=== PATIENT | male | born 1950 | race Caucasian/White ===

== ENCOUNTER 2020-04-13 14:44 | Outpatient (REF) | payer MEDICARE, SELFPAY ==
[2020-04-13 16:03] LABS: Alanine Aminotransferase 19 U/L (0-40); Albumin Level 4.2 g/dL (3.5-5.0); Alkaline Phosphatase 68 U/L (39-117); Anion Gap 15 (12-20); Aspartate Amino Transferase 12 U/L (5-37); Bilirubin Total 0.4 mg/dL (0.0-1.0); Blood Urea Nitrogen 15 mg/dL (9-16); Calcium 8.4 mg/dL (8.4-10.2); Carbon Dioxide 24 mmol/L (22-29); Chloride 104 mmol/L (96-108); Cholesterol 289 mg/dL; Estimated Glomerular Filt Rate > 60; Glucose Fasting 138 mg/dL (60-99); HDL Cholesterol 35 mg/dL; Sodium 139 mmol/L (135-145); Total Protein 6.8 g/dL (6.5-8.0); Triglycerides 501 mg/dL
== END 2020-04-13 14:45 | disposition home or self-care (01) ==
LOC: HO.LAB 14:44
PROVIDERS: PCP Internal Medicine; Visit Provider Internal Medicine
DX: E11.9 Type 2 diabetes mellitus without complications (principal); E78.2 Mixed hyperlipidemia
CPT/HCPCS: 80053; 80061

== ENCOUNTER 2020-04-19 11:07 | Day surgery (SDC) | payer OTHER, SELFPAY ==
--- NOTE | 2020-04-18 09:21 | HO.ANESPROP2 ---
Documented by User: Kelly Jamesney 04/18/20 09:35 HPI - Anesthesia Eval Consult details Narrative: 70yo M for Colonoscopy Cardiac cleared at [facility]. Avoid sudden fluid shifts. FORMERLY [facility] Past Medical History Medical History Afib Anemia Cardiomyopathy CHF (congestive heart failure) COPD (chronic obstructive pulmonary disease) Depression with anxiety Diabetes type 2, uncontrolled Essential hypertension GERD (gastroesophageal reflux disease) Hearing loss HLD (hyperlipidemia) HTN (hypertension) ICD (implantable 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-defibrillator) in place Pure hypercholesterolemia Family History Family History Father Cancer Mother Cancer Family/Other Diabetes CHF (congestive heart failure) Surgical History Surgical History History of cardiac defibrillator placement History of thumb surgery Social History Social History Smoking Status: Never smoker Tobacco Type: Cigarette Use of substances other than those prescribed or required for medical reasons: No Advance Directives: No Advance Directives Information Provided: Yes Meds Allergies Allergy/AdvReac Type Severity Reaction Status Date / Time atorvastatin [Lipitor] Allergy Unknown stomach Verified 04/16/20 14:33 aches dog Allergy Unknown Unknown Verified 04/16/20 14:33 grass Allergy Unknown Unknown Verified 04/16/20 14:33 mosquitos Allergy Unknown Unknown Verified 04/16/20 14:33 roaches Allergy Unknown Unknown Verified 04/16/20 14:33 trees Allergy Unknown Unknown Verified 04/16/20 14:33 Home Medications Medication Instructions Recorded Confirmed Type apixaban 5 mg tablet 5 mg PO BID 04/16/20 04/16/20 History carvedilol 25 mg tablet 50 mg PO BID 04/16/20 04/16/20 History clonazepam 0.5 mg tablet 0.5 mg PO DAILY PRN 04/16/20 04/16/20 History duloxetine 30 mg capsule,delayed 30 mg PO BID 04/16/20 04/16/20 History release duloxetine 60 mg capsule,delayed 0 mg PO 04/16/20 04/16/20 History release famotidine 40 mg tablet 0 mg PO 04/16/20 04/16/20 History gabapentin 400 mg capsule 400 mg PO TID 04/16/20 04/16/20 History insulin degludec 100 unit/mL (3 unit SUBCUT 04/16/20 04/16/20 History mL) subcutaneous pen lancets 28 gauge #100 ea 04/16/20 04/16/20 History metformin 500 mg tablet,extended 1,000 mg PO BID 04/16/20 04/16/20 History release 24 hr pen needle, diabetic 32 gauge x #50 ea 04/16/20 04/16/20 History sacubitril 49 mg-valsartan 51 mg 1 tab PO BID 04/16/20 04/16/20 History tablet Exam Exam Date and Time: April 18, 2020920 Pertinent Lab Results Pertinent Lab Results: Laboratory Tests 04/13/20 14:55 Sodium 139 Potassium 4.0 Chloride 104 Carbon Dioxide 24 BUN 15 Creatinine 1.01 Narrative Narrative: EKG 01/2020: SR @ 78 with First degree AV block, LAD, Incomplete LBB, ST&T wave abn, consider lateral ischemia ECHO 01/2020: LV sys function severely decreased, EF 15-20%, severe global hypokinesis, akinetic inferoseptal wall, basal inferior, mid inferior, mid inferolateral segments, No obvious valve pathology ICD Interr 10/2019: VVI-40, No arrhythmias noted, Pacing and shock lead impedance stable, Ventricular sensing is adequate, Vent pacing thresholds slightly elevated (reprogrammed 02/28/[address] Canchola to enhance safety), Battery life adequate Assessment and Plan Assessment Anesthesia Assessment: Chart Reviewed Documented by User: Garry Peña MD 04/19/20 12:37 [facility]LY [facility] Past Medical History Medical History Afib Anemia Cardiomyopathy CHF (congestive heart failure) COPD (chronic obstructive pulmonary disease) Depression with anxiety Diabetes type 2, uncontrolled Essential hypertension GERD (gastroesophageal reflux disease) Hearing loss HLD (hyperlipidemia) HTN (hypertension) ICD (implantable 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-defibrillator) in place Pure hypercholesterolemia Family History Family History Father Cancer Mother Cancer Family/Other Diabetes CHF (congestive heart failure) Surgical History Surgical History History of cardiac defibrillator placement History of thumb surgery Social History Social History Smoking Status: Never smoker Tobacco Type: Cigarette Use of substances other than those prescribed or required for medical reasons: No Advance Directives: No Advance Directives Information Provided: Yes Meds Allergies Allergy/AdvReac Type Severity Reaction Status Date / Time atorvastatin [Lipitor] Allergy Unknown stomach Verified 04/16/20 14:33 aches dog Allergy Unknown Unknown Verified 04/16/20 14:33 grass Allergy Unknown Unknown Verified 04/16/20 14:33 mosquitos Allergy Unknown Unknown Verified 04/16/20 14:33 roaches Allergy Unknown Unknown Verified 04/16/20 14:33 trees Allergy Unknown Unknown Verified 04/16/20 14:33 Home Medications Medication Instructions Recorded Confirmed Type apixaban 5 mg tablet 5 mg PO BID 04/16/20 04/16/20 History carvedilol 25 mg tablet 50 mg PO BID 04/16/20 04/16/20 History clonazepam 0.5 mg tablet 0.5 mg PO DAILY PRN 04/16/20 04/16/20 History duloxetine 30 mg capsule,delayed 30 mg PO BID 04/16/20 04/16/20 History release duloxetine 60 mg capsule,delayed 0 mg PO 04/16/20 04/16/20 History release famotidine 40 mg tablet 0 mg PO 04/16/20 04/16/20 History gabapentin 400 mg capsule 400 mg PO TID 04/16/20 04/16/20 History insulin degludec 100 unit/mL (3 unit SUBCUT 04/16/20 04/16/20 History mL) subcutaneous pen lancets 28 gauge #100 ea 04/16/20 04/16/20 History metformin 500 mg tablet,extended 1,000 mg PO BID 04/16/20 04/16/20 History release 24 hr pen needle, diabetic 32 gauge x #50 ea 04/16/20 04/16/20 History sacubitril 49 mg-valsartan 51 mg 1 tab PO BID 04/16/20 04/16/20 History tablet Exam Airway TM Dist: >3cm Neck ROM: Full Denture: Upper and Lower Assessment and Plan Assessment Anesthesia Assessment: Anesthesia Plan Discussed and Chart Reviewed Final Anesthetic Review NPO: Yes ASA Class: IV Final Preanesthetic Review: No Changes in Pt Med Stat, Meds/Allgs Chart Reviewed, Consent Obtained/Reviewed and Anes Risks/Benef Reviewed Patient Risk: High Procedure Risk: Low Anesthetic Plan Anesthetic Plan: MAC: Disposition: Standard PACU
[2020-04-19 11:22] VITALS: BMI 33.6
[2020-04-19 11:30] VITALS: BP 141/75; PULSE 90; RESP 16; TEMP 36.2; O2SAT 97
[2020-04-19 11:31] LABS: Glucose, Whole Blood 115 mg/dL (60-115)
--- NOTE | 2020-04-19 12:31 | P.HPSUR_ITS ---
Pre-Procedural Eval Section B Chief Complaint: SCREENING Relevant Family History (Specify if Yes): No Relevant Social History: None Present Medications: see Short Stay Collaborative assessment Medical History: Significant History (chf,obese, HLP, fatty liver, ICD,asthma) History of Previous Operations: Relevant previous surgery/procedure and date(s) (pacemaker, ICD) Allergies: Allergies Allergy/AdvReac Type Severity Reaction Status Date / Time atorvastatin [Lipitor] Allergy Unknown stomach Verified 04/16/20 14:33 aches dog Allergy Unknown Unknown Verified 04/16/20 14:33 grass Allergy Unknown Unknown Verified 04/16/20 14:33 mosquitos Allergy Unknown Unknown Verified 04/16/20 14:33 roaches Allergy Unknown Unknown Verified 04/16/20 14:33 trees Allergy Unknown Unknown Verified 04/16/20 14:33 Review of Systems Sugical H&P ROS: Negative: Constitution, Cardiovascular, Respiratory, Neurological, Psychiatric, Hem-Onc, Allergic/Immunologic, Gastrointestinal, Genitourinary, Musculoskeletal, Integumentary, Endocrine and Eyes/Ears/Nose/Throat Exam Surgical H&P Exam: Normal: HEENT, Normal: Heart, Normal: Lungs, Normal: Ext remities, Normal: Abdomen, Normal: Skin and Normal: Neurological Plan Diagnosis/Plan: Unchanged Patient has been examined and remains a candidate for the planned procedure
--- NOTE | 2020-04-19 12:32 | PM.OP ---
Brief Operative Note Date of Service: 04/19/20 Pre-op diagnosis: colon screen Post-op diagnosis: same Procedure: see op note Surgeon: Elpidio Zuñiga MD Anesthesia: MAC Estimated blood loss (mL): 0 Condition: stable Disposition: PACU
--- NOTE | 2020-04-19 12:32 | W.PM.OPN ---
Operative Note Operative Note Date of Service: 04/19/20 Narrative: Operative Information Procedure Description: Colonoscopy COLONOSCOPY Instrument: Olympus variable stiffness pediatric scope 190L Colonoscopy Monitoring: Vital signs and clinical assessment, continuous EKG monitoring, Pulse oximetry, Carbon Dioxide monitoring and blood pressure monitoring were done throughout the procedure. Colon withdrawal time was [] minutes. Procedure: The patient was placed in the left lateral decubitis position and pre-procedure medications were administered. After a digital rectal examination of the ano-rectum, the video colonoscope was inserted into the rectum and advanced through the colon to the cecum/TI. The colonoscope was slowly withdrawn in a retrograde panoramic fashion and the colon mucosa was carefully examined including a retroflexed view of the rectum. Findings and interventions are described below. Procedure Difficulty: Findings: Terminal Ileum-normal Cecum:normal Ascending Colon: normal Transverse Colon -normal Descending Colon:normal Sigmoid Colon: normal Rectum: Retroflexion with [] internal hemorrhoids, grade [] Anorectum - normal Colon preparation: [place] Bowel Preparation Scale Right colon; [] Transverse colon: [] Left colon; [] (0 = Unprepared colon segment with mucosa not seen due to solid stool that cannot be cleared. 1 = Portion of mucosa of the colon segment seen, but other areas of the colon segment not well seen due to staining, residual stool and/or opaque liquid. 2 = Minor amount of residual staining, small fragments of stool and/or opaque liquid, but mucosa of colon segment seen well. 3 = Entire mucosa of colon segment seen well with no residual staining, small fragments of stool or opaque liquid) Impression and Post Procedure Diagnosis: [] Plan: High fiber diet leaflet Avoid straining at stool, epsom salts and sitz bath, anusol supps or cream Repeat Colonoscopy in [] years or earlier if clincially indicated Above findings were reviewed with the patient and relevant handouts were provided if indicated.
--- NOTE | 2020-04-19 13:19 | P.OP_ITS ---
Operative Note Operative Note Date of Service: 04/19/20 Narrative: Operative Information Procedure Description: Colonoscopy COLONOSCOPY Instrument: Olympus variable stiffness pediatric scope 190L Colonoscopy Monitoring: Vital signs and clinical assessment, continuous EKG monitoring, Pulse oximetry, Carbon Dioxide monitoring and blood pressure monitoring were done throughout the procedure. Colon withdrawal time was 16 minutes. Procedure: The patient was placed in the left lateral decubitis position and pre-procedure medications were administered. After a digital rectal examination of the ano-rectum, the video colonoscope was inserted into the rectum and advanced through the colon to the cecum/TI. The colonoscope was slowly withdrawn in a retrograde panoramic fashion and the colon mucosa was carefully examined including a retroflexed view of the rectum. Findings and interventions are described below. Procedure Difficulty: mildly difficult due to prep Findings: Terminal Ileum-not seen due to debris and poor prep Cecum:normal Ascending Colon: normal Transverse Colon -normal Descending Colon: diverticulosis noted Sigmoid Colon: severe diverticulosis with multiple wide mouthed tics, 12 mm pedunculated polyp removed with cold snare and base of stalk clipped x 2, with no bleeding noted. another 6-7 mm sessile polyp removed with cold snare. Rectum: Retroflexion with moderate sized internal hemorrhoids, grade I Anorectum - normal Colon preparation: [place] Bowel Preparation Scale Right colon; 1 Transverse colon: 1 Left colon; 1 (0 = Unprepared colon segment with mucosa not seen due to solid stool that cannot be cleared. 1 = Portion of mucosa of the colon segment seen, but other areas of the colon segment not well seen due to staining, residual stool and/or opaque liquid. 2 = Minor amount of residual staining, small fragments of stool and/or opaque liquid, but mucosa of colon segment seen well. 3 = Entire mucosa of colon segment seen well with no residual staining, small fragments of stool or opaque liquid) Impression and Post Procedure Diagnosis: internal hemorrhoids diverticular disease polyps Plan: High fiber diet leaflet Avoid straining at stool, epsom salts and sitz bath, anusol supps or cream Repeat Colonoscopy in 6-8 months due to poor prep, needs to be compliant with instructions may need 2 d of clears Restart eliquis in 48 hours, if any profuse rectal bleeding needs to come to ED for assessment Above findings were reviewed with the patient and relevant handouts were provided if indicated.
[2020-04-19 13:23] VITALS: BP 114/71; PULSE 95; RESP 16; TEMP 36.2; O2SAT 97
[2020-04-19 13:38] VITALS: PULSE 83; O2SAT 97
[2020-04-19 13:53] VITALS: BP 127/69; PULSE 79; RESP 16; TEMP 36.2; O2SAT 97
== END 2020-04-19 14:23 | disposition home or self-care (01) ==
PROVIDERS: PCP Internal Medicine; Visit Provider Internal Medicine Gastroenterology
PROC: 0DJD8ZZ Inspection of Lower Intestinal Tract, Via Natural or Artificial Opening Endoscopic (ICD-10-PCS; CPT 45378; principal; 2020-04-19 12:30)
DX: Z12.11 Encounter for screening for malignant neoplasm of colon (principal); D12.5 Benign neoplasm of sigmoid colon; K51.40 Inflammatory polyps of colon without complications; K57.30 Diverticulosis of large intestine without perforation or abscess without bleeding; K64.0 First degree hemorrhoids; K21.9 Gastro-esophageal reflux disease without esophagitis; I48.91 Unspecified atrial fibrillation; J44.9 Chronic obstructive pulmonary disease, unspecified; E11.649 Type 2 diabetes mellitus with hypoglycemia without coma; Z79.4 Long term (current) use of insulin; E11.21 Type 2 diabetes mellitus with diabetic nephropathy; I11.0 Hypertensive heart disease with heart failure; I50.9 Heart failure, unspecified; Z79.899 Other long term (current) drug therapy; Z79.01 Long term (current) use of anticoagulants; Z95.810 Presence of automatic (implantable) cardiac defibrillator; Z87.891 Personal history of nicotine dependence; Z88.8 Allergy status to other drugs, medicaments and biological substances
CPT/HCPCS: 45385; 82947; 88305

== ENCOUNTER → 2020-04-24 12:58 | Outpatient (BNVA) | payer OTHER, SELFPAY | PROVIDERS: PCP Internal Medicine; Referring Provider Internal Medicine; Visit Provider Internal Medicine | DX: J98.4 Other disorders of lung (principal); J45.909 Unspecified asthma, uncomplicated; Z79.899 Other long term (current) drug therapy | CPT/HCPCS: 99212 ==

== ENCOUNTER → 2020-05-08 13:51 | Outpatient (BNVA) | payer OTHER, SELFPAY | PROVIDERS: PCP Internal Medicine; Referring Provider Internal Medicine; Visit Provider Internal Medicine Endocrinology, Diabetes & Metabolism | DX: E11.649 Type 2 diabetes mellitus with hypoglycemia without coma (principal); E11.21 Type 2 diabetes mellitus with diabetic nephropathy; I10 Essential (primary) hypertension; E78.00 Pure hypercholesterolemia, unspecified; Z95.810 Presence of automatic (implantable) cardiac defibrillator; Z79.4 Long term (current) use of insulin | CPT/HCPCS: 82947; 99212 ==

== ENCOUNTER 2020-06-18 11:05 | Outpatient (REF) | payer OTHER, SELFPAY ==
[2020-06-18 12:00] LABS: Alanine Aminotransferase 26 U/L (0-40); Albumin Level 4.2 g/dL (3.5-5.0); Alkaline Phosphatase 70 U/L (39-117); Anion Gap 14 (12-20); Aspartate Amino Transferase 12 U/L (5-37); Bilirubin Total 0.3 mg/dL (0.0-1.0); Blood Urea Nitrogen 13 mg/dL (9-16); Calcium 8.7 mg/dL (8.4-10.2); Carbon Dioxide 23 mmol/L (22-29); Chloride 105 mmol/L (96-108); Cholesterol 180 mg/dL; Estimated Glomerular Filt Rate > 60; Glucose Fasting 153 mg/dL (60-99); HDL Cholesterol 36 mg/dL; Potassium 3.8 mmol/l (3.3-5.1); Sodium 138 mmol/L (135-145); Total Protein 6.8 g/dL (6.5-8.0); Triglycerides 431 mg/dL
== END 2020-06-18 11:06 | disposition home or self-care (01) ==
LOC: HO.LAB 11:05
PROVIDERS: Visit Provider Internal Medicine
DX: E78.00 Pure hypercholesterolemia, unspecified (principal); E55.9 Vitamin D deficiency, unspecified
CPT/HCPCS: 36415; 80053; 80061

== ENCOUNTER → 2020-08-13 12:51 | Outpatient (REF) | payer OTHER, SELFPAY ==
--- NOTE | 2020-08-13 12:55 | CA_ITS ---
Transthoracic Echocardiogram Patient (Last, First, Middle): Stephen Mcintosh L Gender: Male Date of : 1950 Age: 70 Procedure Date: 08/13/2020 Procedure Type: Transthoracic Echocardiogram Location: OP Height: 170.18 cm Weight: 97.52 kg BSA: 2.09 m2 Heart Rate: bpm BP: 126 / 80 mmHg Drug And Alcohol Counselor: Referring MD: Bk Canchola MD [employer]: Bk Canchola MD Symptoms: CARDIOMYOPATHY, CHRONIC SYSTOLIC HEART FAILURE, PAROXYSM AF Study Quality: Fair ECG Rhythm: Sinus Conclusions: - 1. Mildly dilated left ventricle with severe LV systolic dysfunction with LVEF of 15-20% with restrictive filling 2. Moderately dilated left atrium 3. Mild aortic regurgitation 4. Normal RV systolic pressure 5. No gross pericardial effusion Findings Left Ventricle Mildly increased left ventricular cavity size. There is normal left ventricular wall thickness. The left ventricular systolic function is severely decreased. The visually estimated ejection fraction is between 15 20%. Spectral Doppler is indicative of a restrictive filling pattern. E/E prime ratio is between 8 and 15 consistent with indeterminate filling pressures. Wall Motion Rest Echo Findings The apical lateral and mid anterolateral segments are hypokinetic. The inferoseptal wall, inferior wall, the apex, apical septum, and mid anteroseptal segments are akinetic. All other scored wall segments showed normal motion. Right Ventricle Normal right ventricular cavity size and systolic function. There is an ICD wire seen in the right ventricle. Atria The left atrium is moderately dilated. There is no evidence of interatrial shunt. The right atrium is mildly dilated. A pacemaker wire is identified in the right atrium. Aortic Valve The aortic valve was not well visualized. There is mild calcification of the aortic valve. There is no aortic valve stenosis. There is mild aortic valve regurgitation. Mitral Valve There is mild anterior and posterior mitral leaflet thickening. There is mild mitral annular calcification. There is trace mitral valve regurgitation. There is no mitral valve stenosis. Pulmonic Valve The pulmonic valve was not well visualized. Tricuspid Valve The right ventricular systolic pressure is normal. The right ventricular systolic pressure is 23 mmHg. There is no evidence of pulmonary hypertension. Great Vessels All visible segments of the aorta are normal in size. The pulmonary artery was not well visualized. Venous The inferior vena cava is normal in size and collapses greater than 50% with inspiration. Pericardium/Pleural There is no evidence of pericardial effusion. Prior Study Comparison No significant change compared to prior study dated: 02/02/2020. Measurements 2D Linear Measurements IVSd: 0.88 0.6-0.9/0.6-1.0 cm LVIDd: 5.86 3.9-5.3/4.2-5.9 cm LVIDd Index: 2.80 2.4-3.2/2.2-3.1 cm/m2 LVIDs: 5.38 2.0-3.6 cm LVPWd: 0.95 0.7-1.1 cm Ao Root: 3.70 2.1-3.5 cm LA Diam: 3.70 2.7-3.8/3.0-4.0 cm LAIDs Index: 1.77 1.5-2.3 cm/m2 LV Mass: 262.38 67-162/88-224 g LV Mass Index: 125.54 43-95/49-115 g/m2 LVOT Diam: 2.70 3.0+(-)1.3 cm 2D Systolic Function EF 4C: 25.90 >55% EF 2C: 21.50 >55% Mitral Valve MV Pk E: 0.94 MV PK A: 0.49 MV Decel Time: 165.00 E/A: 1.90 E'Lateral: 8.16 E'Medial: 3.81 E/E' Med: 24.80 E/E' Lat: 11.60 PHT: 48.00 MVA PHT: 4.58 Decel Grainger: 5.71 Aortic Valve AoV Pk Jamie: 1.66 AoV Mn Jamie: 1.16 AoV VTI: 0.34 AoV Pk Grad: 11.00 Aov Mn Grad: 6.00 ALAN Cont.VTI: 2.60 LVOT LVOT Pk Jamie: 0.72 LVOT Mn Jamie: 0.52 LVOT VTI: 0.16 LVOT Pk Grad: 2.00 LVOT Mn Grad: 1.00 LVOT Diam: 2.70 LVOT Area: 5.73 Diastolic Function MV Pk E: 0.94 MV Pk A: 0.49 E/A: 1.90 E'Medial: 3.81 E/E' Med: 24.80 E' Laterial: 8.16 E/E' Lat: 11.60 Tricuspid Valve TR Pk Jamie: 2.21 TR Pk Grad: 20.00 RA Press: 3.00 RVSP: 23.00 Great Vessels Aorta Ao Root-2D: 3.70 2.0-3.7 cm Pulmonary Valve PV Pk Jamie: 0.92 Peak PV Grad: 3.00 Updated in Other Vendor System with Status of Final Bk Canchola MD electronically signed on 08/13/2020 5:25:02 PM with status of Final
== END ==
LOC: HO.CARD 12:51
PROVIDERS: PCP Internal Medicine; Visit Provider Internal Medicine Cardiovascular Disease
DX: I42.9 Cardiomyopathy, unspecified (principal); I50.22 Chronic systolic (congestive) heart failure; I48.0 Paroxysmal atrial fibrillation
CPT/HCPCS: 93306; Q9957

== ENCOUNTER → 2020-08-28 13:42 | Outpatient (BNVA) | payer OTHER, SELFPAY | PROVIDERS: PCP Internal Medicine; Visit Provider Internal Medicine Cardiovascular Disease | DX: Z45.02 Encounter for adjustment and management of automatic implantable cardiac defibrillator (principal); I50.20 Unspecified systolic (congestive) heart failure; I48.0 Paroxysmal atrial fibrillation; I42.9 Cardiomyopathy, unspecified | CPT/HCPCS: 93005; 99212 ==

== ENCOUNTER → 2020-09-11 14:48 | Outpatient (BNVA) | payer OTHER, SELFPAY | PROVIDERS: PCP Internal Medicine; Visit Provider Internal Medicine Endocrinology, Diabetes & Metabolism | DX: E11.65 Type 2 diabetes mellitus with hyperglycemia (principal); E11.21 Type 2 diabetes mellitus with diabetic nephropathy; E11.649 Type 2 diabetes mellitus with hypoglycemia without coma; Z79.4 Long term (current) use of insulin; I10 Essential (primary) hypertension; E78.00 Pure hypercholesterolemia, unspecified; E55.9 Vitamin D deficiency, unspecified; E66.9 Obesity, unspecified | CPT/HCPCS: 82947; 99212 ==

== ENCOUNTER → 2020-09-25 13:35 | Outpatient (BNVA) | payer OTHER, SELFPAY | PROVIDERS: PCP Internal Medicine; Visit Provider Nurse Practitioner ==

== ENCOUNTER → 2020-10-17 13:46 | Outpatient (BNVA) | payer OTHER, SELFPAY | PROVIDERS: PCP Internal Medicine; Visit Provider Internal Medicine | DX: J44.9 Chronic obstructive pulmonary disease, unspecified (principal); J98.4 Other disorders of lung; E66.9 Obesity, unspecified | CPT/HCPCS: 99212 ==

== ENCOUNTER → 2020-10-25 16:06 | Outpatient (BNVA) | payer OTHER, SELFPAY | PROVIDERS: PCP Internal Medicine; Visit Provider Nurse Practitioner | DX: K57.90 Diverticulosis of intestine, part unspecified, without perforation or abscess without bleeding (principal); D12.6 Benign neoplasm of colon, unspecified; K58.0 Irritable bowel syndrome with diarrhea; K21.9 Gastro-esophageal reflux disease without esophagitis | CPT/HCPCS: Q3014 ==

== ENCOUNTER 2020-11-15 15:31 | Inpatient (IN) | payer OTHER, SELFPAY ==
--- NOTE | 2020-11-15 | ECG_ITS ---
Test Reason : CHEST PAIN Blood Pressure : / mmHG Vent. Rate : 092 BPM Atrial Rate : 375 BPM P-R Int : 000 ms QRS Dur : 112 ms QT Int : 360 ms P-R-T Axes : 000 -36 113 degrees QTc Int : 445 ms Atrial fibrillation Left axis deviation Nonspecific T wave abnormality Abnormal ECG When compared with ECG of 27-APR-2019 13:36, Rhythm change Referred By: Generic ED Physician Electronically Signed By:MAMTA ALBERT
--- NOTE | ~2020-11-15 | XR_ITS ---
EXAMINATION: XR CHEST CLINICAL INFORMATION: Shortness of breath. Chest pain. COMPARISON: Chest x-ray 10/10/2013 TECHNIQUE: Frontal view of the chest was obtained. 10:19 AM FINDINGS: No change position of pacemaker lead in right ventricle. There is moderate central pulmonary vascular congestion and bilateral hazy airspace opacities suggestive of pulmonary edema. No large pleural effusion. No pneumothorax. XR/XR chest 1V IMPRESSION: Congestive heart failure with pulmonary edema.
[2020-11-15 15:40] VITALS: BP 139/73; PULSE 105; RESP 28; TEMP 36.6; O2SAT 89; BMI 32.8
[2020-11-15 18:46] LABS: MANUAL DIFF FLAG NO
[2020-11-15 18:47] LABS: Basophils Percent Auto 0.3 % (0-2); Eosinophils Absolute Auto 0.2 X10*3/uL (0.0-0.4); Hematocrit 41.3 % (42-52); Hemoglobin 14.1 g/dl (14.0-18.0); Imm Gran Abs Auto 0.05 X10*3/uL (0.00-0.03); Imm Gran Pct Auto 0.5 % (0.0-0.4); Lymphocytes Absolute Auto 0.8 X10*3/uL (1.2-4.9); Lymphocytes Percent Auto 7.9 % (20-40); Mean Corpuscular HGB Conc 34.1 g/dl (31.0-36.0); Mean Corpuscular Hemoglobin 32.3 pg (27.0-33.0); Mean Corpuscular Volume 94.7 fL (80-98); Mean Platelet Volume 9.5 fL (9.4-12.4); Monocytes Absolute Auto 1.1 X10*3/uL (0.1-1.2); Monocytes Percent Auto 10.9 % (2-11); Neutrophils Percent Auto 78.4 % (45-73); Platelet Count 246 X10*3/uL (160-400); Red Blood Count 4.36 X10*6/uL (4.60-5.80); Red Cell Distribution Width 14.1 % (11.0-16.0); White Blood Count 10.2 X10*3/uL (4.8-10.8)
[2020-11-15 19:07] LABS: Alanine Aminotransferase 24 U/L (0-40); Albumin Level 4.5 g/dL (3.5-5.0); Alkaline Phosphatase 71 U/L (39-117); Anion Gap 14 (12-20); Aspartate Amino Transferase 17 U/L (5-37); Bilirubin Total 0.8 mg/dL (0.0-1.0); Blood Urea Nitrogen 15 mg/dL (9-16); Calcium 9.1 mg/dL (8.4-10.2); Carbon Dioxide 25 mmol/L (22-29); Chloride 109 mmol/L (96-108); Creatinine Clr Calc Pharmacy 89.3; Estimated Glomerular Filt Rate > 60; Glucose Random 109 mg/dL (60-115); Potassium 4.8 mmol/L (3.3-5.1); Sodium 143 mmol/L (135-145); Total Protein 7.2 g/dL (6.5-8.0)
[2020-11-15 19:10] LABS: B Type Natriuretic Peptide 795 pg/mL (<100); Troponin-I High Sensitivity 7.9 ng/L (<3.5-35.0)
[2020-11-15 19:19] VITALS: BP 134/63; PULSE 74; RESP 16; TEMP 36.4; O2SAT 93
[2020-11-15 19:27] VITALS: PULSE 85
--- NOTE | 2020-11-15 19:42 | ED.CHESTPAIN ---
HPI - Chest Pain General Chief Complaint: Chest Pain Stated Complaint: diff breathing Time Seen by Provider: 11/15/20 19:30 Source: patient and deportation officer Mode of arrival: ambulatory Limitations: language barrier History of Present Illness HPI narrative: 70 yo male with past medical history of hypertension, asthma-COPD overlap syndrome, diabetes mellitus type 2 on long-term current use of insulin, GERD and dyslipidemia, anemia, nonischemic cardiomyopathy with EF 15-20% with ICD, afib on eliquis here with complaints of SOB acute on chronic 2 weeks with dry cough, chest tightness and 5lb weight gain. Using nebulizers with continued symptoms. Related Data Home Medications Medication Instructions Recorded Confirmed clonazepam 0.5 mg tablet 0.5 mg PO DAILY PRN 04/16/20 11/15/20 duloxetine 60 mg capsule,delayed 60 mg PO BEDTIME cap 09/11/20 11/15/20 release lancets 33 gauge #100 ea 10/25/20 11/01/20 duloxetine 30 mg PO DAILY 11/15/20 11/15/20 ketoconazole 1 appl TOPICAL DAILY 11/15/20 11/15/20 rosuvastatin 10 mg PO BEDTIME 11/15/20 11/15/20 Previous Rx's Medication Instructions Recorded lancets 28 gauge #100 ea 06/26/20 albuterol sulfate 90 mcg/actuation 2 puff INHALATION Q6H PRN 30 Days 07/12/20 aerosol inhaler #8.5 g apixaban 5 mg tablet 5 mg PO BID 30 Days #60 tab 07/12/20 sacubitril 49 mg-valsartan 51 mg 1 tab PO BID 30 Days #60 tab 07/12/20 tablet fluticasone furoate 200 1 inh PO DAILY #30 cap 08/27/20 mcg/actuation blister powder for inhalation carvedilol 25 mg tablet 50 mg PO BID 30 Days #120 tab 08/29/20 blood sugar diagnostic #100 ea 09/11/20 dapagliflozin 10 mg tablet 10 mg PO DAILY 90 Days #90 tab 09/11/20 dulaglutide 0.75 mg/0.5 mL 0.75 mg SUBCUT QWEEK 30 Days #2.5 09/11/20 subcutaneous pen injector ml insulin degludec 100 unit/mL (3 10 unit SUBCUT BEDTIME 30 Days #15 04/13/21 mL) subcutaneous pen ml metformin 500 mg tablet,extended 1,000 mg PO BID 90 Days #360 tab 09/11/20 release 24 hr omega-3 fatty acids 1,000 mg 1,000 mg PO BID 30 Days #60 cap 09/11/20 capsule pen needle, diabetic 32 gauge x 1 ea MISCELLANEOUS DAILY 90 Days 09/11/20 #100 ea gabapentin 300 mg capsule 300 mg PO BID 90 Days #180 cap 11/01/20 Allergies Allergy/AdvReac Type Severity Reaction Status Date / Time atorvastatin [Lipitor] Allergy Intermediate stomach Verified 11/01/20 14:41 aches dog Allergy Intermediate Sneezing Verified 11/01/20 14:41 grass Allergy Intermediate Rash Verified 11/01/20 14:41 mosquitos Allergy Intermediate Rash Verified 11/01/20 14:41 roaches Allergy Intermediate Rash Verified 11/01/20 14:41 trees Allergy Intermediate Rash Verified 11/01/20 14:41 Review of Systems Review of Systems: Yes all other systems are reviewed and are negative Constitutional: Constitutional: Reports no additional constitutional complaints, Denies body ache(s), Denies chills, Denies fever(s), Denies headache(s) and Denies weakness Eyes: Eyes: Reports no additional eye complaints and Denies change in vision ENT: Reports system reviewed and no additional complaints, except as documented, Denies dizziness, Denies headache(s), Denies nasal congestion, Denies nasal discharge and Denies neck pain Cardiovascular: Cardiovascular: Reports no additional cardiovascular complaints, Reports chest pain, Denies leg edema and Reports dyspnea Respiratory: Respiratory: Reports no additional respiratory complaints, Denies cough and Reports dyspnea Gastrointestinal: Gastrointestinal: Reports no additional gastrointestinal complaints, Denies abdominal pain, Denies diarrhea, Denies nausea and Denies vomiting Genitourinary: Genitourinary: Denies urinary incontinence Musculoskeletal: Musculoskeletal: Reports no additional musculoskeletal complaints, Denies back pain, Denies arthralgias, Denies joint swelling, Denies neck pain, Denies numbness and Denies tingling Integumentary/Breasts: Skin/Breast: Reports system reviewed and no additional complaints, except as docu and Denies rash Neurologic: Reports system reviewed and no additional complaints, except as documented, Denies Abnormal speech present, Denies dizziness, Denies headache(s), Denies numbness, Denies tingling and Denies weakness PMFSH Past Medical History Attestation statement: The following information was validated with the patient. 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 Mixed hyperlipidemia Obesity (BMI 30-39.9) Paroxysmal atrial fibrillation Restrictive lung disease Seborrheic dermatitis of scalp Vitamin D deficiency Surgical History History of cardiac defibrillator placement History of thumb surgery Family History Family History Father Cancer Mother Cancer Family/Other Diabetes CHF (congestive heart failure) Social History Social History Household Members: None Alcohol intake: never Patient Tobacco Use Status: Never used Tobacco e-Cigarette/Vaping Use: Never Used Second Hand Smoke Exposure: No Advance Directives: No Advance Directives Information Provided: Yes Physical Exam Vital Signs: Vital Signs: Last Vital Signs Temp 97.6 F 11/15/20 19:19 Pulse 74 11/15/20 19:19 Resp 16 11/15/20 19:19 BP 134/63 11/15/20 19:19 Pulse Ox 93 11/15/20 19:19 Body Mass Index 32.8 Const: General: cooperative, healthy appearing, comfortable and no acute distress Orientation/consciousness: patient oriented x3 Limitations: no limitations HENMT: Head: Yes normal to inspection Ears: hearing grossly normal bilaterally General nose exam: Normal external nose present Face and sinus: Yes normal facial exam Mouth: Normal oral and palatal mucosa present Throat: Yes posterior oropharynx normal Eyes: General: appearance normal, both eyes and all related structures Pupils: Equal, round and reactive pupils present Neck: Neck: Yes normal visual inspection Chest: Chest palpation & inspection: normal inspection of the chest Resp: Other: Diminshed breath sounds bilaterally, fine crackles noted with mild exp wheezing Effort & Inspection: normal respiratory effort Cardio: Rate: regular rate Rhythm: regular rhythm Peripheral pulses: Peripheral pulses 2+ throughout GI: Inspection: Yes normal to inspection Palpation (GI): Soft to palpation and nontender Auscultation: normal bowel sounds Back/Spine/Pelvis: Thoracic/Lumbar Spine: thoracic and lumbar spine normal to inspection Skin: General skin exam: no rashes or lesions noted Neuro: General: patient oriented x3, no focal motor deficits and normal sensation to monofilament Cranial nerves: Yes Equal, round and reactive pupils present Cognition (Neuro): normal cognition Speech: No Abnormal speech present Gait exam (Neuro): Normal gait present Motor exam (neuro): 5/5 motor strength present throughout Extrem: General: Yes normal to inspection, Yes no pedal edema and Yes no calf tenderness Course Course Course Narrative: 70 yo male here with complaints of SOB, chest tightness, cough and 5lb weight gain x 2 weeks from what I can tell although he is a poor historian. On exam mild expiratory wheezing with fine crackles throughout. At rest RA saturation 92-93% but with minimal movement decreases to 89%. Will need CXR, labs, EKG, covid screen. 1945-CXR c/w with pulmonary vascular congestion in the setting of elevated BNP from previous. Initial troponin mildly elevated but no ischemic changes on EKG. Will need repeat 3 hr troponin. Patient hypoxic with minimal movement. Will need admission with IV lasix for diuresis. -Discussed case with Dr Cameron who accepted admission. MDM - Chest Pain MDM Narrative Medical decision making narrative: less likely acs with initial troponin only mildly elevated and EKG with no ischemic changes less likely PE with patient fully anticoagulated and reports compliance Medical Records Data Attestation: I reviewed the patient's medical records. Lab Data Attestation: I reviewed the patient's lab results. Result diagrams: 11/15/20 18:42 11/15/20 18:42 Labs: Lab Results 11/15/20 11/15/20 11/15/20 Range/Units 18:42 18:42 18:42 WBC 10.2 (4.8-10.8) X10*3/uL RBC 4.36 L (4.60-5.80) X10*6/uL Hgb 14.1 (14.0-18.0) g/dl Hct 41.3 L (42-52) % MCV 94.7 (80-98) fL MCH 32.3 (27.0-33.0) pg MCHC 34.1 (31.0-36.0) g/dl RDW 14.1 (11.0-16.0) % Plt Count 246 (160-400) X10*3/uL MPV 9.5 (9.4-12.4) fL Immature Gran % (Auto) 0.5 H (0.0-0.4) % Neut % (Auto) 78.4 H (45-73) % Lymph % (Auto) 7.9 L (20-40) % [place] % (Auto) 10.9 (2-11) % Eos % (Auto) 2.0 (0-4) % Baso % (Auto) 0.3 (0-2) % Lymph # (Auto) 0.8 L (1.2-4.9) X10*3/uL [place] # (Auto) 1.1 (0.1-1.2) X10*3/uL Eos # (Auto) 0.2 (0.0-0.4) X10*3/uL Baso # (Auto) 0.0 (0.0-0.2) X10*3/uL Abs Immat Gran (auto) 0.05 H (0.00-0.03) X10*3/uL Absolute Neuts (auto) 8.0 (2.0-8.3) X10*3/uL Absolute Nucleated RBC 0.000 (0.0-0.012) X10*3/uL Nucleated RBC % (auto) 0.0 (0.0-0.2) /100WBC Sodium 143 (135-145) mmol/L Potassium 4.8 (3.3-5.1) mmol/L Chloride 109 H (96-108) mmol/L Carbon Dioxide 25 (22-29) mmol/L Anion Gap 14 (12-20) BUN 15 (9-16) mg/dL Creatinine 0.87 (0.5-1.4) mg/dL Estim Creat Clear Calc 89.3 Estimated GFR > 60 Random Glucose 109 (60-115) mg/dL Calcium 9.1 (8.4-10.2) mg/dL Total Bilirubin 0.8 (0.0-1.0) mg/dL AST 17 D (5-37) U/L ALT 24 (0-40) U/L Alkaline Phosphatase 71 (39-117) U/L Troponin I High Sens 7.9 (<3.5-35.0) ng/L B-Natriuretic Peptide 795 H (<100) pg/mL Total Protein 7.2 (6.5-8.0) g/dL Albumin 4.5 (3.5-5.0) g/dL Imaging Data Chest x-ray: Attestation: I personally reviewed and interpreted this imaging study as follows: Radiologist's impression: [address] [id number] ReportSigned Patient: Stephen Mcintosh LMR#: [id number]: 2Acct:[id number]/Sex: 70 / MADM Date: 11/15/20Loc: EDAttending Dr: Ordering Physician: Generic ED Physician Date of Service: 11/15/20 Procedure(s): XR chest 1V Accession Number(s): [id number] cc: Generic ED Physician~ EXAMINATION: XR CHEST CLINICAL INFORMATION: Shortness of breath. Chest pain. COMPARISON: Chest x-ray 10/10/2013 TECHNIQUE: Frontal view of the chest was obtained. 10:19 AM FINDINGS: No change position of pacemaker lead in right ventricle. There is moderate central pulmonary vascular congestion and bilateral hazy airspace opacities suggestive of pulmonary edema. No large pleural effusion. No pneumothorax. XR/XR chest 1V IMPRESSION: Congestive heart failure with pulmonary edema. ECG Data ECG #1: Attestation: I personally reviewed and interpreted this ECG as follows: ECG interpretation date: 11/15/20 ECG interpretation time: 15:48 Interpretation: A flutter with variable av rate, normal qrs, normal qtc Discharge Plan Discharge Clinical Impression: CHF (congestive heart failure) Patient Disposition: Admitted As Inpatient
--- NOTE | 2020-11-15 20:06 | HE.PHANOTE ---
Pharmacy Consult ? Medication Reconciliation Pharmacy has completed the medication reconciliation and there were no significant medication issues requiring provider attention. Bharti BaptisteD
[2020-11-15] MEDS: Furosemide 40 MG/4 ML VIAL IVPUSH (20:12)
[2020-11-15 20:29] VITALS: BP 128/67; PULSE 84; RESP 18; TEMP 36.4; O2SAT 93
[2020-11-15 20:52] LABS: COVID-19 Test Negative (Negative)
[2020-11-15] MEDS: Albuterol/Iprat 2.5/0.5MG 3 ML AMPUL.NEB INHALE (21:13)
[2020-11-15 21:16] VITALS: PULSE 77; O2SAT 93
[2020-11-15 22:55] LABS: Troponin-I High Sensitivity 8.6 ng/L (<3.5-35.0)
--- NOTE | 2020-11-15 23:14 | P.HPHOSP_ITS ---
History of Present Illness Date of Service: 11/15/20 Chief Complaint: SOB This is a Ecuadorean-speaking male only and history is obtained with the help of manager stars 70-year-old male with past medical history of nonischemic cardiomyopathy with ejection fraction around 15%, status post ICD placement, paroxysmal AFib, mixed hyperlipidemia, diabetes, asthma COPD overlap syndrome, HTN, hearing loss, depression anxiety among others who presents to the hospital with complaints of shortness of breath. Patient reports that his symptoms started about 1-2 weeks ago, he thought he may have had his COPD exacerbation, was using his inhalers, with no relief of his symptoms, he has symptoms worsened last night when he de veloped dyspnea, orthopnea, PND, he also has swelling of his arms bilaterally no swelling in the legs. he denies any fever, some chills, no chest pain, he has some on and off cough that is nonproductive, denies any abdominal pain nausea or vomiting, no diarrhea constipation, no urinary symptoms and no lower extremity edema. Patient denies having any access salt in his recent diet, reports that he was on a diuretic but does not remember the name of it and he reports he stop taking it unclear why Arrival to the ED vitals are significant for temp of 97.9?, heart rate of 105, respiratory rate of 28, blood pressure 139/73, satting 89% on room air. Lab significant for For WBC count of 10.2, hemoglobin 14.1, BNP of 795, Chest x-ray shows congestive heart failure with pulmonary edema EKG showed a flutter with variable AV block, with nonspecific T-wave abnormality Past medical history as above and confirmed with patient Review of Systems Review of Systems: Yes all other systems are reviewed and are negative [facility] Medical History Anemia Asthma Asthma-COPD overlap syndrome Cardiomyopathy Cardiomyopathy COPD (chronic obstructive pulmonary disease) Depression with anxiety Diabetes type 2, uncontrolled Diabetic nephropathy associated with type 2 diabetes mellitus Essential hypertension GERD (gastroesophageal reflux disease) Hearing loss Hearing loss Heart failure with reduced ejection fraction HLD (hyperlipidemia) HTN (hypertension) Hypoglycemia unawareness associated with type 2 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 Mixed hyperlipidemia Obesity (BMI 30-39.9) Paroxysmal atrial fibrillation Restrictive lung disease Seborrheic dermatitis of scalp Vitamin D deficiency Family History Father Cancer Mother Cancer Family/Other Diabetes CHF (congestive heart failure) Surgical History History of cardiac defibrillator placement History of thumb surgery Social History Household Members: None Alcohol intake: never Patient Tobacco Use Status: Never used Tobacco e-Cigarette/Vaping Use: Never Used Second Hand Smoke Exposure: No Use of substances other than those prescribed or required for medical reasons: No Have you been hit, kicked, punched, or otherwise hurt by someone within the past year? If so, by whom?: No Do you feel safe in your current relationship?: Yes Is there a partner from a previous relationship who is making you feel unsafe now?: No Are you made to feel afraid or neglected: No Advance Directives: No Advance Directives Information Provided: Yes Do you have thoughts of harming others: None Do you have a plan to hurt others: No Plan Recently lost weight without trying: No Eating poorly because of decreased appetite: No Nutrition Risks: No Nutritional Risk Poor oral hygiene: No Meds Allergies Allergy/AdvReac Type Severity Reaction Status Date / Time atorvastatin [Lipitor] Allergy Intermediate stomach Verified 11/01/20 14:41 aches dog Allergy Intermediate Sneezing Verified 11/01/20 14:41 grass Allergy Intermediate Rash Verified 11/01/20 14:41 mosquitos Allergy Intermediate Rash Verified 11/01/20 14:41 roaches Allergy Intermediate Rash Verified 11/01/20 14:41 trees Allergy Intermediate Rash Verified 11/01/20 14:41 Active Medications: Current Medications Generic Name Dose Route Start Last Admin Trade Name Freq PRN Reason Stop Dose Admin Insulin Human Lispro 0 unit 11/16/20 07:30 Insulin Lispro 100 Unit/Ml 3 Ml Vial SUBCUT QIDACHS [facility] Protocol Pharmacy Consult 1 each 11/15/20 19:32 Consult Rx Perform Med Rec MISCELLANE ONCE PRN Consult order Home Medications Medication Instructions Recorded Confirmed Last Taken Type clonazepam 0.5 mg tablet 0.5 mg PO DAILY PRN 04/16/20 11/15/20 Unknown History duloxetine 60 mg capsule,delayed 60 mg PO BEDTIME cap 04/13/21 06/17/21 06/16/21 History release lancets 33 gauge #100 ea 10/25/20 11/01/20 Unknown History duloxetine 30 mg PO DAILY 11/15/20 11/15/20 11/15/20 History ketoconazole 1 appl TOPICAL DAILY 11/15/20 11/15/20 Unknown History rosuvastatin 10 mg PO BEDTIME 11/15/20 11/15/20 11/14/20 History Physical Exam Vital Signs and Narrative: Vital Signs: Last Vital Signs Temp 97.6 F 11/15/20 20:29 Pulse 77 11/15/20 21:16 Resp 18 11/15/20 20:29 BP 128/67 11/15/20 20:29 Pulse Ox 93 11/15/20 20:29 Body Mass Index 32.8 Const: General: cooperative and no acute distress Orientation/consciousness: patient oriented x3 Eyes: General: appearance normal, both eyes and all related structures Resp: Effort & Inspection: normal respiratory effort and able to speak in complete sentences Cardio: Rate: regular rate Rhythm: regular rhythm GI: Palpation (GI): Soft to palpation Auscultation: normal bowel sounds Skin: General skin exam: no rashes or lesions noted Neuro: General: patient oriented x3 Cognition (Neuro): normal cognition Extrem: General: Yes normal to inspection and Yes no pedal edema Results Labs CBC and Chem 7: 11/15/20 18:42 11/15/20 18:42 Labs: Laboratory Results - last 24 hr 11/15/20 11/15/20 11/15/20 18:42 18:42 18:42 MCV 94.7 MCH 32.3 MCHC 34.1 RDW 14.1 Plt Count 246 MPV 9.5 Immature Gran % (Auto) 0.5 H Neut % (Auto) 78.4 H Lymph % (Auto) 7.9 L [place] % (Auto) 10.9 Eos % (Auto) 2.0 Baso % (Auto) 0.3 Lymph # (Auto) 0.8 L [place] # (Auto) 1.1 Eos # (Auto) 0.2 Baso # (Auto) 0.0 Abs Immat Gran (auto) 0.05 H Absolute Neuts (auto) 8.0 Absolute Nucleated RBC 0.000 Nucleated RBC % (auto) 0.0 Anion Gap 14 Estim Creat Clear Calc 89.3 Estimated GFR > 60 Random Glucose 109 Calcium 9.1 Total Bilirubin 0.8 AST 17 D ALT 24 Alkaline Phosphatase 71 Troponin I High Sens 7.9 B-Natriuretic Peptide 795 H Total Protein 7.2 Albumin 4.5 COVID-19 (SUZIE) COVID-19 Clin Com 11/15/20 11/15/20 20:27 22:27 MCV MCH MCHC RDW Plt Count MPV Immature Gran % (Auto) Neut % (Auto) Lymph % (Auto) [place] % (Auto) Eos % (Auto) Baso % (Auto) Lymph # (Auto) [place] # (Auto) Eos # (Auto) Baso # (Auto) Abs Immat Gran (auto) Absolute Neuts (auto) Absolute Nucleated RBC Nucleated RBC % (auto) Anion Gap Estim Creat Clear Calc Estimated GFR Random Glucose Calcium Total Bilirubin AST ALT Alkaline Phosphatase Troponin I High Sens 8.6 B-Natriuretic Peptide Total Protein Albumin COVID-19 (SUZIE) Negative COVID-19 Clin Com See Note Imaging Radiologist's Impressions: Impressions Chest X-Ray 11/15/20 16:21 IMPRESSION: Congestive heart failure with pulmonary edema. Assessment and Plan (1) Acute on chronic HFrEF (heart failure with reduced ejection fraction): Status: Acute (2) Atrial flutter: Status: Acute 70-year-old male with past medical history of non ischemic cardiomyopathy with an ejection fraction of 15 present who presents to the hospital with shortness of breath found to be in CHF exacerbation # acute on chronic heart failure with reduced ejection fraction - patient has orthopnea, PND, dyspnea, as well as chest x-ray showing pulmonary congestion, elevated BNP - patient not on diuretic at home - EKG shows a flutter with no ACS - troponin not significantly elevated - at this time will treat him with Lasix 40 daily, strict I&O, daily weight, low-sodium diet - cardiology consult - will hold off on ordering echo given recent echo done in July of this year - continue Entresto # a flutter - has history of paroxysmal AFib - on apixaban- continue - continue carvedilol # hypertension - stable - will continue home medications # diabetes mellitus - hold oral antihyperglycemics - continue home insulin - will add low-dose sliding scale insulin - diabetic diet # asthma/COPD - no acute exacerbation - continue home inhalers DVT prophylaxis: Apixaban Quality Stroke Does the patient have a stroke diagnosis?: No VTE Prior VTE?: No VTE Risk Level:: Medical - moderate - high VTE Device Contraindication: Treatment Not Indicated VTE Drug Contraindication: N/A - Med Ordered
--- NOTE | 2020-11-15 23:26 | PC.NURSE ---
NURSE TO NURSE REPORT GIVEN TO KVNG RAMIREZ
[2020-11-15 23:52] LABS: Glucose, Whole Blood 97 mg/dL (60-115)
[2020-11-15 23:54] VITALS: BP 145/73; PULSE 84; RESP 19; TEMP 36.5; O2SAT 93
[2020-11-16] VITALS (8 sets, daily range): BP systolic 107–137; BP diastolic 50–62; PULSE 70–95; RESP 18–20; TEMP 36.1–37; O2SAT 92–96; BMI 32.1
[2020-11-16] MEDS: Gabapentin 300 MG CAPSULE PO ×3 (00:06→21:14)
[2020-11-16] MEDS: carvediloL 12.5 MG TABLET 50 MG PO ×3 (00:06→21:14)
[2020-11-16] MEDS: DULoxetine HCl 60 MG CAPSULE.DR PO ×2 (00:06→21:14)
[2020-11-16] MEDS: Apixaban 5 MG TABLET PO ×3 (00:06→21:14)
[2020-11-16] MEDS: 0.9 % Sodium Chloride Flush 3 ML SYRINGE IVFLUSH ×4 (00:07→21:20)
[2020-11-16 01:04] LABS: Troponin-I High Sensitivity 11.4 ng/L (<3.5-35.0)
[2020-11-16] MEDS: Sacubitril/Valsartan 49/51 1 TAB TABLET PO ×3 (01:19→21:14)
[2020-11-16 06:36] LABS: MANUAL DIFF FLAG NO
[2020-11-16 06:56] LABS: Basophils Percent Auto 0.5 % (0-2); Eosinophils Absolute Auto 0.2 X10*3/uL (0.0-0.4); Eosinophils Percent Auto 2.8 % (0-4); Hematocrit 40.8 % (42-52); Hemoglobin 13.7 g/dl (14.0-18.0); Imm Gran Abs Auto 0.08 X10*3/uL (0.00-0.03); Lymphocytes Percent Auto 12.4 % (20-40); Mean Corpuscular HGB Conc 33.6 g/dl (31.0-36.0); Mean Corpuscular Hemoglobin 31.4 pg (27.0-33.0); Mean Corpuscular Volume 93.6 fL (80-98); Mean Platelet Volume 10.3 fL (9.4-12.4); Monocytes Absolute Auto 1.2 X10*3/uL (0.1-1.2); Monocytes Percent Auto 15.7 % (2-11); Neutrophils Absolute Auto 5.3 X10*3/uL (2.0-8.3); Neutrophils Percent Auto 67.6 % (45-73); Platelet Count 240 X10*3/uL (160-400); Red Blood Count 4.36 X10*6/uL (4.60-5.80); Red Cell Distribution Width 13.8 % (11.0-16.0); White Blood Count 7.8 X10*3/uL (4.8-10.8)
[2020-11-16 07:21] LABS: Glucose, Whole Blood 104 mg/dL (60-115)
[2020-11-16 07:33] LABS: Anion Gap 16 (12-20); Blood Urea Nitrogen 20 mg/dL (9-16); Calcium 8.6 mg/dL (8.4-10.2); Carbon Dioxide 21 mmol/L (22-29); Chloride 106 mmol/L (96-108); Creatinine Clr Calc Pharmacy 88.3; Estimated Glomerular Filt Rate > 60; Glucose Random 119 mg/dL (60-115); Potassium 3.8 mmol/L (3.3-5.1); Sodium 139 mmol/L (135-145)
[2020-11-16] MEDS: Furosemide 40 MG/4 ML VIAL IVPUSH (10:38)
[2020-11-16] MEDS: DULoxetine HCl 30 MG CAPSULE.DR PO (10:38)
--- NOTE | 2020-11-16 10:46 | P.CONCA_ITS ---
History of Present Illness History of Present Illness Date of Service: 11/16/20 Consult reason: congestive heart failure Chief complaint: CHF excerbation Narrative: This is a cardiology consultation regarding congestive heart failure. Patient has a history of nonischemic cardiomyopathy with low ejection fraction and also has an ICD in place. He has a history of paroxysmal atrial fibrillation and multiple medical comorbidities. He is presenting to the hospital with complaints of shortness of breath. It started a couple weeks ago and he thought he was having COPD but tried inhalers. No relief of symptoms and the continue to worsen and hence he is in the hospital. No swelling in his legs. We have been asked to see him from cardiac standpoint. Review of Systems Review of Systems: Yes all other systems are reviewed and are negative Cardiovascular: Cardiovascular: Reports as per HPI, Reports no additional cardiovascular complaints, Denies acrocyanosis, Denies cool extremities, Denies painful fingertips, Denies chest pain, Denies chest pain at rest, Denies diaphoresis, Denies syncope, Denies irregular heart rhythm, Denies claudication, Denies leg edema, Denies lightheadedness, Denies palpitations and Reports dyspnea Respiratory: Respiratory: Reports dyspnea Neurologic: Denies syncope Endocrine: Endocrine: Denies palpitations PMFSH Past Medical History Medical History Anemia Asthma Asthma-COPD overlap syndrome Cardiomyopathy Cardiomyopathy COPD (chronic obstructive pulmonary disease) Depression with anxiety Diabetes type 2, uncontrolled Diabetic nephropathy associated with type 2 diabetes mellitus Essential hypertension GERD (gastroesophageal reflux disease) Hearing loss Hearing loss Heart failure with reduced ejection fraction HLD (hyperlipidemia) HTN (hypertension) Hypoglycemia unawareness associated with type 2 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 nursing home (current) use of insulin Mixed hyperlipidemia Obesity (BMI 30-39.9) Paroxysmal atrial fibrillation Restrictive lung disease Seborrheic dermatitis of scalp Vitamin D deficiency Family History Family History Father Cancer Mother Cancer Family/Other Diabetes CHF (congestive heart failure) Surgical History Surgical History History of cardiac defibrillator placement History of thumb surgery Social History Social History Household Members: None Alcohol intake: never Patient Tobacco Use Status: Never used Tobacco e-Cigarette/Vaping Use: Never Used Second Hand Smoke Exposure: No Use of substances other than those prescribed or required for medical reasons: No Currently Displaying Signs/Symptoms of Drug Intoxication Withdrawal: No Have you been hit, kicked, punched, or otherwise hurt by someone within the past year? If so, by whom?: No Do you feel safe in your current relationship?: Yes Is there a partner from a previous relationship who is making you feel unsafe now?: No Are you made to feel afraid or neglected: No Advance Directives: No Advance Directives Information Provided: Yes Do you have thoughts of harming others: None Do you have a plan to hurt others: No Plan Recently lost weight without trying: No Eating poorly because of decreased appetite: No Nutrition Risks: No Nutritional Risk Poor oral hygiene: No Meds Allergies Allergy/AdvReac Type Severity Reaction Status Date / Time atorvastatin [Lipitor] Allergy Intermediate stomach Verified 11/01/20 14:41 aches dog Allergy Intermediate Sneezing Verified 11/01/20 14:41 grass Allergy Intermediate Rash Verified 11/01/20 14:41 mosquitos Allergy Intermediate Rash Verified 11/01/20 14:41 roaches Allergy Intermediate Rash Verified 11/01/20 14:41 trees Allergy Intermediate Rash Verified 11/01/20 14:41 Active Medications: Current Medications Generic Name Dose Route Start Last Admin Trade Name Freq PRN Reason Stop Dose Admin Acetaminophen 650 mg 11/15/20 23:45 Acetaminophen 325 Mg Tablet PO Q6H PRN Pain, Mild (Pain Scale 1-3) Albuterol Sulfate 2 puff 11/15/20 23:45 Albuterol Sulfate 90 Mcg 8 Gm Inhaler INHALE Q6H PRN bronchospasm Apixaban 5 mg 11/15/20 23:45 11/16/20 10:38 Apixaban 5 Mg Tablet PO 5 mg BID VANDA Administration Carvedilol 50 mg 11/15/20 23:45 11/16/20 10:38 Carvedilol 12.5 Mg Tablet PO 50 mg BID VANDA Administration Protocol Clonazepam 0.5 mg 11/15/20 23:45 Clonazepam 0.5 Mg Tablet PO DAILY PRN Anxiety Docusate Sodium 100 mg 11/15/20 23:45 Docusate Sodium 100 Mg Capsule PO DAILY PRN Constipation Duloxetine HCl 30 mg 11/16/20 09:00 11/16/20 10:38 Duloxetine Hcl 30 Mg Capsule. PO 30 mg DAILY VANDA Administration Duloxetine HCl 60 mg 11/15/20 23:45 11/16/20 00:06 Duloxetine Hcl 60 Mg Capsule. PO 60 mg BEDTIME VANDA Administration Furosemide 40 mg 11/16/20 09:00 11/16/20 10:38 Furosemide 40 Mg/4 Ml Vial IVPUSH 40 mg DAILY VANDA Administration Protocol Gabapentin 300 mg 11/15/20 23:45 11/16/20 10:38 Gabapentin 300 Mg Capsule PO 300 mg BID VANDA Administration Insulin Human Lispro 0 unit 11/16/20 07:30 11/16/20 07:30 Insulin Lispro 100 Unit/Ml 3 Ml Vial SUBCUT Not Given QIDACHS [facility] Protocol Ketoconazole 1 appl 11/16/20 09:00 Ketoconazole 2 % Shampoo 120 Ml Btl TOPICAL DAILY [facility] Protocol Non-Formulary Medication 1 inhalation 11/16/20 09:00 Fluticasone Furoate [Arnuity Ellipta] PO DAILY VANDA Non-Formulary Medication 10 unit 11/15/20 23:45 Insulin Degludec [Tresiba Flextouch U-100] SUBCUT BEDTIME VANDA Non-Formulary Medication 10 mg 11/15/20 23:45 Rosuvastatin PO BEDTIME VANDA Ondansetron HCl 4 mg 11/15/20 23:45 Ondansetron Hcl 4 Mg/2 Ml Vial IVPUSH Q8H PRN Nausea and Vomiting Pharmacy Consult 1 each 11/15/20 19:32 Consult Rx Perform Med Rec MISCELLANE ONCE PRN Consult order Sacubitril/Valsartan 1 tab 11/15/20 23:45 11/16/20 10:37 Sacubitril/Valsartan 49/51 1 Tab Tablet PO 1 tab BID VANDA Administration Protocol Sodium Chloride 3 ml 11/16/20 00:00 11/16/20 10:40 0.9 % Sodium Chloride Flush 3 Ml Syringe IVFLUSH 3 ml QSHIFT VANDA Administration Home Medications Medication Instructions Recorded Confirmed Last Taken Type clonazepam 0.5 mg tablet 0.5 mg PO DAILY PRN 04/16/20 11/15/20 Unknown History duloxetine 60 mg capsule,delayed 60 mg PO BEDTIME cap 0411/15/20 11/14/20 History release lancets 33 gauge #100 ea 10/25/20 11/01/20 Unknown History duloxetine 30 mg PO DAILY 11/15/20 11/15/20 11/15/20 History ketoconazole 1 appl TOPICAL DAILY 11/15/20 11/15/20 Unknown History rosuvastatin 10 mg PO BEDTIME 11/15/20 11/15/20 11/14/20 History Physical Exam Vital Signs: Vital Signs: Last Vital Signs Temp 98.0 F 11/16/20 07:29 Pulse 89 11/16/20 10:38 Resp 20 11/16/20 07:29 BP 107/58 L 11/16/20 10:38 Pulse Ox 95 11/16/20 07:29 Body Mass Index 32.1 Const: General: cooperative and no acute distress HENMT: Other: Unremarkable Neck: Neck: Yes normal visual inspection Chest: Chest palpation & inspection: normal inspection of the chest Resp: Auscultation: clear to auscultation bilaterally, crackles bilateral at the base and no wheezes Cardio: Jugular venous distension: no JVD Palpation: normal PMI Heart sounds: S1 normal heart sound present, S2 normal heart sound present, no gallops, Murmur heart sound present systolic early, II/ and at the right sternal border and no rubs GI: Palpation (GI): Soft to palpation Back/Spine/Pelvis: Other: unremarkable Skin: General skin exam: no rashes or lesions noted Neuro: Cranial nerves: Yes Other cranial nerve findings present Extrem: General: Yes no clubbing, cyanosis or edema Psych: Mental Status: other Results Labs and Meds Result diagrams: 11/16/20 05:43 11/16/20 05:43 Lab results: Laboratory Results - last 24 hr 11/15/20 11/15/20 11/15/20 18:42 18:42 18:42 WBC 10.2 RBC 4.36 L Hgb 14.1 Hct 41.3 L MCV 94.7 MCH 32.3 MCHC 34.1 RDW 14.1 Plt Count 246 MPV 9.5 Immature Gran % (Auto) 0.5 H Neut % (Auto) 78.4 H Lymph % (Auto) 7.9 L [place] % (Auto) 10.9 Eos % (Auto) 2.0 Baso % (Auto) 0.3 Lymph # (Auto) 0.8 L [place] # (Auto) 1.1 Eos # (Auto) 0.2 Baso # (Auto) 0.0 Abs Immat Gran (auto) 0.05 H Absolute Neuts (auto) 8.0 Absolute Nucleated RBC 0.000 Nucleated RBC % (auto) 0.0 Sodium 143 Potassium 4.8 Chloride 109 H Carbon Dioxide 25 Anion Gap 14 BUN 15 Creatinine 0.87 Estim Creat Clear Calc 89.3 Estimated GFR > 60 POC Glucose Random Glucose 109 Calcium 9.1 Total Bilirubin 0.8 AST 17 D ALT 24 Alkaline Phosphatase 71 Troponin I High Sens 7.9 B-Natriuretic Peptide 795 H Total Protein 7.2 Albumin 4.5 COVID-19 (SUZIE) COVID-Partnered 11/15/20 11/15/20 11/15/20 20:27 22:27 23:47 WBC RBC Hgb Hct MCV MCH MCHC RDW Plt Count MPV Immature Gran % (Auto) Neut % (Auto) Lymph % (Auto) [place] % (Auto) Eos % (Auto) Baso % (Auto) Lymph # (Auto) [place] # (Auto) Eos # (Auto) Baso # (Auto) Abs Immat Gran (auto) Absolute Neuts (auto) Absolute Nucleated RBC Nucleated RBC % (auto) Sodium Potassium Chloride Carbon Dioxide Anion Gap BUN Creatinine Estim Creat Clear Calc Estimated GFR POC Glucose 97 Random Glucose Calcium Total Bilirubin AST ALT Alkaline Phosphatase Troponin I High Sens 8.6 B-Natriuretic Peptide Total Protein Albumin COVID-19 (SUZIE) Negative COVID-Partnered See Note 11/16/20 11/16/20 11/16/20 00:00 05:43 05:43 WBC 7.8 RBC 4.36 L Hgb 13.7 L Hct 40.8 L MCV 93.6 MCH 31.4 MCHC 33.6 RDW 13.8 Plt Count 240 MPV 10.3 Immature Gran % (Auto) 1.0 H Neut % (Auto) 67.6 Lymph % (Auto) 12.4 L [place] % (Auto) 15.7 H Eos % (Auto) 2.8 Baso % (Auto) 0.5 Lymph # (Auto) 1.0 L [place] # (Auto) 1.2 Eos # (Auto) 0.2 Baso # (Auto) 0.0 Abs Immat Gran (auto) 0.08 H Absolute Neuts (auto) 5.3 Absolute Nucleated RBC 0.000 Nucleated RBC % (auto) 0.0 Sodium 139 Potassium 3.8 D Chloride 106 Carbon Dioxide 21 L Anion Gap 16 BUN 20 H Creatinine 0.87 Estim Creat Clear Calc 88.3 Estimated GFR > 60 POC Glucose Random Glucose 119 H Calcium 8.6 Total Bilirubin AST ALT Alkaline Phosphatase Troponin I High Sens 11.4 B-Natriuretic Peptide Total Protein Albumin COVID-19 (SUZIE) COVID-19 Clin Com 11/16/20 07:13 WBC RBC Hgb Hct MCV MCH MCHC RDW Plt Count MPV Immature Gran % (Auto) Neut % (Auto) Lymph % (Auto) [place] % (Auto) Eos % (Auto) Baso % (Auto) Lymph # (Auto) [place] # (Auto) Eos # (Auto) Baso # (Auto) Abs Immat Gran (auto) Absolute Neuts (auto) Absolute Nucleated RBC Nucleated RBC % (auto) Sodium Potassium Chloride Carbon Dioxide Anion Gap BUN Creatinine Estim Creat Clear Calc Estimated GFR POC Glucose 104 Random Glucose Calcium Total Bilirubin AST ALT Alkaline Phosphatase Troponin I High Sens B-Natriuretic Peptide Total Protein Albumin COVID-19 (SUZIE) COVID-19 Clin Com ECG Attestation: I personally reviewed and interpreted this ECG as follows: Interpretation: EKG shows probably atrial flutter versus coarse atrial fibrillation at 92/Min; leftward axis; nonspecific interventricular conduction defect. Prior office EKG from July showed sinus rhythm. Imaging Radiologist's impression: Impressions Chest X-Ray 11/15/20 16:21 IMPRESSION: Congestive heart failure with pulmonary edema. Assessment and Plan (1) Acute on chronic HFrEF (heart failure with reduced ejection fraction): Status: Acute (2) Paroxysmal atrial fibrillation: Status: Acute Based on last echocardiogram, LVEF of 15-20% with restrictive filling pattern. LA was moderately dilated. Decompensation with shortness of breath could be due to onset of atrial fibrillation. He has been on Eliquis. Hence we could go ahead and do a cardioversion tomorrow. Otherwise, continue empiric diuretics. Labs reviewed. Troponins are 8.6 and 11.4 cardiac BNP 795; previous cardiac BNP from 2018 was 167. Procedures Date of Service Date of Service: 11/16/20
--- NOTE | 2020-11-16 11:12 | P.PNIM_ITS ---
Subjective Subjective Date of Service: 11/16/20 Interval History: seen and examined this AM still sob with orthopnea, reports chest heaviness reports feeling a bit better ROS General - no fevers or chills Cardiovascular - chest heaviness Respiratory - +SOB, +cough, +orthopnea Abdominal- no abdominal pain, nausea, vomiting, diarrhea Physical Exam Vital Signs: Vital Signs: Last Vital Signs Temp 98.0 F 11/16/20 07:29 Pulse 89 11/16/20 10:38 Resp 20 11/16/20 07:29 BP 107/58 L 11/16/20 10:38 Pulse Ox 95 11/16/20 07:29 Body Mass Index 32.1 Const: Other: General - no acute distress, appears comfortable Cardiovascular - S1S2, IRR, trace pedal edema Lungs - rales Abdomen - soft, nontender, no rebound or guarding Extremities - trace edema Neuro - awake and alert, no focal deficits Objective Data Current Medications Generic Name Dose Route Start Last Admin Trade Name Freq PRN Reason Stop Dose Admin Acetaminophen 650 mg 11/15/20 23:45 Acetaminophen 325 Mg Tablet PO Q6H PRN Pain, Mild (Pain Scale 1-3) Albuterol Sulfate 2 puff 11/15/20 23:45 Albuterol Sulfate 90 Mcg 8 Gm Inhaler INHALE Q6H PRN bronchospasm Apixaban 5 mg 11/15/20 23:45 11/16/20 10:38 Apixaban 5 Mg Tablet PO 5 mg BID VANDA Administration Carvedilol 50 mg 11/15/20 23:45 11/16/20 10:38 Carvedilol 12.5 Mg Tablet PO 50 mg BID VANDA Administration Protocol Clonazepam 0.5 mg 11/15/20 23:45 Clonazepam 0.5 Mg Tablet PO DAILY PRN Anxiety Docusate Sodium 100 mg 11/15/20 23:45 Docusate Sodium 100 Mg Capsule PO DAILY PRN Constipation Duloxetine HCl 30 mg 11/16/20 09:00 11/16/20 10:38 Duloxetine Hcl 30 Mg Capsule.Dr PO 30 mg DAILY VANDA Administration Duloxetine HCl 60 mg 11/15/20 23:45 11/16/20 00:06 Duloxetine Hcl 60 Mg Capsule.Dr PO 60 mg BEDTIME VANDA Administration Furosemide 40 mg 11/16/20 09:00 11/16/20 10:38 Furosemide 40 Mg/4 Ml Vial IVPUSH 40 mg DAILY [facility] Administration Protocol Gabapentin 300 mg 11/15/20 23:45 11/16/20 10:38 Gabapentin 300 Mg Capsule PO 300 mg BID [facility] Administration Insulin Human Lispro 0 unit 11/16/20 07:30 11/16/20 07:30 Insulin Lispro 100 Unit/Ml 3 Ml Vial SUBCUT Not Given QIDACHS [facility] Protocol Ketoconazole 1 appl 11/16/20 09:00 11/16/20 10:54 Ketoconazole 2 % Shampoo 120 Ml Btl TOPICAL Not Given DAILY [facility] Protocol Non-Formulary Medication 1 inhalation 11/16/20 09:00 Fluticasone Furoate [Arnuity Ellipta] PO DAILY [facility] Non-Formulary Medication 10 unit 11/15/20 23:45 Insulin Degludec [Tresiba Flextouch U-100] SUBCUT BEDTIME [facility] Non-Formulary Medication 10 mg 11/15/20 23:45 Rosuvastatin PO BEDTIME [facility] Ondansetron HCl 4 mg 11/15/20 23:45 Ondansetron Hcl 4 Mg/2 Ml Vial IVPUSH Q8H PRN Nausea and Vomiting Pharmacy Consult 1 each 11/15/20 19:32 Consult Rx Perform Med Rec MISCELLANE ONCE PRN Consult order Sacubitril/Valsartan 1 tab 11/15/20 23:45 11/16/20 10:37 Sacubitril/Valsartan 49/51 1 Tab Tablet PO 1 tab BID [facility] Administration Protocol Sodium Chloride 3 ml 11/16/20 00:00 11/16/20 10:40 0.9 % Sodium Chloride Flush 3 Ml Syringe IVFLUSH 3 ml QSHIFT [facility] Administration Labs CBC & Chem 7: 11/16/20 05:43 11/16/20 05:43 Labs: Laboratory Results - last 24 hr 11/15/20 11/15/20 11/15/20 18:42 18:42 18:42 WBC 10.2 RBC 4.36 L Hgb 14.1 Hct 41.3 L MCV 94.7 MCH 32.3 MCHC 34.1 RDW 14.1 Plt Count 246 MPV 9.5 Immature Gran % (Auto) 0.5 H Neut % (Auto) 78.4 H Lymph % (Auto) 7.9 L [place] % (Auto) 10.9 Eos % (Auto) 2.0 Baso % (Auto) 0.3 Lymph # (Auto) 0.8 L [place] # (Auto) 1.1 Eos # (Auto) 0.2 Baso # (Auto) 0.0 Abs Immat Gran (auto) 0.05 H Absolute Neuts (auto) 8.0 Absolute Nucleated RBC 0.000 Nucleated RBC % (auto) 0.0 Sodium 143 Potassium 4.8 Chloride 109 H Carbon Dioxide 25 Anion Gap 14 BUN 15 Creatinine 0.87 Estim Creat Clear Calc 89.3 Estimated GFR > 60 POC Glucose Random Glucose 109 Calcium 9.1 Total Bilirubin 0.8 AST 17 D ALT 24 Alkaline Phosphatase 71 Troponin I High Sens 7.9 B-Natriuretic Peptide 795 H Total Protein 7.2 Albumin 4.5 COVID-19 (SUZIE) COVID-[employer] 11/15/20 11/15/20 11/15/20 20:27 22:27 23:47 WBC RBC Hgb Hct MCV MCH MCHC RDW Plt Count MPV Immature Gran % (Auto) Neut % (Auto) Lymph % (Auto) [place] % (Auto) Eos % (Auto) Baso % (Auto) Lymph # (Auto) [place] # (Auto) Eos # (Auto) Baso # (Auto) Abs Immat Gran (auto) Absolute Neuts (auto) Absolute Nucleated RBC Nucleated RBC % (auto) Sodium Potassium Chloride Carbon Dioxide Anion Gap BUN Creatinine Estim Creat Clear Calc Estimated GFR POC Glucose 97 Random Glucose Calcium Total Bilirubin AST ALT Alkaline Phosphatase Troponin I High Sens 8.6 B-Natriuretic Peptide Total Protein Albumin COVID-19 (SUZIE) Negative COVID-19 [employer] See Note 11/16/20 11/16/20 11/16/20 00:00 05:43 05:43 WBC 7.8 RBC 4.36 L Hgb 13.7 L Hct 40.8 L MCV 93.6 MCH 31.4 MCHC 33.6 RDW 13.8 Plt Count 240 MPV 10.3 Immature Gran % (Auto) 1.0 H Neut % (Auto) 67.6 Lymph % (Auto) 12.4 L [place] % (Auto) 15.7 H Eos % (Auto) 2.8 Baso % (Auto) 0.5 Lymph # (Auto) 1.0 L [place] # (Auto) 1.2 Eos # (Auto) 0.2 Baso # (Auto) 0.0 Abs Immat Gran (auto) 0.08 H Absolute Neuts (auto) 5.3 Absolute Nucleated RBC 0.000 Nucleated RBC % (auto) 0.0 Sodium 139 Potassium 3.8 D Chloride 106 Carbon Dioxide 21 L Anion Gap 16 BUN 20 H Creatinine 0.87 Estim Creat Clear Calc 88.3 Estimated GFR > 60 POC Glucose Random Glucose 119 H Calcium 8.6 Total Bilirubin AST ALT Alkaline Phosphatase Troponin I High Sens 11.4 B-Natriuretic Peptide Total Protein Albumin COVID-19 (SUZIE) COVID-19 Clin Com 11/16/20 07:13 WBC RBC Hgb Hct MCV MCH MCHC RDW Plt Count MPV Immature Gran % (Auto) Neut % (Auto) Lymph % (Auto) [place] % (Auto) Eos % (Auto) Baso % (Auto) Lymph # (Auto) [place] # (Auto) Eos # (Auto) Baso # (Auto) Abs Immat Gran (auto) Absolute Neuts (auto) Absolute Nucleated RBC Nucleated RBC % (auto) Sodium Potassium Chloride Carbon Dioxide Anion Gap BUN Creatinine Estim Creat Clear Calc Estimated GFR POC Glucose 104 Random Glucose Calcium Total Bilirubin AST ALT Alkaline Phosphatase Troponin I High Sens B-Natriuretic Peptide Total Protein Albumin COVID-19 (SUZIE) COVID-19 Clin Com Imaging Chest x-ray: Radiologist's impression: Impressions Chest X-Ray 11/15/20 16:21 IMPRESSION: Congestive heart failure with pulmonary edema. Quality Stroke Does the patient have a stroke diagnosis?: No VTE Prior VTE?: No VTE Risk Level:: Medical - moderate - high VTE Device Contraindication: Treatment Not Indicated VTE Drug Contraindication: N/A - Med Ordered Assessment and Plan (1) Acute on chronic HFrEF (heart failure with reduced ejection fraction): Status: Acute (2) Atrial flutter: Status: Acute Assessment and Plan: 70-year-old male with past medical history of non ischemic cardiomyopathy with an ejection fraction of 15 present who presents to the hospital with shortness of breath found to be in CHF exacerbation 1. acute on chronic heart failure with reduced ejection fraction likely exacerbated by A. Flutter will continue with IV lasix monitor i/o and daily weights continue baseline meds 2. A. Flutter typically in sinus suspect this is playing a role in his symptoms plan for cardioversion tomorrow will keep NPO after night will keep k>4 3. DM basal + bolus hold oral meds 4.asthma/COPD no acute exacerbation continue home inhalers Full Code DVT pptx Eliquis
[2020-11-16 11:16] LABS: Glucose, Whole Blood 126 mg/dL (60-115)
[2020-11-16] MEDS: Potassium Chloride ER 20 MEQ TAB.ER.PRT 40 MEQ PO (12:12)
--- NOTE | 2020-11-16 15:06 | MHC.CM.PN ---
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
[2020-11-16 16:11] LABS: Glucose, Whole Blood 135 mg/dL (60-115)
[2020-11-16] MEDS: Fluticasone Propionate 100 MCG BLST.W.DEV 1 PUFF INHALE (19:32)
[2020-11-16 20:38] LABS: Glucose, Whole Blood 109 mg/dL (60-115)
[2020-11-17] VITALS (14 sets, daily range): BP systolic 102–137; BP diastolic 57–68; PULSE 63–88; RESP 16–20; TEMP 36.2–37.1; O2SAT 91–97; BMI 31.6
--- NOTE | 2020-11-17 | ECG_ITS ---
Test Reason : Post cardioversion Blood Pressure : / mmHG Vent. Rate : 071 BPM Atrial Rate : 071 BPM P-R Int : 222 ms QRS Dur : 116 ms QT Int : 406 ms P-R-T Axes : 040 -33 067 degrees QTc Int : 441 ms Sinus rhythm with 1st degree A-V block with Premature atrial complexes Left axis deviation Incomplete left bundle branch block Nonspecific ST and T wave abnormality Abnormal ECG No previous ECGs available Referred By: Mamta Albert Electronically Signed By:MAMTA ALBERT
[2020-11-17 07:25] LABS: Glucose, Whole Blood 107 mg/dL (60-115)
[2020-11-17 08:04] LABS: Anion Gap 15 (12-20); Blood Urea Nitrogen 17 mg/dL (9-16); Calcium 9.1 mg/dL (8.4-10.2); Carbon Dioxide 22 mmol/L (22-29); Chloride 107 mmol/L (96-108); Creatinine Clr Calc Pharmacy 97.8; Estimated Glomerular Filt Rate > 60; Glucose Random 115 mg/dL (60-115); Potassium 3.8 mmol/L (3.3-5.1); Sodium 140 mmol/L (135-145)
--- NOTE | 2020-11-17 08:12 | P.PNIM_ITS ---
Subjective Subjective Date of Service: 11/17/20 Interval History: Seen f/u for CHF, AFIB, feels better this AM ROS General - no fevers or chills Cardiovascular - chest heaviness Respiratory - +SOB, +cough, +orthopnea Abdominal- no abdominal pain, nausea, vomiting, diarrhea Physical Exam Vital Signs: Vital Signs: Last Vital Signs Temp 97.4 F 11/17/20 07:22 Pulse 70 11/17/20 07:22 Resp 20 11/17/20 07:22 BP 137/68 11/17/20 07:22 Pulse Ox 91 L 11/17/20 07:22 Body Mass Index 31.6 Const: Other: General - no acute distress, appears comfortable Cardiovascular - S1S2, IRRegular, trace pedal edema Lungs - rales Abdomen - soft, nontender, no rebound or guarding Extremities - trace edema Neuro - awake and alert, no focal deficits Objective Data Current Medications Generic Name Dose Route Start Last Admin Trade Name Freq PRN Reason Stop Dose Admin Acetaminophen 650 mg 11/15/20 23:45 Acetaminophen 325 Mg Tablet PO Q6H PRN Pain, Mild (Pain Scale 1-3) Albuterol Sulfate 2 puff 11/15/20 23:45 Albuterol Sulfate 90 Mcg 8 Gm Inhaler INHALE Q6H PRN bronchospasm Apixaban 5 mg 11/15/20 23:45 11/16/20 21:14 Apixaban 5 Mg Tablet PO 5 mg BID VANDA Administration Carvedilol 50 mg 11/15/20 23:45 11/16/20 21:14 Carvedilol 12.5 Mg Tablet PO 50 mg BID VANDA Administration Protocol Clonazepam 0.5 mg 11/15/20 23:45 Clonazepam 0.5 Mg Tablet PO DAILY PRN Anxiety Docusate Sodium 100 mg 11/15/20 23:45 Docusate Sodium 100 Mg Capsule PO DAILY PRN Constipation Duloxetine HCl 30 mg 11/16/20 09:00 11/16/20 10:38 Duloxetine Hcl 30 Mg Capsule. PO 30 mg DAILY VANDA Administration Duloxetine HCl 60 mg 11/15/20 23:45 11/16/20 21:14 Duloxetine Hcl 60 Mg Capsule. PO 60 mg BEDTIME VANDA Administration Fluticasone Propionate 1 puff 11/16/20 20:00 11/16/20 19:32 Fluticasone Propionate 100 Mcg Blst.W.Dev INHALE 1 puff RBID [facility] Administration Furosemide 40 mg 11/16/20 09:00 11/16/20 10:38 Furosemide 40 Mg/4 Ml Vial IVPUSH 40 mg DAILY [facility] Administration Protocol Gabapentin 300 mg 11/15/20 23:45 11/16/20 21:14 Gabapentin 300 Mg Capsule PO 300 mg BID [facility] Administration Insulin Glargine 7 unit 11/16/20 21:00 11/16/20 22:01 Insulin Glargine,Hum.Rec.Anlog 100 Unit/Ml 10 Ml Vial SUBCUT Not Given BEDTIME [facility] Insulin Human Lispro 0 unit 11/16/20 07:30 11/17/20 07:29 Insulin Lispro 100 Unit/Ml 3 Ml Vial SUBCUT Not Given QIDACHS [facility] Protocol Ketoconazole 1 appl 11/16/20 09:00 11/16/20 10:54 Ketoconazole 2 % Shampoo 120 Ml Btl TOPICAL Not Given DAILY [facility] Protocol Non-Formulary Medication 10 mg 11/15/20 23:45 Rosuvastatin PO BEDTIME [facility] Ondansetron HCl 4 mg 11/15/20 23:45 Ondansetron Hcl 4 Mg/2 Ml Vial IVPUSH Q8H PRN Nausea and Vomiting Pharmacy Consult 1 each 11/15/20 19:32 Consult Rx Perform Med Rec MISCELLANE ONCE PRN Consult order Sacubitril/Valsartan 1 tab 11/15/20 23:45 11/16/20 21:14 Sacubitril/Valsartan 49/51 1 Tab Tablet PO 1 tab BID [facility] Administration Protocol Sodium Chloride 3 ml 11/16/20 00:00 11/16/20 21:20 0.9 % Sodium Chloride Flush 3 Ml Syringe IVFLUSH 3 ml QSHIFT [facility] Administration Labs CBC & Chem 7: 11/16/20 05:43 11/17/20 07:25 Labs: Laboratory Results - last 24 hr 11/16/20 11/16/20 11/16/20 11:12 16:06 20:34 Sodium Potassium Chloride Carbon Dioxide Anion Gap BUN Creatinine Estim Creat Clear Calc Estimated GFR POC Glucose 126 H 135 H 109 Random Glucose Calcium 11/17/20 11/17/20 07:12 07:25 Sodium 140 Potassium 3.8 Chloride 107 Carbon Dioxide 22 Anion Gap 15 BUN 17 H Creatinine 0.78 Estim Creat Clear Calc 97.8 Estimated GFR > 60 POC Glucose 107 Random Glucose 115 Calcium 9.1 Quality Stroke Does the patient have a stroke diagnosis?: No VTE Prior VTE?: No VTE Risk Level:: Medical - moderate - high VTE Device Contraindication: Treatment Not Indicated VTE Drug Contraindication: N/A - Med Ordered Assessment and Plan (1) Acute on chronic HFrEF (heart failure with reduced ejection fraction): Status: Acute (2) Atrial flutter: Status: Acute Assessment and Plan: 70-year-old male with past medical history of non ischemic cardiomyopathy with an ejection fraction of 15 present who presents to the hospital with shortness of breath found to be in CHF exacerbation 1. acute on chronic heart failure with reduced ejection fraction likely exacerbated by A. Flutter will continue with IV lasix monitor i/o and daily weights continue baseline meds follow electrolytes Keep K>= 4 2. A. Flutter--symptomatic typically in sinus suspect this is playing a role in his symptoms plan for cardioversion today 3. DM basal + bolus hold oral meds 4.asthma/COPD no acute exacerbation continue home inhalers Full Code DVT pptx Eliquis Probably home tomorrrow
[2020-11-17] MEDS: Fluticasone Propionate 100 MCG BLST.W.DEV 1 PUFF INHALE ×2 (08:17→19:49)
[2020-11-17] MEDS: Furosemide 40 MG/4 ML VIAL IVPUSH (09:28)
[2020-11-17] MEDS: 0.9 % Sodium Chloride Flush 3 ML SYRINGE IVFLUSH ×2 (09:28→15:32)
[2020-11-17] MEDS: DULoxetine HCl 30 MG CAPSULE.DR PO (09:34)
[2020-11-17] MEDS: Amiodarone HCL 200 MG TABLET 400 MG PO ×2 (09:34→20:53)
[2020-11-17] MEDS: carvediloL 12.5 MG TABLET 50 MG PO (09:34)
[2020-11-17] MEDS: Apixaban 5 MG TABLET PO ×2 (09:34→20:53)
[2020-11-17] MEDS: Gabapentin 300 MG CAPSULE PO ×2 (09:34→20:53)
[2020-11-17] MEDS: Ketoconazole 2 % Shampoo 120 ML BTL 1 APPL TOPICAL (09:37)
[2020-11-17] MEDS: Sacubitril/Valsartan 49/51 1 TAB TABLET PO ×2 (09:38→20:53)
--- NOTE | 2020-11-17 10:23 | HO.ANESPROP2 ---
FORM[facility]LY [facility] Active Problems Active Problems: All Active Problems (Updated 11/16/20 @ 06:21 by Chaka Cameron MD) Atrial flutter (Acute) Acute on chronic HFrEF (heart failure with reduced ejection fraction) (Acute) Diverticulosis (Acute) Tubular adenoma of colon (Acute) Irritable bowel syndrome with diarrhea (Acute) Cardiomyopathy (Acute) ICD (implantable 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-defibrillator) in place (Acute) Paroxysmal atrial fibrillation (Acute) Heart failure with reduced ejection fraction (Acute) CHF (congestive heart failure) (Acute) Mixed hyperlipidemia (Acute) Seborrheic dermatitis of scalp (Acute) Hearing loss (Acute) Tubular adenoma of colon (Acute) Obesity (BMI 30-39.9) (Acute) Hypoglycemia unawareness associated with type 2 diabetes mellitus (Acute) Vitamin D deficiency (Acute) Diabetic nephropathy associated with type 2 diabetes mellitus (Acute) 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 of 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 (Acute) Restrictive lung disease (Acute) Asthma-COPD overlap syndrome (Acute) Asthma (Acute) Hearing loss (Acute) Depression with anxiety (Acute) GERD (gastroesophageal reflux disease) (Acute) Essential hypertension (Acute) Diabetes type 2, uncontrolled (Acute) Past Medical History Medical History Anemia Asthma Asthma-COPD overlap syndrome Cardiomyopathy Cardiomyopathy COPD (chronic obstructive pulmonary disease) Depression with anxiety Diabetes type 2, uncontrolled Diabetic nephropathy associated with type 2 diabetes mellitus Essential hypertension GERD (gastroesophageal reflux disease) Hearing loss Hearing loss Heart failure with reduced ejection fraction HLD (hyperlipidemia) HTN (hypertension) Hypoglycemia unawareness associated with type 2 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 [facility] (current) use of insulin Mixed hyperlipidemia Obesity (BMI 30-39.9) Paroxysmal atrial fibrillation Restrictive lung disease Seborrheic dermatitis of scalp Vitamin D deficiency Family History Family History Father Cancer Mother Cancer Family/Other Diabetes CHF (congestive heart failure) Surgical History Surgical History History of cardiac defibrillator placement History of thumb surgery Social History Social History Household Members: None Alcohol intake: never Patient Tobacco Use Status: Never used Tobacco e-Cigarette/Vaping Use: Never Used Second Hand Smoke Exposure: No Use of substances other than those prescribed or required for medical reasons: No Currently Displaying Signs/Symptoms of Drug Intoxication Withdrawal: No Have you been hit, kicked, punched, or otherwise hurt by someone within the past year? If so, by whom?: No Do you feel safe in your current relationship?: Yes Is there a partner from a previous relationship who is making you feel unsafe now?: No Are you made to feel afraid or neglected: No Are you DNR?: No Advance Directives: No Advance Directives Information Provided: Yes Do you have thoughts of harming others: None Do you have a plan to hurt others: No Plan Recently lost weight without trying: Unsure Eating poorly because of decreased appetite: No Nutrition Risks: No Nutritional Risk Poor oral hygiene: No service: No Meds Allergies Allergy/AdvReac Type Severity Reaction Status Date / Time atorvastatin [Lipitor] Allergy Intermediate stomach Verified 11/01/20 14:41 aches dog Allergy Intermediate Sneezing Verified 11/01/20 14:41 grass Allergy Intermediate Rash Verified 11/01/20 14:41 mosquitos Allergy Intermediate Rash Verified 11/01/20 14:41 roaches Allergy Intermediate Rash Verified 11/01/20 14:41 trees Allergy Intermediate Rash Verified 11/01/20 14:41 Active Medications: Current Medications Generic Name Dose Route Start Last Admin Trade Name Freq PRN Reason Stop Dose Admin Acetaminophen 650 mg 11/15/20 23:45 Acetaminophen 325 Mg Tablet PO Q6H PRN Pain, Mild (Pain Scale 1-3) Albuterol Sulfate 2 puff 11/15/20 23:45 Albuterol Sulfate 90 Mcg 8 Gm Inhaler INHALE Q6H PRN bronchospasm Amiodarone HCl 400 mg 11/17/20 09:30 11/17/20 09:34 Amiodarone Hcl 200 Mg Tablet PO 400 mg BID VANDA Administration Apixaban 5 mg 11/15/20 23:45 11/17/20 09:34 Apixaban 5 Mg Tablet PO 5 mg BID VANDA Administration Carvedilol 50 mg 11/15/20 23:45 11/17/20 09:34 Carvedilol 12.5 Mg Tablet PO 50 mg BID VANDA Administration Protocol Clonazepam 0.5 mg 11/15/20 23:45 Clonazepam 0.5 Mg Tablet PO DAILY PRN Anxiety Docusate Sodium 100 mg 11/15/20 23:45 Docusate Sodium 100 Mg Capsule PO DAILY PRN Constipation Duloxetine HCl 30 mg 11/16/20 09:00 11/17/20 09:34 Duloxetine Hcl 30 Mg Capsule. PO 30 mg DAILY VANDA Administration Duloxetine HCl 60 mg 11/15/20 23:45 11/16/20 21:14 Duloxetine Hcl 60 Mg Capsule. PO 60 mg BEDTIME VANDA Administration Fluticasone Propionate 1 puff 11/16/20 20:00 11/17/20 08:17 Fluticasone Propionate 100 Mcg Blst.W.Dev INHALE 1 puff RBID VANDA Administration Furosemide 40 mg 11/16/20 09:00 11/17/20 09:28 Furosemide 40 Mg/4 Ml Vial IVPUSH 40 mg DAILY [facility] Administration Protocol Gabapentin 300 mg 11/15/20 23:45 11/17/20 09:34 Gabapentin 300 Mg Capsule PO 300 mg BID VANDA Administration Insulin Glargine 7 unit 11/16/20 21:00 11/16/20 22:01 Insulin Glargine,Hum.Rec.Anlog 100 Unit/Ml 10 Ml Vial SUBCUT Not Given BEDTIME [facility] Insulin Human Lispro 0 unit 11/16/20 07:30 11/17/20 07:29 Insulin Lispro 100 Unit/Ml 3 Ml Vial SUBCUT Not Given QIDACHS [facility] Protocol Ketoconazole 1 appl 11/16/20 09:00 11/17/20 09:37 Ketoconazole 2 % Shampoo 120 Ml Btl TOPICAL 1 appl DAILY [facility] Administration Protocol Non-Formulary Medication 10 mg 11/15/20 23:45 Rosuvastatin PO BEDTIME [facility] Ondansetron HCl 4 mg 11/15/20 23:45 Ondansetron Hcl 4 Mg/2 Ml Vial IVPUSH Q8H PRN Nausea and Vomiting Pharmacy Consult 1 each 11/15/20 19:32 Consult Rx Perform Med Rec MISCELLANE ONCE PRN Consult order Sacubitril/Valsartan 1 tab 11/15/20 23:45 11/17/20 09:38 Sacubitril/Valsartan 49/51 1 Tab Tablet PO 1 tab BID [facility] Administration Protocol Sodium Chloride 3 ml 11/16/20 00:00 11/17/20 09:28 0.9 % Sodium Chloride Flush 3 Ml Syringe IVFLUSH 3 ml QSHIFT [facility] Administration Home Medications Medication Instructions Recorded Confirmed Last Taken Type clonazepam 0.5 mg tablet 0.5 mg PO DAILY PRN 04/16/20 11/15/20 Unknown History duloxetine 60 mg capsule,delayed 60 mg PO BEDTIME cap 09/11/20 11/15/20 11/14/20 History release lancets 33 gauge #100 ea 10/25/20 11/01/20 Unknown History duloxetine 30 mg PO DAILY 11/15/20 11/15/20 11/15/20 History ketoconazole 1 appl TOPICAL DAILY 11/15/20 11/15/20 Unknown History rosuvastatin 10 mg PO BEDTIME 11/15/20 11/15/20 11/14/20 History Exam Exam Date and Time: November 17, 2020 1123 Height,Weight and Vital Signs: Height 5 ft 7 in Weight 91.7 kg Last Vital Signs Temp 97.8 F 11/17/20 11:15 Pulse 83 11/17/20 11:15 Resp 20 11/17/20 11:15 BP 102/62 11/17/20 11:15 Pulse Ox 95 11/17/20 11:15 Pertinent Lab Results Pertinent Lab Results: Laboratory Tests 11/15/20 11/15/20 11/15/20 18:42 18:42 18:42 WBC 10.2 RBC 4.36 L Hgb 14.1 Hct 41.3 L MCV 94.7 MCH 32.3 MCHC 34.1 RDW 14.1 Plt Count 246 MPV 9.5 Immature Gran % (Auto) 0.5 H Neut % (Auto) 78.4 H Lymph % (Auto) 7.9 L [place] % (Auto) 10.9 Eos % (Auto) 2.0 Baso % (Auto) 0.3 Lymph # (Auto) 0.8 L [place] # (Auto) 1.1 Eos # (Auto) 0.2 Baso # (Auto) 0.0 Abs Immat Gran (auto) 0.05 H Absolute Neuts (auto) 8.0 Absolute Nucleated RBC 0.000 Nucleated RBC % (auto) 0.0 Sodium 143 Potassium 4.8 Chloride 109 H Carbon Dioxide 25 Anion Gap 14 BUN 15 Creatinine 0.87 Estim Creat Clear Calc 89.3 Estimated GFR > 60 POC Glucose Random Glucose 109 Calcium 9.1 Total Bilirubin 0.8 AST 17 D ALT 24 Alkaline Phosphatase 71 Troponin I High Sens 7.9 B-Natriuretic Peptide 795 H Total Protein 7.2 Albumin 4.5 COVID-19 (SUZIE) COVID-19 TrepUp 11/15/20 11/15/20 11/15/20 20:27 22:27 23:47 WBC RBC Hgb Hct MCV MCH MCHC RDW Plt Count MPV Immature Gran % (Auto) Neut % (Auto) Lymph % (Auto) [place] % (Auto) Eos % (Auto) Baso % (Auto) Lymph # (Auto) [place] # (Auto) Eos # (Auto) Baso # (Auto) Abs Immat Gran (auto) Absolute Neuts (auto) Absolute Nucleated RBC Nucleated RBC % (auto) Sodium Potassium Chloride Carbon Dioxide Anion Gap BUN Creatinine Estim Creat Clear Calc Estimated GFR POC Glucose 97 Random Glucose Calcium Total Bilirubin AST ALT Alkaline Phosphatase Troponin I High Sens 8.6 B-Natriuretic Peptide Total Protein Albumin COVID-19 (SUZIE) Negative COVID-Elliptic See Note 11/16/20 11/16/20 11/16/20 00:00 05:43 05:43 WBC 7.8 RBC 4.36 L Hgb 13.7 L Hct 40.8 L MCV 93.6 MCH 31.4 MCHC 33.6 RDW 13.8 Plt Count 240 MPV 10.3 Immature Gran % (Auto) 1.0 H Neut % (Auto) 67.6 Lymph % (Auto) 12.4 L [place] % (Auto) 15.7 H Eos % (Auto) 2.8 Baso % (Auto) 0.5 Lymph # (Auto) 1.0 L [place] # (Auto) 1.2 Eos # (Auto) 0.2 Baso # (Auto) 0.0 Abs Immat Gran (auto) 0.08 H Absolute Neuts (auto) 5.3 Absolute Nucleated RBC 0.000 Nucleated RBC % (auto) 0.0 Sodium 139 Potassium 3.8 D Chloride 106 Carbon Dioxide 21 L Anion Gap 16 BUN 20 H Creatinine 0.87 Estim Creat Clear Calc 88.3 Estimated GFR > 60 POC Glucose Random Glucose 119 H Calcium 8.6 Total Bilirubin AST ALT Alkaline Phosphatase Troponin I High Sens 11.4 B-Natriuretic Peptide Total Protein Albumin COVID-19 (SUZIE) COVID-Elliptic 11/16/20 11/16/20 11/16/20 07:13 11:12 16:06 WBC RBC Hgb Hct MCV MCH MCHC RDW Plt Count MPV Immature Gran % (Auto) Neut % (Auto) Lymph % (Auto) [place] % (Auto) Eos % (Auto) Baso % (Auto) Lymph # (Auto) [place] # (Auto) Eos # (Auto) Baso # (Auto) Abs Immat Gran (auto) Absolute Neuts (auto) Absolute Nucleated RBC Nucleated RBC % (auto) Sodium Potassium Chloride Carbon Dioxide Anion Gap BUN Creatinine Estim Creat Clear Calc Estimated GFR POC Glucose 104 126 H 135 H Random Glucose Calcium Total Bilirubin AST ALT Alkaline Phosphatase Troponin I High Sens B-Natriuretic Peptide Total Protein Albumin COVID-19 (SUZIE) COVID-19 Clin Com 11/16/20 11/17/20 11/17/20 20:34 07:12 07:25 WBC RBC Hgb Hct MCV MCH MCHC RDW Plt Count MPV Immature Gran % (Auto) Neut % (Auto) Lymph % (Auto) [place] % (Auto) Eos % (Auto) Baso % (Auto) Lymph # (Auto) [place] # (Auto) Eos # (Auto) Baso # (Auto) Abs Immat Gran (auto) Absolute Neuts (auto) Absolute Nucleated RBC Nucleated RBC % (auto) Sodium 140 Potassium 3.8 Chloride 107 Carbon Dioxide 22 Anion Gap 15 BUN 17 H Creatinine 0.78 Estim Creat Clear Calc 97.8 Estimated GFR > 60 POC Glucose 109 107 Random Glucose 115 Calcium 9.1 Total Bilirubin AST ALT Alkaline Phosphatase Troponin I High Sens B-Natriuretic Peptide Total Protein Albumin COVID-19 (SUZIE) COVID-19 Clin Com Airway Mallampati Class: IV TM Dist: >3cm Neck ROM: Full Heart: irregular Lungs: cTA
--- NOTE | 2020-11-17 10:42 | MHC.SHP ---
Pre-Procedural Eval Section B Chief Complaint: CHF excerbation Allergies: Allergies Allergy/AdvReac Type Severity Reaction Status Date / Time atorvastatin [Lipitor] Allergy Intermediate stomach Verified 11/01/20 14:41 aches dog Allergy Intermediate Sneezing Verified 11/01/20 14:41 grass Allergy Intermediate Rash Verified 11/01/20 14:41 mosquitos Allergy Intermediate Rash Verified 11/01/20 14:41 roaches Allergy Intermediate Rash Verified 11/01/20 14:41 trees Allergy Intermediate Rash Verified 11/01/20 14:41 Plan I have reviewed the history and physical and performed a pertinent physical examination on my patient. No changes have occurred unless specified.
--- NOTE | 2020-11-17 11:24 | HO.CARDIVERS ---
Cardioversion Procedure Note Cardioversion Date of Procedure: 11/17/2020 Ordering Provider: Dr. De Souza Performing Provider: Dr. De Souza Indication for Procedure: Atrial fibrillation Pre-Op Diagnosis: Atrial fibrillation Post-Op Diagnosis: Sinus rhythm Performed with Transesophageal Echo: No Consent: Informed consent obtained. Procedure: After informed consent was obtained, patient was taken to the PACU. The patient was then positioned appropriately. The cardioversion pads were placed in anteroposterior position. Once under anesthesia, 120 joules of synchronized shock was administered. The rhythm converted from atrial fibrillation to sinus rhythm. Patient remained in sinus rhythm after the end of procedure. Complications: None Impression: Successful cardioversion from atrial fibrillation to sinus rhythm. Recommendations: Start amiodarone.
--- NOTE | 2020-11-17 11:26 | P.PNCA_ITS ---
Subjective Subjective Date of Service: 11/17/20 Interval history: Feels ok. No new complaints. Review of Systems Review of Systems Yes all other systems are reviewed and are negative Cardiovascular: Reports as per HPI, Reports no additional cardiovascular complaints, Denies acrocyanosis, Denies cool extremities, Denies painful fingertips, Denies chest pain, Denies chest pain at rest, Denies diaphoresis, Denies syncope, Denies irregular heart rhythm, Denies claudication, Denies leg edema, Denies lightheadedness, Denies palpitations and Reports dyspnea Respiratory: Reports dyspnea Denies syncope Endocrine: Denies palpitations Physical Exam Vital Signs: Last Vital Signs Temp 97.8 F 11/17/20 11:15 Pulse 77 11/17/20 11:25 Resp 18 11/17/20 11:25 BP 105/67 11/17/20 11:25 Pulse Ox 94 11/17/20 11:25 Body Mass Index 31.6 Const General: cooperative and no acute distress [facility] Other: Unremarkable Neck Neck: Yes normal visual inspection Chest Chest palpation & inspection: normal inspection of the chest Resp Auscultation: clear to auscultation bilaterally, crackles bilateral at the base and no wheezes Cardio Jugular venous distension: no JVD Palpation: normal PMI Heart sounds: S1 normal heart sound present, S2 normal heart sound present, no gallops, Murmur heart sound present systolic early, II/ and at the right sternal border and no rubs GI Palpation (GI): Soft to palpation Back/Spine/Pelvis Other: unremarkable Skin General skin exam: no rashes or lesions noted Neuro Cranial nerves: Yes Other cranial nerve findings present Extrem General: Yes no clubbing, cyanosis or edema Psych Mental Status: other Results Labs and Meds Result diagrams: 11/16/20 05:43 11/17/20 07:25 Lab results: Laboratory Results - last 24 hr 11/16/20 11/16/20 11/17/20 16:06 20:34 07:12 Sodium Potassium Chloride Carbon Dioxide Anion Gap BUN Creatinine Estim Creat Clear Calc Estimated GFR POC Glucose 135 H 109 107 Random Glucose Calcium 11/17/20 07:25 Sodium 140 Potassium 3.8 Chloride 107 Carbon Dioxide 22 Anion Gap 15 BUN 17 H Creatinine 0.78 Estim Creat Clear Calc 97.8 Estimated GFR > 60 POC Glucose Random Glucose 115 Calcium 9.1 Progress Note: A&P Assessment and plan (1) Acute on chronic HFrEF (heart failure with reduced ejection fraction): Status: Acute (2) Paroxysmal atrial fibrillation: Status: Acute Assessment and Plan: Based on last echocardiogram, LVEF of 15-20% with restrictive filling pattern. LA was moderately dilated. Decompensation with shortness of breath could be due to onset of atrial fibrillation. He has been on Eliquis. Hence cardioversion done. Converted to sinus. Start Amiodarone. IV diuretics for another day. I/O not charted. Labs reviewed. Troponins are 8.6 and 11.4 cardiac BNP 795; previous cardiac BNP from 2018 was 167. Fall Risk Details Current Medications: Current Medications Generic Name Dose Route Start Last Admin Trade Name Freq PRN Reason Stop Dose Admin Acetaminophen 650 mg 11/15/20 23:45 Acetaminophen 325 Mg Tablet PO Q6H PRN Pain, Mild (Pain Scale 1-3) Albuterol Sulfate 2 puff 11/15/20 23:45 Albuterol Sulfate 90 Mcg 8 Gm Inhaler INHALE Q6H PRN bronchospasm Amiodarone HCl 400 mg 11/17/20 09:30 11/17/20 09:34 Amiodarone Hcl 200 Mg Tablet PO 400 mg BID VANDA Administration Apixaban 5 mg 11/15/20 23:45 11/17/20 09:34 Apixaban 5 Mg Tablet PO 5 mg BID VANDA Administration Carvedilol 50 mg 11/15/20 23:45 11/17/20 09:34 Carvedilol 12.5 Mg Tablet PO 50 mg BID VANDA Administration Protocol Clonazepam 0.5 mg 11/15/20 23:45 Clonazepam 0.5 Mg Tablet PO DAILY PRN Anxiety Docusate Sodium 100 mg 11/15/20 23:45 Docusate Sodium 100 Mg Capsule PO DAILY PRN Constipation Duloxetine HCl 30 mg 11/16/20 09:00 11/17/20 09:34 Duloxetine Hcl 30 Mg Capsule. PO 30 mg DAILY VANDA Administration Duloxetine HCl 60 mg 11/15/20 23:45 11/16/20 21:14 Duloxetine Hcl 60 Mg Capsule. PO 60 mg BEDTIME VANDA Administration Fluticasone Propionate 1 puff 11/16/20 20:00 11/17/20 08:17 Fluticasone Propionate 100 Mcg Blst.W.Dev INHALE 1 puff RBID VANDA Administration Furosemide 40 mg 11/16/20 09:00 11/17/20 09:28 Furosemide 40 Mg/4 Ml Vial IVPUSH 40 mg DAILY [facility] Administration Protocol Gabapentin 300 mg 11/15/20 23:45 11/17/20 09:34 Gabapentin 300 Mg Capsule PO 300 mg BID VANDA Administration Insulin Glargine 7 unit 11/16/20 21:00 11/16/20 22:01 Insulin Glargine,Hum.Rec.Anlog 100 Unit/Ml 10 Ml Vial SUBCUT Not Given BEDTIME [facility] Insulin Human Lispro 0 unit 11/16/20 07:30 11/17/20 07:29 Insulin Lispro 100 Unit/Ml 3 Ml Vial SUBCUT Not Given QIDACHS [facility] Protocol Ketoconazole 1 appl 11/16/20 09:00 11/17/20 09:37 Ketoconazole 2 % Shampoo 120 Ml Btl TOPICAL 1 appl DAILY [facility] Administration Protocol Non-Formulary Medication 10 mg 11/15/20 23:45 Rosuvastatin PO BEDTIME [facility] Ondansetron HCl 4 mg 11/15/20 23:45 Ondansetron Hcl 4 Mg/2 Ml Vial IVPUSH Q8H PRN Nausea and Vomiting Pharmacy Consult 1 each 11/15/20 19:32 Consult Rx Perform Med Rec MISCELLANE ONCE PRN Consult order Sacubitril/Valsartan 1 tab 11/15/20 23:45 11/17/20 09:38 Sacubitril/Valsartan 49/51 1 Tab Tablet PO 1 tab BID [facility] Administration Protocol Sodium Chloride 3 ml 11/16/20 00:00 11/17/20 09:28 0.9 % Sodium Chloride Flush 3 Ml Syringe IVFLUSH 3 ml QSHIFT [facility] Administration Time Spent With Patient Time: Total time spent is greater than 50% in coordination of care (as documented) at patient's floor/unit and/or counseling patient: Time with patient: less than 15 minutes Progress Note: Quality Stroke Does the patient have a stroke diagnosis?: No Procedures Date of Service Date of Service: 11/17/20
[2020-11-17 11:43] LABS: Glucose, Whole Blood 136 mg/dL (60-115)
[2020-11-17 16:21] LABS: Glucose, Whole Blood 164 mg/dL (60-115)
[2020-11-17] MEDS: Insulin Lispro 100 UNIT/ML 3 ML VIAL SUBCUT (16:40)
[2020-11-17 20:37] LABS: Glucose, Whole Blood 123 mg/dL (60-115)
[2020-11-17] MEDS: Insulin Glargine,Hum.rec.anlog 100 UNIT/ML 10 ML VIAL 7 UNIT SUBCUT (20:52)
[2020-11-17] MEDS: DULoxetine HCl 60 MG CAPSULE.DR PO (20:53)
[2020-11-17] MEDS: carvediloL 25 MG TABLET 50 MG PO (21:02)
[2020-11-18] VITALS (7 sets, daily range): BP systolic 98–119; BP diastolic 48–60; PULSE 62–78; RESP 18; TEMP 36.1–37.1; O2SAT 92–95; BMI 31.2
[2020-11-18] MEDS: 0.9 % Sodium Chloride Flush 3 ML SYRINGE IVFLUSH ×2 (01:48→09:35)
[2020-11-18 07:13] LABS: Glucose, Whole Blood 115 mg/dL (60-115)
[2020-11-18] MEDS: Fluticasone Propionate 100 MCG BLST.W.DEV 1 PUFF INHALE (07:39)
--- NOTE | 2020-11-18 08:58 | PM.DS ---
DS: Providers Provider Date of Service: 11/18/20 Date of admission: 11/15/20 21:37 Primary care physician: Christie Jain MD Consults: 11/15/20 23:45 Consult to Cardiology Routine Consulting Provider: Vik De Souza Reason for consultation: chf Has provider been notified: No DS: Diagnosis Discharge Diagnosis (1) Acute on chronic HFrEF (heart failure with reduced ejection fraction): Status: Inactive (2) Paroxysmal atrial fibrillation: DS: Medications Discharge Medications Home Medications: Home Medications Medication Instructions Recorded Confirmed clonazepam 0.5 mg tablet 0.5 mg PO DAILY PRN 04/16/20 11/15/20 duloxetine 60 mg capsule,delayed 60 mg PO BEDTIME cap 09/11/20 11/15/20 release lancets 33 gauge #100 ea 10/25/20 11/01/20 duloxetine 30 mg PO DAILY 11/15/20 11/15/20 ketoconazole 1 appl TOPICAL DAILY 11/15/20 11/15/20 rosuvastatin 10 mg PO BEDTIME 11/15/20 11/15/20 Previous Rx's Medication Instructions Recorded lancets 28 gauge #100 ea 06/26/20 albuterol sulfate 90 mcg/actuation 2 puff INHALATION Q6H PRN 30 Days 07/12/20 aerosol inhaler #8.5 g apixaban 5 mg tablet 5 mg PO BID 30 Days #60 tab 07/12/20 sacubitril 49 mg-valsartan 51 mg 1 tab PO BID 30 Days #60 tab 07/12/20 tablet fluticasone furoate 200 1 inh PO DAILY #30 cap 08/27/20 mcg/actuation blister powder for inhalation carvedilol 25 mg tablet 50 mg PO BID 30 Days #120 tab 08/29/20 blood sugar diagnostic #100 ea 09/11/20 dapagliflozin 10 mg tablet 10 mg PO DAILY 90 Days #90 tab 09/11/20 dulaglutide 0.75 mg/0.5 mL 0.75 mg SUBCUT QWEEK 30 Days #2.5 09/11/20 subcutaneous pen injector ml insulin degludec 100 unit/mL (3 10 unit SUBCUT BEDTIME 30 Days #15 09/11/20 mL) subcutaneous pen ml metformin 500 mg tablet,extended 1,000 mg PO BID 90 Days #360 tab 09/11/20 release 24 hr omega-3 fatty acids 1,000 mg 1,000 mg PO BID 30 Days #60 cap 09/11/20 capsule pen needle, diabetic 32 gauge x 1 ea MISCELLANEOUS DAILY 90 Days 09/11/20 #100 ea gabapentin 300 mg capsule 300 mg PO BID 90 Days #180 cap 11/01/20 DS: Summary Hospital Course Hospital Course: Chief Complaint: SOB This is a Frisian-speaking male only and history is obtained with the help of record changer tester 70-year-old male with past medical history of nonischemic cardiomyopathy with ejection fraction around 15%, status post ICD placement, paroxysmal AFib, mixed hyperlipidemia, diabetes, asthma COPD overlap syndrome, HTN, hearing loss, depression anxiety among others who presents to the hospital with complaints of shortness of breath. Patient reports that his symptoms started about 1-2 weeks ago, he thought he may have had his COPD exacerbation, was using his inhalers, with no relief of his symptoms, he has symptoms worsened last night when he developed dyspnea, orthopnea, PND, he also has swelling of his arms bilaterally no swelling in the legs. he denies any fever, some chills, no chest pain, he has some on and off cough that is nonproductive, denies any abdominal pain nausea or vomiting, no diarrhea constipation, no urinary symptoms and no lower extremity edema. Patient denies having any access salt in his recent diet, reports that he was on a diuretic but does not remember the name of it and he reports he stop taking it unclear why Arrival to the ED vitals are significant for temp of 97.9?, heart rate of 105, respiratory rate of 28, blood pressure 139/73, satting 89% on room air. Lab significant for For WBC count of 10.2, hemoglobin 14.1, BNP of 795, Chest x-ray shows congestive heart failure with pulmonary edema EKG showed a flutter with variable AV block, with nonspecific T-wave abnormality Past medical history as above and confirmed with patient Hospital course: 70-year-old male with past medical history of non ischemic cardiomyopathy with an ejection fraction of 15 present who presents to the hospital with shortness of breath found to be in CHF exacerbation 1. acute on chronic heart failure with reduced ejection fraction may have been precipitated by AFIB. Treated with IV Lasix with singificant improved and will change to Oral today for discharge. Ech is noted for EF of 15 percent and will need AICD in the future, cardiology will arrange for this. He should monitor his weight and keep water intake to minimum. To continue Entresto, and Coreg high dose 50 bid 2. A. Flutter--symptomatic---He underwent sucesful cardioversion by Dr. De Souza on 11/17 and is in sinus. He will be on Amiodarne 400 bid x 2 weeks, then 200 daily to keep in sinus. To continue Eliquis for stroke prevention 3. DM--Resume home meds upon discharge 4.asthma/COPD no acute exacerbation continue home inhalers Full Code DVT pptx Eliquis Probably home later today Time Spent with Patient Time attestation: Total time spent providing and/or coordinating discharge services: Discharge coordination time: Greater than 30 minutes Quality: Stroke Does the patient have a stroke diagnosis?: No Physical Exam Vital Signs: Vital Signs: Last Vital Signs Temp 97.6 F 11/18/20 07:05 Pulse 68 11/18/20 07:05 Resp 18 11/18/20 07:05 BP 98/48 L 11/18/20 07:05 Pulse Ox 92 11/18/20 07:05 Body Mass Index 31.2 DS: Data Data Completed and Pending Labs on day of discharge: Laboratory Results - last 24 hr 11/17/20 11/17/20 11/17/20 11:39 16:18 20:34 POC Glucose 136 H 164 H 123 H 11/18/20 07:08 POC Glucose 115 Discharge Plan Discharge Anticipated Discharge Date/Time: 11/18/20 09:07 Patient Disposition: Home, Self-Care Discharge Diagnosis: CHF and AFIB 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 [Other] - 1 Week Christie Royal MD [Primary Care Provider] - 1 Week Discharge Medications: New amiodarone 200 mg Tablet 400 mg PO BID 13 Days Qty: 52 RF: 0 amiodarone 200 mg tablet 200 mg PO DAILY Qty: 30 RF: 0 Continued (DME) lancets 28 gauge misc See Rx Instructions ea topical .MEDSUPPLY Qty: 100 RF: 7 sacubitril-valsartan [Entresto] 49-51 mg tablet 1 tab PO BID 30 Days Qty: 60 RF: 5 Eliquis 5 mg tablet 5 mg PO BID 30 Days Qty: 60 RF: 5 albuterol sulfate [Ventolin HFA] 90 mcg/actuation HFA aerosol inhaler 2 puff inhalation Q6H PRN (Reason: bronchospasm) 30 Days Qty: 8.5 RF: 3 carvedilol 25 mg tablet 50 mg PO BID 30 Days Qty: 120 RF: 5 duloxetine 30 mg capsule,delayed release(DR/EC) 30 mg PO DAILY RF: 0 ketoconazole 2 % shampoo 1 appl topical DAILY RF: 0 rosuvastatin 10 mg tablet 10 mg PO BEDTIME RF: 0 clonazepam 0.5 mg tablet 0.5 mg PO DAILY PRN (Reason: Anxiety) RF: 0 duloxetine 60 mg capsule,delayed release(DR/EC) 60 mg PO BEDTIME RF: 0 gabapentin 300 mg capsule 300 mg PO BID 90 Days Qty: 180 RF: 0 (DME) FreeStyle Lite Strips Strip See Rx Instructions .ROUTE .MEDSUPPLY Qty: 100 RF: 6 Farxiga 10 mg tablet 10 mg PO DAILY 90 Days Qty: 90 RF: 2 dulaglutide 0.75 mg/0.5 mL pen injector 0.75 mg subcut QWEEK 30 Days Qty: 2.5 RF: 6 Tresiba FlexTouch U-100 100 unit/mL (3 mL) insulin pen 10 unit subcut BEDTIME 30 Days Qty: 15 RF: 3 metformin 500 mg tablet extended release 24 hr 1,000 mg PO BID 90 Days Qty: 360 RF: 1 pen needle, diabetic [BD Rosemary 2nd Gen Pen Needle] 32 gauge x 5/32 needle 1 ea miscellaneous DAILY 90 Days Qty: 100 RF: 5 (DME) lancets 33 gauge misc See Rx Instructions ea topical .MEDSUPPLY Qty: 100 RF: 0 No Action fluticasone furoate [Arnuity Ellipta] 200 mcg/actuation blister with device 1 inh inhalation DAILY Qty: 30 RF: 2 cyanocobalamin (vitamin B-12) 500 mcg tablet, sublingual 0 mcg sublingual RF: 0 Fish Oil 340-1,000 mg capsule 0 cap PO RF: 0 furosemide [Lasix] 40 mg tablet 40 mg PO DAILY Qty: 90 RF: 1 Discharge Orders: Discharge Order (Routine); Ordered 11/18/20 Ordered By: Richardson Ferreira Diet: advance to usual diet Activity on Discharge: As tolerated Stand Alone Forms: Patient Portal Discharge page Care Plan Goals: prevent rehospitalization and controll heart failure and atrial fibrilation Health Concerns: severe cardiomyopathy and will need defibrilatro Plan of Treatment: Take all your medications above as directed and follow up with Dr. De Souza in his office Assessment: See above Discharge Date/Time: 11/18/20 13:16
--- NOTE | 2020-11-18 09:16 | P.PNIM_ITS ---
Subjective Subjective Date of Service: 11/18/20 Interval History: Seen in f/u for afib, and heart failure, s/p cardioversion yesterday and is in sinus now Review of Systems Gen: no fever Resp: no sob, no cough CV: no chest, no JOVEL, no leg edema GI: No n/v, no abd pain Neuro: No confusion Physical Exam Vital Signs: Vital Signs: Last Vital Signs Temp 97.6 F 11/18/20 07:05 Pulse 68 11/18/20 07:05 Resp 18 11/18/20 07:05 BP 98/48 L 11/18/20 07:05 Pulse Ox 92 11/18/20 07:05 Body Mass Index 31.2 Const: Other: Constitutional Awake and Alert, No apparent distress Neck Supple, No lymphadenopathy Cardiovascular RRR, No M/R/G, S1 S2, No S3 S4, No pedal edema Respiratory Lungs clear, No respiratory distress Gastrointestinal Non tender, Non-distended Skin No rash Neurological Alert & oriented x3 Psychological Appropriate affect Objective Data Current Medications Generic Name Dose Route Start Last Admin Trade Name Jeremiahq PRN Reason Stop Dose Admin Acetaminophen 650 mg 11/15/20 23:45 Acetaminophen 325 Mg Tablet PO Q6H PRN Pain, Mild (Pain Scale 1-3) Albuterol Sulfate 2 puff 11/15/20 23:45 Albuterol Sulfate 90 Mcg 8 Gm Inhaler INHALE Q6H PRN bronchospasm Amiodarone HCl 400 mg 11/17/20 09:30 11/17/20 20:53 Amiodarone Hcl 200 Mg Tablet PO 400 mg BID VANDA Administration Apixaban 5 mg 11/15/20 23:45 11/17/20 20:53 Apixaban 5 Mg Tablet PO 5 mg BID VANDA Administration Carvedilol 50 mg 11/17/20 21:00 11/17/20 21:02 Carvedilol 25 Mg Tablet PO 50 mg BID VANDA Administration Protocol Clonazepam 0.5 mg 11/15/20 23:45 Clonazepam 0.5 Mg Tablet PO DAILY PRN Anxiety Docusate Sodium 100 mg 11/15/20 23:45 Docusate Sodium 100 Mg Capsule PO DAILY PRN Constipation Duloxetine HCl 30 mg 11/16/20 09:00 11/17/20 09:34 Duloxetine Hcl 30 Mg Capsule.Dr PO 30 mg DAILY VANDA Administration Duloxetine HCl 60 mg 11/15/20 23:45 11/17/20 20:53 Duloxetine Hcl 60 Mg Capsule.Dr PO 60 mg BEDTIME VANDA Administration Fluticasone Propionate 1 puff 11/16/20 20:00 11/18/20 07:39 Fluticasone Propionate 100 Mcg Blst.W.Dev INHALE 1 puff RBID VANDA Administration Furosemide 40 mg 11/16/20 09:00 11/17/20 09:28 Furosemide 40 Mg/4 Ml Vial IVPUSH 40 mg DAILY [facility] Administration Protocol Gabapentin 300 mg 11/15/20 23:45 11/17/20 20:53 Gabapentin 300 Mg Capsule PO 300 mg BID VANDA Administration Insulin Glargine 7 unit 11/16/20 21:00 11/17/20 20:52 Insulin Glargine,Hum.Rec.Anlog 100 Unit/Ml 10 Ml Vial SUBCUT 7 unit BEDTIME [facility] Administration Insulin Human Lispro 0 unit 11/16/20 07:30 11/18/20 07:58 Insulin Lispro 100 Unit/Ml 3 Ml Vial SUBCUT Not Given QIDACHS [facility] Protocol Ketoconazole 1 appl 11/16/20 09:00 11/17/20 09:37 Ketoconazole 2 % Shampoo 120 Ml Btl TOPICAL 1 appl DAILY [facility] Administration Protocol Non-Formulary Medication 10 mg 11/15/20 23:45 Rosuvastatin PO BEDTIME [facility] Ondansetron HCl 4 mg 11/15/20 23:45 Ondansetron Hcl 4 Mg/2 Ml Vial IVPUSH Q8H PRN Nausea and Vomiting Pharmacy Consult 1 each 11/15/20 19:32 Consult Rx Perform Med Rec MISCELLANE ONCE PRN Consult order Sacubitril/Valsartan 1 tab 11/15/20 23:45 11/17/20 20:53 Sacubitril/Valsartan 49/51 1 Tab Tablet PO 1 tab BID [facility] Administration Protocol Sodium Chloride 3 ml 11/16/20 00:00 11/18/20 01:48 0.9 % Sodium Chloride Flush 3 Ml Syringe IVFLUSH 3 ml QSHIFT [facility] Administration Labs CBC & Chem 7: 11/16/20 05:43 11/17/20 07:25 Labs: Laboratory Results - last 24 hr 11/17/20 11/17/20 11/17/20 11:39 16:18 20:34 POC Glucose 136 H 164 H 123 H 11/18/20 07:08 POC Glucose 115 Quality Stroke Does the patient have a stroke diagnosis?: No VTE Prior VTE?: No VTE Risk Level:: Medical - moderate - high VTE Device Contraindication: Treatment Not Indicated VTE Drug Contraindication: N/A - Med Ordered Assessment and Plan (1) Acute on chronic HFrEF (heart failure with reduced ejection fraction): Status: Acute (2) Paroxysmal atrial fibrillation: Status: Acute Assessment and Plan: 70-year-old male with past medical history of non ischemic cardiomyopathy with an ejection fraction of 15 present who presents to the hospital with shortness of breath found to be in CHF exacerbation 1. acute on chronic heart failure with reduced ejection fraction may have been precipitated by AFIB. Treated with IV Lasix with singificant improved and will change to Oral today for discharge. Ech is noted for EF of 15 percent and will need AICD in the future, cardiology will arrange for this. He should monitor his weight and keep water intake to minimum. To continue Entresto, and Coreg high dose 50 bid 2. A. Flutter--symptomatic---He underwent sucesful cardioversion by Dr. De Souza on 11/17 and is in sinus. He will be on Amiodarne 400 bid x 2 weeks, then 200 daily to keep in sinus. To continue Eliquis for stroke prevention 3. DM--Resume home meds upon discharge 4.asthma/COPD no acute exacerbation continue home inhalers Full Code DVT pptx Eliquis Probably home later today
[2020-11-18] MEDS: DULoxetine HCl 30 MG CAPSULE.DR PO (09:35)
[2020-11-18] MEDS: Furosemide 40 MG/4 ML VIAL IVPUSH (09:35)
[2020-11-18] MEDS: Sacubitril/Valsartan 49/51 1 TAB TABLET PO (09:36)
[2020-11-18] MEDS: Apixaban 5 MG TABLET PO (09:36)
[2020-11-18] MEDS: Amiodarone HCL 200 MG TABLET 400 MG PO (09:37)
[2020-11-18] MEDS: carvediloL 25 MG TABLET 50 MG PO (09:40)
[2020-11-18] MEDS: Gabapentin 300 MG CAPSULE PO (10:25)
[2020-11-18] MEDS: Ketoconazole 2 % Shampoo 120 ML BTL 1 APPL TOPICAL (10:43)
--- NOTE | 2020-11-18 10:45 | PM.PNCARD ---
Subjective Subjective Date of Service: 11/18/20 Interval history: States that he feels ok. Review of Systems Review of Systems Yes all other systems are reviewed and are negative Cardiovascular: Reports as per HPI, Reports no additional cardiovascular complaints, Denies acrocyanosis, Denies cool extremities, Denies painful fingertips, Denies chest pain, Denies chest pain at rest, Denies diaphoresis, Denies syncope, Denies irregular heart rhythm, Denies claudication, Denies leg edema, Denies lightheadedness, Denies palpitations and Reports dyspnea Respiratory: Reports dyspnea Denies syncope Endocrine: Denies palpitations Physical Exam Vital Signs: Last Vital Signs Temp 97.6 F 11/18/20 07:05 Pulse 68 11/18/20 09:40 Resp 18 11/18/20 07:05 BP 98/48 L 11/18/20 09:40 Pulse Ox 92 11/18/20 07:05 Body Mass Index 31.2 Const General: cooperative and no acute distress [facility] Other: Unremarkable Neck Neck: Yes normal visual inspection Chest Chest palpation & inspection: normal inspection of the chest Resp Auscultation: clear to auscultation bilaterally, crackles bilateral at the base and no wheezes Cardio Jugular venous distension: no JVD Palpation: normal PMI Heart sounds: S1 normal heart sound present, S2 normal heart sound present, no gallops, Murmur heart sound present systolic early, II/ and at the right sternal border and no rubs GI Palpation (GI): Soft to palpation Back/Spine/Pelvis Other: unremarkable Skin General skin exam: no rashes or lesions noted Neuro Cranial nerves: Yes Other cranial nerve findings present Extrem General: Yes no clubbing, cyanosis or edema Psych Mental Status: other Results Labs and Meds Result diagrams: 11/16/20 05:43 11/17/20 07:25 Lab results: Laboratory Results - last 24 hr 11/17/20 11/17/20 11/17/20 11:39 16:18 20:34 POC Glucose 136 H 164 H 123 H 11/18/20 07:08 POC Glucose 115 Progress Note: A&P Assessment and plan (1) Acute on chronic HFrEF (heart failure with reduced ejection fraction): Status: Acute (2) Paroxysmal atrial fibrillation: Status: Acute Assessment and Plan: Based on last echocardiogram, LVEF of 15-20% with restrictive filling pattern. LA was moderately dilated. Decompensation with shortness of breath could be due to onset of atrial fibrillation. He has been on Eliquis. Hence cardioversion done. Converted to sinus. Started Amiodarone. Discharge today. Oral diuretics. FU in office will be arranged. Fall Risk Details Current Medications: Current Medications Generic Name Dose Route Start Last Admin Trade Name Freq PRN Reason Stop Dose Admin Acetaminophen 650 mg 11/15/20 23:45 Acetaminophen 325 Mg Tablet PO Q6H PRN Pain, Mild (Pain Scale 1-3) Albuterol Sulfate 2 puff 11/15/20 23:45 Albuterol Sulfate 90 Mcg 8 Gm Inhaler INHALE Q6H PRN bronchospasm Amiodarone HCl 400 mg 11/17/20 09:30 11/18/20 09:37 Amiodarone Hcl 200 Mg Tablet PO 400 mg BID VANDA Administration Apixaban 5 mg 11/15/20 23:45 11/18/20 09:36 Apixaban 5 Mg Tablet PO 5 mg BID VANDA Administration Carvedilol 50 mg 11/17/20 21:00 11/18/20 09:40 Carvedilol 25 Mg Tablet PO 50 mg BID VANDA Administration Protocol Clonazepam 0.5 mg 11/15/20 23:45 Clonazepam 0.5 Mg Tablet PO DAILY PRN Anxiety Docusate Sodium 100 mg 11/15/20 23:45 Docusate Sodium 100 Mg Capsule PO DAILY PRN Constipation Duloxetine HCl 30 mg 11/16/20 09:00 11/18/20 09:35 Duloxetine Hcl 30 Mg Capsule. PO 30 mg DAILY [facility]ANDA Administration Duloxetine HCl 60 mg 11/15/20 23:45 11/17/20 20:53 Duloxetine Hcl 60 Mg Capsule. PO 60 mg BEDTIME [facility]ANDA Administration Fluticasone Propionate 1 puff 11/16/20 20:00 11/18/20 07:39 Fluticasone Propionate 100 Mcg Blst.W.Dev INHALE 1 puff RBID VANDA Administration Furosemide 40 mg 11/16/20 09:00 11/18/20 09:35 Furosemide 40 Mg/4 Ml Vial IVPUSH 40 mg DAILY [facility]ANDA Administration Protocol Gabapentin 300 mg 11/15/20 23:45 11/18/20 10:25 Gabapentin 300 Mg Capsule PO 300 mg BID VANDA Administration Insulin Glargine 7 unit 11/16/20 21:00 11/17/20 20:52 Insulin Glargine,Hum.Rec.Anlog 100 Unit/Ml 10 Ml Vial SUBCUT 7 unit BEDTIME [facility]ANDA Administration Insulin Human Lispro 0 unit 11/16/20 07:30 11/18/20 07:58 Insulin Lispro 100 Unit/Ml 3 Ml Vial SUBCUT Not Given QIDACHS [facility]ANDA Protocol Ketoconazole 1 appl 11/16/20 09:00 11/18/20 10:43 Ketoconazole 2 % Shampoo 120 Ml Btl TOPICAL 1 appl DAILY [facility]DA Administration Protocol Non-Formulary Medication 10 mg 11/15/20 23:45 Rosuvastatin PO BEDTIME [facility]AN[facility] Ondansetron HCl 4 mg 11/15/20 23:45 Ondansetron Hcl 4 Mg/2 Ml Vial IVPUSH Q8H PRN Nausea and Vomiting Pharmacy Consult 1 each 11/15/20 19:32 Consult Rx Perform Med Rec MISCELLANE ONCE PRN Consult order Sacubitril/Valsartan 1 tab 11/15/20 23:45 11/18/20 09:36 Sacubitril/Valsartan 49/51 1 Tab Tablet PO 1 tab BID [facility]ANDA Administration Protocol Sodium Chloride 3 ml 11/16/20 00:00 11/18/20 09:35 0.9 % Sodium Chloride Flush 3 Ml Syringe IVFLUSH 3 ml QSHIFT VANDA Administration Time Spent With Patient Time: Total time spent is greater than 50% in coordination of care (as documented) at patient's floor/unit and/or counseling patient: Time with patient: less than 15 minutes Progress Note: Quality Stroke Does the patient have a stroke diagnosis?: No Procedures Date of Service Date of Service: 11/18/20
--- NOTE | 2020-11-18 11:05 | MHC.CM.PN ---
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
--- NOTE | 2020-11-18 11:07 | MHC.CM.PN ---
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 PT FAMILY TO TRANSPORT
[2020-11-18 11:14] LABS: Glucose, Whole Blood 155 mg/dL (60-115)
[2020-11-18] MEDS: Insulin Lispro 100 UNIT/ML 3 ML VIAL SUBCUT (12:01)
== END 2020-11-18 13:16 | disposition home or self-care (01) | DRG 308 ==
LOC: HO.ED 19:58 → HO.EDOVER 22:10 → HO.IMC 22:48
PROVIDERS: Family Medicine; Internal Medicine; Nurse Practitioner Family; Physician Assistant Medical; Admitting Provider Internal Medicine; Emergency Provider Emergency Medicine Emergency Medical Services; PCP Internal Medicine; Visit Provider Internal Medicine
PROC: 5A2204Z Restoration of Cardiac Rhythm, Single (ICD-10-PCS; principal; 2020-11-17 11:00)
DX: I48.92 Unspecified atrial flutter (principal); I50.23 Acute on chronic systolic (congestive) heart failure; E78.5 Hyperlipidemia, unspecified; E11.9 Type 2 diabetes mellitus without complications; Z95.810 Presence of automatic (implantable) cardiac defibrillator; I48.0 Paroxysmal atrial fibrillation; J45.909 Unspecified asthma, uncomplicated; Z20.822 Contact with and (suspected) exposure to COVID-19; Z87.891 Personal history of nicotine dependence; Z79.4 Long term (current) use of insulin; Z79.01 Long term (current) use of anticoagulants; Z79.52 Long term (current) use of systemic steroids; Z79.899 Other long term (current) drug therapy
CPT/HCPCS: 36415; 71045; 80048; 80053; 82947; 83880; 84484; 85025; 87635; 92960; 93005; 94640; 99285; J0171; J1940

== ENCOUNTER → 2020-11-28 13:47 | Outpatient (BNVA) | payer OTHER, SELFPAY | PROVIDERS: PCP Internal Medicine; Referring Provider Internal Medicine; Visit Provider Nurse Practitioner Family | DX: I48.92 Unspecified atrial flutter (principal); I50.23 Acute on chronic systolic (congestive) heart failure; I42.9 Cardiomyopathy, unspecified; Z95.810 Presence of automatic (implantable) cardiac defibrillator | CPT/HCPCS: 93005; 99212 ==

== ENCOUNTER → 2020-12-05 10:08 | Day surgery (SDC) | payer OTHER, SELFPAY ==
--- NOTE | 2020-12-04 10:57 | HO.ANESPROP2 ---
HPI - Anesthesia Eval Consult details Narrative: CX'd 12/05/20: Pt in SR 70yo M for Cardioversion s/p cardioversion 11/17/20 with GA-mask ICD in situ Eliquis for afib PMFSH Active Problems Active Problems: All Active Problems (Updated 11/28/20 @ 16:21 by Christie Jain MD) Atrial flutter (Acute) Diverticulosis (Acute) Tubular adenoma of colon (Acute) Irritable bowel syndrome with diarrhea (Acute) Cardiomyopathy (Acute) ICD (implantable 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-defibrillator) in place (Acute) Heart failure with reduced ejection fraction (Acute) Mixed hyperlipidemia (Acute) Seborrheic dermatitis of scalp (Acute) Hearing loss (Acute) Tubular adenoma of colon (Acute) Obesity (BMI 30-39.9) (Acute) Hypoglycemia unawareness associated with type 2 diabetes mellitus (Acute) Vitamin D deficiency (Acute) Diabetic nephropathy associated with type 2 diabetes mellitus (Acute) 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 (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) Restrictive lung disease (Acute) Asthma-COPD overlap syndrome (Acute) Asthma (Acute) Hearing loss (Acute) Depression with anxiety (Acute) GERD (gastroesophageal reflux disease) (Acute) Essential hypertension (Acute) Diabetes type 2, uncontrolled (Acute) Past Medical History Medical History (Updated 11/28/20 @ 16:21 by Christie Jain MD) Acute on chronic HFrEF (heart failure with reduced ejection fraction) Anemia Asthma Asthma-COPD overlap syndrome Cardiomyopathy Cardiomyopathy CHF (congestive heart failure) COPD (chronic obstructive pulmonary disease) Depression with anxiety Diabetes type 2, uncontrolled Diabetic nephropathy associated with type 2 diabetes mellitus Essential hypertension GERD (gastroesophageal reflux disease) Hearing loss Hearing loss Heart failure with reduced ejection fraction HLD (hyperlipidemia) HTN (hypertension) Hypoglycemia unawareness associated with type 2 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 FPC (current) use of insulin Mixed hyperlipidemia Obesity (BMI 30-39.9) Paroxysmal atrial fibrillation Restrictive lung disease Seborrheic dermatitis of scalp Vitamin D deficiency Family History Family History (Updated 11/28/20 @ 15:17 by MOLLY Chamberlain) Father Cancer Mother Cancer Family/Other Diabetes CHF (congestive heart failure) Surgical History Surgical History History of cardiac defibrillator placement History of thumb surgery Social History Social History Household Members: None Housing: Apartment Alcohol intake: never Patient Tobacco Use Status: Former Tobacco user Tobacco use type: Cigarette e-Cigarette/Vaping Use: Never Used Second Hand Smoke Exposure: No Advance Directives: No Advance Directives Information Provided: Yes service: No Current occupational status: disabled Meds Allergies Allergy/AdvReac Type Severity Reaction Status Date / Time atorvastatin [Lipitor] Allergy Intermediate stomach Verified 11/28/20 15:32 aches dog Allergy Intermediate Sneezing Verified 11/28/20 15:32 grass Allergy Intermediate Rash Verified 11/28/20 15:32 mosquitos Allergy Intermediate Rash Verified 11/28/20 15:32 roaches Allergy Intermediate Rash Verified 11/28/20 15:32 trees Allergy Intermediate Rash Verified 11/28/20 15:32 Home Medications Medication Instructions Recorded Confirmed Last Taken Type clonazepam 0.5 mg tablet 0.5 mg PO DAILY PRN 04/16/20 11/28/20 Unknown History duloxetine 60 mg capsule,delayed 60 mg PO BEDTIME cap 09/11/20 11/28/20 11/14/20 History release lancets 33 gauge #100 ea 10/25/20 11/28/20 Unknown History duloxetine 30 mg PO DAILY 11/15/20 11/28/20 11/15/20 History ketoconazole 1 appl TOPICAL DAILY 11/15/20 11/28/20 Unknown History rosuvastatin 10 mg PO BEDTIME 11/15/20 11/28/20 11/14/20 History cyanocobalamin (vitamin B-12) 500 0 mcg SUBLINGUAL 11/28/20 11/28/20 Unknown History mcg sublingual tablet omega-3 fatty acids-fish oil 340 0 cap PO 11/28/20 11/28/20 Unknown History mg-1,000 mg capsule Exam Exam Date and Time: December 04, 2020 1057 Narrative Narrative: EKG 11/28/20 atrial flutter with variable AV block, left axis deviation, incomplete left bundle branch block, nonspecific T-wave abnormality, rate 65, QTC 463 millisecond ECHO 07/2020 Conclusions: - 1. Mildly dilated left ventricle with severe LV systolic dysfunction with LVEF of 15-20% with restrictive filling 2. Moderately dilated left atrium 3. Mild aortic regurgitation 4. Normal RV systolic pressure 5. 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
--- NOTE | 2020-12-05 10:44 | ECG_ITS ---
Test Reason : RHYTHM CHECK Blood Pressure : / mmHG Vent. Rate : 069 BPM Atrial Rate : 069 BPM P-R Int : 236 ms QRS Dur : 120 ms QT Int : 386 ms P-R-T Axes : 083 -39 070 degrees QTc Int : 413 ms Sinus rhythm with 1st degree A-V block Left axis deviation Incomplete left bundle branch block Nonspecific T wave abnormality Abnormal ECG When compared with ECG of 17-NOV-2020 11:53, Premature atrial complexes are no longer Present Referred By: Beth Griffith Electronically Signed By:MAMTA ALBERT
--- NOTE | 2020-12-05 10:57 | PC.NURSE ---
upon arrival called for a stock lifter and while waiting i did vital signs and looks like patient is in nsr. ekg being performed.
== END ==
PROVIDERS: PCP Internal Medicine; Visit Provider Internal Medicine Cardiovascular Disease
DX: I48.92 Unspecified atrial flutter (principal); Z79.01 Long term (current) use of anticoagulants; Z53.8 Procedure and treatment not carried out for other reasons
CPT/HCPCS: 93005

== ENCOUNTER → 2020-12-25 14:33 | Outpatient (BNVA) | payer OTHER, SELFPAY | PROVIDERS: PCP Internal Medicine; Referring Provider Internal Medicine; Visit Provider Internal Medicine Cardiovascular Disease | DX: I48.3 Typical atrial flutter (principal); I50.20 Unspecified systolic (congestive) heart failure | CPT/HCPCS: 93005; 99212 ==

== ENCOUNTER 2021-01-11 12:13 | Outpatient (REF) | payer OTHER, SELFPAY ==
[2021-01-11 13:25] LABS: Alanine Aminotransferase 41 U/L (0-40); Albumin Level 4.5 g/dL (3.5-5.0); Alkaline Phosphatase 65 U/L (39-117); Anion Gap 16 (12-20); Aspartate Amino Transferase 20 U/L (5-37); Bilirubin Total 0.4 mg/dL (0.0-1.0); Blood Urea Nitrogen 16 mg/dL (9-16); Calcium 9.1 mg/dL (8.4-10.2); Carbon Dioxide 26 mmol/L (22-29); Chloride 103 mmol/L (96-108); Cholesterol 169 mg/dL; Estimated Glomerular Filt Rate 59; Glucose Fasting 146 mg/dL (60-99); HDL Cholesterol 44 mg/dL; LDL Cholesterol Calculated 64 mg/dl; Potassium 4.6 mmol/L (3.3-5.1); Sodium 140 mmol/L (135-145); Total Protein 7.2 g/dL (6.5-8.0); Triglycerides 306 mg/dL
[2021-01-11 13:26] LABS: B Type Natriuretic Peptide 292 pg/mL (<100)
[2021-01-12 15:07] LABS: Vitamin B12 511 pg/mL (200-900)
[2021-01-12 21:31] LABS: LDL Cholesterol Direct 72 mg/dL (<100)
== END 2021-01-11 12:14 | disposition home or self-care (01) ==
LOC: HO.LAB 12:13
PROVIDERS: Absent Provider Internal Medicine Cardiovascular Disease; PCP Internal Medicine; Referring Provider Internal Medicine Endocrinology, Diabetes & Metabolism; Visit Provider Internal Medicine
DX: I50.20 Unspecified systolic (congestive) heart failure (principal); E11.65 Type 2 diabetes mellitus with hyperglycemia; E78.2 Mixed hyperlipidemia
CPT/HCPCS: 36415; 80053; 80061; 82607; 83721; 83880

== ENCOUNTER → 2021-01-16 13:29 | Outpatient (BNVA) | payer OTHER, SELFPAY | PROVIDERS: PCP Internal Medicine; Visit Provider Internal Medicine | DX: J44.9 Chronic obstructive pulmonary disease, unspecified (principal); J98.4 Other disorders of lung; I50.33 Acute on chronic diastolic (congestive) heart failure; I10 Essential (primary) hypertension; E11.65 Type 2 diabetes mellitus with hyperglycemia; E11.649 Type 2 diabetes mellitus with hypoglycemia without coma; E11.21 Type 2 diabetes mellitus with diabetic nephropathy; I48.0 Paroxysmal atrial fibrillation; E66.9 Obesity, unspecified; J30.81 Allergic rhinitis due to animal (cat) (dog) hair and dander; J30.1 Allergic rhinitis due to pollen; Z87.891 Personal history of nicotine dependence; Z88.8 Allergy status to other drugs, medicaments and biological substances; Z91.038 Other insect allergy status; Z79.4 Long term (current) use of insulin; Z79.899 Other long term (current) drug therapy; Z95.810 Presence of automatic (implantable) cardiac defibrillator | CPT/HCPCS: 99212 ==

== ENCOUNTER → 2021-01-29 14:24 | Outpatient (BNVA) | payer OTHER, SELFPAY | PROVIDERS: PCP Internal Medicine; Visit Provider Internal Medicine Cardiovascular Disease | DX: Z45.02 Encounter for adjustment and management of automatic implantable cardiac defibrillator (principal); I48.3 Typical atrial flutter; I50.20 Unspecified systolic (congestive) heart failure | CPT/HCPCS: 99212 ==

== ENCOUNTER → 2021-02-12 14:33 | Outpatient (BNVA) | payer OTHER, SELFPAY | PROVIDERS: PCP Internal Medicine; Visit Provider Internal Medicine Cardiovascular Disease | DX: Z45.02 Encounter for adjustment and management of automatic implantable cardiac defibrillator (principal); I50.20 Unspecified systolic (congestive) heart failure; I48.0 Paroxysmal atrial fibrillation | CPT/HCPCS: 93005; 99212 ==

== ENCOUNTER → 2021-04-04 12:40 | Outpatient (BNVA) | payer OTHER, SELFPAY | PROVIDERS: PCP Internal Medicine; Visit Provider Nurse Practitioner Gerontology | DX: E11.65 Type 2 diabetes mellitus with hyperglycemia (principal); E11.21 Type 2 diabetes mellitus with diabetic nephropathy; E78.00 Pure hypercholesterolemia, unspecified; E55.9 Vitamin D deficiency, unspecified; E66.9 Obesity, unspecified; I10 Essential (primary) hypertension; Z79.4 Long term (current) use of insulin | CPT/HCPCS: 82947; 99212 ==

== ENCOUNTER 2021-04-10 10:56 | Outpatient (REF) | payer OTHER, SELFPAY ==
[2021-04-10 12:42] LABS: Microalbum/Creatinine Ratio Ur 12.8 ug/mg cr
== END 2021-04-10 10:57 | disposition home or self-care (01) ==
LOC: HO.LAB 10:56
PROVIDERS: Visit Provider Nurse Practitioner Gerontology
DX: E11.21 Type 2 diabetes mellitus with diabetic nephropathy (principal)
CPT/HCPCS: 82043

== ENCOUNTER → 2021-05-16 14:44 | Outpatient (BNVA) | payer OTHER, SELFPAY | PROVIDERS: PCP Internal Medicine; Referring Provider Internal Medicine; Visit Provider Internal Medicine Cardiovascular Disease | DX: Z45.02 Encounter for adjustment and management of automatic implantable cardiac defibrillator (principal); I48.19 Other persistent atrial fibrillation; I50.20 Unspecified systolic (congestive) heart failure | CPT/HCPCS: 93005; 99212 ==

== ENCOUNTER → 2021-05-21 13:05 | Outpatient (BNVA) | payer OTHER, SELFPAY | PROVIDERS: PCP Internal Medicine; Referring Provider Internal Medicine; Visit Provider Nurse Practitioner | DX: K21.9 Gastro-esophageal reflux disease without esophagitis (principal); D12.6 Benign neoplasm of colon, unspecified; K58.0 Irritable bowel syndrome with diarrhea | CPT/HCPCS: 99212 ==

== ENCOUNTER → 2021-07-17 13:40 | Outpatient (BNVA) | payer OTHER, SELFPAY | PROVIDERS: PCP Internal Medicine; Visit Provider Internal Medicine | DX: J44.9 Chronic obstructive pulmonary disease, unspecified (principal); E66.9 Obesity, unspecified; Z68.33 Body mass index [BMI] 33.0-33.9, adult | CPT/HCPCS: 99212 ==

== ENCOUNTER 2021-08-09 09:52 | Outpatient (REF) | payer MEDICARE, SELFPAY ==
[2021-08-09 10:21] LABS: MANUAL DIFF FLAG NO
[2021-08-09 11:07] LABS: Basophils Percent Auto 0.2 % (0-2); Eosinophils Percent Auto 12.1 % (0-4); Hematocrit 42.3 % (42.0-52.0); Hemoglobin 14.2 g/dl (14.0-18.0); Imm Gran Abs Auto 0.14 X10*3/uL (0.00-0.03); Imm Gran Pct Auto 1.7 % (0.0-0.4); Lymphocytes Absolute Auto 1.2 X10*3/uL (1.2-4.9); Lymphocytes Percent Auto 14.1 % (20-40); Mean Corpuscular HGB Conc 33.6 g/dl (31.0-36.0); Mean Corpuscular Hemoglobin 32.3 pg (27.0-33.0); Mean Corpuscular Volume 96.1 fL (80.0-98.0); Mean Platelet Volume 9.8 fL (9.4-12.4); Monocytes Percent Auto 12.4 % (2-11); Neutrophils Absolute Auto 4.9 x10*3/uL (2.0-8.3); Neutrophils Percent Auto 59.5 % (45-73); Platelet Count 193 X10*3/uL (160-400); Red Cell Distribution Width 13.2 % (11.0-16.0); White Blood Count 8.3 X10*3/uL (4.8-10.8)
[2021-08-09 11:19] LABS: Estimated Average Glucose 143 mg/dL; Hemoglobin A1c % 6.6 %
[2021-08-09 11:34] LABS: B Type Natriuretic Peptide 113 pg/mL (<100)
[2021-08-09 11:45] LABS: Anion Gap 15 (12-20); Blood Urea Nitrogen 19 mg/dL (9-16); Calcium 9.8 mg/dL (8.4-10.2); Carbon Dioxide 31 mmol/L (22-29); Chloride 102 mmol/L (96-108); Estimated Glomerular Filt Rate > 60; Glucose Random 118 mg/dL (60-115); Iron 108 mcg/dL (45-160); Percent Iron Saturation 32 % (15-50); Potassium 4.5 mmol/L (3.3-5.1); Sodium 143 mmol/L (135-145); Total Iron Binding Capacity 341 mcg/dL (228-428); Unsaturated Iron Binding 233 ug/dL
[2021-08-09 12:20] LABS: Thyroid Stimulating Hormone 8.49 uIU/mL (0.32-4.0)
[2021-08-09 12:39] LABS: Creatinine Urine 149.12 mg/dL; Microalbum/Creatinine Ratio Ur 15.4 ug/mg cr
[2021-08-15 11:56] LABS: Vitamin D 25-OH, D2 <4 ng/mL; Vitamin D 25-OH, D3 12 ng/mL; Vitamin D 25-OH, Total 12 ng/mL (30-100)
== END 2021-08-09 09:53 | disposition home or self-care (01) ==
LOC: HO.LAB 09:52
PROVIDERS: PCP Internal Medicine; Visit Provider Internal Medicine Cardiovascular Disease
DX: D64.9 Anemia, unspecified (principal); E55.9 Vitamin D deficiency, unspecified; I48.19 Other persistent atrial fibrillation; I10 Essential (primary) hypertension; I42.9 Cardiomyopathy, unspecified; E11.40 Type 2 diabetes mellitus with diabetic neuropathy, unspecified
CPT/HCPCS: 36415; 80048; 82043; 82306; 83036; 83540; 83880; 84443; 85025

== ENCOUNTER → 2021-08-15 14:41 | Outpatient (BNVA) | payer MEDICARE, SELFPAY | PROVIDERS: PCP Internal Medicine; Referring Provider Internal Medicine; Visit Provider Internal Medicine Cardiovascular Disease | DX: Z45.02 Encounter for adjustment and management of automatic implantable cardiac defibrillator (principal); I50.20 Unspecified systolic (congestive) heart failure; I48.0 Paroxysmal atrial fibrillation | CPT/HCPCS: 93005; 99212 ==

== ENCOUNTER 2021-09-02 09:51 | Emergency (ER) | payer OTHER, SELFPAY ==
--- NOTE | ~2021-09-02 | XR_ITS ---
EXAMINATION: XR ANKLE, LEFT CLINICAL INFORMATION: Swelling and pain COMPARISON: None TECHNIQUE: AP, lateral, and mortise views of the left ankle. FINDINGS: There is no fracture or dislocation. The ankle mortise is congruent. No ankle joint effusion. Circumferential soft tissue swelling which is greatest laterally. XR/XR ankle LT 2V IMPRESSION: Soft tissue swelling without acute osseous abnormality.
[2021-09-02 10:55] VITALS: BP 118/50; PULSE 75; RESP 20; TEMP 36.3; O2SAT 96; BMI 33.1
--- NOTE | 2021-09-02 11:42 | ED_ITS ---
HPI - General Adult General Chief complaint: General Medical Stated complaint: L ankle swelling Time Seen by Provider: 09/02/21 11:42 Source: patient Mode of arrival: ambulatory Limitations: no limitations History of Present Illness HPI narrative: 71 yo male with a history of afib on eliquis,?hypertension, asthma-COPD overlap syndrome, diabetes mellitus type 2 on long-term current use of insulin, GERD and dyslipidemia, anemia, nonischemic cardiomyopathy with EF 15-20% with ICD here with complaints of left ankle swelling, redness, little bit of pain since Thursday. No fevers, chills, injury or trauma. H/o cellulitis and states 'feels similar. Related Data Home Medications Medication Instructions Recorded Confirmed clonazepam 0.5 mg tablet 0.5 mg PO DAILY PRN 04/16/20 08/15/21 duloxetine 60 mg capsule,delayed 60 mg PO BEDTIME cap 09/11/20 08/15/21 release duloxetine 30 mg capsule,delayed 30 mg PO DAILY 11/15/20 08/15/21 release omega-3 fatty acids-fish oil 340 0 cap PO 04/04/21 08/15/21 mg-1,000 mg capsule (Fish Oil) Previous Rx's Medication Instructions Recorded lancets 28 gauge #100 ea 06/26/20 albuterol sulfate 90 mcg/actuation 2 puff INHALATION Q6H PRN 30 Days 07/12/20 aerosol inhaler (Ventolin HFA) #8.5 g insulin degludec 100 unit/mL (3 10 unit (0.1 mL) SUBCUT BEDTIME 30 09/11/20 mL) subcutaneous pen (Tresi Days #15 ml FlexTouch U-100 insulin) pen needle, diabetic 32 gauge x 1 ea MISCELLANEOUS DAILY 90 Days 09/11/20 5/32 (BD Rosemary 2nd Gen Pen Needle) #100 ea acjutefj-qltlrdvcn-uotbzzukg 3.5 4 drp OTIC (EARS) Q8H 10 Days #10 02/08/21 mg/mL-10,000 unit/mL-1 % ear ml solution ketoconazole 2 % shampoo 1 appl TOPICAL 2XW #120 ml 02/10/21 rosuvastatin 10 mg tablet 10 mg PO BEDTIME 90 Days #90 tab 02/14/21 lancets 33 gauge #100 ea 03/13/21 blood sugar diagnostic (FreeStyle #100 ea 04/11/21 Lite Strips) dulaglutide 0.75 mg/0.5 mL 0.75 mg (0.5 mL) SUBCUT QWEEK 30 05/06/21 subcutaneous pen injector Days #2.5 ml cyanocobalamin (vitamin B-12) 500 500 mcg PO .COMPLEX #45 tab 05/15/21 mcg tablet dicyclomine 20 mg tablet 20 mg PO QID 30 Days #120 tab 05/21/21 famotidine 40 mg tablet (Pepcid) 40 mg PO BEDTIME #30 tab 05/21/21 magnesium citrate 150 ml PO ONCE #300 ml 05/21/21 sacubitril 49 mg-valsartan 51 mg 1 tab PO BID #60 tab 06/04/21 tablet (Entresto) furosemide 40 mg tablet (Lasix) 40 mg PO DAILY #90 tab 06/08/21 apixaban 5 mg tablet (Eliquis) 5 mg PO BID 90 Days #180 tab 06/12/21 clotrimazole-betamethasone 1 1 appl TOPICAL BID 14 Days #15 g 06/27/21 %-0.05 % topical cream omega 2-xtr-jfx-fish oil 300 1 cap PO DAILY 90 Days #90 cap 06/27/21 mg-1,000 mg capsule,delayed release (Fish Oil) gabapentin 300 mg capsule 300 mg PO BID 90 Days #180 cap 07/05/21 metformin 500 mg tablet,extended 1,000 mg PO BID 90 Days #360 tab 07/08/21 release 24 hr spironolactone 25 mg tablet 25 mg PO DAILY 90 Days #90 tab 07/29/21 (Aldactone) Arnuity Ellipta 200 mcg/actuation 1 inh INHALATION DAILY #30 ea NS 07/30/21 powder for inhalation (fluticasone furoate) carvedilol 25 mg tablet 50 mg PO BID 30 Days #120 tab 07/31/21 calcitriol 0.5 mcg capsule 0.5 mcg PO DAILY 90 Days #90 cap 08/15/21 dapagliflozin 10 mg tablet 10 mg PO DAILY 90 Days #90 tab 09/02/21 (Farxiga) doxycycline monohydrate 100 mg 100 mg PO BID #20 cap 09/02/21 capsule Allergies Allergy/AdvReac Type Severity Reaction Status Date / Time dog Allergy Intermediate Sneezing Verified 07/17/21 14:23 grass Allergy Intermediate Rash Verified 07/17/21 14:23 mosquitos Allergy Intermediate Rash Verified 07/17/21 14:23 roaches Allergy Intermediate Rash Verified 07/17/21 14:23 trees Allergy Intermediate Rash Verified 07/17/21 14:23 atorvastatin [Lipitor] AdvReac Intermediate stomach Verified 07/17/21 14:23 aches Review of Systems Review of Systems: Yes all other systems are reviewed and are negative Constitutional: Constitutional: Reports no additional constitutional complaints, Denies body ache(s), Denies chills, Denies fever(s), Denies headache(s) and Denies weakness Eyes: Eyes: Reports no additional eye complaints and Denies change in vision ENT: Reports system reviewed and no additional complaints, except as documented, Denies dizziness, Denies headache(s), Denies nasal congestion, Denies nasal discharge and Denies neck pain Cardiovascular: Cardiovascular: Reports no additional cardiovascular complaints, Denies chest pain, Denies leg edema and Denies dyspnea Respiratory: Respiratory: Reports no additional respiratory complaints, Denies cough and Denies dyspnea Gastrointestinal: Gastrointestinal: Reports no additional gastrointestinal complaints, Denies abdominal pain, Denies diarrhea, Denies nausea and Denies vomiting Genitourinary: Genitourinary: Denies urinary incontinence Musculoskeletal: Musculoskeletal: Reports no additional musculoskeletal complaints, Denies back pain, Reports arthralgias, Reports joint swelling, Denies neck pain, Denies numbness and Denies tingling Integumentary/Breasts: Skin/Breast: Reports system reviewed and no additional complaints, except as docu and Denies rash Neurologic: Reports system reviewed and no additional complaints, except as documented, Denies dizziness, Denies headache(s), Denies numbness, Denies tingling and Denies weakness [facility] Past Medical History Attestation statement: The following information was validated with the patient. Source: old records reviewed and nursing notes reviewed Medical History Acute on chronic HFrEF (heart failure with reduced ejection fraction) Anemia Asthma Asthma-COPD overlap syndrome Atrial flutter Cardiomyopathy Cardiomyopathy CHF (congestive heart failure) COPD (chronic obstructive pulmonary disease) Depression with anxiety Diabetes mellitus Diabetes type 2, uncontrolled Diabetic nephropathy associated with type 2 diabetes mellitus Ear discomfort Essential hypertension GERD (gastroesophageal reflux disease) Hearing loss Hearing loss Heart failure with reduced ejection fraction HLD (hyperlipidemia) HTN (hypertension) Hypoglycemia unawareness associated with type 2 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 skilled nursing (current) use of insulin Mixed hyperlipidemia Obesity (BMI 30-39.9) Paroxysmal atrial fibrillation Persistent atrial fibrillation Restrictive lung disease Seborrheic dermatitis of scalp Vitamin D deficiency Surgical History History of cardiac defibrillator placement History of thumb surgery Family History Family History Father Cancer Mother Cancer Family/Other Diabetes CHF (congestive heart failure) Social History Social History Household Members: None Housing: Apartment Alcohol intake: never Patient Tobacco Use Status: Former Tobacco user Tobacco use type: Cigarette e-Cigarette/Vaping Use: Never Used Second Hand Smoke Exposure: No Advance Directives: No Advance Directives Information Provided: No service: No Current occupational status: disabled Physical Exam ED Vital Signs: Vital Signs - 24 hr 09/02/21 10:55 Temperature 97.3 F Pulse Rate 75 Respiratory Rate 20 Blood Pressure 118/50 L Pulse Oximetry 96 BMI result Body Mass Index 33.1 Const General: alert Orientation/consciousness: patient oriented x3 Limitations: language barrier HENMT Head: Yes normal to inspection Ears: hearing grossly normal bilaterally General nose exam: Normal external nose present Face and sinus: Yes normal facial exam Mouth: Normal oral and palatal mucosa present Teeth and gingiva: dentition normal Throat: Yes posterior oropharynx normal, Yes tonsils normal and Yes uvula midline Eyes General: appearance normal, both eyes and all related structures Neck Neck: Yes normal visual inspection Chest Chest palpation & inspection: normal inspection of the chest Resp Effort & Inspection: normal respiratory effort Cardio Rate: regular rate Rhythm: regular rhythm Peripheral pulses: Peripheral pulses 2+ throughout GI Inspection: Yes normal to inspection Palpation (GI): Tenderness to palpation present (GI) General: Yes no CVA tenderness Back/Spine/Pelvis Back: no CVA tenderness Thoracic/Lumbar Spine: thoracic and lumbar spine normal to inspection Skin General skin exam: no rashes or lesions noted Neuro General: patient oriented x3 and moves all extremities Course Course Course Narrative: 71-year-old male here with atraumatic left ankle swelling, pain and redness for the last few days. No fevers or chills. No history of gout. On exam seems more consistent with cellulitis. Do not see any obvious open wounds or lesions but there are several abrasions the lower legs. ? entry site. X-ray show no acute abnormality Will treat patient for cellulitis with course of antibiotics. Low concern for septic joint with full range of motion of the ankle. worrisome signs and of when to return to the emergency department. Comfortable discharge home. Medical Decision Making Imaging Data ankle xray: Attestation: I personally reviewed and interpreted this imaging study as follows: Radiologist's impression: [address] [address] XRay Report Signed Patient: Stephen Mcintosh MR#: [id number] : 1950 Acct:[id number] Age/Sex: 71 / M ADM Date: 09/02/21 Loc: .ED Attending Dr: Ordering Physician: Celine Morse NP Date of Service: 09/02/21 Procedure(s): XR ankle LT 2V Accession Number(s): [id number] cc: Celine Morse NP~ EXAMINATION: XR ANKLE, LEFT CLINICAL INFORMATION: Swelling and pain? COMPARISON: None? TECHNIQUE: AP, lateral, and mortise views of the left ankle. FINDINGS: There is no fracture or dislocation. The ankle mortise is congruent. No ankle joint effusion. Circumferential soft tissue swelling which is greatest laterally.? XR/XR ankle LT 2V IMPRESSION: Soft tissue swelling without acute osseous abnormality. Discharge Plan Discharge Clinical Impression: Cellulitis Patient Disposition: Home, Self-Care Instructions: Cellulitis (DC) Additional Instructions: X-rays look good Rest, ice, elevation of the extremity Return for fever, increasing redness or swelling Prescriptions: New doxycycline monohydrate 100 mg capsule 100 mg PO BID Qty: 20 0RF No Action (DME) lancets 28 gauge misc See Rx Instructions ea topical .MEDSUPPLY Qty: 100 7RF Rx Instructions: 3 times a day albuterol sulfate [Ventolin HFA] 90 mcg/actuation HFA aerosol inhaler 2 puff inhalation Q6H PRN (Reason: bronchospasm) 30 Days Qty: 8.5 3RF ogxivjzt-xssqtkksj-QE 3.5-10,000-1 mg/mL-unit/mL-% solution 4 drp otic (ears) Q8H 10 Days Qty: 10 0RF ketoconazole 2 % shampoo 1 appl topical 2XW Qty: 120 6RF rosuvastatin 10 mg tablet 10 mg PO BEDTIME 90 Days Qty: 90 2RF (DME) lancets 33 gauge misc See Rx Instructions ea topical .MEDSUPPLY Qty: 100 11RF Rx Instructions: As directed to test blood glucose 3x per day. (DME) FreeStyle Lite Strips Strip See Rx Instructions .ROUTE .MEDSUPPLY Qty: 100 6RF Rx Instructions: 3 times a day dulaglutide 0.75 mg/0.5 mL pen injector 0.75 mg subcut QWEEK 30 Days Qty: 2.5 6RF cyanocobalamin (vitamin B-12) 500 mcg tablet 500 mcg PO .COMPLEX Qty: 45 3RF Rx Instructions: 500 mcg PO every other day in the morning; Entresto 49-51 mg tablet 1 tab PO BID Qty: 60 5RF furosemide [Lasix] 40 mg tablet 40 mg PO DAILY Qty: 90 1RF Eliquis 5 mg tablet 5 mg PO BID 90 Days Qty: 180 3RF gabapentin 300 mg capsule 300 mg PO BID 90 Days Qty: 180 0RF metformin 500 mg tablet extended release 24 hr 1,000 mg PO BID 90 Days Qty: 360 1RF spironolactone [Aldactone] 25 mg tablet 25 mg PO DAILY 90 Days Qty: 90 1RF Arnuity Ellipta 200 mcg/actuation blister with device 1 inh inhalation DAILY Qty: 30 2RF carvedilol 25 mg tablet 50 mg PO BID 30 Days Qty: 120 5RF Rx Instructions: 2 tablets twice daily calcitriol 0.5 mcg capsule 0.5 mcg PO DAILY 90 Days Qty: 90 0RF Farxiga 10 mg tablet 10 mg PO DAILY 90 Days Qty: 90 1RF duloxetine 30 mg capsule,delayed release(DR/EC) 30 mg PO DAILY 0RF clonazepam 0.5 mg tablet 0.5 mg PO DAILY PRN (Reason: Anxiety) 0RF duloxetine 60 mg capsule,delayed release(DR/EC) 60 mg PO BEDTIME 0RF clotrimazole-betamethasone 1-0.05 % cream 1 appl topical BID 14 Days Qty: 15 1RF omega 2-oew-xbm-fish oil [Fish Oil] 300-1,000 mg capsule,delayed release(DR/EC) 1 cap PO DAILY 90 Days Qty: 90 1RF Tresiba FlexTouch U-100 100 unit/mL (3 mL) insulin pen 10 unit subcut BEDTIME 30 Days Qty: 15 3RF pen needle, diabetic [BD Rosemary 2nd Gen Pen Needle] 32 gauge x 5/32 needle 1 ea miscellaneous DAILY 90 Days Qty: 100 5RF Fish Oil 340-1,000 mg capsule 0 cap PO 0RF magnesium citrate Solution 150 ml PO ONCE Qty: 300 0RF famotidine [Pepcid] 40 mg tablet 40 mg PO BEDTIME Qty: 30 6RF dicyclomine 20 mg tablet 20 mg PO QID 30 Days Qty: 120 6RF Referrals: Christie Royal MD [Primary Care Provider] - 5 days (for persistent symptoms ) Interventions: ED Discharge Assessment Last Done: 09/02/21 13:01 Discharge Date/Time: 09/02/21 13:02 Print Language: Mongolian
== END 2021-09-02 13:02 | disposition home or self-care (01) ==
PROVIDERS: Emergency Provider Emergency Medicine; PCP Internal Medicine
DX: L03.116 Cellulitis of left lower limb (principal); M25.572 Pain in left ankle and joints of left foot; E11.9 Type 2 diabetes mellitus without complications; I11.0 Hypertensive heart disease with heart failure; I50.9 Heart failure, unspecified; E78.2 Mixed hyperlipidemia; I48.0 Paroxysmal atrial fibrillation; Z79.01 Long term (current) use of anticoagulants; Z79.4 Long term (current) use of insulin; Z95.810 Presence of automatic (implantable) cardiac defibrillator; Z79.02 Long term (current) use of antithrombotics/antiplatelets; Z87.891 Personal history of nicotine dependence
CPT/HCPCS: 73600; 99283

== ENCOUNTER → 2021-10-22 14:46 | Outpatient (REF) | payer OTHER, SELFPAY ==
--- NOTE | 2021-10-22 14:50 | CA_ITS ---
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 The visually estimated ejection fraction is between 15-20%. - There is severe global hypokinesis with regional variation. - There is moderate to severely decreased right ventricular systolic function. - There is mild calcification of the aortic valve. Findings Procedure Information Contrast agent, definity, is being given per protocol without apparent complications. Left Ventricle Moderately increased left ventricular cavity size. The left ventricular systolic function is severely decreased. The visually estimated ejection fraction is between 15-20%. There is evidence of regional wall motion abnormalities. There is severe global hypokinesis. E/E prime ratio is >15, consistent with elevated filling pressures. Evidence suggests grade I (mild) diastolic dysfunction. Wall Motion Rest Echo Findings The inferoseptal wall and mid inferior segment are akinetic. Right Ventricle Normal right ventricular cavity size. There is moderate to severely decreased right ventricular systolic function. There is an ICD wire seen in the right ventricle. Atria Both atria are normal in size. Aortic Valve There is mild calcification of the aortic valve. The mean gradient is 5 mmHg. There is trace (trivial) aortic valve regurgitation. No significant aortic stenosis. Mitral Valve The mitral valve appears normal. There is no mitral valve regurgitation. There is no mitral valve stenosis. Pulmonic Valve The pulmonic valve is likely normal. Tricuspid Valve There is trace tricuspid valve regurgitation. Tricuspid regurgitation envelope is inadequate for calculation of right ventricular systolic pressure. Great Vessels The aortic annulus, sinuses of valsalva, and asc aorta are normal in size. Venous The inferior vena cava is normal in size and collapses less than 50% with inspiration. Pericardium/Pleural There is no evidence of pericardial effusion. Prior Study Comparison No significant change compared to prior study dated: 08/13/2020. Measurements 2D Linear Measurements IVSd: 0.60 0.6-0.9/0.6-1.0 cm LVIDd: 6.24 3.9-5.3/4.2-5.9 cm LVIDd Index: 3.03 2.4-3.2/2.2-3.1 cm/m2 LVIDs: 5.49 2.0-3.6 cm LVPWd: 0.85 0.7-1.1 cm LV Mass: 220.07 67-162/88-224 g LV Mass Index: 106.83 43-95/49-115 g/m2 LVOT Diam: 3.10 3.0+(-)1.3 cm 2D Systolic Function EF 4C: 25.70 >55% EF 2C: 34.20 >55% EF BiP: 29.70 >55% Mitral Valve MV Pk E: 0.78 MV PK A: 0.81 MV Decel Time: 193.00 E/A: 1.00 E'Lateral: 6.93 E'Medial: 3.56 E/E' Med: 21.80 E/E' Lat: 11.20 PHT: 57.00 MVA PHT: 3.86 Decel Wayne: 4.02 Aortic Valve AoV Pk Jamie: 1.56 AoV Mn Jamie: 1.08 AoV VTI: 0.32 AoV Pk Grad: 10.00 Aov Mn Grad: 5.00 ALAN Cont.VTI: 3.40 LVOT LVOT Pk Jamie: 0.71 LVOT Mn Jamie: 0.51 LVOT VTI: 0.14 LVOT Pk Grad: 2.00 LVOT Mn Grad: 1.00 LVOT Diam: 3.10 LVOT Area: 7.55 Diastolic Function MV Pk E: 0.78 MV Pk A: 0.81 E/A: 1.00 E'Medial: 3.56 E/E' Med: 21.80 E' Laterial: 6.93 E/E' Lat: 11.20 Right Ventricle TAPSE (mm): 11.30 TVS' Jamie: 12.60 Tricuspid Valve RA Press: 8.00 Great Vessels Aorta Sinus of Valsalva: 3.79 2.0-3.[address] [place]: 3.10 1.7-3.4 cm Ao Asc: 3.40 2.1-3.4 cm Pulmonary Valve PV Pk Jamie: 0.93 Peak PV Grad: 3.00 Updated in Other Vendor System with Status of Final Vik De Souza MD electronically signed on 10/24/2021 8:14:00 AM with status of Final
== END ==
LOC: HO.CARD 14:46
PROVIDERS: PCP Internal Medicine; Visit Provider Internal Medicine Cardiovascular Disease
DX: I42.9 Cardiomyopathy, unspecified (principal)
CPT/HCPCS: 93306; Q9957

== ENCOUNTER 2021-10-29 12:47 | Outpatient (REF) | payer OTHER, SELFPAY ==
[2021-10-29 13:49] LABS: Alanine Aminotransferase 20 U/L (0-40); Albumin Level 4.4 g/dL (3.5-5.0); Alkaline Phosphatase 71 U/L (39-117); Anion Gap 16 (12-20); Aspartate Amino Transferase 11 U/L (5-37); Bilirubin Total 0.4 mg/dL (0.0-1.0); Blood Urea Nitrogen 20 mg/dL (9-16); Carbon Dioxide 23 mmol/L (22-29); Chloride 102 mmol/L (96-108); Cholesterol 180 mg/dL; Estimated Glomerular Filt Rate > 60; Glucose Fasting 137 mg/dL (60-99); HDL Cholesterol 35 mg/dL; LDL Cholesterol Calculated 75 mg/dl; Potassium 3.9 mmol/L (3.3-5.1); Sodium 137 mmol/L (135-145); Total Protein 7.3 g/dL (6.5-8.0); Triglycerides 351 mg/dL
[2021-10-29 14:10] LABS: Free T4 (Free Thyroxine) 0.97 ng/dL (0.71-1.85); Thyroid Stimulating Hormone 4.98 uIU/mL (0.32-4.0); Vitamin D 25-OH Total 10.7 ng/mL (>30)
[2021-10-29 14:34] LABS: Creatinine Urine 177.96 mg/dL; Microalbum/Creatinine Ratio Ur 16.8 ug/mg cr
[2021-10-30 11:47] LABS: NT-proBNP 136 pg/mL
[2021-10-31 01:07] LABS: Thyroglobulin Antibodies <1 IU/mL (< or = 1); Thyroid Peroxidase Antibodies <1 IU/mL (<9)
== END 2021-10-29 12:48 | disposition home or self-care (01) ==
LOC: HO.LAB 12:47
PROVIDERS: PCP Internal Medicine; Visit Provider Internal Medicine
DX: R79.89 Other specified abnormal findings of blood chemistry (principal); E78.5 Hyperlipidemia, unspecified; E11.9 Type 2 diabetes mellitus without complications; E55.9 Vitamin D deficiency, unspecified; I42.9 Cardiomyopathy, unspecified
CPT/HCPCS: 36415; 80053; 80061; 82043; 82306; 83880; 84439; 84443; 86376; 86800

== ENCOUNTER → 2021-11-19 14:05 | Outpatient (BNVA) | payer OTHER, SELFPAY | PROVIDERS: PCP Internal Medicine; Referring Provider Internal Medicine; Visit Provider Nurse Practitioner | DX: K21.9 Gastro-esophageal reflux disease without esophagitis (principal); Z86.010 Personal history of colon polyps; Z79.899 Other long term (current) drug therapy | CPT/HCPCS: 99212 ==

== ENCOUNTER → 2022-01-15 13:49 | Outpatient (BNVA) | payer OTHER, SELFPAY | PROVIDERS: PCP Internal Medicine; Visit Provider Internal Medicine | DX: J44.9 Chronic obstructive pulmonary disease, unspecified (principal); J98.4 Other disorders of lung; E66.9 Obesity, unspecified; Z68.33 Body mass index [BMI] 33.0-33.9, adult; Z79.899 Other long term (current) drug therapy | CPT/HCPCS: 99212 ==

== ENCOUNTER → 2022-02-20 14:20 | Outpatient (BNVA) | payer OTHER, SELFPAY | PROVIDERS: PCP Internal Medicine; Referring Provider Internal Medicine; Visit Provider Internal Medicine Cardiovascular Disease | DX: Z45.02 Encounter for adjustment and management of automatic implantable cardiac defibrillator (principal); I50.20 Unspecified systolic (congestive) heart failure; I48.0 Paroxysmal atrial fibrillation | CPT/HCPCS: 99212 ==

== ENCOUNTER 2022-02-27 14:24 | Outpatient (REF) | payer OTHER, SELFPAY ==
[2022-02-27 15:03] LABS: Hematocrit 37.9 % (42.0-52.0); Hemoglobin 13.2 g/dl (14.0-18.0); Mean Corpuscular HGB Conc 34.8 g/dl (31.0-36.0); Mean Corpuscular Hemoglobin 32.8 pg (27.0-33.0); Mean Corpuscular Volume 94.3 fL (80.0-98.0); Mean Platelet Volume 9.6 fL (9.4-12.4); Platelet Count 202 X10*3/uL (160-400); Red Blood Count 4.02 X10*6/uL (4.60-5.80); Red Cell Distribution Width 13.6 % (11.0-16.0); White Blood Count 6.8 X10*3/uL (4.8-10.8)
[2022-02-27 15:45] LABS: Creatinine Urine 88.73 mg/dL; Microalbum/Creatinine Ratio Ur 14.6 ug/mg cr
[2022-02-27 15:47] LABS: Alanine Aminotransferase 22 U/L (0-40); Albumin Level 4.4 g/dL (3.5-5.0); Alkaline Phosphatase 89 U/L (39-117); Anion Gap 18 (12-20); Aspartate Amino Transferase 12 U/L (5-37); Bilirubin Total 0.2 mg/dL (0.0-1.0); Blood Urea Nitrogen 19 mg/dL (9-16); Calcium 9.5 mg/dL (8.4-10.2); Carbon Dioxide 22 mmol/L (22-29); Chloride 102 mmol/L (96-108); Cholesterol 172 mg/dL; Estimated Glomerular Filt Rate > 60; Glucose Fasting 177 mg/dL (60-99); HDL Cholesterol 32 mg/dL; Sodium 138 mmol/L (135-145); Total Protein 7.1 g/dL (6.5-8.0); Triglycerides 464 mg/dL
[2022-02-27 15:59] LABS: Free T4 (Free Thyroxine) 0.92 ng/dL (0.71-1.85); Thyroid Stimulating Hormone 2.02 uIU/mL (0.32-4.0); Vitamin D 25-OH Total 27.4 ng/mL (>30)
[2022-02-28 21:36] LABS: Thyroglobulin Antibodies <1 IU/mL (< or = 1); Thyroid Peroxidase Antibodies <1 IU/mL (<9)
== END 2022-02-27 14:25 | disposition home or self-care (01) ==
LOC: HO.LAB 14:24
PROVIDERS: Absent Provider Internal Medicine Cardiovascular Disease; Visit Provider Internal Medicine
DX: E11.9 Type 2 diabetes mellitus without complications (principal); E78.5 Hyperlipidemia, unspecified; R79.89 Other specified abnormal findings of blood chemistry; E55.9 Vitamin D deficiency, unspecified; I48.0 Paroxysmal atrial fibrillation
CPT/HCPCS: 36415; 80048; 80053; 80061; 82043; 82306; 84439; 84443; 85027; 86376; 86800

== ENCOUNTER 2022-04-15 09:28 | Outpatient (REF) | payer OTHER, SELFPAY ==
[2022-04-15 10:19] LABS: Appearance Urine Cloudy; Color Urine Yellow; Glucose Urine UA >=1000 mg/dL (Negative); Leukocyte Esterase Urine Large (3+) (Negative); Nitrite Urine Negative (Negative); PH 5.5 (5.0-9.0); UMIC TRIGGER UACC YES; Urine Blood Small (1+) (Negative); Urine Ketones Negative (Negative); Urine Protein Negative (Neg-Trace)
[2022-04-15 10:36] LABS: Bacteria Urine 4+ (None Seen); Hyaline Casts Urine 0-2 /LPF (0-2); Squamous Epithelial Cell Urine 0-2 /HPF (0-2); UACC Culture Trigger YES; WBC Urine >50 /HPF (0-5)
[2022-04-15 10:50] LABS: B Type Natriuretic Peptide 241 pg/mL (<100)
[2022-04-15 11:37] LABS: Free T4 (Free Thyroxine) 0.96 ng/dL (0.71-1.85)
[2022-04-15 11:38] LABS: Alanine Aminotransferase 34 U/L (0-40); Albumin Level 4.2 g/dL (3.5-5.0); Alkaline Phosphatase 97 U/L (39-117); Anion Gap 17 (12-20); Aspartate Amino Transferase 19 U/L (5-37); Bilirubin Total < 0.2 mg/dL (0.0-1.0); Blood Urea Nitrogen 21 mg/dL (9-16); Calcium 8.7 mg/dL (8.4-10.2); Carbon Dioxide 25 mmol/L (22-29); Chloride 100 mmol/L (96-108); Cholesterol 173 mg/dL; Estimated Glomerular Filt Rate 59; Glucose Fasting 297 mg/dL (60-99); HDL Cholesterol 33 mg/dL; Potassium 4.2 mmol/L (3.3-5.1); Sodium 138 mmol/L (135-145); Total Protein 6.9 g/dL (6.5-8.0); Triglycerides 568 mg/dL
[2022-04-15 11:51] LABS: Vitamin D 25-OH Total 34.1 ng/mL (>30)
== END 2022-04-15 09:29 | disposition home or self-care (01) ==
LOC: HO.LAB 09:28
PROVIDERS: Nurse Practitioner Gerontology; PCP Internal Medicine; Visit Provider Internal Medicine
DX: I50.20 Unspecified systolic (congestive) heart failure (principal); E11.9 Type 2 diabetes mellitus without complications; E78.5 Hyperlipidemia, unspecified; E55.9 Vitamin D deficiency, unspecified; R79.89 Other specified abnormal findings of blood chemistry; R30.0 Dysuria; B96.1 Klebsiella pneumoniae [K. pneumoniae] as the cause of diseases classified elsewhere; Z16.11 Resistance to penicillins
CPT/HCPCS: 36415; 80053; 80061; 81001; 82306; 83880; 84439; 84443; 87086; 87088; 87186

== ENCOUNTER → 2022-06-24 12:09 | Outpatient (BNVA) | payer OTHER, SELFPAY | PROVIDERS: PCP Internal Medicine; Referring Provider Internal Medicine; Visit Provider Nurse Practitioner | DX: K58.0 Irritable bowel syndrome with diarrhea (principal); K21.9 Gastro-esophageal reflux disease without esophagitis | CPT/HCPCS: 99212 ==

== ENCOUNTER → 2022-07-22 12:39 | Outpatient (BNVA) | payer OTHER, SELFPAY | PROVIDERS: PCP Internal Medicine; Referring Provider Internal Medicine; Visit Provider Nurse Practitioner | DX: K58.0 Irritable bowel syndrome with diarrhea (principal); K21.9 Gastro-esophageal reflux disease without esophagitis | CPT/HCPCS: 99212 ==

== ENCOUNTER → 2022-08-04 13:46 | Outpatient (BNVA) | payer OTHER, SELFPAY | PROVIDERS: PCP Internal Medicine; Visit Provider Internal Medicine | DX: J44.9 Chronic obstructive pulmonary disease, unspecified (principal); J98.4 Other disorders of lung; E66.9 Obesity, unspecified; Z68.33 Body mass index [BMI] 33.0-33.9, adult | CPT/HCPCS: 99212 ==

== ENCOUNTER → 2022-08-19 13:56 | Outpatient (BNVA) | payer OTHER, SELFPAY | PROVIDERS: PCP Internal Medicine; Referring Provider Internal Medicine; Visit Provider Nurse Practitioner | DX: K58.0 Irritable bowel syndrome with diarrhea (principal); K21.9 Gastro-esophageal reflux disease without esophagitis | CPT/HCPCS: 99212 ==

== ENCOUNTER 2022-08-21 14:31 | Outpatient (REF) | payer OTHER, SELFPAY ==
--- NOTE | ~2022-08-21 | XR_ITS ---
EXAMINATION: XR chest 2V CLINICAL INFORMATION: Reason for Exam I48.19 - Other persistent atrial fibrillation COMPARISON: Chest radiograph 11/15/2020 TECHNIQUE: 2 views of the chest FINDINGS: Mild diffuse hazy airspace opacities likely reflects edema given background moderate central pulmonary vascular congestion. No effusion or pneumothorax. Unchanged cardiomediastinal silhouette. Single-lead AICD device unchanged. XR/XR chest 2V Impression: Mild diffuse hazy airspace opacities likely reflects edema given background moderate central pulmonary vascular congestion.
[2022-08-21 18:05] LABS: Alanine Aminotransferase 22 U/L (0-40); Albumin Level 4.3 g/dL (3.5-5.0); Alkaline Phosphatase 58 U/L (39-117); Anion Gap 17 (12-20); Aspartate Amino Transferase 14 U/L (5-37); B Type Natriuretic Peptide 250 pg/mL (<100); Bilirubin Direct < 0.2 mg/dL (0.0-0.5); Bilirubin Total 0.4 mg/dL (0.0-1.0); Blood Urea Nitrogen 24 mg/dL (9-16); Calcium 9.1 mg/dL (8.4-10.2); Carbon Dioxide 22 mmol/L (22-29); Chloride 105 mmol/L (96-108); Estimated Glomerular Filt Rate 53; Glucose Random 160 mg/dL (60-115); Potassium 4.3 mmol/L (3.3-5.1); Sodium 140 mmol/L (135-145); Total Protein 6.9 g/dL (6.5-8.0)
[2022-08-21 18:21] LABS: TSH reflex Free T4 2.17 uIU/mL (0.32-4.0)
== END 2022-08-21 14:32 | disposition home or self-care (01) ==
LOC: HO.LAB 14:31
PROVIDERS: PCP Internal Medicine; Referring Provider Internal Medicine; Visit Provider Internal Medicine Cardiovascular Disease
DX: I48.19 Other persistent atrial fibrillation (principal); I42.9 Cardiomyopathy, unspecified; Z95.810 Presence of automatic (implantable) cardiac defibrillator
CPT/HCPCS: 36415; 71046; 80048; 80076; 83880; 84443; 93005; 99212

== ENCOUNTER 2022-09-03 12:33 | Day surgery (SDC) | payer OTHER, SELFPAY ==
[2022-08-28 15:16] VITALS: BMI 33.1
[2022-09-03 12:54] VITALS: BMI 32.1
[2022-09-03 12:56] VITALS: BP 105/50; PULSE 58; RESP 18; TEMP 36.1; O2SAT 97
[2022-09-03 13:21] LABS: Glucose, Whole Blood 170 mg/dL (60-115)
[2022-09-03] MEDS: Lactated Ringers 1,000 ML 50 ML IVCONT (13:25)
--- NOTE | 2022-09-03 13:36 | HO.ANESPROP2 ---
[facility] Active Problems Active Problems: All Active Problems (Updated 08/28/22 @ 15:07 by Yeni Mckeon, JAMES) Hearing loss (Acute) Tubular adenoma of colon (Acute) Irritable bowel syndrome with diarrhea (Acute) Diverticulosis (Acute) Mixed hyperlipidemia (Acute) Persistent atrial fibrillation (Acute) Hospital discharge follow-up (Acute) Cellulitis of left ankle (Acute) Elevated TSH (Acute) Diabetes mellitus (Acute) Ear discomfort (Acute) Cardiomyopathy (Acute) ICD (implantable 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-defibrillator) in place (Acute) Heart failure with reduced ejection fraction (Acute) Mixed hyperlipidemia (Acute) Seborrheic dermatitis of scalp (Acute) Hearing loss (Acute) Obesity (BMI 30-39.9) (Acute) Hypoglycemia unawareness associated with type 2 diabetes mellitus (Acute) Vitamin D deficiency (Acute) Diabetic nephropathy associated with type 2 diabetes mellitus (Acute) 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) Restrictive lung disease (Acute) Asthma-COPD overlap syndrome (Acute) Asthma (Acute) Depression with anxiety (Acute) GERD (gastroesophageal reflux disease) (Acute) Essential hypertension (Acute) Diabetes type 2, uncontrolled (Acute) Past Medical History Medical History (Updated 08/28/22 @ 15:07 by Yeni Mckeon, RN) Acute on chronic HFrEF (heart failure with reduced ejection fraction) Anemia Asthma Asthma-COPD overlap syndrome Atrial flutter Cardiomyopathy Cellulitis of left ankle CHF (congestive heart failure) COPD (chronic obstructive pulmonary disease) Depression with anxiety Diabetes mellitus Diabetes type 2, uncontrolled Diabetic nephropathy associated with type 2 diabetes mellitus Ear discomfort Elevated TSH Essential hypertension GERD (gastroesophageal reflux disease) Hearing loss Heart failure with reduced ejection fraction History of cardioversion HLD (hyperlipidemia) Hospital discharge follow-up HTN (hypertension) Hypoglycemia unawareness associated with type 2 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 Mixed hyperlipidemia Obesity (BMI 30-39.9) Paroxysmal atrial fibrillation Persistent atrial fibrillation Restrictive lung disease Seborrheic dermatitis of scalp Tubular adenoma of colon Vitamin D deficiency Family History Family History Father Cancer Mother Cancer Family/Other Diabetes CHF (congestive heart failure) Family history of problems with anesthesia: No Surgical History Surgical History (Updated 08/28/22 @ 15:07 by Yeni Urgo, RN) History of cardiac defibrillator placement History of esophagogastroduodenoscopy (EGD) History of thumb surgery Hx of bilateral cataract extraction Hx of colonoscopy History of Problems with Anesthesia: No Social History Social History Household Members: None Housing: Apartment Alcohol intake: never Patient Tobacco Use Status: Former Tobacco user Quit Date: 2012 Tobacco use type: Cigarette e-Cigarette/Vaping Use: Never Used Second Hand Smoke Exposure: No Use of substances other than those prescribed or required for medical reasons: No Are you DNR?: No Advance Directives: No Advance Directives Information Provided: Yes service: No Current occupational status: disabled Cognitive needs: No Hearing needs: No Vision needs: No Meds Allergies Allergy/AdvReac Type Severity Reaction Status Date / Time dog dander [dogs] Allergy Intermediate Sneezing Verified 08/19/22 14:44 grass Allergy Intermediate Rash Verified 08/19/22 14:44 insect venom [mosquito bites] Allergy Intermediate Rash Verified 08/19/22 14:44 roaches Allergy Intermediate Rash Verified 08/19/22 14:44 trees Allergy Intermediate Rash Verified 08/19/22 14:44 atorvastatin [Lipitor] AdvReac Intermediate stomach Verified 08/19/22 14:44 aches Active Medications: Current Medications Lactated Ringer's (Lr) 1,000 mls @ 50 mls/hr IVCONT .Q20H VANDA Last Admin: 09/03/22 13:25 Dose: 50 mls/hr Home Medications Medication Instructions Recorded Confirmed Last Taken Type clonazepam 0.5 mg tablet 0.5 mg PO DAILY PRN Anxiety 04/16/20 08/28/22 Unknown History pen needle, diabetic 32 gauge x #50 ea 06/24/22 08/21/22 Unknown History ([place]) duloxetine 30 mg capsule,delayed 30 mg PO QAM 07/22/22 08/28/22 09/03/22 History release duloxetine 60 mg capsule,delayed 60 mg PO DAILY 08/19/22 08/28/22 Unknown History release eluxadoline 100 mg tablet (Viberzi) 100 mg PO BID 08/21/22 08/28/22 Unknown History Exam Exam Date and Time: September 03, 2022 1336 Height,Weight and Vital Signs: Height 5 ft 7 in Weight 92.986 kg Last Vital Signs Temp 97.0 F 09/03/22 12:56 Pulse 58 09/03/22 12:56 Resp 18 09/03/22 12:56 BP 105/50 L 09/03/22 12:56 Pulse Ox 97 09/03/22 12:56 O2 Del Method Room Air 09/03/22 12:56 Pertinent Lab Results Pertinent Lab Results: Laboratory Tests 09/03/22 13:07 POC Glucose 170 H Airway Mallampati Class: III TM Dist: >3cm Neck ROM: Full Denture: Upper Partial: Lower Heart: clinton irreg Lungs: cta Assessment and Plan Assessment Anesthesia Assessment: Anesthesia Plan Discussed and Chart Reviewed Final Anesthetic Review Family History of Problems with Anesthesia: No History of Problems with Anesthesia: No NPO: No ASA Class: III Final Preanesthetic Review: No Changes in Pt Med Stat, Meds/Allgs Chart Reviewed and Consent Obtained/Reviewed Patient Risk: Intermediate Procedure Risk: Intermediate Anesthetic Plan Anesthetic Plan: MAC: Disposition: Standard PACU
--- NOTE | 2022-09-03 14:22 | ECG_ITS ---
Test Reason : postop Blood Pressure : / mmHG Vent. Rate : 069 BPM Atrial Rate : 069 BPM P-R Int : 272 ms QRS Dur : 122 ms QT Int : 440 ms P-R-T Axes : 045 -42 064 degrees QTc Int : 471 ms Sinus rhythm with 1st degree A-V block Left axis deviation Non-specific intra-ventricular conduction delay Abnormal ECG When compared with ECG of 05-DEC-2020 10:56, QT has lengthened Referred By: Bk Canchola Electronically Signed By:BK CANCHOLA MD
--- NOTE | 2022-09-03 14:22 | MHC.SHP ---
Pre-Procedural Eval Section A Date of Service: 09/03/22 The patient is an INPATIENT: No Changes since office visit: Yes Changes in Medication and Yes Patient answered all questions; No Cold of Flu in the past 2 weeks and No New Medical Problems The History & Physical has been completed within 30 days and I have reviewed it.: Yes Section B Chief Complaint: Other persistent atrial fibrillation Allergies: Allergies Allergy/AdvReac Type Severity Reaction Status Date / Time dog dander [dogs] Allergy Intermediate Sneezing Verified 08/19/22 14:44 grass Allergy Intermediate Rash Verified 08/19/22 14:44 insect venom [mosquito bites] Allergy Intermediate Rash Verified 08/19/22 14:44 roaches Allergy Intermediate Rash Verified 08/19/22 14:44 trees Allergy Intermediate Rash Verified 08/19/22 14:44 atorvastatin [Lipitor] AdvReac Intermediate stomach Verified 08/19/22 14:44 aches Plan I have reviewed the history and physical and performed a pertinent physical examination on my patient. No changes have occurred unless specified. Time Spent With Patient Time: Total time managing care of this patient today ____ minutes.
--- NOTE | 2022-09-03 14:22 | HO.CARDIVERS ---
Cardioversion Procedure Note Cardioversion Date of Procedure: today Ordering Provider: myself Performing Provider: myself Indication for Procedure: persistent symptomatic atrial fibrillation with severe LV systolic dysfunction Pre-Op Diagnosis: same Post-Op Diagnosis: sinus rhythm Performed with Transesophageal Echo: No Consent: Verbal and Written consent was obtained from the patient with help of a certified motor vehicle parts interpreter before starting and after confirming oral anticoagulation use. The patient was made aware of the risk of synchronized cardioversion including benefits and alternatives were discussed with the patient. Procedure: After consent obtained, Cardioversion pads were attached in anteroposterior configuration and the patient was sedated by the anesthesia team. Once adequate sedation achieved, patient was delivered 200 joules of biphasic synchronized energy in anteroposterior configuration. Patient converted successfully to sinus rhythm. Heart rate in atrial fibrillation in the 50s improved to normal sinus rhythm in the 70s. ICD was checked at bedside and pacing and shock lead impedance is stable. Pacing thresholds were stable. Complications: None Impression: successful conversion to sinus rhythm Recommendations: 1. 12 lead EKG 2. Continue amiodarone and oral anticoagulation 3. Follow up in the office after Holter monitor
[2022-09-03 14:24] VITALS: BP 127/55; PULSE 70; RESP 14; TEMP 37.1; O2SAT 98
[2022-09-03 14:29] VITALS: BP 111/55; PULSE 70; RESP 14; O2SAT 94
[2022-09-03 14:34] VITALS: BP 112/53; PULSE 70; RESP 16; O2SAT 94
[2022-09-03 14:39] VITALS: BP 123/58; PULSE 69; RESP 14; O2SAT 92
[2022-09-03 14:57] VITALS: BP 112/55; PULSE 74; RESP 18; TEMP 36.1; O2SAT 95
== END 2022-09-03 15:37 | disposition home or self-care (01) ==
PROVIDERS: PCP Internal Medicine; Visit Provider Internal Medicine Cardiovascular Disease
PROC: 5A2204Z Restoration of Cardiac Rhythm, Single (ICD-10-PCS; principal; 2022-09-03 14:10)
DX: I48.19 Other persistent atrial fibrillation (principal); I42.9 Cardiomyopathy, unspecified; I11.0 Hypertensive heart disease with heart failure; I50.23 Acute on chronic systolic (congestive) heart failure; J44.9 Chronic obstructive pulmonary disease, unspecified; E11.21 Type 2 diabetes mellitus with diabetic nephropathy; Z79.01 Long term (current) use of anticoagulants; Z79.4 Long term (current) use of insulin; Z79.51 Long term (current) use of inhaled steroids; Z79.899 Other long term (current) drug therapy; Z88.8 Allergy status to other drugs, medicaments and biological substances; Z87.891 Personal history of nicotine dependence
CPT/HCPCS: 82947; 92960; 93005

== ENCOUNTER 2022-09-30 14:06 | Outpatient (REF) | payer OTHER, SELFPAY ==
[2022-09-30 15:32] LABS: Appearance Urine Clear; Color Urine Yellow; Glucose Urine UA >=1000 mg/dL (Negative); Leukocyte Esterase Urine Moderate (2+) (Negative); Nitrite Urine Negative (Negative); UMIC TRIGGER UACC YES; Urine Blood Negative (Negative); Urine Ketones Negative (Negative); Urine Protein Negative (Neg-Trace)
[2022-09-30 16:11] LABS: Bacteria Urine None Seen (None Seen); Hyaline Casts Urine 0-2 /LPF (0-2); RBC Urine 0-2 /HPF (0-2); Squamous Epithelial Cell Urine 0-2 /HPF (0-2); UACC Culture Trigger YES; WBC Urine >50 /HPF (0-5)
== END 2022-09-30 14:07 | disposition home or self-care (01) ==
LOC: HO.LAB 14:06
PROVIDERS: PCP Internal Medicine; Visit Provider Internal Medicine
DX: R39.9 Unspecified symptoms and signs involving the genitourinary system (principal)
CPT/HCPCS: 81001; 87086

== ENCOUNTER 2022-12-18 13:50 | Outpatient (AMB) | payer OTHER, SELFPAY ==
[2022-12-18 13:59] VITALS: BP 116/54; PULSE 55; BMI 32.1
--- NOTE | 2022-12-18 13:59 | A.OFFVIS_ITS ---
Intake Vital Signs 12/18/22 13:59 Height 5 ft 7 in Weight 205 lb 0.478 oz BMI 32.1 BP 116/54 L Blood Pressure Location Lt brachial Position Sitting Pulse 55 Intake Visit Reasons: afib/ [facility] Intake Note: Overdue follow-up with ekg and [facility] check patient has no med list and is unaware of what he is taking Naval Inspector Required: Yes Naval Inspector Name: Kj jorge Allergies dog dander [dogs] Allergy (Intermediate, Verified 11/20/22 16:00) Sneezing grass Allergy (Intermediate, Verified 11/20/22 16:00) Rash insect venom [mosquito bites] Allergy (Intermediate, Verified 11/20/22 16:00) Rash roaches Allergy (Intermediate, Verified 11/20/22 16:00) Rash trees Allergy (Intermediate, Verified 11/20/22 16:00) Rash atorvastatin [Lipitor] Adverse Reaction (Intermediate, Verified 11/20/22 16:00) stomach aches Medication List - Last Reviewed 12/18/22 by MOLLY Kelly albuterol sulfate 90 mcg/actuation (Ventolin HFA) 2 puffs inhalation Q6H PRN 30 days amiodarone 400 mg PO BID amiodarone 200 mg PO DAILY apixaban (Eliquis) 5 mg PO BID 90 days Arnuity Ellipta 200 mcg/actuation (fluticasone furoate) 1 inh inhalation DAILY NS blood sugar diagnostic (FreeStyle Lite Strips) 3 times a day carvedilol 25 mg PO BID cholecalciferol (vitamin D3) 25 mcg PO DAILY 90 days clonazepam 0.5 mg PO DAILY PRN cyanocobalamin (vitamin B-12) 500 mcg PO every other day in the morning; dapagliflozin propanediol (Farxiga) 10 mg PO DAILY 90 days dulaglutide (Trulicity) 0.75 mg (0.5 mL) subcut QWEEK duloxetine 30 mg PO QAM duloxetine 60 mg PO DAILY eluxadoline (Viberzi) 100 mg PO BID famotidine (Pepcid) 40 mg PO BEDTIME fenofibrate 54 mg PO DAILY 90 days furosemide 40 mg PO DAILY 90 days gabapentin 300 mg PO BID 90 days hydrocortisone 1% (Anti-Itch (hydrocortisone)) 1 appl topical BID PRN 2 weeks icosapent ethyl (Vascepa) 2 grams PO BID icosapent ethyl (Vascepa) 2 grams (2 x 1 gram) PO BID 90 days insulin degludec (Tresiba FlexTouch U-100 insulin) 15 units (0.15 mL) subcut BEDTIME 30 days ketoconazole 2% 1 appl topical 2XW lancets (TRUEplus Lancets) TEST BLOOD SUGAR THREE TIMES DAILY lancets 3 times a day metformin ER 1,000 mg (2 x 500 mg) PO BID 90 days pen needle, diabetic (Pentips) As directed pen needle, diabetic (UltiCare Pen Needle) As directed 1 time a day rosuvastatin 10 mg PO BEDTIME 90 days sacubitril-valsartan 49-51 mg (Entresto) 1 tab PO BID HPI HPI Comments History of Present Illness Details Stephen comes for follow-up. History was obtained with help of for foreign language interpreter. He does not have a current medication list and is not aware of his medications. After checking with the pharmacy is currently not on amiodarone therapy. He does not recall why. This is his 1st follow-up visit after his cardioversion. We confirmed his medication list and now they are as in the current medication list. He complains of increasing fatigue and tiredness. Denies any orthopnea, PND, leg edema. No lightheadedness, syncope, ICD discharge. EKG today shows atrial fibrillation with slow ventricular response with occasionally ventricular paced rhythm. PENDING SALE TO [facility] Medical History Acute on chronic HFrEF (heart failure with reduced ejection fraction) Anemia Asthma Asthma-COPD overlap syndrome Atrial flutter Cardiomyopathy Cellulitis of left ankle CHF (congestive heart failure) COPD (chronic obstructive pulmonary disease) Depression with anxiety Diabetes mellitus Diabetes type 2, uncontrolled Diabetic nephropathy associated with type 2 diabetes mellitus Ear discomfort Elevated TSH Essential hypertension GERD (gastroesophageal reflux disease) Hearing loss Heart failure with reduced ejection fraction History of cardioversion HLD (hyperlipidemia) Hospital discharge follow-up HTN (hypertension) Hypoglycemia unawareness associated with type 2 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 halfway (current) use of insulin Mixed hyperlipidemia Obesity (BMI 30-39.9) Paroxysmal atrial fibrillation Persistent atrial fibrillation Restrictive lung disease Seborrheic dermatitis of scalp Tubular adenoma of colon Vitamin D deficiency Surgical History History of cardiac defibrillator placement History of esophagogastroduodenoscopy (EGD) History of thumb surgery Hx of bilateral cataract extraction Hx of colonoscopy Family History Father Cancer Mother Cancer Family/Other Diabetes CHF (congestive heart failure) Social History Household Members: None Housing: Apartment Alcohol intake: never Patient Tobacco Use Status: Former Tobacco user Quit Date: 2012 Tobacco use type: Cigarette e-Cigarette/Vaping Use: Never Used Second Hand Smoke Exposure: No service: No Current occupational status: disabled Cognitive needs: No Hearing needs: No Vision needs: No Review of Systems Const Denies chills, Denies fatigue, Denies fever(s), Denies frequent falls, Denies weakness, Denies weight gain and Denies weight loss ENT Denies dizziness Card Denies chest pain, Denies leg edema, Denies lightheadedness, Denies palpitations, Denies dyspnea, Denies dyspnea on exertion, Denies orthopnea and Denies other (loss of consciousness) Resp Denies cough, Denies dyspnea and Denies dyspnea on exertion GI Denies hematochezia and Denies change in stool character Musc Denies abnormal gait, Denies muscle weakness, Denies numbness, Denies radiating pain into limb and Denies tingling Neuro Denies abnormal gait, Denies dizziness, Denies frequent falls, Denies numbness, Denies tingling and Denies weakness Endo Denies fatigue and Denies palpitations Physical Exam Vital Signs: Last Vital Signs Pulse 55 12/18/22 13:59 BP 116/54 L 12/18/22 13:59 BMI result Body Mass Index 32.1 Const General: comfortable, no acute distress, alert and awake Orientation/consciousness: patient oriented x3 HEENT Head: Yes normal to inspection General nose exam: No nasal polyps present and No nasal discharge present Face and sinus: Yes sinuses nontender Mouth: oropharynx normal Throat: Yes posterior oropharynx normal Eyes General: appearance normal, both eyes and all related structures Neck Neck: Yes normal visual inspection, Yes no lymphadenopathy, Yes trachea midline and Yes no JVD Thyroid: Thyroid normal Chest Chest palpation & inspection: normal inspection of the chest, normal palpation of entire chest wall and no tenderness Resp Other: Percussion note resonant, breath sounds are slightly distant but clear and no audible wheezes or crepitations. Cardio Palpation: abnormal PMI displaced PMI Rhythm: abnormal rhythm irregularly irregular Heart sounds: S1 normal heart sound present, S2 normal heart sound present, no gallops and no murmurs GI Palpation (GI): Soft to palpation, nontender, No hepatosplenomegaly present, no masses and Other GI palpation findings present (ABDOMEN IS OBESE AND SLIGHTLY PROTUBERANT) Auscultation: normal bowel sounds Back/Spine/Pelvis Thoracic/Lumbar Spine: thoracic and lumbar spine normal to inspection Skin General skin exam: no rashes or lesions noted Neuro General: patient oriented x3 and no focal motor deficits Cranial nerves: Yes CN's II-XII intact bilaterally Extrem General: Yes normal to inspection, Yes no clubbing, cyanosis or edema and Yes no calf tenderness Psych Appearance: grossly normal and well kempt Speech and movement: Normal speech and movement present Office Procedures Cardiac Device Check Cardiac Device Check Details: Single-chamber [place] [facility] ICD in place. Programmed in VVI at 40 beats per minute. Ventricular capture thresholds are slightly elevated reprogrammed for adequate safety. Ventricular sensing is excellent. Pacing and shock lead impedance is stable. Battery life is at 2.6 years [id number] Cardiac Device Check, single lead implantable defibrillator Procedure code (CPT) selection complete EKG Details: EKG shows atrial fibrillation with slow ventricular response with left axis deviation with V paced complex with nonspecific ST T wave abnormality [id number], Complete Assessment & Plan Assessment & Plan (1) Persistent atrial fibrillation: Code(s): I48.19 - Other persistent atrial fibrillation Plan: Persistent atrial fibrillation, recurrent since cardioversion. Successfully converted after loading with amiodarone therapy. This is most likely due to him not being on amiodarone maintenance therapy at this point time. Importance of compliance with medication was discussed with help of the foreign language interpreter. I am not sure whether miscommunication is. Have resend the prescription for amiodarone loading 400 mg b.i.d. followed by synchronized cardioversion in 12-14 days. Also amiodarone 200 mg daily beyond that. Will follow-up after synchronized cardioversion in 4 weeks time. We discussed the risks, benefits, alternatives to synchronized cardioversion. Understands agrees. Continue uninterrupted full oral anticoagulation with Eliquis. (2) Cardiomyopathy: Code(s): I42.9 - Cardiomyopathy, unspecified Plan: Significant cardiomyopathy, clinically euvolemic and well compensated but having worsening symptoms due to loss of AV synchrony. Will pursue rhythm control approach. He understands management well. Continue current neurohormonal modulation with carvedilol and Entresto therapy. Signs and symptoms of heart failure were discussed. Understands agrees. (3) ICD (implantable 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-defibrillator) in place: Code(s): Z95.810 - Presence of automatic (implantable) cardiac defibrillator Plan: ICD in place, working well. Reprogrammed for adequate function. Follow up in the clinic in 4 weeks time. Follow up in clinic in 4 weeks time, sooner p.r.n.. Thank you for allowing me to partake in his care Medications: New amiodarone 400 mg PO BID 30 tabs 0RF amiodarone After 2 weeks of loading is completed 200 mg PO DAILY 30 tabs 5RF Coding Level of Care Code Est Pt Level 4 (07148) Diagnoses Persistent atrial fibrillation I48.19 Cardiomyopathy I42.9 ICD (implantable 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-defibrillator) in place Z95.810 CPT Codes Cardiac Device Check - Cardiac Device 4: [id number] Cardiac Device Check, single lead implantable defibrillator ([id number]) EKG - CPT: 14352-[id number], Complete ([id number])
== END 2022-12-18 14:34 | disposition home or self-care (01) ==
PROVIDERS: PCP Internal Medicine; Visit Provider Internal Medicine Cardiovascular Disease
DX: I48.19 Other persistent atrial fibrillation (principal); I42.9 Cardiomyopathy, unspecified; Z95.810 Presence of automatic (implantable) cardiac defibrillator
CPT/HCPCS: 93010; 93282; 99214

== ENCOUNTER → 2022-12-18 13:50 | Outpatient (BNVA) | payer OTHER, SELFPAY | PROVIDERS: PCP Internal Medicine; Visit Provider Internal Medicine Cardiovascular Disease | DX: I48.19 Other persistent atrial fibrillation (principal); I42.9 Cardiomyopathy, unspecified; Z79.01 Long term (current) use of anticoagulants; Z79.899 Other long term (current) drug therapy; Z45.02 Encounter for adjustment and management of automatic implantable cardiac defibrillator | CPT/HCPCS: 93005; 99212 ==

== ENCOUNTER 2022-12-25 13:14 | Outpatient (AMB) | payer OTHER, SELFPAY ==
--- NOTE | 2022-12-25 13:18 | A.OFFVIS_ITS ---
Intake Vital Signs 12/25/22 13:19 Height 5 ft 7 in Weight 205 lb 14.588 oz BMI 32.2 BP 147/62 H Blood Pressure Location Lt brachial Position Sitting Pulse 60 Intake Visit Reasons: 3 month follow up Intake Note: Stephen presents in the office as a 4 weeks follow up. CC: Patient reports he continues to have diarrhea. Denies other GI symptoms. V/Stol Landing Signal Officer Required: Yes Accompanied by: Self / Same As Patient Allergies dog dander [dogs] Allergy (Intermediate, Verified 12/25/22 13:24) Sneezing grass Allergy (Intermediate, Verified 12/25/22 13:24) Rash insect venom [mosquito bites] Allergy (Intermediate, Verified 12/25/22 13:24) Rash roaches Allergy (Intermediate, Verified 12/25/22 13:24) Rash trees Allergy (Intermediate, Verified 12/25/22 13:24) Rash atorvastatin [Lipitor] Adverse Reaction (Intermediate, Verified 12/25/22 13:24) stomach aches HPI 3 month follow up HPI Details Assessment & Plan (1) Irritable bowel syndrome with diarrhea: ?Code(s): K58.0 - Irritable bowel syndrome with diarrhea ?Plan: Salvadorean #Estephanie, jose antonio He feels that his diarrhea is now controlled on the Viberzi at the 100mg bid dose. He is satisfied.? I discussed what to do if he becomes constipated which would be to go down to once a day dosing or skip the medication for a day or 2 until he reestablishes a normal bowel pattern. He is concerned about his 's Cologuard result - it is negative. She is having very black stools, will do FIT test. Return office visit in 3 months (2) GERD (gastroesophageal reflux disease): ?Code(s): K21.9 - Gastro-esophageal reflux disease without esophagitis ?Qualifiers: ?Esophagitis presence:?esophagitis presence not specified? Qualified Code(s):?K21.9 - Gastro-esophageal reflux disease without esophagitis ? ? ? Medications: Refilled eluxadoline (Viber zi) ?? must admini ster with a meal/f ood 100 mg? PO BID 60 tabs 3RF K58.0 - Irritable bowel syndrome wit h diarrhea ? famotidine (Pepcid ) 40 mg? PO BEDTIME 30 tabs 6RF K21.9 - Gastro-eso phageal reflux dis ease without esoph agitis ? Discontinued dicyclomine ?? Dis continued Reason:? Doctor's Order 20 mg? PO QID 120 tabs 1RF ? ? TODAY'S VISIT Salvadorean #Hayley LIve He is again having more diarrhea despite being adherent to his Viberzi 100mg bid. He changed his diet to mostly meat and veggies recently r/t his high cholesterol so this may be a factor. Also he is now on lasix and his amiodarone was increased - unsure if this is contributing. Given his complex medication regimen, I will add loperimide to his Viberzi and see how this goes. I want to stay away from bile binding agents because this might interfere with his medications particularly amiodarone and the cardiac medications. He continues on famotidine which is controlling his heartburn well. ROV 8 weeks. [facility] Medical History Acute on chronic HFrEF (heart failure with reduced ejection fraction) Anemia Asthma Asthma-COPD overlap syndrome Atrial flutter Cardiomyopathy Cellulitis of left ankle CHF (congestive heart failure) COPD (chronic obstructive pulmonary disease) Depression with anxiety Diabetes mellitus Diabetes type 2, uncontrolled Diabetic nephropathy associated with type 2 diabetes mellitus Ear discomfort Elevated TSH Essential hypertension GERD (gastroesophageal reflux disease) Hearing loss Heart failure with reduced ejection fraction History of cardioversion HLD (hyperlipidemia) Hospital discharge follow-up HTN (hypertension) Hypoglycemia unawareness associated with type 2 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 framing consultant (current) use of insulin Mixed hyperlipidemia Obesity (BMI 30-39.9) Paroxysmal atrial fibrillation Persistent atrial fibrillation Restrictive lung disease Seborrheic dermatitis of scalp Tubular adenoma of colon Vitamin D deficiency Surgical History History of cardiac defibrillator placement History of esophagogastroduodenoscopy (EGD) History of thumb surgery Hx of bilateral cataract extraction Hx of colonoscopy Family History Father Cancer Mother Cancer Family/Other Diabetes CHF (congestive heart failure) Social History Household Members: None Housing: Apartment Alcohol intake: never Patient Tobacco Use Status: Former Tobacco user Quit Date: 2012 Tobacco use type: Cigarette e-Cigarette/Vaping Use: Never Used Second Hand Smoke Exposure: No service: No Current occupational status: disabled Cognitive needs: No Hearing needs: No Vision needs: No Review of Systems Const Denies fatigue, Denies fever(s), Denies night sweats, Denies poor appetite and Denies weight loss ENT Reports Normal hearing present, Denies dental pain, Denies dysphagia, Denies hearing loss, Denies mouth pain, Denies odynophagia, Denies throat swelling, Denies tongue swelling and Reports other (Dentition adequate) Card Reports no additional complaints Resp Reports no additional complaints GI Denies abdominal pain, Denies melena, Denies bloating, Denies hematochezia, Denies constipation, Denies GI cramping, Denies dysphagia, Denies excessive flatus, Denies early satiety, Reports heartburn, Reports diarrhea, Denies nausea, Denies odynophagia, Denies vomiting and Denies hematemesis Skin/Breast Denies pruritus, Denies lesions, Denies rash and Denies jaundice Neuro Reports Normal hearing present and Denies Abnormal speech present Endo Denies fatigue Aller/Immun Denies throat swelling and Denies tongue swelling Physical Exam Vital Signs: Last Vital Signs Pulse 60 12/25/22 13:19 BP 147/62 H 12/25/22 13:19 BMI result Body Mass Index 32.2 Const General: cooperative, no acute distress, well developed and well groomed Nutritional Appearance: well nourished and obese centrally obese Orientation/consciousness: oriented to person, oriented to place and oriented to time Limitations: language barrier HEENT Head: Yes normocephalic and Yes atraumatic Eyes General: appearance normal, both eyes and all related structures Pupils: Equal, round and reactive pupils present Neck Neck: Yes normal visual inspection and Yes no lymphadenopathy Thyroid: Thyroid normal Resp Effort & Inspection: normal respiratory effort and able to speak in complete sentences Auscultation: clear to auscultation bilaterally Cardio Rate: regular rate Rhythm: regular rhythm Heart sounds: Normal, physiologic split S2 sound present Peripheral pulses: radial pulses present and posterior tibial pulses present GI Inspection: No distended, No Abdominal panniculus present and Yes obesity Palpation (GI): Soft to palpation, nontender, no guarding, not rigid and No hepatosplenomegaly present Percussion: Yes normal to percussion Auscultation: normal bowel sounds Rectal Exam - Male: Yes deferred Skin General skin exam: no rashes or lesions noted, turgor normal, skin not dry, no jaundice, No spider nevi and no striae Rashes: no rashes Nails: normal Neuro General: oriented to person, oriented to place and oriented to time Cranial nerves: Yes Equal, round and reactive pupils present and Yes Normal hearing present Speech: No Abnormal speech present Extrem General: Yes normal to inspection, No clubbing, No cyanosis and No edema Psych Appearance: grossly normal and well kempt Mental Status: mental status grossly normal Speech and movement: Normal speech and movement present Affect: normal affect Attitude: cooperative Thought process: Normal thought process present and not confabulating Thought content: Normal thought content present Insight: Limited insight present (Psych) Judgement: Limited judgement present (Psych) Assessment & Plan Assessment & Plan (1) Irritable bowel syndrome with diarrhea: Code(s): K58.0 - Irritable bowel syndrome with diarrhea Plan: [place]adorean #Hayley LIve He is again having more diarrhea despite being adherent to his Viberzi 100mg bid. He changed his diet to mostly meat and veggies recently r/t his high cholesterol so this may be a factor. Also he is now on lasix and his amiodarone was increased - unsure if this is contributing. Given his complex medication regimen, I will add loperimide to his Viberzi and see how this goes. I want to stay away from bile binding agents because this might interfere with his medications particularly amiodarone and the cardiac medications. He continues on famotidine which is controlling his heartburn well. ROV 8 weeks. (2) GERD (gastroesophageal reflux disease): Code(s): K21.9 - Gastro-esophageal reflux disease without esophagitis Qualifiers: Esophagitis presence: esophagitis presence not specified Qualified C ode(s): K21.9 - Gastro-esophageal reflux disease without esophagitis Medications: New loperamide (Imodium A-D) 4 mg (2 x 2 mg) PO TID PRN 90 caps 3RF loose stool K58.0 - Irritable bowel syndrome with diarrhea eluxadoline (Viberzi) must administer with a meal/food 100 mg PO BID 60 tabs 5RF K58.0 - Irritable bowel syndrome with diarrhea Refilled famotidine (Pepcid) 40 mg PO BEDTIME 30 tabs 6RF K21.9 - Gastro-esophageal reflux disease without esophagitis Coding Level of Care Code Est Pt Level 3 (03755) Diagnoses Irritable bowel syndrome with diarrhea K58.0 GERD (gastroesophageal reflux disease) K21.9 Esophagitis presence: esophagitis presence not specified
[2022-12-25 13:19] VITALS: BP 147/62; PULSE 60; BMI 32.2
== END 2022-12-25 14:10 | disposition home or self-care (01) ==
PROVIDERS: Visit Provider Nurse Practitioner
DX: K58.0 Irritable bowel syndrome with diarrhea (principal); K21.9 Gastro-esophageal reflux disease without esophagitis
CPT/HCPCS: 99213

== ENCOUNTER → 2022-12-25 13:14 | Outpatient (BNVA) | payer OTHER, SELFPAY | PROVIDERS: Visit Provider Nurse Practitioner | DX: K58.0 Irritable bowel syndrome with diarrhea (principal); K21.9 Gastro-esophageal reflux disease without esophagitis | CPT/HCPCS: 99212 ==

== ENCOUNTER → 2022-12-28 23:59 | Outpatient (BNV) | payer OTHER, SELFPAY ==
--- NOTE | 2023-01-05 13:01 | A.OFFVIS_ITS ---
Intake Intake Visit Reasons: Remote ICD Check- [facility] Allergies dog dander [dogs] Allergy (Intermediate, Verified 12/25/22 13:24) Sneezing grass Allergy (Intermediate, Verified 12/25/22 13:24) Rash insect venom [mosquito bites] Allergy (Intermediate, Verified 12/25/22 13:24) Rash roaches Allergy (Intermediate, Verified 12/25/22 13:24) Rash trees Allergy (Intermediate, Verified 12/25/22 13:24) Rash atorvastatin [Lipitor] Adverse Reaction (Intermediate, Verified 12/25/22 13:24) stomach aches PFSH Medical History Acute on chronic HFrEF (heart failure with reduced ejection fraction) Anemia Asthma Asthma-COPD overlap syndrome Atrial flutter Cardiomyopathy Cellulitis of left ankle CHF (congestive heart failure) COPD (chronic obstructive pulmonary disease) Depression with anxiety Diabetes mellitus Diabetes type 2, uncontrolled Diabetic nephropathy associated with type 2 diabetes mellitus Ear discomfort Elevated TSH Essential hypertension GERD (gastroesophageal reflux disease) Hearing loss Heart failure with reduced ejection fraction History of cardioversion HLD (hyperlipidemia) Hospital discharge follow-up HTN (hypertension) Hypoglycemia unawareness associated with type 2 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 Mixed hyperlipidemia Obesity (BMI 30-39.9) Paroxysmal atrial fibrillation Persistent atrial fibrillation Restrictive lung disease Seborrheic dermatitis of scalp Tubular adenoma of colon Vitamin D deficiency Surgical History History of cardiac defibrillator placement History of esophagogastroduodenoscopy (EGD) History of thumb surgery Hx of bilateral cataract extraction Hx of colonoscopy Family History Father Cancer Mother Cancer Family/Other Diabetes CHF (congestive heart failure) Social History Household Members: None Housing: Apartment Alcohol intake: never Patient Tobacco Use Status: Former Tobacco user Quit Date: 2012 Tobacco use type: Cigarette e-Cigarette/Vaping Use: Never Used Second Hand Smoke Exposure: No service: No Current occupational status: disabled Cognitive needs: No Hearing needs: No Vision needs: No Office Procedures Cardiac Device Check Cardiac Device Check Details: Remote ICD report generated 12/28/2022. ICD function is adequate [id number] Cardiac Interrogation, implant defibrillator w/interim Procedure code (CPT) selection complete Coding Level of Care Code Procedure Only Diagnoses CPT Codes Cardiac Device Check - Cardiac Device 13: [id number] Cardiac Interrogation, implant defibrillator w/interim ([id number])
== END ==
PROVIDERS: PCP Internal Medicine; Visit Provider Internal Medicine Cardiovascular Disease
DX: I42.9 Cardiomyopathy, unspecified (principal); Z95.810 Presence of automatic (implantable) cardiac defibrillator
CPT/HCPCS: 93295

== ENCOUNTER 2022-12-31 12:40 | Day surgery (SDC) | payer OTHER, SELFPAY ==
[2022-12-31 12:50] VITALS: BMI 32.1
--- NOTE | 2022-12-31 12:56 | HO.ANESPROP2 ---
[facility] Active Problems Active Problems: All Active Problems (Updated 10/08/22 @ 12:54 by REGINA Marshall) Dysuria (Acute) Hearing loss (Acute) Tubular adenoma of colon (Acute) Irritable bowel syndrome with diarrhea (Acute) Diverticulosis (Acute) Mixed hyperlipidemia (Acute) Persistent atrial fibrillation (Acute) Hospital discharge follow-up (Acute) Cellulitis of left ankle (Acute) Elevated TSH (Acute) Diabetes mellitus (Acute) Ear discomfort (Acute) Cardiomyopathy (Acute) ICD (implantable 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-defibrillator) in place (Acute) Heart failure with reduced ejection fraction (Acute) Mixed hyperlipidemia (Acute) Seborrheic dermatitis of scalp (Acute) Hearing loss (Acute) Obesity (BMI 30-39.9) (Acute) Hypoglycemia unawareness associated with type 2 diabetes mellitus (Acute) Vitamin D deficiency (Acute) Diabetic nephropathy associated with type 2 diabetes mellitus (Acute) 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 (Acute) Restrictive lung disease (Acute) Asthma-COPD overlap syndrome (Acute) Asthma (Acute) Depression with anxiety (Acute) GERD (gastroesophageal reflux disease) (Acute) Essential hypertension (Acute) Diabetes type 2, uncontrolled (Acute) Past Medical History Medical History Acute on chronic HFrEF (heart failure with reduced ejection fraction) Anemia Asthma Asthma-COPD overlap syndrome Atrial flutter Cardiomyopathy Cellulitis of left ankle CHF (congestive heart failure) COPD (chronic obstructive pulmonary disease) Depression with anxiety Diabetes mellitus Diabetes type 2, uncontrolled Diabetic nephropathy associated with type 2 diabetes mellitus Ear discomfort Elevated TSH Essential hypertension GERD (gastroesophageal reflux disease) Hearing loss Heart failure with reduced ejection fraction History of cardioversion HLD (hyperlipidemia) Hospital discharge follow-up HTN (hypertension) Hypoglycemia unawareness associated with type 2 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 Mixed hyperlipidemia Obesity (BMI 30-39.9) Paroxysmal atrial fibrillation Persistent atrial fibrillation Restrictive lung disease Seborrheic dermatitis of scalp Tubular adenoma of colon Vitamin D deficiency Family History Family History Father Cancer Mother Cancer Family/Other Diabetes CHF (congestive heart failure) Family history of problems with anesthesia: No Surgical History Surgical History History of cardiac defibrillator placement History of esophagogastroduodenoscopy (EGD) History of thumb surgery Hx of bilateral cataract extraction Hx of colonoscopy History of Problems with Anesthesia: No Social History Social History Household Members: None Housing: Apartment Alcohol intake: never Patient Tobacco Use Status: Former Tobacco user Quit Date: 2012 Tobacco use type: Cigarette e-Cigarette/Vaping Use: Never Used Second Hand Smoke Exposure: No Are you DNR?: No Advance Directives: No Advance Directives Information Provided: Yes service: No Current occupational status: disabled Cognitive needs: No Hearing needs: No Vision needs: No Meds Allergies Allergy/AdvReac Type Severity Reaction Status Date / Time dog dander [dogs] Allergy Intermediate Sneezing Verified 12/25/22 13:24 grass Allergy Intermediate Rash Verified 12/25/22 13:24 insect venom [mosquito bites] Allergy Intermediate Rash Verified 12/25/22 13:24 roaches Allergy Intermediate Rash Verified 12/25/22 13:24 trees Allergy Intermediate Rash Verified 12/25/22 13:24 atorvastatin [Lipitor] AdvReac Intermediate stomach Verified 12/25/22 13:24 aches Active Medications: Current Medications Albuterol Sulfate (Albuterol Sulfate (0.083%) 2.5 Mg/3 Ml Vial.Neb) 2.5 mg INHALE ONCE PRN PRN Reason: Shortness of Breath/Wheezing Lactated Ringer's (Lr) 1,000 mls @ 100 mls/hr IVCONT .Q10H VANDA Home Medications Medication Instructions Recorded Confirmed Last Taken Type clonazepam 0.5 mg tablet 0.5 mg PO DAILY PRN Anxiety 04/16/20 12/18/22 Unknown History duloxetine 30 mg capsule,delayed 30 mg PO QAM 07/22/22 12/18/22 12/31/22 History release duloxetine 60 mg capsule,delayed 60 mg PO DAILY 08/19/22 12/18/22 12/31/22 History release carvedilol 25 mg tablet 25 mg PO BID 12/18/22 12/31/22 History icosapent ethyl 1 gram capsule 2 g PO BID 12/18/22 12/31/22 History (Chu) Exam Exam Date and Time: December 31, 2022 1256 Height,Weight and Vital Signs: Height 5 ft 7 in Weight 92.986 kg Airway Mallampati Class: III TM Dist: >3cm Neck ROM: Full Denture: Upper Partial: Lower Heart: irreg Lungs: cta Assessment and Plan Assessment Anesthesia Assessment: Anesthesia Plan Discussed and Chart Reviewed Final Anesthetic Review Family History of Problems with Anesthesia: No History of Problems with Anesthesia: No NPO: Yes ASA Class: III Final Preanesthetic Review: No Changes in Pt Med Stat, Meds/Allgs Chart Reviewed and Consent Obtained/Reviewed Patient Risk: Intermediate Procedure Risk: Intermediate Anesthetic Plan Anesthetic Plan: MAC: Disposition: Standard PACU
[2022-12-31 13:07] VITALS: BP 111/49; PULSE 57; RESP 18; TEMP 35.9; O2SAT 95
[2022-12-31 13:12] LABS: Glucose, Whole Blood 133 mg/dL (60-115)
--- NOTE | 2022-12-31 13:30 | MHC.SHP ---
Pre-Procedural Eval Section A Date of Service: 12/31/22 The patient is an INPATIENT: No Changes since office visit: Yes Changes in Medication and Yes Patient answered all questions; No Cold of Flu in the past 2 weeks and No New Medical Problems The History & Physical has been completed within 30 days and I have reviewed it.: Yes Section B Chief Complaint: Other persistent atrial fibrillation Allergies: Allergies Allergy/AdvReac Type Severity Reaction Status Date / Time dog dander [dogs] Allergy Intermediate Sneezing Verified 12/25/22 13:24 grass Allergy Intermediate Rash Verified 12/25/22 13:24 insect venom [mosquito bites] Allergy Intermediate Rash Verified 12/25/22 13:24 roaches Allergy Intermediate Rash Verified 12/25/22 13:24 trees Allergy Intermediate Rash Verified 12/25/22 13:24 atorvastatin [Lipitor] AdvReac Intermediate stomach Verified 12/25/22 13:24 aches Plan I have reviewed the history and physical and performed a pertinent physical examination on my patient. No changes have occurred unless specified. Time Spent With Patient Time: Total time managing care of this patient today ____ minutes.
[2022-12-31] MEDS: Lactated Ringers 1,000 ML 100 ML IVCONT (13:34)
--- NOTE | 2022-12-31 14:04 | ECG_ITS ---
Test Reason : postop Blood Pressure : / mmHG Vent. Rate : 050 BPM Atrial Rate : 277 BPM P-R Int : 000 ms QRS Dur : 128 ms QT Int : 512 ms P-R-T Axes : 000 -44 -25 degrees QTc Int : 466 ms Atrial flutter with variable A-V block Left axis deviation Left bundle branch block Abnormal ECG When compared with ECG of 03-SEP-2022 14:28, Atrial flutter has replaced Sinus rhythm T wave inversion now evident in Anterior leads Referred By: Bk Canchola Electronically Signed By:MAMTA ALBERT
--- NOTE | 2022-12-31 14:05 | HO.CARDIVERS ---
Cardioversion Procedure Note Cardioversion Date of Procedure: Today Ordering Provider: Myself Performing Provider: Myself Indication for Procedure: Persistent atrial fibrillation with symptoms with severe LV systolic dysfunction Pre-Op Diagnosis: Same Post-Op Diagnosis: Normal sinus rhythm Performed with Transesophageal Echo: No History: See my office note Consent: Verbal and Written consent was obtained from the patient before starting and after confirming use of amiodarone and oral anticoagulation. The patient was made aware of the risk of synchronized cardioversion including benefits and alternatives Procedure: After consent obtained, cardioversion pads were attached and the patient was sedated by the anesthesia team. Once adequate sedation achieved, patient was delivered 200 joules of biphasic synchronized energy in anteroposterior configuration. ICD was checked postprocedure with stable pacing and shock lead impedance. Ventricular pacing was stable Complications: None Impression: Successful conversion to sinus rhythm Recommendations: 1. 12 lead EKG 2. Continue full oral anticoagulation with Eliquis and continue amiodarone at 200 mg daily 3. Follow up in the clinic in 4 weeks
[2022-12-31 14:13] VITALS: BP 100/44; PULSE 51; RESP 13; TEMP 36.3; O2SAT 97
[2022-12-31 14:28] VITALS: BP 105/43; PULSE 50; RESP 16; O2SAT 95
== END 2022-12-31 15:05 | disposition home or self-care (01) ==
PROVIDERS: PCP Internal Medicine; Visit Provider Internal Medicine Cardiovascular Disease
PROC: 5A2204Z Restoration of Cardiac Rhythm, Single (ICD-10-PCS; principal; 2022-12-31 14:00)
DX: I48.19 Other persistent atrial fibrillation (principal); Z79.01 Long term (current) use of anticoagulants; E78.5 Hyperlipidemia, unspecified; E11.21 Type 2 diabetes mellitus with diabetic nephropathy; I11.0 Hypertensive heart disease with heart failure; I50.21 Acute systolic (congestive) heart failure; I43 Cardiomyopathy in diseases classified elsewhere; Z95.810 Presence of automatic (implantable) cardiac defibrillator; Z79.4 Long term (current) use of insulin; Z79.899 Other long term (current) drug therapy; Z88.8 Allergy status to other drugs, medicaments and biological substances; Z87.891 Personal history of nicotine dependence
CPT/HCPCS: 82947; 92960; 93005

== ENCOUNTER → 2022-12-31 12:40 | Outpatient (BNV) | payer OTHER, SELFPAY | PROVIDERS: PCP Internal Medicine; Visit Provider Internal Medicine Cardiovascular Disease | DX: I48.19 Other persistent atrial fibrillation (principal) | CPT/HCPCS: 92960 ==

== ENCOUNTER 2023-01-13 15:10 | Outpatient (AMB) | payer OTHER, SELFPAY ==
--- NOTE | 2023-01-13 15:17 | MHC.OFFVIS ---
Intake Vital Signs 01/13/23 15:27 Height 5 ft 7 in Weight 202 lb 13.204 oz BMI 31.8 BP 112/78 Blood Pressure Location Lt brachial Position Sitting Pulse 60 Intake Visit Reasons: 2 week f/ up after cardioversion Intake Note: follow-up after cardioversion with ekg and [facility] check feeling ok Veterinarian Small Animal Required: Yes Veterinarian Small Animal Name: Theresa patel Allergies dog dander [dogs] Allergy (Intermediate, Verified 12/25/22 13:24) Sneezing grass Allergy (Intermediate, Verified 12/25/22 13:24) Rash insect venom [mosquito bites] Allergy (Intermediate, Verified 12/25/22 13:24) Rash roaches Allergy (Intermediate, Verified 12/25/22 13:24) Rash trees Allergy (Intermediate, Verified 12/25/22 13:24) Rash atorvastatin [Lipitor] Adverse Reaction (Intermediate, Verified 12/25/22 13:24) stomach aches Medication List - Last Reconciled 01/13/23 by Bk Canchola MD albuterol sulfate 90 mcg/actuation (Ventolin HFA) 2 puffs inhalation Q6H PRN 30 days apixaban (Eliquis) 5 mg PO BID 90 days Arnuity Ellipta 200 mcg/actuation (fluticasone furoate) 1 inh inhalation DAILY NS blood sugar diagnostic (FreeStyle Lite Strips) 3 times a day carvedilol 25 mg PO BID cholecalciferol (vitamin D3) 25 mcg PO DAILY 90 days clonazepam 0.5 mg PO DAILY PRN cyanocobalamin (vitamin B-12) 500 mcg PO every other day in the morning; dapagliflozin propanediol (Farxiga) 10 mg PO DAILY 90 days dulaglutide (Trulicity) 0.75 mg (0.5 mL) subcut QWEEK duloxetine 30 mg PO QAM duloxetine 60 mg PO DAILY eluxadoline (Viberzi) 100 mg PO BID famotidine (Pepcid) 40 mg PO BEDTIME fenofibrate 54 mg PO DAILY 90 days furosemide 40 mg PO DAILY 90 days gabapentin 300 mg PO BID 90 days hydrocortisone 1% (Anti-Itch (hydrocortisone)) 1 appl topical BID PRN 2 weeks icosapent ethyl (Vascepa) 2 grams PO BID insulin degludec (Tresiba FlexTouch U-100 insulin) 15 units (0.15 mL) subcut BEDTIME 30 days ketoconazole 2% 1 appl topical 2XW lancets (TRUEplus Lancets) TEST BLOOD SUGAR THREE TIMES DAILY lancets 3 times a day loperamide (Imodium A-D) 4 mg (2 x 2 mg) PO TID PRN metformin ER 1,000 mg (2 x 500 mg) PO BID 90 days pen needle, diabetic (Pentips) As directed pen needle, diabetic (UltiCare Pen Needle) As directed 1 time a day rosuvastatin 10 mg PO BEDTIME 90 days sacubitril-valsartan 49-51 mg (Entresto) 1 tab PO BID 90 days HPI HPI Comments History of Present Illness Details Stephen comes for follow-up. History was obtained with help of a certified translator and interpreter. He continues to not feel well. He has exertional fatigue and shortness of breath. Denies orthopnea, PND, leg edema worsening. Takes all his medications. Unfortunately he did not maintain or reverted back to atrial fibrillation very quickly after cardioversion. This was after appropriate loading of amiodarone and he being hinduism about taking his medications. He comes for follow-up and noted to be in persistent atrial fibrillation at this point time. No worsening symptoms since then. He is currently off amiodarone therapy. Denies any prolonged palpitation irregular heartbeat. Complains of dizziness but he thinks this is related to position of the head and in the rear issues. No syncopal episodes. No ICD discharge. [facility] Medical History (Updated 01/13/23 @ 16:21 by Bk Canchola MD) Acute on chronic HFrEF (heart failure with reduced ejection fraction) Anemia Asthma Asthma-COPD overlap syndrome Atrial flutter Cardiomyopathy Cellulitis of left ankle CHF (congestive heart failure) COPD (chronic obstructive pulmonary disease) Depression with anxiety Diabetes mellitus Diabetes type 2, uncontrolled Diabetic nephropathy associated with type 2 diabetes mellitus Ear discomfort Elevated TSH Essential hypertension GERD (gastroesophageal reflux disease) Hearing loss Heart failure with reduced ejection fraction History of cardioversion HLD (hyperlipidemia) Hospital discharge follow-up HTN (hypertension) Hypoglycemia unawareness associated with type 2 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 [facility] (current) use of insulin Mixed hyperlipidemia Obesity (BMI 30-39.9) Paroxysmal atrial fibrillation Permanent atrial fibrillation Persistent atrial fibrillation Restrictive lung disease Seborrheic dermatitis of scalp Tubular adenoma of colon Vitamin D deficiency Surgical History History of cardiac defibrillator placement History of esophagogastroduodenoscopy (EGD) History of thumb surgery Hx of bilateral cataract extraction Hx of colonoscopy Family History Father Cancer Mother Cancer Family/Other Diabetes CHF (congestive heart failure) Social History Household Members: None Housing: Apartment Alcohol intake: never Patient Tobacco Use Status: Former Tobacco user Quit Date: 2012 Tobacco use type: Cigarette e-Cigarette/Vaping Use: Never Used Second Hand Smoke Exposure: No service: No Current occupational status: disabled Cognitive needs: No Hearing needs: No Vision needs: No Review of Systems Const Denies chills, Denies fatigue, Denies fever(s), Denies frequent falls, Denies weakness, Denies weight gain and Denies weight loss ENT Denies dizziness Card Denies chest pain, Denies leg edema, Denies lightheadedness, Denies palpitations, Denies dyspnea, Denies dyspnea on exertion, Denies orthopnea and Denies other (loss of consciousness) Resp Denies cough, Denies dyspnea and Denies dyspnea on exertion GI Denies hematochezia and Denies change in stool character Musc Denies abnormal gait, Denies muscle weakness, Denies numbness, Denies radiating pain into limb and Denies tingling Neuro Denies abnormal gait, Denies dizziness, Denies frequent falls, Denies numbness, Denies tingling and Denies weakness Endo Denies fatigue and Denies palpitations Physical Exam Vital Signs: Last Vital Signs Pulse 60 01/13/23 15:27 BP 112/78 01/13/23 15:27 BMI result Body Mass Index 31.8 Const General: comfortable, no acute distress, alert and awake Orientation/consciousness: patient oriented x3 HEENT General nose exam: No nasal polyps present and No nasal discharge present Face and sinus: Yes sinuses nontender Mouth: oropharynx normal Throat: Yes posterior oropharynx normal Neck Neck: Yes trachea midline, Yes supple and Yes no JVD Chest Chest palpation & inspection: tenderness Resp Effort & Inspection: normal respiratory effort Auscultation: clear to auscultation bilaterally Cardio Palpation: abnormal PMI displaced PMI Rhythm: abnormal rhythm irregularly irregular Heart sounds: S1 normal heart sound present, S2 normal heart sound present, no gallops and no murmurs GI Auscultation: normal bowel sounds Back/Spine/Pelvis Thoracic/Lumbar Spine: thoracic and lumbar spine normal to inspection Neuro General: patient oriented x3 and no focal motor deficits Extrem General: Yes no clubbing, cyanosis or edema Psych Appearance: grossly normal and well kempt Speech and movement: Normal speech and movement present Office Procedures EKG Details: EKG shows atrial fibrillation with intermittent ventricular paced rhythm with left axis deviation and nonspecific intraventricular conduction delay with nonspecific ST T wave changes [id number], Complete Assessment & Plan Assessment & Plan (1) Permanent atrial fibrillation: Code(s): I48.21 - Permanent atrial fibrillation Plan: Patient with failed rhythm control approach despite amiodarone therapy persistent atrial fibrillation, changing his definition to permanent atrial fibrillation. Offered him a 2nd opinion with electrophysiology. He declines. Continue rate control approach which currently appears to be adequately rate controlled. Continue full oral anticoagulation, currently on Eliquis 5 mg b.i.d.. Quarterly renal function test should be pursued. Unfortunately with loss of AV synchrony is going to have symptoms of exercise intolerance. (2) Heart failure with reduced ejection fraction: Code(s): I50.20 - Unspecified systolic (congestive) heart failure Plan: Heart failure with reduced ejection fraction with severe LV systolic dysfunction now permanent atrial fibrillation. Clinically appears to be euvolemic and well compensated. Offered him phase 2 cardiac rehabilitatio, although he currently declines it. He is currently on appropriate oral medications with neurohormonal modulation including Farxiga, carvedilol, Entresto therapy. Continue current diuretic regimen. Daily weight monitoring avoidance of salt loading was discussed. Advised to maintain activity level and weight loss program. (3) ICD (implantable 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-defibrillator) in place: Code(s): Z95.810 - Presence of automatic (implantable) cardiac defibrillator Plan: ICD in place, working well. Will follow remotely as well as follow up in the clinic. Follow up in the clinic in 3 months time, sooner p.r.n.. Thank you for allowing me to partake in his care Coding Level of Care Code Est Pt Level 4 (87733) Diagnoses Permanent atrial fibrillation I48.21 Heart failure with reduced ejection fraction I50.20 ICD (implantable 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-defibrillator) in place Z95.810 CPT Codes EKG - CPT: 73579-[id number], Complete ([id number])
[2023-01-13 15:27] VITALS: BP 112/78; PULSE 60; BMI 31.8
== END 2023-01-13 16:01 | disposition home or self-care (01) ==
PROVIDERS: PCP Internal Medicine; Referring Provider Internal Medicine; Visit Provider Internal Medicine Cardiovascular Disease
DX: I48.21 Permanent atrial fibrillation (principal); I50.20 Unspecified systolic (congestive) heart failure; Z95.810 Presence of automatic (implantable) cardiac defibrillator
CPT/HCPCS: 93010; 99214

== ENCOUNTER → 2023-01-13 15:10 | Outpatient (BNVA) | payer OTHER, SELFPAY | PROVIDERS: PCP Internal Medicine; Referring Provider Internal Medicine; Visit Provider Internal Medicine Cardiovascular Disease | DX: I48.21 Permanent atrial fibrillation (principal); I50.20 Unspecified systolic (congestive) heart failure; Z95.810 Presence of automatic (implantable) cardiac defibrillator; Z79.01 Long term (current) use of anticoagulants; Z79.899 Other long term (current) drug therapy | CPT/HCPCS: 93005; 99212 ==

== ENCOUNTER → 2023-01-20 23:59 | Outpatient (BNV) | payer OTHER, SELFPAY ==
--- NOTE | 2023-01-21 09:55 | A.OFFVIS_ITS ---
Intake Intake Visit Reasons: Remote HF monitoring- [facility] Allergies dog dander [dogs] Allergy (Intermediate, Verified 12/25/22 13:24) Sneezing grass Allergy (Intermediate, Verified 12/25/22 13:24) Rash insect venom [mosquito bites] Allergy (Intermediate, Verified 12/25/22 13:24) Rash roaches Allergy (Intermediate, Verified 12/25/22 13:24) Rash trees Allergy (Intermediate, Verified 12/25/22 13:24) Rash atorvastatin [Lipitor] Adverse Reaction (Intermediate, Verified 12/25/22 13:24) stomach aches PFSH Medical History (Updated 01/13/23 @ 16:21 by Bk Canchola MD) Acute on chronic HFrEF (heart failure with reduced ejection fraction) Anemia Asthma Asthma-COPD overlap syndrome Atrial flutter Cardiomyopathy Cellulitis of left ankle CHF (congestive heart failure) COPD (chronic obstructive pulmonary disease) Depression with anxiety Diabetes mellitus Diabetes type 2, uncontrolled Diabetic nephropathy associated with type 2 diabetes mellitus Ear discomfort Elevated TSH Essential hypertension GERD (gastroesophageal reflux disease) Hearing loss Heart failure with reduced ejection fraction History of cardioversion HLD (hyperlipidemia) Hospital discharge follow-up HTN (hypertension) Hypoglycemia unawareness associated with type 2 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 Mixed hyperlipidemia Obesity (BMI 30-39.9) Paroxysmal atrial fibrillation Permanent atrial fibrillation Persistent atrial fibrillation Restrictive lung disease Seborrheic dermatitis of scalp Tubular adenoma of colon Vitamin D deficiency Surgical History History of cardiac defibrillator placement History of esophagogastroduodenoscopy (EGD) History of thumb surgery Hx of bilateral cataract extraction Hx of colonoscopy Family History Father Cancer Mother Cancer Family/Other Diabetes CHF (congestive heart failure) Social History Household Members: None Housing: Apartment Alcohol intake: never Patient Tobacco Use Status: Former Tobacco user Quit Date: 2012 Tobacco use type: Cigarette e-Cigarette/Vaping Use: Never Used Second Hand Smoke Exposure: No service: No Current occupational status: disabled Cognitive needs: No Hearing needs: No Vision needs: No Office Procedures Cardiac Device Check Cardiac Device Check Details: Remote heart failure report generated 01/20/2023. Heart failure parameters are stable [id number] Cardiac Device Interrogation, cardio physiologic monitor Procedure code (CPT) selection complete Coding Level of Care Code Procedure Only Diagnoses CPT Codes Cardiac Device Check - Cardiac Device 15: [id number] Cardiac Device In [facility], cardio physiologic monitor ([id number])
== END ==
PROVIDERS: PCP Internal Medicine; Visit Provider Internal Medicine Cardiovascular Disease
DX: I50.20 Unspecified systolic (congestive) heart failure (principal); Z95.810 Presence of automatic (implantable) cardiac defibrillator
CPT/HCPCS: 93297

== ENCOUNTER 2023-02-04 13:27 | Outpatient (AMB) | payer OTHER, SELFPAY ==
--- NOTE | 2023-02-04 13:38 | MHC.OFFVIS ---
Intake Vital Signs 02/04/23 13:39 Height 5 ft 7 in Weight 208 lb BMI 32.6 BP 110/40 L Blood Pressure Location Lt brachial Position Sitting Pulse 61 Pulse Source Pulse Oximeter Pulse Oximetry (%) 97 Oxygen Delivery Method Room Air Intake Visit Reasons: COPD Intake Note: pt is here for follow up and states he does not feel good, tired, dizziness and heart problems. He also states his breathing is good. Medical Research Tech Required: Yes Allergies dog dander [dogs] Allergy (Intermediate, Verified 02/04/23 13:56) Sneezing grass Allergy (Intermediate, Verified 02/04/23 13:56) Rash insect venom [mosquito bites] Allergy (Intermediate, Verified 02/04/23 13:56) Rash roaches Allergy (Intermediate, Verified 02/04/23 13:56) Rash trees Allergy (Intermediate, Verified 02/04/23 13:56) Rash atorvastatin [Lipitor] Adverse Reaction (Intermediate, Verified 02/04/23 13:56) stomach aches Medication List - Last Reconciled 02/04/23 by Sacha Gonzalez MD albuterol sulfate 90 mcg/actuation (Ventolin HFA) 2 puffs inhalation Q6H PRN 30 days apixaban (Eliquis) 5 mg PO BID 90 days Arnuity Ellipta 200 mcg/actuation (fluticasone furoate) 1 inh inhalation DAILY NS blood sugar diagnostic (FreeStyle Lite Strips) 3 times a day carvedilol 25 mg PO BID cholecalciferol (vitamin D3) 25 mcg PO DAILY 90 days clonazepam 0.5 mg PO DAILY PRN cyanocobalamin (vitamin B-12) 500 mcg PO every other day in the morning; dapagliflozin propanediol (Farxiga) 10 mg PO DAILY 90 days dulaglutide (Trulicity) 0.75 mg (0.5 mL) subcut QWEEK duloxetine 30 mg PO QAM duloxetine 60 mg PO DAILY eluxadoline (Viberzi) 100 mg PO BID famotidine (Pepcid) 40 mg PO BEDTIME fenofibrate 54 mg PO DAILY 90 days fluocinolone acetonide oil 0.01% (DermOtic Oil) 5 drps otic (ear) left BID 7 days furosemide 40 mg PO DAILY 90 days gabapentin 300 mg PO BID 90 days hydrocortisone 1% (Anti-Itch (hydrocortisone)) 1 appl topical BID PRN 2 weeks icosapent ethyl (Vascepa) 2 grams PO BID insulin degludec (Tresiba FlexTouch U-100 insulin) 15 units (0.15 mL) subcut BEDTIME 30 days ketoconazole 2% 1 appl topical 2XW lancets (TRUEplus Lancets) TEST BLOOD SUGAR THREE TIMES DAILY lancets 3 times a day loperamide (Imodium A-D) 4 mg (2 x 2 mg) PO TID PRN metformin ER 1,000 mg (2 x 500 mg) PO BID 90 days pen needle, diabetic (Pentips) As directed pen needle, diabetic (UltiCare Pen Needle) As directed 1 time a day rosuvastatin 10 mg PO BEDTIME 90 days sacubitril-valsartan 49-51 mg (Entresto) 1 tab PO BID 90 days [wipes As directed] Do you need a note to return to daycare/school/sports/work: No HPI COPD HPI Details 73 years old very pleasant gentleman who speaks mostly Mongolian, Interviewed 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 Claims that his breathing has been okay. He continues to use Arnuity-200 1 inhalation daily and Ventolin only once in a while. He has no issue with. The breathing problem His main complaint is feeling weak and tired and this is related to his cardiac issues. He has been cardioverted about 2 weeks ago. [facility] Medical History Acute on chronic HFrEF (heart failure with reduced ejection fraction) Anemia Asthma Asthma-COPD overlap syndrome Atrial flutter Cardiomyopathy Cellulitis of left ankle CHF (congestive heart failure) COPD (chronic obstructive pulmonary disease) Depression with anxiety Diabetes mellitus Diabetes type 2, uncontrolled Diabetic nephropathy associated with type 2 diabetes mellitus Ear discomfort Elevated TSH Essential hypertension GERD (gastroesophageal reflux disease) Hearing loss Heart failure with reduced ejection fraction History of cardioversion HLD (hyperlipidemia) Hospital discharge follow-up HTN (hypertension) Hypoglycemia unawareness associated with type 2 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 Mixed hyperlipidemia Obesity (BMI 30-39.9) Paroxysmal atrial fibrillation Permanent atrial fibrillation Persistent atrial fibrillation Restrictive lung disease Seborrheic dermatitis of scalp Tubular adenoma of colon Vitamin D deficiency Surgical History History of cardiac defibrillator placement History of esophagogastroduodenoscopy (EGD) History of thumb surgery Hx of bilateral cataract extraction Hx of colonoscopy Family History Father Cancer Mother Cancer Family/Other Diabetes CHF (congestive heart failure) Social History Household Members: None Housing: Apartment Alcohol intake: never Patient Tobacco Use Status: Former Tobacco user Quit Date: 2012 Tobacco use type: Cigarette e-Cigarette/Vaping Use: Never Used Second Hand Smoke Exposure: No service: No Current occupational status: disabled Cognitive needs: No Hearing needs: No Vision needs: No Review of Systems Const All systems reviewed & are unremarkable except as noted in HPI and below Eyes Reports no additional complaints ENT Reports no additional complaints Card Denies chest pain, Reports irregular heart rhythm and Denies leg edema Resp Reports as per HPI GI Reports no additional complaints Reports no additional complaints Musc Reports back pain (Mild) and Reports arthralgias (Mild) Skin/Breast Reports system reviewed and no additional complaints, except as documented Neuro Reports no additional complaints Psych Reports no additional complaints Physical Exam Vital Signs: Last Vital Signs Pulse 61 02/04/23 13:39 BP 110/40 L 02/04/23 13:39 Pulse Ox 97 02/04/23 13:39 Oxygen Delivery Method Room Air 02/04/23 13:39 BMI result Body Mass Index 32.6 Const General: comfortable, no acute distress, alert and awake Orientation/consciousness: patient oriented x3 HEENT Head: Yes normal to inspection General nose exam: No nasal polyps present and No nasal discharge present Face and sinus: Yes sinuses nontender Mouth: oropharynx normal Throat: Yes posterior oropharynx normal Eyes General: appearance normal, both eyes and all related structures Neck Neck: Yes normal visual inspection, Yes no lymphadenopathy, Yes trachea midline and Yes no JVD Thyroid: Thyroid normal Chest Chest palpation & inspection: normal inspection of the chest, normal palpation of entire chest wall and no tenderness Resp Other: He has good breath sounds on both sides. No wheezes or crepitations are heard. Cardio Palpation: normal PMI Rate: regular rate Rhythm: regular rhythm Heart sounds: no gallops and no murmurs GI Palpation (GI): Soft to palpation, nontender, No hepatosplenomegaly present, no masses and Other GI palpation findings present (ABDOMEN IS OBESE AND SLIGHTLY PROTUBERANT) Auscultation: normal bowel sounds Back/Spine/Pelvis Thoracic/Lumbar Spine: thoracic and lumbar spine normal to inspection Skin General skin exam: no rashes or lesions noted Neuro General: patient oriented x3 and no focal motor deficits Cranial nerves: Yes CN's II-XII intact bilaterally Extrem General: Yes normal to inspection, Yes no clubbing, cyanosis or edema and Yes no calf tenderness Psych Appearance: grossly normal and well kempt Speech and movement: Normal speech and movement present Office Procedures Spirometry Testing Spirometry Comments: Spirometry done in the office, Dr. Gonzalez has the results results scanned to his chart. [id number] Spirometry Results Reviewed Results Reviewed: SPIROMETRY FVC 64%,, FEV1 70%.. fev1/FVC 83 FEF 25-75 % = 100 % Assessment & Plan Assessment & Plan (1) Asthma-COPD overlap syndrome: Comment: The Asthma/COPD is fairly well controlled. Advised to continue using Arnuity -200 1 inhalation daily and ventolin 2 puffs q.6 hours p.r.n.. spirometry today , again shows moderate restrictive disorder, FVC 64%, FEV1 70% These results are similar to the results in 2020. Code(s): J44.9 - Chronic obstructive pulmonary disease, unspecified (2) Obesity (BMI 30-39.9): Comment: PATIENT REMAINS MODERATELY OBESE . HE DENIES SYMPTOMS OF SLEEP APNEA. HE IS A DIABETIC AND REMAINS ON DIABETIC DIET. HE IS NOT ABLE TO DO MUCH EXERCISE. Code(s): E66.9 - Obesity, unspecified Orders: Orders AMB Spirometry Testing Today J45.909 - Unspecified asthma, uncomplicated Coding Level of Care Code Est Pt Level 3 (08575) Diagnoses Asthma-COPD overlap syndrome J44.9 Obesity (BMI 30-39.9) E66.9 CPT Codes Spirometry - CPT: 01634- Spirometry ([id number])
[2023-02-04 13:39] VITALS: BP 110/40; PULSE 61; O2SAT 97; BMI 32.6
== END 2023-02-04 14:13 | disposition home or self-care (01) ==
PROVIDERS: PCP Internal Medicine; Visit Provider Internal Medicine
DX: J44.9 Chronic obstructive pulmonary disease, unspecified (principal); E66.9 Obesity, unspecified
CPT/HCPCS: 94010; 99213

== ENCOUNTER → 2023-02-04 13:27 | Outpatient (BNVA) | payer OTHER, SELFPAY | PROVIDERS: Visit Provider Internal Medicine | DX: J44.9 Chronic obstructive pulmonary disease, unspecified (principal); E66.9 Obesity, unspecified; Z68.32 Body mass index [BMI] 32.0-32.9, adult | CPT/HCPCS: 94010; 99212 ==

== ENCOUNTER → 2023-02-23 23:59 | Outpatient (BNV) | payer OTHER, SELFPAY ==
--- NOTE | 2023-02-23 15:33 | A.OFFVIS_ITS ---
Intake Intake Visit Reasons: Remote HF monitoring- [facility] Allergies dog dander [dogs] Allergy (Intermediate, Verified 02/04/23 13:56) Sneezing grass Allergy (Intermediate, Verified 02/04/23 13:56) Rash insect venom [mosquito bites] Allergy (Intermediate, Verified 02/04/23 13:56) Rash roaches Allergy (Intermediate, Verified 02/04/23 13:56) Rash trees Allergy (Intermediate, Verified 02/04/23 13:56) Rash atorvastatin [Lipitor] Adverse Reaction (Intermediate, Verified 02/04/23 13:56) stomach aches PFSH Medical History Acute on chronic HFrEF (heart failure with reduced ejection fraction) Anemia Asthma Asthma-COPD overlap syndrome Atrial flutter Cardiomyopathy Cellulitis of left ankle CHF (congestive heart failure) COPD (chronic obstructive pulmonary disease) Depression with anxiety Diabetes mellitus Diabetes type 2, uncontrolled Diabetic nephropathy associated with type 2 diabetes mellitus Ear discomfort Elevated TSH Essential hypertension GERD (gastroesophageal reflux disease) Hearing loss Heart failure with reduced ejection fraction History of cardioversion HLD (hyperlipidemia) Hospital discharge follow-up HTN (hypertension) Hypoglycemia unawareness associated with type 2 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 Mixed hyperlipidemia Obesity (BMI 30-39.9) Paroxysmal atrial fibrillation Permanent atrial fibrillation Persistent atrial fibrillation Restrictive lung disease Seborrheic dermatitis of scalp Tubular adenoma of colon Vitamin D deficiency Surgical History History of cardiac defibrillator placement History of esophagogastroduodenoscopy (EGD) History of thumb surgery Hx of bilateral cataract extraction Hx of colonoscopy Family History Father Cancer Mother Cancer Family/Other Diabetes CHF (congestive heart failure) Social History Household Members: None Housing: Apartment Alcohol intake: never Patient Tobacco Use Status: Former Tobacco user Quit Date: 2012 Tobacco use type: Cigarette e-Cigarette/Vaping Use: Never Used Second Hand Smoke Exposure: No service: No Current occupational status: disabled Cognitive needs: No Hearing needs: No Vision needs: No Office Procedures Cardiac Device Check Cardiac Device Check Details: Remote heart failure report generated 02/23/2023. Heart failure parameters are stable [id number] Cardiac Interrogation, implant defibrillator w/interim Procedure code (CPT) selection complete Coding Level of Care Code Procedure Only CPT Codes Cardiac Device Check - Cardiac Device 13: [id number] Cardiac Interrogation, implant defibrillator w/interim ([id number])
== END ==
PROVIDERS: PCP Internal Medicine; Visit Provider Internal Medicine Cardiovascular Disease
DX: I42.9 Cardiomyopathy, unspecified (principal); Z95.810 Presence of automatic (implantable) cardiac defibrillator
CPT/HCPCS: 93295

== ENCOUNTER 2023-03-03 13:25 | Outpatient (REF) | payer OTHER, SELFPAY ==
[2023-03-03 13:43] LABS: MANUAL DIFF FLAG NO
[2023-03-03 13:57] LABS: Basophils Percent Auto 0.4 % (0-2); Eosinophils Absolute Auto 0.4 X10*3/uL (0.0-0.4); Eosinophils Percent Auto 4.9 % (0-4); Hematocrit 38.4 % (42.0-52.0); Hemoglobin 12.5 g/dl (14.0-18.0); Imm Gran Abs Auto 0.17 X10*3/uL (0.00-0.03); Imm Gran Pct Auto 2.1 % (0.0-0.4); Lymphocytes Absolute Auto 0.7 X10*3/uL (1.2-4.9); Lymphocytes Percent Auto 8.6 % (20-40); Mean Corpuscular HGB Conc 32.6 g/dl (31.0-36.0); Mean Corpuscular Hemoglobin 30.9 pg (27.0-33.0); Mean Corpuscular Volume 94.8 fL (80.0-98.0); Monocytes Absolute Auto 0.7 X10*3/uL (0.1-1.2); Monocytes Percent Auto 8.2 % (2-11); Neutrophils Percent Auto 75.8 % (45-73); Platelet Count 289 X10*3/uL (160-400); Red Blood Count 4.05 X10*6/uL (4.60-5.80); Red Cell Distribution Width 13.6 % (11.0-16.0); White Blood Count 7.9 X10*3/uL (4.8-10.8)
[2023-03-03 14:34] LABS: Alanine Aminotransferase 26 U/L (0-40); Albumin Level 4.2 g/dL (3.5-5.0); Alkaline Phosphatase 47 U/L (39-117); Anion Gap 14 (12-20); Aspartate Amino Transferase 15 U/L (5-37); Bilirubin Total 0.3 mg/dL (0.0-1.0); Blood Urea Nitrogen 21 mg/dL (9-16); Calcium 10.1 mg/dL (8.4-10.2); Carbon Dioxide 25 mmol/L (22-29); Chloride 106 mmol/L (96-108); Cholesterol 138 mg/dL (<200); Estimated Glomerular Filt Rate 48; Glucose Fasting 240 mg/dL (60-99); HDL Cholesterol 34 mg/dL (>40); Iron 79 mcg/dL (45-160); LDL Cholesterol Calculated 70 mg/dL (<100); Percent Iron Saturation 24 % (15-50); Potassium 4.6 mmol/L (3.3-5.1); Sodium 140 mmol/L (135-145); Total Iron Binding Capacity 333 mcg/dL (228-428); Total Protein 7.2 g/dL (6.5-8.0); Triglycerides 171 mg/dL (<150); Unsaturated Iron Binding 254 ug/dL; Uric Acid 5.8 mg/dL (3.4-7.0)
[2023-03-03 14:49] LABS: Thyroid Stimulating Hormone 4.58 uIU/mL (0.32-4.0); Vitamin D 25-OH Total 31.1 ng/mL (>30)
[2023-03-03 14:51] LABS: Appearance Urine Clear; Color Urine Yellow; Glucose Urine UA >=1000 mg/dL (Negative); Leukocyte Esterase Urine Negative (Negative); Nitrite Urine Negative (Negative); Specific Gravity - Urine 1.025 (1.005-1.025); UMIC TRIGGER UACC YES; Urine Blood Negative (Negative); Urine Ketones Negative (Negative); Urine Protein Negative (Neg-Trace)
[2023-03-03 14:57] LABS: Bacteria Urine None Seen (None Seen); Hyaline Casts Urine 0-2 /LPF (0-2); RBC Urine 0-2 /HPF (0-2); Squamous Epithelial Cell Urine 0-2 /HPF (0-2); WBC Urine 0-5 /HPF (0-5)
[2023-03-03 15:02] LABS: Vitamin B12 683 pg/mL (200-900)
[2023-03-03 15:31] LABS: Creatinine Urine 51.18 mg/dL; Microalbum/Creatinine Ratio Ur 27.3 ug/mg cr (<30)
[2023-03-07 14:38] LABS: NT-proBNP 1352 pg/mL (<125)
== END 2023-03-03 13:26 | disposition home or self-care (01) ==
LOC: HO.LAB 13:25
PROVIDERS: PCP Internal Medicine; Visit Provider Internal Medicine
DX: D64.9 Anemia, unspecified (principal); E11.9 Type 2 diabetes mellitus without complications; E78.5 Hyperlipidemia, unspecified; I50.20 Unspecified systolic (congestive) heart failure; R94.6 Abnormal results of thyroid function studies; R30.0 Dysuria; M10.9 Gout, unspecified; E53.8 Deficiency of other specified B group vitamins; E55.9 Vitamin D deficiency, unspecified
CPT/HCPCS: 36415; 80053; 80061; 81001; 82043; 82306; 82570; 82607; 82746; 83540; 83880; 84443; 84550; 85025

== ENCOUNTER → 2023-03-26 23:59 | Outpatient (BNV) | payer OTHER, SELFPAY ==
--- NOTE | 2023-03-26 12:35 | MHC.OFFVIS ---
Intake Intake Visit Reasons: Remote HF Monitoring- [facility] Allergies dog dander [dogs] Allergy (Intermediate, Verified 02/04/23 13:56) Sneezing grass Allergy (Intermediate, Verified 02/04/23 13:56) Rash insect venom [mosquito bites] Allergy (Intermediate, Verified 02/04/23 13:56) Rash roaches Allergy (Intermediate, Verified 02/04/23 13:56) Rash trees Allergy (Intermediate, Verified 02/04/23 13:56) Rash atorvastatin [Lipitor] Adverse Reaction (Intermediate, Verified 02/04/23 13:56) stomach aches PFSH Medical History Acute on chronic HFrEF (heart failure with reduced ejection fraction) Anemia Asthma Asthma-COPD overlap syndrome Atrial flutter Cardiomyopathy Cellulitis of left ankle CHF (congestive heart failure) COPD (chronic obstructive pulmonary disease) Depression with anxiety Diabetes mellitus Diabetes type 2, uncontrolled Diabetic nephropathy associated with type 2 diabetes mellitus Ear discomfort Elevated TSH Essential hypertension GERD (gastroesophageal reflux disease) Hearing loss Heart failure with reduced ejection fraction History of cardioversion HLD (hyperlipidemia) Hospital discharge follow-up HTN (hypertension) Hypoglycemia unawareness associated with type 2 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 of 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 Mixed hyperlipidemia Obesity (BMI 30-39.9) Paroxysmal atrial fibrillation Permanent atrial fibrillation Persistent atrial fibrillation Restrictive lung disease Seborrheic dermatitis of scalp Tubular adenoma of colon Vitamin D deficiency Surgical History History of cardiac defibrillator placement History of esophagogastroduodenoscopy (EGD) History of thumb surgery Hx of bilateral cataract extraction Hx of colonoscopy Family History Father Cancer Mother Cancer Family/Other Diabetes CHF (congestive heart failure) Social History Household Members: None Housing: Apartment Alcohol intake: never Patient Tobacco Use Status: Former Tobacco user Quit Date: 2012 Tobacco use type: Cigarette e-Cigarette/Vaping Use: Never Used Second Hand Smoke Exposure: No service: No Current occupational status: disabled Cognitive needs: No Hearing needs: No Vision needs: No Office Procedures Cardiac Device Check Cardiac Device Check Details: Remote heart failure report generated 03/26/2023. Heart failure parameters are stable [id number] Cardiac Device Interrogation, cardio physiologic monitor Procedure code (CPT) selection complete Coding Level of Care Code Procedure Only CPT Codes Cardiac Device Check - Cardiac Device 15: [id number] Cardiac Device Interrogation, cardio physiologic monitor ([id number])
== END ==
PROVIDERS: PCP Internal Medicine; Visit Provider Internal Medicine Cardiovascular Disease
DX: I50.20 Unspecified systolic (congestive) heart failure (principal); Z95.810 Presence of automatic (implantable) cardiac defibrillator
CPT/HCPCS: 93297

== ENCOUNTER → 2023-03-29 23:59 | Outpatient (BNV) | payer OTHER, SELFPAY ==
--- NOTE | 2023-03-30 13:39 | A.OFFVIS_ITS ---
Intake Intake Visit Reasons: Remote ICD Check- [facility] Allergies dog dander [dogs] Allergy (Intermediate, Verified 02/04/23 13:56) Sneezing grass Allergy (Intermediate, Verified 02/04/23 13:56) Rash insect venom [mosquito bites] Allergy (Intermediate, Verified 02/04/23 13:56) Rash roaches Allergy (Intermediate, Verified 02/04/23 13:56) Rash trees Allergy (Intermediate, Verified 02/04/23 13:56) Rash atorvastatin [Lipitor] Adverse Reaction (Intermediate, Verified 02/04/23 13:56) stomach aches PFSH Medical History Acute on chronic HFrEF (heart failure with reduced ejection fraction) Anemia Asthma Asthma-COPD overlap syndrome Atrial flutter Cardiomyopathy Cellulitis of left ankle CHF (congestive heart failure) COPD (chronic obstructive pulmonary disease) Depression with anxiety Diabetes mellitus Diabetes type 2, uncontrolled Diabetic nephropathy associated with type 2 diabetes mellitus Ear discomfort Elevated TSH Essential hypertension GERD (gastroesophageal reflux disease) Hearing loss Heart failure with reduced ejection fraction History of cardioversion HLD (hyperlipidemia) Hospital discharge follow-up HTN (hypertension) Hypoglycemia unawareness associated with type 2 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 of 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 Mixed hyperlipidemia Obesity (BMI 30-39.9) Paroxysmal atrial fibrillation Permanent atrial fibrillation Persistent atrial fibrillation Restrictive lung disease Seborrheic dermatitis of scalp Tubular adenoma of colon Vitamin D deficiency Surgical History History of cardiac defibrillator placement History of esophagogastroduodenoscopy (EGD) History of thumb surgery Hx of bilateral cataract extraction Hx of colonoscopy Family History Father Cancer Mother Cancer Family/Other Diabetes CHF (congestive heart failure) Social History Household Members: None Housing: Apartment Alcohol intake: never Patient Tobacco Use Status: Former Tobacco user Quit Date: 2012 Tobacco use type: Cigarette e-Cigarette/Vaping Use: Never Used Second Hand Smoke Exposure: No service: No Current occupational status: disabled Cognitive needs: No Hearing needs: No Vision needs: No Office Procedures Cardiac Device Check Cardiac Device Check Details: Remote ICD report generated 03/29/2023. ICD function is adequate [id number] Cardiac Interrogation, implant defibrillator w/interim Procedure code (CPT) selection complete Coding Level of Care Code Procedure Only CPT Codes Cardiac Device Check - Cardiac Device 13: [id number] Cardiac Interrogation, implant defibrillator w/interim ([id number])
== END ==
PROVIDERS: PCP Internal Medicine; Visit Provider Internal Medicine Cardiovascular Disease
DX: I42.9 Cardiomyopathy, unspecified (principal); Z95.810 Presence of automatic (implantable) cardiac defibrillator
CPT/HCPCS: 93295

== ENCOUNTER 2023-04-07 13:52 | Outpatient (AMB) | payer OTHER, SELFPAY ==
--- NOTE | 2023-04-07 14:05 | A.OFFPC_ITS ---
Vital Signs 04/07/23 14:08 Height 5 ft 7 in Weight 203 lb BMI 31.8 BP 124/60 Blood Pressure Location Lt brachial Position Sitting Pulse 76 Pulse Source Pulse Oximeter Pulse Oximetry (%) 96 Oxygen Delivery Method Room Air Intake Visit Reasons: follow up 4 month Intake Note: Patient here for a 4 month follow up Senior Solutions Consultant Required: No Accompanied by: Self / Same As Patient Allergies dog dander [dogs] Allergy (Intermediate, Verified 04/07/23 14:26) Sneezing grass Allergy (Intermediate, Verified 04/07/23 14:26) Rash insect venom [mosquito bites] Allergy (Intermediate, Verified 04/07/23 14:26) Rash roaches Allergy (Intermediate, Verified 04/07/23 14:26) Rash trees Allergy (Intermediate, Verified 04/07/23 14:26) Rash atorvastatin [Lipitor] Adverse Reaction (Intermediate, Verified 04/07/23 14:26) stomach aches Medication List - Last Reconciled 04/07/23 by Christie Jain MD albuterol sulfate 90 mcg/actuation (Ventolin HFA) 2 puffs inhalation Q6H PRN 30 days apixaban (Eliquis) 5 mg PO BID Arnuity Ellipta 200 mcg/actuation (fluticasone furoate) 1 inh inhalation DAILY NS blood sugar diagnostic (FreeStyle Lite Strips) 3 times a day carvedilol 25 mg PO BID cholecalciferol (vitamin D3) 25 mcg PO DAILY 90 days clonazepam 0.5 mg PO DAILY PRN cyanocobalamin (vitamin B-12) 500 mcg PO every other day in the morning; dapagliflozin propanediol (Farxiga) 10 mg PO DAILY 90 days dulaglutide (Trulicity) 0.75 mg (0.5 mL) subcut QWEEK duloxetine 30 mg PO QAM duloxetine 60 mg PO DAILY eluxadoline (Viberzi) 100 mg PO BID famotidine (Pepcid) 40 mg PO BEDTIME fenofibrate 54 mg PO DAILY 90 days fluocinolone acetonide oil 0.01% (DermOtic Oil) 5 drps otic (ear) left BID 7 days furosemide 40 mg PO DAILY 90 days gabapentin 300 mg PO BID 90 days hospital bed As directed hydrocortisone 1% (Anti-Itch (hydrocortisone)) 1 appl topical BID PRN 2 weeks icosapent ethyl (Vascepa) 2 grams (2 x 1 gram) PO BID 90 days insulin degludec (Tresiba FlexTouch U-100 insulin) 15 units (0.15 mL) subcut BEDTIME 30 days ketoconazole 2% 1 appl topical 2XW lancets (TRUEplus Lancets) TEST BLOOD SUGAR THREE TIMES DAILY lancets 3 times a day loperamide (Imodium A-D) 4 mg (2 x 2 mg) PO TID PRN metformin ER 1,000 mg (2 x 500 mg) PO BID 90 days nitrofurantoin macrocrystal 100 mg PO BID 7 days pen needle, diabetic (Pentips) As directed pen needle, diabetic (UltiCare Pen Needle) As directed 1 time a day rosuvastatin 10 mg PO BEDTIME 90 days sacubitril-valsartan 49-51 mg (Entresto) 1 tab PO BID 90 days [wipes As directed] Tobacco use date assessed: 07/02/22 Fall risk assessment: No Falls in past year Last assessed Fall Risk: 04/07/23 Dental Screening Dental Screen Date: 04/07/23 Did you have a dental visit in the last 12 months?: Yes Did you have a dental problem in the last 6 months where you did not have access to dental care?: No Was dental information given to patient?: Patient has dentist HPI HPI Comments History of Present Illness Details This is a 73-year-old male with diabetes mellitus type 2, asthma-COPD overlap syndrome, heart failure with reduced ejection fraction, persistent atrial fibrillation and chronic kidney disease stage 3 that comes today for follow-up on his conditions. A1c within goal. Asthma-COPD overlap syndrome stable with longstanding inhaler and this is follow by pulmonology. Last echocardiogram was done September 2021 and this will be repeated. He denies gaining 5 lb in a week. Occasional chest pain and mild leg swelling. Mild shortness of breath. Will benefit from having a hospital bed to have over 30 degree angle due to his heart failure to avoid having shortness of breath at bedtime. On chronic anticoagulation for atrial fibrillation and is follow by cardiology. Has chronic kidney disease stage 3 and will be seen Nephrology this month. Has elevated TSH that will be repeated in 6 weeks. [facility] Medical History Permanent atrial fibrillation History of cardioversion Hospital discharge follow-up Cellulitis of left ankle Elevated TSH Diabetes mellitus Persistent atrial fibrillation Ear discomfort Atrial flutter Acute on chronic HFrEF (heart failure with reduced ejection fraction) Tubular adenoma of colon Cardiomyopathy ICD (implantable 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-defibrillator) in place Paroxysmal atrial fibrillation Heart failure with reduced ejection fraction CHF (congestive heart failure) Mixed hyperlipidemia Seborrheic dermatitis of scalp Hearing loss Obesity (BMI 30-39.9) Hypoglycemia unawareness associated with type 2 diabetes mellitus Vitamin D deficiency Diabetic nephropathy associated with type 2 diabetes mellitus long-term (current) use of insulin Restrictive lung disease Asthma-COPD overlap syndrome Asthma Anemia COPD (chronic obstructive pulmonary disease) HLD (hyperlipidemia) HTN (hypertension) Depression with anxiety GERD (gastroesophageal reflux disease) Essential hypertension Diabetes type 2, uncontrolled Surgical History Hx of bilateral cataract extraction History of esophagogastroduodenoscopy (EGD) Hx of colonoscopy History of cardiac defibrillator placement History of thumb surgery Family History Father Cancer Mother Cancer Family/Other Diabetes CHF (congestive heart failure) Social History Household Members: None Housing: Apartment Alcohol intake: never Patient Tobacco Use Status: Former Tobacco user Quit Date: 2012 Tobacco use type: Cigarette e-Cigarette/Vaping Use: Never Used Second Hand Smoke Exposure: No service: No Current occupational status: disabled Cognitive needs: No Hearing needs: No Vision needs: No Questionnaire Thrive Questionnaire Date Thrive assessed: 07/02/22 DARRYL-7 AMB Questionnaire DARRYL-7 Date DARRYL - 7 assessed: 07/02/22 Source: Developed by Drs. José Miguel Neri, Yomaira Roman, Maxwell Erazo and colleagues, with an educational bong from [employer]. Review of Systems Const All systems reviewed & are unremarkable except as noted in HPI and below Eyes Reports no additional complaints, Denies change in vision and Denies other visual disturbances Card Denies chest pain at rest, Reports chest pain with activity, Denies edema, Denies irregular heart rhythm, Denies claudication, Denies dyspnea, Reports dyspnea on exertion, Denies orthopnea, Denies paroxysmal nocturnal dyspnea and Denies slow heart rate Resp Denies cough, Denies dyspnea and Reports dyspnea on exertion GI Denies abdominal pain, Denies change in bowel habits, Denies excessive flatus, Denies nausea and Denies vomiting Denies urinary hesitancy, Denies urinary incontinence and Denies urinary urgency Musc Denies abnormal gait, Denies atrophy, Denies deformity and Denies limited range of motion Skin/Breast Denies bleeding lesions, Denies changing lesions and Denies rash Neuro Denies abnormal gait and Denies lack of coordination Physical exam (Primary Care) Vital Signs: Last Vital Signs Pulse 76 04/07/23 14:08 BP 124/60 04/07/23 14:08 Pulse Ox 96 04/07/23 14:08 Oxygen Delivery Method Room Air 04/07/23 14:08 BMI result Body Mass Index 31.8 Tobacco/Smoking Status: Tobacco use Status Tobacco use date assessed 07/02/22 04/07/23 14:07 Patient Tobacco Use Status Former Tobacco user 04/07/23 14:07 Tobacco use type Cigarette 04/07/23 14:07 e-Cigarette/Vaping Use Never Used 04/07/23 14:07 Thrive Assessment: Date of Thrive Assessment Date Thrive assessed 07/02/22 04/07/23 14:07 Eyes General: appearance normal, both eyes and all related structures Eyelids: Yes eyelids normal Conjunctivae: conjunctivae normal Neck Neck: Yes normal visual inspection and Yes supple Resp Effort & Inspection: normal respiratory effort Auscultation: clear to auscultation bilaterally Cardio Jugular venous distension: no JVD Rate: regular rate Rhythm: regular rhythm Heart sounds: S1 normal heart sound present and S2 normal heart sound present Extrem General: Yes full ROM Office Procedures Flu Questionnaire Does the patient have a severe egg allergy?: No Does the patient have severe life threatening allergies?: No Does the patient have a fever or illness today?: No Has the patient ever had Guillain-[place] Syndrome?: No Has the patient ever had any past reaction to a flu shot?: No Results AMB Hemoglobin A1c AMB Hemoglobin A1c 6.5 % Last Edit by MOLLY Chamberlain on 04/07/23 14:2 2 Immunizations flu vacc [id number] 6mos up(PF) 60 mcg(15 mcgx4)/0.5 mL IM syringe Performing Provider: Christie Jain MD [facility] Administered by: MOLLY Chamberlain on 04/07/23 14:41 Dose Route Admin Location Dispensed Lot Number Expiration Date NDC Mold Sander 0.5 mL IM Left Deltoid 0.5 mL [id number] 11/29/23 [id number] [employer] VIS Given Date VIS Provided VIS Publication Date 04/07/23 Single Vaccine 21 Eligibility Eligibility Date Funding Source Not [facility] Eligible 04/07/23 Private Results Reviewed Results Reviewed: Laboratory Last Values Hgb A1c (Clinic) 6.5 % (4.0-6.0) H 04/07/23 14:04 Assessment and Plan Assessment & Plan (1) Permanent atrial fibrillation: Code(s): I48.21 - Permanent atrial fibrillation Plan: Continue Eliquis. Follow-up with Cardiology. (2) CKD (chronic kidney disease) stage 3, GFR 30-59 ml/min: Code(s): N18.30 - Chronic kidney disease, stage 3 unspecified Plan: Follow-up with Nephrology. Avoid NSAIDs. Keep blood pressure less than 130/80. (3) Diabetes mellitus: Code(s): E11.9 - Type 2 diabetes mellitus without complications Plan: Continue Trulicity and Farxiga. A1c goal is equal or less than 7%. Insulin was placed on hold for few months. (4) Heart failure with reduced ejection fraction: Code(s): I50.20 - Unspecified systolic (congestive) heart failure Plan: Continue Entresto. The goal is to not gain 5 lb in a week. Follow-up with Cardiology. (5) Asthma-COPD overlap syndrome: Comment: The Asthma/COPD is fairly well controlled. Advised to continue using Arnuity -200 1 inhalation daily and ventolin 2 puffs q.6 hours p.r.n.. spirometry today , again shows moderate restrictive disorder, FVC 64%, FEV1 70% These results are similar to the results in 2020. Code(s): J44.9 - Chronic obstructive pulmonary disease, unspecified Plan: Continue Arnuity. Use rescue inhaler as needed. Follow-up with pulmonology. Orders: Orders Influenza [id number] Immunization Today Z23 - Encounter for immunization Thyroid Stimulating Hormone 6 Weeks R79.89 - Other specified abnormal findings of blood chemistry Free T4 (Free Thyroxine) 6 Weeks R79.89 - Other specified abnormal findings of blood chemistry AMB Hemoglobin A1c Today E11.9 - Type 2 diabetes mellitus without complications CA echo transthoracic complete Today I48.21 - Permanent atrial fibrillation, I50.20 - Unspecified systolic (congestive) heart failure Coding Level of Care Code Est Pt Level 4 (97704) Diagnoses Permanent atrial fibrillation I48.21 CKD (chronic kidney disease) stage 3, GFR 30-59 ml/min N18.30 Diabetes mellitus E11.9 Heart failure with reduced ejection fraction I50.20 Asthma-COPD overlap syndrome J44.9 Time Spent (min) 25
[2023-04-07 14:08] VITALS: BP 124/60; PULSE 76; O2SAT 96; BMI 31.8
== END 2023-04-07 14:43 | disposition home or self-care (01) ==
PROVIDERS: PCP Internal Medicine; Visit Provider Internal Medicine
DX: Z23 Encounter for immunization (principal); I48.21 Permanent atrial fibrillation; E11.22 Type 2 diabetes mellitus with diabetic chronic kidney disease; N18.30 Chronic kidney disease, stage 3 unspecified; I50.20 Unspecified systolic (congestive) heart failure; J44.9 Chronic obstructive pulmonary disease, unspecified
CPT/HCPCS: 83036; 90471; 90686; 99214

== ENCOUNTER → 2023-04-27 23:59 | Outpatient (BNV) | payer OTHER, SELFPAY ==
--- NOTE | 2023-04-27 15:07 | MHC.OFFVIS ---
Intake Intake Visit Reasons: Remote HF Monitoring- [facility] Allergies dog dander [dogs] Allergy (Intermediate, Verified 04/07/23 14:26) Sneezing grass Allergy (Intermediate, Verified 04/07/23 14:26) Rash insect venom [mosquito bites] Allergy (Intermediate, Verified 04/07/23 14:26) Rash roaches Allergy (Intermediate, Verified 04/07/23 14:26) Rash trees Allergy (Intermediate, Verified 04/07/23 14:26) Rash atorvastatin [Lipitor] Adverse Reaction (Intermediate, Verified 04/07/23 14:26) stomach aches PFSH Medical History Permanent atrial fibrillation History of cardioversion Hospital discharge follow-up Cellulitis of left ankle Elevated TSH Diabetes mellitus Persistent atrial fibrillation Ear discomfort Atrial flutter Acute on chronic HFrEF (heart failure with reduced ejection fraction) Tubular adenoma of colon Cardiomyopathy ICD (implantable 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-defibrillator) in place Paroxysmal atrial fibrillation Heart failure with reduced ejection fraction CHF (congestive heart failure) Mixed hyperlipidemia Seborrheic dermatitis of scalp Hearing loss Obesity (BMI 30-39.9) Hypoglycemia unawareness associated with type 2 diabetes mellitus Vitamin D deficiency Diabetic nephropathy associated with type 2 diabetes mellitus 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 of 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 Restrictive lung disease Asthma-COPD overlap syndrome Asthma Anemia COPD (chronic obstructive pulmonary disease) HLD (hyperlipidemia) HTN (hypertension) Depression with anxiety GERD (gastroesophageal reflux disease) Essential hypertension Diabetes type 2, uncontrolled Surgical History Hx of bilateral cataract extraction History of esophagogastroduodenoscopy (EGD) Hx of colonoscopy History of cardiac defibrillator placement History of thumb surgery Family History Father Cancer Mother Cancer Family/Other Diabetes CHF (congestive heart failure) Household Members: None Housing: Apartment Alcohol intake: never Patient Tobacco Use Status: Former Tobacco user Quit Date: 2012 Tobacco use type: Cigarette e-Cigarette/Vaping Use: Never Used Second Hand Smoke Exposure: No service: No Current occupational status: disabled Cognitive needs: No Hearing needs: No Vision needs: No Office Procedures Cardiac Device Check Cardiac Device Check Details: Remote heart failure report generated 04/27/2023. Heart failure parameters are stable [id number] Cardiac Device Interrogation, cardio physiologic monitor Procedure code (CPT) selection complete Coding Level of Care Code Procedure Only CPT Codes Cardiac Device Check - Cardiac Device 15: [id number] Cardiac Device Interrogation, cardio physiologic monitor ([id number])
== END ==
PROVIDERS: PCP Internal Medicine; Visit Provider Internal Medicine Cardiovascular Disease
DX: I50.23 Acute on chronic systolic (congestive) heart failure (principal)
CPT/HCPCS: 93297

== ENCOUNTER → 2023-05-01 13:31 | Outpatient (REF) | payer OTHER, SELFPAY ==
--- NOTE | 2023-05-01 13:33 | CA_ITS ---
Transthoracic Echocardiogram Patient (Last, First, Middle): Stephen Mcintosh L Gender: Male Date of : 1950 Age: 73 Procedure Date: 05/01/2023 Procedure Type: Transthoracic Echocardiogram Location: OP Height: 170.18 cm Weight: 113.4 kg BSA: 2.22 m2 Heart Rate: bpm BP: 124 / 60 mmHg Director Of Event Marketing: SB Referring MD: Christie Jain MD Industrial Locomotive Operator: Bk Canchola MD Symptoms: I48.21 - Permanent atrial fibrillation Study Quality: Adequate w contrast ECG Rhythm: Atrial Fibrillation Conclusions: - 1. Moderately dilated left ventricle with LVEF of 20-25% 2. Early dilated left atrium 3. No significant abnormality of cardiac valvular Dopplers 4. No gross pericardial effusion Findings Procedure Information Contrast agent, definity, is being given per protocol without apparent complications. The quality of the study was technically difficult. The study quality is limited by patients body habitus. Left Ventricle Moderately increased left ventricular cavity size. There is normal left ventricular wall thickness. The left ventricular systolic function is severely decreased. The visually estimated ejection fraction is between 20 25%. Diastolic function is indeterminate on the basis of available data. Right Ventricle The right ventricle was not well visualized. There is mild to moderately decreased right ventricular systolic function. There is a pacemaker wire seen in the right ventricle. Atria The left atrium is mildly dilated. Interatrial shunt cannot be excluded. The right atrium was not well visualized. Aortic Valve There is mild calcification of the aortic valve. There is no aortic valve stenosis. There is no aortic valve regurgitation. Mitral Valve There is mild anterior and posterior mitral leaflet thickening. There is trace mitral valve regurgitation. There is no mitral valve stenosis. Pulmonic Valve The pulmonic valve was not well visualized. Tricuspid Valve The tricuspid valve was not well visualized. Tricuspid regurgitation envelope is inadequate for calculation of right ventricular systolic pressure. Normal right atrial pressure. Great Vessels The pulmonary artery was not well visualized. Venous The inferior vena cava is normal in size and collapses greater than 50% with inspiration. Pericardium/Pleural There is no evidence of pericardial effusion. Prior Study Comparison No significant change compared to prior study dated: 10/22/2021. Measurements 2D Linear Measurements IVSd: 0.86 0.6-0.9/0.6-1.0 cm LVIDd: 6.15 3.9-5.3/4.2-5.9 cm LVIDd Index: 2.77 2.4-3.2/2.2-3.1 cm/m2 LVIDs: 5.19 2.0-3.6 cm LVPWd: 1.07 0.7-1.1 cm LA Diam: 4.60 2.7-3.8/3.0-4.0 cm LAIDs Index: 2.07 1.5-2.3 cm/m2 LV Mass: 307.31 67-162/88-224 g LV Mass Index: 138.43 43-95/49-115 g/m2 LVOT Diam: 3.00 3.0+(-)1.3 cm Mitral Valve MV Pk E: 0.92 Aortic Valve AoV Pk Jamie: 1.65 AoV Mn Jamie: 1.22 AoV VTI: 0.34 AoV Pk Grad: 11.00 Aov Mn Grad: 7.00 ALAN Cont.VTI: 3.20 LVOT LVOT Pk Jamie: 0.65 LVOT Mn Jamie: 0.53 LVOT VTI: 0.16 LVOT Pk Grad: 2.00 LVOT Mn Grad: 1.00 LVOT Diam: 3.00 LVOT Area: 7.07 Diastolic Function MV Pk E: 0.92 Right Ventricle TAPSE (mm): 16.90 TVS' Jamie: 11.10 Tricuspid Valve RA Press: 3.00 Great Vessels Aorta Sinus of Valsalva: 3.90 2.0-3.5 cm Ao Asc: 3.60 2.1-3.4 cm Pulmonary Valve PV Pk Jamie: 0.80 Peak PV Grad: 3.00 Updated in Other Vendor System with Status of Final Bk Canchola MD electronically signed on 05/02/2023 12:39:49 PM with status of Final
== END ==
LOC: HO.CARD 13:31
PROVIDERS: PCP Internal Medicine; Visit Provider Internal Medicine
DX: I48.21 Permanent atrial fibrillation (principal); I50.20 Unspecified systolic (congestive) heart failure
CPT/HCPCS: 93306; Q9957

== ENCOUNTER → 2023-05-01 13:33 | Outpatient (BNV) | payer OTHER, SELFPAY | PROVIDERS: PCP Internal Medicine; Visit Provider Internal Medicine Cardiovascular Disease | DX: I48.92 Unspecified atrial flutter (principal) | CPT/HCPCS: 93306 ==

== ENCOUNTER 2023-05-06 14:23 | Outpatient (AMB) | payer OTHER, SELFPAY ==
--- NOTE | 2023-05-06 14:31 | A.OFFVIS_ITS ---
Intake Vital Signs 05/06/23 14:32 Height 5 ft 7 in Weight 207 lb 10.807 oz BMI 32.5 BP 146/67 H Blood Pressure Location Lt brachial Position Sitting Pulse 63 Intake Visit Reasons: Follow up GERD PT N/S last appt Intake Note: Stephen presents in the office today in follow up of GERD. CC: Patient reports occasional constipation and diarrhea. Per patient he will have some studies done to check his kidneys because some labs showed infla mmation from his liver. Denies other GI symptoms today. 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 Accompanied by: Self / Same As Patient Allergies dog dander [dogs] Allergy (Intermediate, Verified 05/06/23 14:36) Sneezing grass Allergy (Intermediate, Verified 05/06/23 14:36) Rash insect venom [mosquito bites] Allergy (Intermediate, Verified 05/06/23 14:36) Rash roaches Allergy (Intermediate, Verified 05/06/23 14:36) Rash trees Allergy (Intermediate, Verified 05/06/23 14:36) Rash atorvastatin [Lipitor] Adverse Reaction (Intermediate, Verified 05/06/23 14:36) stomach aches HPI Follow up GERD PT N/S last appt HPI Details Assessment & Plan (1) Irritable bowel syndrome with diarrh ea: Code(s): K58.0 - Irritable bowel syndrome with diarrhea Plan: [place] #Hayley LIve He is again having more diarrhea despite being adherent to his Viberzi 100mg bid. He changed his diet to mostly meat and veggies recently r/t his high cholesterol so this may be a factor. Also he is now on lasix and his amiodarone was increased - unsure if this is contributing. Given his complex medication regimen, I will add loperimide to his Viberzi and see how this goes. I want to stay away from bile binding agents because this might interfere with his medications particularly amiodarone and the cardiac medications. He continues on famotidine which is controlling his heartburn well. ROV 8 weeks. (2) GERD (gastroesophageal reflux diseas e): Code(s): K21.9 - Gastro-esophageal reflux disease without esophagitis Qualifiers: Esophagitis presence: esophagitis presence not specified Qualified Code(s): K21.9 - Gastro-esophageal reflux disease without esophagitis Medications: New loperamide (Imodiu m A-D) 4 mg (2 x 2 mg) PO TID PRN 90 caps 3 RF loose stool K58.0 - Irritable bowel syndrome wit h diarrhea eluxadoline (Viber zi) must admini ster with a meal/f ood 100 mg PO BID 60 tabs 5RF K58.0 - Irritable bowel syndrome wit h diarrhea Refilled famotidine (Pepcid ) 40 mg PO BEDTIME 30 tabs 6RF K21.9 - Gastro-eso phageal reflux dis ease without esoph agitis TODAY'S VISIT [place] #Fifi Rivera He has now stabilized his diarrhea by taking the viberzi 100g qd and loperimide bid, if he takes more he will have CIC. However he is quite satisfied with this regimen as it stands so we will continue it as stated.. He also continues on his famotidine at bedtime with good control of his GERD. He tells me that his and his dementia has progressed substantially and he might not be able to get her in to see me in the near future because she will frequently refuse to get into a car. Obviously this is fine I will continue to prescribed to her and they should just try to make the last years of her like comfortable. Return office visit in 6 months REPLACED BY [facility] Medical History Permanent atrial fibrillation History of cardioversion Hospital discharge follow-up Cellulitis of left ankle Elevated TSH Diabetes mellitus Persistent atrial fibrillation Ear discomfort Atrial flutter Acute on chronic HFrEF (heart failure with reduced ejection fraction) Tubular adenoma of colon Cardiomyopathy ICD (implantable 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-defibrillator) in place Paroxysmal atrial fibrillation Heart failure with reduced ejection fraction CHF (congestive heart failure) Mixed hyperlipidemia Seborrheic dermatitis of scalp Hearing loss Obesity (BMI 30-39.9) Hypoglycemia unawareness associated with type 2 diabetes mellitus Vitamin D deficiency Diabetic nephropathy associated with type 2 diabetes mellitus long-term (current) use of insulin Restrictive lung disease Asthma-COPD overlap syndrome Asthma Anemia COPD (chronic obstructive pulmonary disease) HLD (hyperlipidemia) HTN (hypertension) Depression with anxiety GERD (gastroesophageal reflux disease) Essential hypertension Diabetes type 2, uncontrolled Surgical History Hx of bilateral cataract extraction History of esophagogastroduodenoscopy (EGD) Hx of colonoscopy History of cardiac defibrillator placement History of thumb surgery Family History Father Cancer Mother Cancer Family/Other Diabetes CHF (congestive heart failure) Social History Household Members: None Housing: Apartment Alcohol intake: never Patient Tobacco Use Status: Former Tobacco user Quit Date: 2012 Tobacco use type: Cigarette e-Cigarette/Vaping Use: Never Used Second Hand Smoke Exposure: No service: No Current occupational status: disabled Cognitive needs: No Hearing needs: No Vision needs: No Review of Systems Const Denies fatigue, Denies fever(s), Denies night sweats, Denies poor appetite and Denies weight loss ENT Reports Normal hearing present, Denies dental pain, Denies dysphagia, Denies hearing loss, Denies mouth pain, Denies odynophagia, Denies throat swelling, Denies tongue swelling and Reports other (Dentition adequate) Card Reports no additional complaints Resp Reports no additional complaints GI Denies abdominal pain, Denies melena, Denies bloating, Denies hematochezia, Denies constipation, Denies GI cramping, Denies dysphagia, Denies excessive flatus, Denies early satiety, Reports heartburn, Reports diarrhea, Denies nausea, Denies odynophagia, Denies vomiting and Denies hematemesis Skin/Breast Denies pruritus, Denies lesions, Denies rash and Denies jaundice Neuro Reports Normal hearing present and Denies Abnormal speech present Endo Denies fatigue Aller/Immun Denies throat swelling and Denies tongue swelling Physical Exam Vital Signs: Last Vital Signs Pulse 63 05/06/23 14:32 BP 146/67 H 05/06/23 14:32 BMI result Body Mass Index 32.5 Const General: cooperative, no acute distress, well developed and well groomed Nutritional Appearance: well nourished and obese Orientation/consciousness: oriented to person, oriented to place and oriented to time Limitations: language barrier HEENT Head: Yes normocephalic and Yes atraumatic Eyes General: appearance normal, both eyes and all related structures Pupils: Equal, round and reactive pupils present Neck Neck: Yes normal visual inspection and Yes no lymphadenopathy Thyroid: Thyroid normal Resp Effort & Inspection: normal respiratory effort and able to speak in complete sentences Auscultation: clear to auscultation bilaterally Cardio Rate: regular rate Rhythm: regular rhythm Heart sounds: Normal, physiologic split S2 sound present Peripheral pulses: radial pulses present and posterior tibial pulses present GI Inspection: No distended, No Abdominal panniculus present and Yes obesity Palpation (GI): Soft to palpation, nontender, no guarding, not rigid and No hepatosplenomegaly present Percussion: Yes normal to percussion Auscultation: normal bowel sounds Rectal Exam - Male: Yes deferred Skin General skin exam: no rashes or lesions noted, turgor normal, skin not dry, no jaundice, No spider nevi and no striae Rashes: no rashes Nails: normal Neuro General: oriented to person, oriented to place and oriented to time Cranial nerves: Yes Equal, round and reactive pupils present and Yes Normal hearing present Speech: No Abnormal speech present Extrem General: Yes normal to inspection, No clubbing, No cyanosis and No edema Psych Appearance: grossly normal and well kempt Mental Status: mental status grossly normal Speech and movement: Normal speech and movement present Affect: normal affect Attitude: cooperative Thought process: Normal thought process present and not confabulating Thought content: Normal thought content present Insight: Fair insight present (Psych) Judgement: Fair judgement present (Psych) Assessment & Plan Assessment & Plan (1) Irritable bowel syndrome with diarrhea: Code(s): K58.0 - Irritable bowel syndrome with diarrhea Plan: The (2) GERD (gastroesophageal reflux disease): Code(s): K21.9 - Gastro-esophageal reflux disease without esophagitis Qualifiers: Esophagitis presence: esophagitis presence not specified Qualified Code(s): K21.9 - Gastro-esophageal reflux disease without esophagitis (3) Tubular adenoma of colon: Comment: 05/17/2021 Neg Cologuard as pt has poor cardiac status, repeat 3 years: 07/2020 scope poor prep repeat 6-8 months, 12 mm pedunculated polyp removed with cold snare and base of stalk clipped x 2, with no bleeding noted. another 6-7 mm sessile polyp removed with cold snare, this was followed by a negative Cologuard so repeat in 2023 Code(s): D12.6 - Benign neoplasm of colon, unspecified Plan [place] #Fifi Live He has now stabilized his diarrhea by taking the viberzi 100g qd and loperimide bid, if he takes more he will have CIC. However he is quite satisfied with this regimen as it stands so we will continue it as stated.. He also continues on his famotidine at bedtime with good control of his GERD. He tells me that his and his dementia has progressed substantially and he might not be able to get her in to see me in the near future because she will frequently refuse to get into a car. Obviously this is fine I will continue to prescribed to her and they should just try to make the last years of her like comfortable. Return office visit in 6 months at the next visit discuss repeat Cologuard study Medications: Refilled loperamide (Imodium A-D) 4 mg (2 x 2 mg) PO TID PRN 90 caps 3RF loose stool K58.0 - Irritable bowel syndrome with diarrhea eluxadoline (Viberzi) must administer with a meal/food 100 mg PO BID 60 tabs 5RF K58.0 - Irritable bowel syndrome with diarrhea famotidine (Pepcid) 40 mg PO BEDTIME 30 tabs 6RF K21.9 - Gastro-esophageal reflux disease without esophagitis Coding Level of Care Code Est Pt Level 3 (98717) Diagnoses Irritable bowel syndrome with diarrhea K58.0 Gastroesophageal reflux disease, unspecified whether esophagitis present K21.9 Esophagitis presence: esophagitis presence not specified Tubular adenoma of colon D12.6
[2023-05-06 14:32] VITALS: BP 146/67; PULSE 63; BMI 32.5
== END 2023-05-06 15:27 | disposition home or self-care (01) ==
PROVIDERS: PCP Internal Medicine; Visit Provider Nurse Practitioner
DX: K58.0 Irritable bowel syndrome with diarrhea (principal); K21.9 Gastro-esophageal reflux disease without esophagitis; D12.6 Benign neoplasm of colon, unspecified
CPT/HCPCS: 99213

== ENCOUNTER → 2023-05-06 14:23 | Outpatient (BNVA) | payer OTHER, SELFPAY | PROVIDERS: PCP Internal Medicine; Visit Provider Nurse Practitioner | DX: K21.9 Gastro-esophageal reflux disease without esophagitis (principal); K58.0 Irritable bowel syndrome with diarrhea; D12.6 Benign neoplasm of colon, unspecified | CPT/HCPCS: 99212 ==

== ENCOUNTER 2023-05-21 14:22 | Outpatient (AMB) | payer OTHER, SELFPAY ==
[2023-05-21 14:28] VITALS: BP 120/76; PULSE 72; BMI 32.8
--- NOTE | 2023-05-21 14:28 | A.OFFVIS_ITS ---
Intake Vital Signs 05/21/23 14:28 Height 5 ft 7 in Weight 209 lb 7.026 oz BMI 32.8 BP 120/76 Blood Pressure Location Lt brachial Position Sitting Pulse 72 Intake Visit Reasons: R/S 3 mth f/up w/ icd ck Intake Note: 3 month follow-up with [facility] check feeling good Mental Health Consultant Required: Yes Mental Health Consultant Name: Lam patel Allergies dog dander [dogs] Allergy (Intermediate, Verified 05/06/23 14:36) Sneezing grass Allergy (Intermediate, Verified 05/06/23 14:36) Rash insect venom [mosquito bites] Allergy (Intermediate, Verified 05/06/23 14:36) Rash roaches Allergy (Intermediate, Verified 05/06/23 14:36) Rash trees Allergy (Intermediate, Verified 05/06/23 14:36) Rash atorvastatin [Lipitor] Adverse Reaction (Intermediate, Verified 05/06/23 14:36) stomach aches Medication List - Last Reconciled 05/21/23 by Bk Canchola MD albuterol sulfate 90 mcg/actuation (Ventolin HFA) 2 puffs inhalation Q6H PRN 30 days apixaban (Eliquis) 5 mg PO BID Arnuity Ellipta 200 mcg/actuation (fluticasone furoate) 1 inh inhalation DAILY NS blood sugar diagnostic (FreeStyle Lite Strips) 3 times a day carvedilol 25 mg PO BID cholecalciferol (vitamin D3) 25 mcg PO DAILY 90 days clonazepam 0.5 mg PO DAILY PRN cyanocobalamin (vitamin B-12) 500 mcg PO every other day in the morning; dapagliflozin propanediol (Farxiga) 10 mg PO DAILY 90 days dulaglutide (Trulicity) 0.75 mg (0.5 mL) subcut QWEEK duloxetine 30 mg PO QAM duloxetine 60 mg PO DAILY eluxadoline (Viberzi) 100 mg PO BID famotidine (Pepcid) 40 mg PO BEDTIME fenofibrate 54 mg PO DAILY 90 days furosemide 40 mg PO DAILY 90 days gabapentin 300 mg PO BID 90 days hospital bed As directed hydrocortisone 1% (Anti-Itch (hydrocortisone)) 1 appl topical BID PRN 2 weeks icosapent ethyl (Vascepa) 2 grams (2 x 1 gram) PO BID 90 days ketoconazole 2% 1 appl topical 2XW lancets (TRUEplus Lancets) TEST BLOOD SUGAR THREE TIMES DAILY lancets 3 times a day loperamide (Imodium A-D) 4 mg (2 x 2 mg) PO TID PRN metformin ER 1,000 mg (2 x 500 mg) PO BID 90 days pen needle, diabetic (Pentips) As directed pen needle, diabetic (UltiCare Pen Needle) As directed 1 time a day rosuvastatin 10 mg PO BEDTIME 90 days sacubitril-valsartan 49-51 mg (Entresto) 1 tab PO BID 90 days [wipes As directed] HPI HPI Comments History of Present Illness Details Stephen comes for follow-up. He use to have symptoms of exertional fatigue. He said when he tries to exercise much she gets pains in his legs. He denies any orthopnea, PND, leg edema. Denies any prolonged palpitations irregular heartbeat but says feels that his pulse is regular sometimes. Denies lightheadedness, syncope. Takes all his medications. No bleeding issues or neurologic events. His remote heart failure monitoring reports have normally suggested heart failure parameters within normal limits. Echocardiogram done recently showed moderately dilated left ventricle with severely reduced LV ejection fraction 20-25% [facility] Medical History Permanent atrial fibrillation History of cardioversion Hospital discharge follow-up Cellulitis of left ankle Elevated TSH Diabetes mellitus Persistent atrial fibrillation Ear discomfort Atrial flutter Acute on chronic HFrEF (heart failure with reduced ejection fraction) Tubular adenoma of colon Cardiomyopathy ICD (implantable 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-defibrillator) in place Paroxysmal atrial fibrillation Heart failure with reduced ejection fraction CHF (congestive heart failure) Mixed hyperlipidemia Seborrheic dermatitis of scalp Hearing loss Obesity (BMI 30-39.9) Hypoglycemia unawareness associated with type 2 diabetes mellitus Vitamin D deficiency Diabetic nephropathy associated with type 2 diabetes mellitus 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 Restrictive lung disease Asthma-COPD overlap syndrome Asthma Anemia COPD (chronic obstructive pulmonary disease) HLD (hyperlipidemia) HTN (hypertension) Depression with anxiety GERD (gastroesophageal reflux disease) Essential hypertension Diabetes type 2, uncontrolled Surgical History Hx of bilateral cataract extraction History of esophagogastroduodenoscopy (EGD) Hx of colonoscopy History of cardiac defibrillator placement History of thumb surgery Family History Father Cancer Mother Cancer Family/Other Diabetes CHF (congestive heart failure) Social History Household Members: None Housing: Apartment Alcohol intake: never Patient Tobacco Use Status: Former Tobacco user Quit Date: 2012 Tobacco use type: Cigarette e-Cigarette/Vaping Use: Never Used Second Hand Smoke Exposure: No service: No Current occupational status: disabled Cognitive needs: No Hearing needs: No Vision needs: No Review of Systems Const Denies chills, Denies fatigue, Denies fever(s), Denies frequent falls, Denies weakness, Denies weight gain and Denies weight loss ENT Denies dizziness Card Denies chest pain, Denies leg edema, Denies lightheadedness, Denies palpitations, Denies dyspnea, Denies dyspnea on exertion, Denies orthopnea and Denies other (loss of consciousness) Resp Denies cough, Denies dyspnea and Denies dyspnea on exertion GI Denies hematochezia and Denies change in stool character Musc Denies abnormal gait, Denies muscle weakness, Denies numbness, Denies radiating pain into limb and Denies tingling Neuro Denies abnormal gait, Denies dizziness, Denies frequent falls, Denies numbness, Denies tingling and Denies weakness Endo Denies fatigue and Denies palpitations Physical Exam Vital Signs: Last Vital Signs Pulse 72 05/21/23 14:28 BP 120/76 05/21/23 14:28 BMI result Body Mass Index 32.8 Const General: comfortable, no acute distress, alert and awake Orientation/consciousness: patient oriented x3 HEENT General nose exam: No nasal polyps present and No nasal discharge present Face and sinus: Yes sinuses nontender Mouth: oropharynx normal Throat: Yes posterior oropharynx normal Neck Neck: Yes trachea midline, Yes supple and Yes no JVD Chest Chest palpation & inspection: tenderness Resp Effort & Inspection: normal respiratory effort Auscultation: clear to auscultation bilaterally Cardio Palpation: abnormal PMI displaced PMI Rhythm: abnormal rhythm irregularly irregular Heart sounds: S1 normal heart sound present, S2 normal heart sound present, no gallops and no murmurs GI Auscultation: normal bowel sounds Back/Spine/Pelvis Thoracic/Lumbar Spine: thoracic and lumbar spine normal to inspection Neuro General: patient oriented x3 and no focal motor deficits Extrem General: Yes no clubbing, cyanosis or edema Psych Appearance: grossly normal and well kempt Speech and movement: Normal speech and movement present Office Procedures Cardiac Device Check Cardiac Device Check Details: Single-chamber [place] ICD in place. Programmed in VVI at 40 beats per minute. Heart failure parameters stable. Ventricular pacing thresholds adequate. Ventricular sensing is adequate. Pacing and shock lead impedance is within normal limits. Battery life is at 2.5 years [id number] Cardiac Device Check, single lead implantable defibrillator Procedure code (CPT) selection complete EKG Details: EKG shows atrial fibrillation with left axis deviation with nonspecific interventricular conduction delay 10341-[id number], Complete Assessment & Plan Assessment & Plan (1) Permanent atrial fibrillation: Code(s): I48.21 - Permanent atrial fibrillation Plan: Patient with permanent atrial fibrillation has failed rhythm control approach despite multiple cardioversion amiodarone therapy. Will continue pursue rate control approach at this point time. Probably contributing to his symptoms of exertional fatigue and tiredness. Although discussed with him that no other significant options as ablation therapy would be minimally successful in this case. Continue rate control approach with carvedilol. Continue full oral anticoagulation, currently on Eliquis 5 mg b.i.d.. Semi annual renal function test should be pursued. (2) Heart failure with reduced ejection fraction: Code(s): I50.20 - Unspecified systolic (congestive) heart failure Plan: Heart failure with reduced ejection fraction with significant LV systolic dysfunction with continued exertional symptoms. Clinically appears to be euvolemic and well compensated. Will recommend phase 2 cardiac rehabilitation. Continue current neurohormonal modulation with carvedilol, Entresto, dapagliflozin. Management of heart failure were discussed. Daily weight monitoring avoidance of salt loading was discussed we will also follow remotely with heart failure monitor. (3) ICD (implantable 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-defibrillator) in place: Code(s): Z95.810 - Presence of automatic (implantable) cardiac defibrillator Plan: ICD in place for primary prevention. Working well. Reprogrammed for adequate function. Will follow-up remotely and follow up in the clinic in 6 months time. Follow up in the clinic in 6 months time, sooner p.r.n.. Thank you for allowing me to partake in his care Orders: Orders Basic Metabolic Panel Today I48.21 - Permanent atrial fibrillation B Type Natriuretic Peptide Today I48.21 - Permanent atrial fibrillation Cardiac Rehab Today I50.20 - Unspecified systolic (congestive) heart failure Medications: Changed From eluxadoline (Viberzi) must administer with a meal/food 100 mg PO BID 60 tabs 5RF K58.0 - Irritable bowel syndrome with diarrhea To eluxadoline (Viberzi) must administer with a meal/food 100 mg PO BID K58.0 - Irritable bowel sy ndrome with diarrhea Coding Level of Care Code Est Pt Level 4 (95889) Diagnoses Permanent atrial fibrillation I48.21 Heart failure with reduced ejection fraction I50.20 ICD (implantable 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-defibrillator) in place Z95.810 CPT Codes Cardiac Device Check - Cardiac Device 4: 24100-HZ Cardiac Device Check, single lead implantable defibrillator ([id number]) EKG - CPT: 68201-[id number], Complete ([id number])
== END 2023-05-21 15:05 | disposition home or self-care (01) ==
PROVIDERS: PCP Internal Medicine; Visit Provider Internal Medicine Cardiovascular Disease
DX: I48.21 Permanent atrial fibrillation (principal); I50.20 Unspecified systolic (congestive) heart failure; Z95.810 Presence of automatic (implantable) cardiac defibrillator
CPT/HCPCS: 93282; 99214

== ENCOUNTER 2023-05-21 14:22 | Outpatient (REF) | payer OTHER, SELFPAY ==
[2023-05-21 15:59] LABS: B Type Natriuretic Peptide 154 pg/mL (<100)
[2023-05-21 16:16] LABS: Anion Gap 15 (12-20); Blood Urea Nitrogen 31 mg/dL (9-16); Calcium 9.8 mg/dL (8.4-10.2); Carbon Dioxide 23 mmol/L (22-29); Chloride 103 mmol/L (96-108); Estimated Glomerular Filt Rate 47; Glucose Random 185 mg/dL (60-115); Potassium 4.2 mmol/L (3.3-5.1); Sodium 137 mmol/L (135-145)
== END 2023-05-21 14:23 | disposition home or self-care (01) ==
LOC: HO.LAB 14:22
PROVIDERS: PCP Internal Medicine; Visit Provider Internal Medicine Cardiovascular Disease
DX: I48.21 Permanent atrial fibrillation (principal); I50.20 Unspecified systolic (congestive) heart failure; Z95.810 Presence of automatic (implantable) cardiac defibrillator
CPT/HCPCS: 36415; 80048; 83880; 93005; 99212

== ENCOUNTER → 2023-05-28 23:59 | Outpatient (BNV) | payer OTHER, SELFPAY ==
--- NOTE | 2023-06-02 08:16 | A.OFFVIS_ITS ---
Intake Intake Visit Reasons: Remote HF Monitoring- [facility] Allergies dog dander [dogs] Allergy (Intermediate, Verified 05/06/23 14:36) Sneezing grass Allergy (Intermediate, Verified 05/06/23 14:36) Rash insect venom [mosquito bites] Allergy (Intermediate, Verified 05/06/23 14:36) Rash roaches Allergy (Intermediate, Verified 05/06/23 14:36) Rash trees Allergy (Intermediate, Verified 05/06/23 14:36) Rash atorvastatin [Lipitor] Adverse Reaction (Intermediate, Verified 05/06/23 14:36) stomach aches PFSH Medical History Permanent atrial fibrillation History of cardioversion Hospital discharge follow-up Cellulitis of left ankle Elevated TSH Diabetes mellitus Persistent atrial fibrillation Ear discomfort Atrial flutter Acute on chronic HFrEF (heart failure with reduced ejection fraction) Tubular adenoma of colon Cardiomyopathy ICD (implantable 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-defibrillator) in place Paroxysmal atrial fibrillation Heart failure with reduced ejection fraction CHF (congestive heart failure) Mixed hyperlipidemia Seborrheic dermatitis of scalp Hearing loss Obesity (BMI 30-39.9) Hypoglycemia unawareness associated with type 2 diabetes mellitus Vitamin D deficiency Diabetic nephropathy associated with type 2 diabetes mellitus 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 of 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 Restrictive lung disease Asthma-COPD overlap syndrome Asthma Anemia COPD (chronic obstructive pulmonary disease) HLD (hyperlipidemia) HTN (hypertension) Depression with anxiety GERD (gastroesophageal reflux disease) Essential hypertension Diabetes type 2, uncontrolled Surgical History Hx of bilateral cataract extraction History of esophagogastroduodenoscopy (EGD) Hx of colonoscopy History of cardiac defibrillator placement History of thumb surgery Family History Father Cancer Mother Cancer Family/Other Diabetes CHF (congestive heart failure) Social History Household Members: None Housing: Apartment Alcohol intake: never Patient Tobacco Use Status: Former Tobacco user Quit Date: 2012 Tobacco use type: Cigarette e-Cigarette/Vaping Use: Never Used Second Hand Smoke Exposure: No service: No Current occupational status: disabled Cognitive needs: No Hearing needs: No Vision needs: No Office Procedures Cardiac Device Check Cardiac Device Check Details: Remote heart failure report generated 05/28/2023. Heart failure parameters are stable [id number] Cardiac Device Interrogation, cardio physiologic monitor Procedure code (CPT) selection complete Assessment & Plan Assessment & Plan (1) ICD (implantable 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-defibrillator) in place: Code(s): Z95.810 - Presence of automatic (implantable) cardiac defibrillator Plan: See above Coding Level of Care Code Procedure Only Diagnoses ICD (implantable 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-defibrillator) in place Z95.810 CPT Codes Cardiac Device Check - Cardiac Device 15: [id number] Cardiac Device Interrogation, cardio physiologic monitor ([id number])
== END ==
PROVIDERS: PCP Internal Medicine; Visit Provider Internal Medicine Cardiovascular Disease
DX: I50.20 Unspecified systolic (congestive) heart failure (principal); Z95.810 Presence of automatic (implantable) cardiac defibrillator
CPT/HCPCS: 93297

== ENCOUNTER → 2023-06-28 23:59 | Outpatient (BNV) | payer OTHER, SELFPAY ==
--- NOTE | 2023-06-29 16:52 | A.OFFVIS_ITS ---
Intake Intake Visit Reasons: Remote ICD Check- [facility] Allergies dog dander [dogs] Allergy (Intermediate, Verified 05/06/23 14:36) Sneezing grass Allergy (Intermediate, Verified 05/06/23 14:36) Rash insect venom [mosquito bites] Allergy (Intermediate, Verified 05/06/23 14:36) Rash roaches Allergy (Intermediate, Verified 05/06/23 14:36) Rash trees Allergy (Intermediate, Verified 05/06/23 14:36) Rash atorvastatin [Lipitor] Adverse Reaction (Intermediate, Verified 05/06/23 14:36) stomach aches PFSH Medical History Permanent atrial fibrillation History of cardioversion Hospital discharge follow-up Cellulitis of left ankle Elevated TSH Diabetes mellitus Persistent atrial fibrillation Ear discomfort Atrial flutter Acute on chronic HFrEF (heart failure with reduced ejection fraction) Tubular adenoma of colon Cardiomyopathy ICD (implantable 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-defibrillator) in place Paroxysmal atrial fibrillation Heart failure with reduced ejection fraction CHF (congestive heart failure) Mixed hyperlipidemia Seborrheic dermatitis of scalp Hearing loss Obesity (BMI 30-39.9) Hypoglycemia unawareness associated with type 2 diabetes mellitus Vitamin D deficiency Diabetic nephropathy associated with type 2 diabetes mellitus halfway (current) use of insulin Restrictive lung disease Asthma-COPD overlap syndrome Asthma Anemia COPD (chronic obstructive pulmonary disease) HLD (hyperlipidemia) HTN (hypertension) Depression with anxiety GERD (gastroesophageal reflux disease) Essential hypertension Diabetes type 2, uncontrolled Surgical History Hx of bilateral cataract extraction History of esophagogastroduodenoscopy (EGD) Hx of colonoscopy History of cardiac defibrillator placement History of thumb surgery Family History Father Cancer Mother Cancer Family/Other Diabetes CHF (congestive heart failure) Social History Household Members: None Housing: Apartment Alcohol intake: never Patient Tobacco Use Status: Former Tobacco user Quit Date: 2012 Tobacco use type: Cigarette e-Cigarette/Vaping Use: Never Used Second Hand Smoke Exposure: No service: No Current occupational status: disabled Cognitive needs: No Hearing needs: No Vision needs: No Office Procedures Cardiac Device Check Cardiac Device Check Details: Remote ICD report generated 06/20/2023. ICD function is adequate [id number] Cardiac Interrogation, implant defibrillator w/interim Procedure code (CPT) selection complete Assessment & Plan Assessment & Plan (1) ICD (implantable 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-defibrillator) in place: Code(s): Z95.810 - Presence of automatic (implantable) cardiac defibrillator Plan: See above Coding Level of Care Code Procedure Only Diagnoses ICD (implantable 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-defibrillator) in place Z95.810 CPT Codes Cardiac Device Check - Cardiac Device 13: [id number] Cardiac Interrogation, implant defibrillator w/interim ([id number])
== END ==
PROVIDERS: PCP Internal Medicine; Visit Provider Internal Medicine Cardiovascular Disease
DX: Z95.810 Presence of automatic (implantable) cardiac defibrillator (principal); I42.9 Cardiomyopathy, unspecified
CPT/HCPCS: 93295

== ENCOUNTER → 2023-06-29 23:59 | Outpatient (BNV) | payer OTHER, SELFPAY ==
--- NOTE | 2023-06-29 16:47 | A.OFFVIS_ITS ---
Intake Intake Visit Reasons: Remote HF Monitoring- [facility] Allergies dog dander [dogs] Allergy (Intermediate, Verified 05/06/23 14:36) Sneezing grass Allergy (Intermediate, Verified 05/06/23 14:36) Rash insect venom [mosquito bites] Allergy (Intermediate, Verified 05/06/23 14:36) Rash roaches Allergy (Intermediate, Verified 05/06/23 14:36) Rash trees Allergy (Intermediate, Verified 05/06/23 14:36) Rash atorvastatin [Lipitor] Adverse Reaction (Intermediate, Verified 05/06/23 14:36) stomach aches PFSH Medical History Permanent atrial fibrillation History of cardioversion Hospital discharge follow-up Cellulitis of left ankle Elevated TSH Diabetes mellitus Persistent atrial fibrillation Ear discomfort Atrial flutter Acute on chronic HFrEF (heart failure with reduced ejection fraction) Tubular adenoma of colon Cardiomyopathy ICD (implantable 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-defibrillator) in place Paroxysmal atrial fibrillation Heart failure with reduced ejection fraction CHF (congestive heart failure) Mixed hyperlipidemia Seborrheic dermatitis of scalp Hearing loss Obesity (BMI 30-39.9) Hypoglycemia unawareness associated with type 2 diabetes mellitus Vitamin D deficiency Diabetic nephropathy associated with type 2 diabetes mellitus 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 Restrictive lung disease Asthma-COPD overlap syndrome Asthma Anemia COPD (chronic obstructive pulmonary disease) HLD (hyperlipidemia) HTN (hypertension) Depression with anxiety GERD (gastroesophageal reflux disease) Essential hypertension Diabetes type 2, uncontrolled Surgical History Hx of bilateral cataract extraction History of esophagogastroduodenoscopy (EGD) Hx of colonoscopy History of cardiac defibrillator placement History of thumb surgery Family History Father Cancer Mother Cancer Family/Other Diabetes CHF (congestive heart failure) Social History Household Members: None Housing: Apartment Alcohol intake: never Patient Tobacco Use Status: Former Tobacco user Quit Date: 2012 Tobacco use type: Cigarette e-Cigarette/Vaping Use: Never Used Second Hand Smoke Exposure: No service: No Current occupational status: disabled Cognitive needs: No Hearing needs: No Vision needs: No Office Procedures Cardiac Device Check Cardiac Device Check Details: Remote heart failure report generated 06/29/2023. Heart failure parameters are stable [id number] Cardiac Device Interrogation, cardio physiologic monitor Procedure code (CPT) selection complete Assessment & Plan Assessment & Plan (1) ICD (implantable 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-defibrillator) in place: Code(s): Z95.810 - Presence of automatic (implantable) cardiac defibrillator Plan: See above Coding Level of Care Code Procedure Only Diagnoses ICD (implantable 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-defibrillator) in place Z95.810 CPT Codes Cardiac Device Check - Cardiac Device 15: [id number] Cardiac Device Interrogation, cardio physiologic monitor ([id number])
== END ==
PROVIDERS: PCP Internal Medicine; Visit Provider Internal Medicine Cardiovascular Disease
DX: I50.20 Unspecified systolic (congestive) heart failure (principal); Z95.810 Presence of automatic (implantable) cardiac defibrillator
CPT/HCPCS: 93297

== ENCOUNTER 2023-07-29 13:29 | Outpatient (REF) | payer OTHER, SELFPAY ==
--- NOTE | ~2023-07-29 | US_ITS ---
EXAMINATION: US RETROPERITONEAL LIMITED (RENAL ONLY) CLINICAL INFORMATION: Chronic kidney disease, stage III. COMPARISON: Ultrasound abdomen 01/04/2015. Renal ultrasound 11/04/2012. TECHNIQUE: Real-time imaging of the kidneys. FINDINGS: RIGHT KIDNEY: 12.3 x 5.7 x 6.1 cm (SAG x AP x TRV). The kidney is normal in size and contour. 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 Renal cortical thickness is normal. No calculi or focal parenchymal lesions. No hydronephrosis. LEFT KIDNEY: 13.6 x 6.3 x 5.4 cm (SAG x AP x TRV). The kidney is normal in size and contour. 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 Renal cortical thickness is normal. No calculi or focal parenchymal lesions. No hydronephrosis. US/US renal BI IMPRESSION: No significant abnormality is seen.
== END 2023-07-29 13:30 | disposition home or self-care (01) ==
LOC: HO.US 13:29
PROVIDERS: PCP Internal Medicine; Visit Provider Internal Medicine Nephrology
DX: N18.32 Chronic kidney disease, stage 3b (principal); E11.22 Type 2 diabetes mellitus with diabetic chronic kidney disease
CPT/HCPCS: 76775

== ENCOUNTER 2023-08-05 13:00 | Outpatient (AMB) | payer OTHER, SELFPAY ==
[2023-08-05 13:15] VITALS: PULSE 80; RESP 18; O2SAT 99; BMI 32.1
--- NOTE | 2023-08-05 13:15 | MHC.OFFVIS ---
Intake Vital Signs 08/05/23 13:15 Height 5 ft 7 in Weight 205 lb 3 oz BMI 32.1 Blood Pressure Location Lt brachial Position Sitting Respiration 18 Pulse 80 Pulse Source Pulse Oximeter Pulse Oximetry (%) 99 Oxygen Delivery Method Room Air Intake Visit Reasons: COPD Intake Note: Stephen is 73 years old very pleasant gentleman who is here for his 6 months follow-up. His pulmonary problem is mainly asthma/COPD syndrome, with mild to moderate restrictive pattern which is due to his obesity. He has been doing very well without any acute exacerbation, and with minimal use of medication. Continues to use Arnuity-201 inhalation daily. And uses Ventolin only once in a while. He claims that he sleeps well. 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: Yes Grease Refining Supervisor Name: [id number] (Adan) Allergies dog dander [dogs] Allergy (Intermediate, Verified 08/05/23 13:18) Sneezing grass Allergy (Intermediate, Verified 08/05/23 13:18) Rash insect venom [mosquito bites] Allergy (Intermediate, Verified 08/05/23 13:18) Rash roaches Allergy (Intermediate, Verified 08/05/23 13:18) Rash trees Allergy (Intermediate, Verified 08/05/23 13:18) Rash atorvastatin [Lipitor] Adverse Reaction (Intermediate, Verified 08/05/23 13:18) stomach aches PFSH Medical History Permanent atrial fibrillation History of cardioversion Hospital discharge follow-up Cellulitis of left ankle Elevated TSH Diabetes mellitus Persistent atrial fibrillation Ear discomfort Atrial flutter Acute on chronic HFrEF (heart failure with reduced ejection fraction) Tubular adenoma of colon Cardiomyopathy ICD (implantable 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-defibrillator) in place Paroxysmal atrial fibrillation Heart failure with reduced ejection fraction CHF (congestive heart failure) Mixed hyperlipidemia Seborrheic dermatitis of scalp Hearing loss Obesity (BMI 30-39.9) Hypoglycemia unawareness associated with type 2 diabetes mellitus Vitamin D deficiency Diabetic nephropathy associated with type 2 diabetes mellitus 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 Restrictive lung disease Asthma-COPD overlap syndrome Asthma Anemia COPD (chronic obstructive pulmonary disease) HLD (hyperlipidemia) HTN (hypertension) Depression with anxiety GERD (gastroesophageal reflux disease) Essential hypertension Diabetes type 2, uncontrolled Surgical History Hx of bilateral cataract extraction History of esophagogastroduodenoscopy (EGD) Hx of colonoscopy History of cardiac defibrillator placement History of thumb surgery Family History Father Cancer Mother Cancer Family/Other Diabetes CHF (congestive heart failure) Social History Household Members: None Housing: Apartment Alcohol intake: never Patient Tobacco Use Status: Former Tobacco user Quit Date: 2012 Tobacco use type: Cigarette e-Cigarette/Vaping Use: Never Used Second Hand Smoke Exposure: No service: No Current occupational status: disabled Cognitive needs: No Hearing needs: No Vision needs: No Review of Systems Const All systems reviewed & are unremarkable except as noted in HPI and below Eyes Reports no additional complaints ENT Reports no additional complaints Card Denies chest pain, Reports irregular heart rhythm and Denies leg edema Resp Reports as per HPI GI Reports no additional complaints Reports no additional complaints Musc Reports back pain (Mild) and Reports arthralgias (Mild) Skin/Breast Reports system reviewed and no additional complaints, except as documented Neuro Reports no additional complaints Psych Reports no additional complaints Physical Exam Vital Signs: Last Vital Signs Pulse 80 08/05/23 13:15 Resp 18 08/05/23 13:15 Pulse Ox 99 08/05/23 13:15 Oxygen Delivery Method Room Air 08/05/23 13:15 BMI result Body Mass Index 32.1 Const General: comfortable, no acute distress, alert and awake Orientation/consciousness: patient oriented x3 HEENT Head: Yes normal to inspection General nose exam: No nasal polyps present and No nasal discharge present Face and sinus: Yes sinuses nontender Mouth: oropharynx normal Throat: Yes posterior oropharynx normal Eyes General: appearance normal, both eyes and all related structures Neck Neck: Yes normal visual inspection, Yes no lymphadenopathy, Yes trachea midline and Yes no JVD Thyroid: Thyroid normal Chest Chest palpation & inspection: normal inspection of the chest, normal palpation of entire chest wall and no tenderness Resp Other: He has good breath sounds on both sides. No wheezes or crepitations are heard. Cardio Palpation: normal PMI Rate: regular rate Rhythm: regular rhythm Heart sounds: no gallops and no murmurs GI Palpation (GI): Soft to palpation, nontender, No hepatosplenomegaly present, no masses and Other GI palpation findings present (ABDOMEN IS OBESE AND SLIGHTLY PROTUBERANT) Auscultation: normal bowel sounds Back/Spine/Pelvis Thoracic/Lumbar Spine: thoracic and lumbar spine normal to inspection Skin General skin exam: no rashes or lesions noted Neuro General: patient oriented x3 and no focal motor deficits Cranial nerves: Yes CN's II-XII intact bilaterally Extrem General: Yes normal to inspection, Yes no clubbing, cyanosis or edema and Yes no calf tenderness Psych Appearance: grossly normal and well kempt Speech and movement: Normal speech and movement present Assessment & Plan Assessment & Plan (1) Asthma-COPD overlap syndrome: Comment: The Asthma/COPD is fairly well controlled. spirometry on his last visit showed moderate restrictive disorder, FVC 64%, FEV1 70% No obstructive component . These results were similar to the results in 2020. Code(s): J44.9 - Chronic obstructive pulmonary disease, unspecified Plan: Advised to continue using Arnuity -200 1 inhalation daily and ventolin 2 puffs q.6 hours p.r.n.. (2) Restrictive lung disease: Comment: The Restrictive element is sec to Obesity , especially Abdominal Obesity . Code(s): J98.4 - Other disorders of lung Plan: Pt. educated , and advised to loose weight . Also advised to do Deep Breathing Exercises TID (3) Obesity (BMI 30-39.9): Comment: PATIENT REMAINS MODERATELY OBESE . HE DENIES SYMPTOMS OF SLEEP APNEA. HE IS A DIABETIC AND REMAINS ON DIABETIC DIET. HE IS NOT ABLE TO DO MUCH EXERCISE. Code(s): E66.9 - Obesity, unspecified Plan: Discussed about diet , but there is not much potential for him to loose weight. Coding Level of Care Code Est Pt Level 3 (20344) Diagnoses Asthma-COPD overlap syndrome J44.9 Restrictive lung disease J98.4 Obesity (BMI 30-39.9) E66.9
== END 2023-08-05 13:26 | disposition home or self-care (01) ==
PROVIDERS: PCP Internal Medicine; Visit Provider Internal Medicine
DX: J44.9 Chronic obstructive pulmonary disease, unspecified (principal); J98.4 Other disorders of lung; E66.9 Obesity, unspecified
CPT/HCPCS: 99213

== ENCOUNTER → 2023-08-05 13:00 | Outpatient (BNVA) | payer OTHER, SELFPAY | PROVIDERS: PCP Internal Medicine; Visit Provider Internal Medicine | DX: J44.9 Chronic obstructive pulmonary disease, unspecified (principal); J98.4 Other disorders of lung; E66.9 Obesity, unspecified; Z68.32 Body mass index [BMI] 32.0-32.9, adult | CPT/HCPCS: 99212 ==

== ENCOUNTER 2023-08-06 14:42 | Outpatient (AMB) | payer OTHER, SELFPAY ==
--- NOTE | 2023-08-06 14:47 | MHC.PC.OV ---
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 Required: No Accompanied by: Self / Same As Patient Allergies dog dander [dogs] Allergy (Intermediate, Verified 08/06/23 15:15) Sneezing grass Allergy (Intermediate, Verified 08/06/23 15:15) Rash insect venom [mosquito bites] Allergy (Intermediate, Verified 08/06/23 15:15) Rash roaches Allergy (Intermediate, Verified 08/06/23 15:15) Rash trees Allergy (Intermediate, Verified 08/06/23 15:15) Rash atorvastatin [Lipitor] Adverse Reaction (Intermediate, Verified 08/06/23 15:15) stomach aches Medication List - Last Reconciled 08/06/23 by Christie Jain MD albuterol sulfate 90 mcg/actuation (Ventolin HFA) 2 puffs inhalation Q6H PRN 30 days apixaban (Eliquis) 5 mg PO BID Arnuity Ellipta 200 mcg/actuation (fluticasone furoate) 1 inh inhalation DAILY NS blood sugar diagnostic (FreeStyle Lite Strips) 3 times a day carvedilol 25 mg PO BID cholecalciferol (vitamin D3) 25 mcg PO DAILY 90 days clonazepam 0.5 mg PO DAILY PRN cyanocobalamin (vitamin B-12) 500 mcg PO every other day in the morning; dapagliflozin propanediol (Farxiga) 10 mg PO DAILY 90 days dulaglutide (Trulicity) 0.75 mg (0.5 mL) subcut QWEEK duloxetine 30 mg PO QAM duloxetine 60 mg PO DAILY eluxadoline (Viberzi) 100 mg PO BID famotidine (Pepcid) 40 mg PO BEDTIME fenofibrate 54 mg PO DAILY 90 days furosemide 40 mg PO DAILY 90 days gabapentin 300 mg PO BID 90 days hospital bed As directed hydrocortisone 1% (Anti-Itch (hydrocortisone)) 1 appl topical BID PRN 2 weeks icosapent ethyl (Vascepa) 2 grams (2 x 1 gram) PO BID 90 days ketoconazole 2% 1 appl topical 2XW lancets (TRUEplus Lancets) TEST BLOOD SUGAR THREE TIMES DAILY lancets 3 times a day loperamide (Imodium A-D) 4 mg (2 x 2 mg) PO TID PRN metformin ER 1,000 mg (2 x 500 mg) PO BID 90 days pen needle, diabetic (Pentips) As directed pen needle, diabetic (UltiCare Pen Needle) As directed 1 time a day rosuvastatin 10 mg PO BEDTIME 90 days sacubitril-valsartan 49-51 mg (Entresto) 1 tab PO BID 90 days [scooter As directed] [wipes As directed] Tobacco use date assessed: 08/06/23 Fall risk assessment: No Falls in past year Last assessed Fall Risk: 08/06/23 Dental Screening Dental Screen Date: 08/06/23 Did you have a dental visit in the last 12 months?: No Did you have a dental problem in the last 6 months where you did not have access to dental care?: No Was dental information given to patient?: Patient has dentist HPI HPI Comments History of Present Illness Details This is a 73-year-old male with diabetes mellitus type 2, chronic heart failure with reduced ejection fraction, persistent atrial fibrillation on chronic anticoagulation, asthma-COPD overlap syndrome and chronic kidney disease stage 3 that comes today for follow-up on his conditions. He is very sad because he just lost his 07/29/2023. He does have a psychiatrist for this matter. A1c slightly elevated and I will increase Trulicity. He does follows with endocrinology. Last echocardiogram done May 2023 shows ejection fraction 20-25% and patient has not gain 5 lb in a week. Looks euvolemic. Atrial fibrillation and congestive heart failure are follow by cardiology. Denies any active bleeding. Compliant with medications. Asthma-COPD overlap syndrome has been well controlled with Arnuity and this is follow by pulmonology. Has chronic kidney disease stage 3 follow by Nephrology and had an ultrasound of the kidneys recently which was normal. No chest pain or shortness of breath. [facility] Medical History Permanent atrial fibrillation History of cardioversion Hospital discharge follow-up Cellulitis of left ankle Elevated TSH Diabetes mellitus Persistent atrial fibrillation Ear discomfort Atrial flutter Acute on chronic HFrEF (heart failure with reduced ejection fraction) Tubular adenoma of colon Cardiomyopathy ICD (implantable 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-defibrillator) in place Paroxysmal atrial fibrillation Heart failure with reduced ejection fraction CHF (congestive heart failure) Mixed hyperlipidemia Seborrheic dermatitis of scalp Hearing loss Obesity (BMI 30-39.9) Hypoglycemia unawareness associated with type 2 diabetes mellitus Vitamin D deficiency Diabetic nephropathy associated with type 2 diabetes mellitus 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 of insulin Restrictive lung disease Asthma-COPD overlap syndrome Asthma Anemia COPD (chronic obstructive pulmonary disease) HLD (hyperlipidemia) HTN (hypertension) Depression with anxiety GERD (gastroesophageal reflux disease) Essential hypertension Diabetes type 2, uncontrolled Surgical History Hx of bilateral cataract extraction History of esophagogastroduodenoscopy (EGD) Hx of colonoscopy History of cardiac defibrillator placement History of thumb surgery Family History Father Cancer Mother Cancer Family/Other Diabetes CHF (congestive heart failure) Social History Household Members: None Housing: Apartment Alcohol intake: never Patient Tobacco Use Status: Former Tobacco user Quit Date: 2012 Tobacco use type: Cigarette e-Cigarette/Vaping Use: Never Used Second Hand Smoke Exposure: No service: No Current occupational status: disabled Cognitive needs: No Hearing needs: No Vision needs: Yes Questionnaire PHQ-9 Over the last 2 weeks, how often have you been bothered by any of the following problems? 1. Little interest or pleasure in doing things: not at all 2. Feeling down, depressed, or hopeless: nearly every day 3. Trouble falling or staying asleep, or sleeping too much: nearly every day 4. Feeling tired or having little energy: nearly every day 5. Poor appetite or overeating: several days 6. Feeling bad about yourself - or that you are a failure or have let yourself or your family down: not at all 7. Trouble concentrating on things, such as reading the newspaper or watching television: nearly every day 8. Moving or speaking so slowly that other people could have noticed. Or the opposite - being so fidgety or restless that you have been moving around a lot more than usual: several days 9. Thoughts that you would be better off or of hurting yourself in some way: not at all Total score: 14 Depression Screening Interpretation: Positive (no suicidal thoughts) Depression Screening Follow-up: Existing condition, In treatment and Community Mental Health Worker F/U Depression Screening Done: Yes 22925 - PHQ-9 Billing: Yes Source: Developed by Drs. José Miguel Neri, Yomaira Roman, Maxwell Erazo and colleagues, with an educational bong from [employer]. Thrive Questionnaire Date Thrive assessed: 08/06/23 I am a: Patient What is your living situation today?: I have a steady place to live Within the past 12 months, did the food you bought not last and you didn't have the money to get more?: Never true Within the past 12 months, did you worry whether your food would run out before you got money to buy more?: Never true Do you have trouble paying for medicines?: No Do you have trouble getting transportation to medical appointments?: No Do you have trouble paying your heating and electricity bill?: No Do you have trouble taking care of your child, family member or friend?: No Do you have trouble with day-to-day activities such as bathing, preparing meals, shopping, managing finances, etc.?: No Are you currently unemployed and looking for a job?: No Are you interested in more education?: No Please select the resources that you would like help with: None Currently or been in a relationship where the following occur: no concerns reported THRIVE Score: 0 AUDIT C Alcohol Use Questionnaire (AUDIT-C) 1. How often do you have a drink containing alcohol?: Never Total Score: 0 DARRYL-7 AMB Questionnaire DARRYL-7 Date DARRYL - 7 assessed: 08/06/23 Feeling nervous, anxious, or on edge: 3 = Nearly every day Not being able to stop or control worryin = Not at all Worrying too much about different things: 1 = Several days Trouble relaxin = Several days Being so restless that it is hard to sit still: 0 = Not at all Becoming easily annoyed or irritable: 3 = Nearly every day Feeling afraid as if something awful might happen: 0 = Not at all Total DARRYL-7 score (0-4 normal; 5-9 mild; 10-14 moderate; 15-21 severe): 8 Source: Developed by Yomaira Wilkerson Kurt Kroenke and colleagues, with an educational bong from [employer]. DARRYL-7 Assessment Billing DARRYL-7 Assessment Tool: DARRYL-7 Assessment 87222 Review of Systems Const All systems reviewed & are unremarkable except as noted in HPI and below Eyes Reports no additional complaints, Denies change in vision and Denies other visual disturbances Card Denies chest pain at rest, Denies chest pain with activity, Denies edema, Denies irregular heart rhythm, Denies claudication, Denies dyspnea, Denies dyspnea on exertion, Denies orthopnea, Denies paroxysmal nocturnal dyspnea and Denies slow heart rate Resp Denies cough, Denies dyspnea and Denies dyspnea on exertion GI Denies abdominal pain, Denies change in bowel habits, Denies excessive flatus, Denies nausea and Denies vomiting Denies urinary hesitancy, Denies urinary incontinence and Denies urinary urgency Musc Denies abnormal gait, Denies atrophy, Denies deformity and Denies limited range of motion Skin/Breast Denies bleeding lesions, Denies changing lesions and Denies rash Neuro Denies abnormal gait, Denies behavioral changes and Denies lack of coordination Psych Denies behavioral changes Physical exam (Primary Care) Vital Signs: Last Vital Signs BP 120/60 08/06/23 14:52 BMI result Body Mass Index 32.1 Tobacco/Smoking Status: Tobacco use Status Tobacco use date assessed 08/06/23 08/06/23 15:02 Patient Tobacco Use Status Former Tobacco user 08/06/23 14:49 Tobacco use type Cigarette 08/06/23 14:49 e-Cigarette/Vaping Use Never Used 08/06/23 14:49 PHQ-9: PHQ-9 Score PHQ-9: Total score 14 08/06/23 15:16 Depression Screening Interpretation: Positive (no suicidal thoughts) Depression Screening Follow-up: Existing condition, In treatment and Community Mental Health Worker F/U Thrive Assessment: Date of Thrive Assessment Date Thrive assessed 08/06/23 08/06/23 15:02 Currently or been in a relationship where the following occur: no concerns reported HENMT Head: Yes atraumatic Eyes General: appearance normal, both eyes and all related structures Eyelids: Yes eyelids normal Conjunctivae: conjunctivae normal Neck Neck: Yes normal visual inspection and Yes supple Resp Effort & Inspection: normal respiratory effort Auscultation: clear to auscultation bilaterally Cardio Jugular venous distension: no JVD Rate: regular rate Rhythm: regular rhythm Heart sounds: S1 normal heart sound present and S2 normal heart sound present Extrem General: Yes full ROM Results AMB Hemoglobin A1c AMB Hemoglobin A1c 7.2 % Last Edit by MOLLY Chamberlain on 08/06/23 15:03 Results Reviewed Results Reviewed: Laboratory Last Values Hgb A1c (Clinic) 7.2 % (4.0-6.0) H 08/06/23 14:47 Assessment and Plan Assessment & Plan (1) Permanent atrial fibrillation: Code(s): I48.21 - Permanent atrial fibrillation Plan: Continue Eliquis. (2) CKD (chronic kidney disease) stage 3, GFR 30-59 ml/min: Code(s): N18.30 - Chronic kidney disease, stage 3 unspecified Plan: Follow-up with nephrology. Avoid NSAIDs. (3) Diabetes mellitus: Code(s): E11.9 - Type 2 diabetes mellitus without complications Qualifiers: Diabetes mellitus type: type 2 Diabetes mellitus termite control servicer insulin use: without termite control servicer use Diabetes mellitus complication status: with hyperglycemia Qualified Code(s): E11.65 - Type 2 diabetes mellitus with hyperglycemia Plan: Continue metformin. Increase Trulicity. A1c goal is equal or less than 7%. Follow-up with endocrinology. (4) Mixed hyperlipidemia: Code(s): E78.2 - Mixed hyperlipidemia Plan: Continue statins and fibrates. LDL goal is less than 70. (5) Heart failure with reduced ejection fraction: Code(s): I50.20 - Unspecified systolic (congestive) heart failure Plan: Continue Entresto and carvedilol. The goal is to not gain 5 lb in a week. Follow-up with Cardiology. (6) Asthma-COPD overlap syndrome: Comment: The Asthma/COPD is fairly well controlled. spirometry on his last visit showed moderate restrictive disorder, FVC 64%, FEV1 70% No obstructive component . These results were similar to the results in 2020. Code(s): J44.9 - Chronic obstructive pulmonary disease, unspecified Plan: Continue Arnuity. Use rescue inhaler as needed. Follow-up by pulmonology. (7) Moderate major depression: Code(s): F32.1 - Major depressive disorder, single episode, moderate Plan: Continue duloxetine. Orders: Orders Vitamin D 25-OH Total Today E55.9 - Vitamin D deficiency, unspecified Vitamin B12 and Folate Today E53.8 - Deficiency of other specified B group vitamins Comprehensive [place]. Panel Fast Today N18.30 - Chronic kidney disease, stage 3 unspecified AMB Hemoglobin A1c Today E11.65 - Type 2 diabetes mellitus with hyperglycemia, Z13.9 - Encounter for screening, unspecified Lipid Panel Today E78.5 - Hyperlipidemia, unspecified Microalbumin, Random (w Creat) Today E11.9 - Type 2 diabetes mellitus without complications Medications: New dulaglutide (Trulicity) 1.5 mg (0.5 mL) subcut QWEEK 90 days 6.5 mL 1RF Discontinued dulaglutide (Trulicity) Discontinued Reason: No Longer Medically Relevant 0.75 mg (0.5 mL) subcut QWEEK 2 mL 6RF E11.65 - Type 2 diabetes mellitus with hyperglycemia Coding Level of Care Code Est Pt Level 4 (76078) Diagnoses Permanent atrial fibrillation I48.21 CKD (chronic kidney disease) stage 3, GFR 30-59 ml/min N18.30 Type 2 diabetes mellitus with hyperglycemia, without long-term current use of insulin E11.65 Diabetes mellitus type: type 2 Diabetes mellitus usp insulin use: without termite control servicer use Diabetes mellitus complication status: with hyperglycemia Mixed hyperlipidemia E78.2 Heart failure with reduced ejection fraction I50.20 Asthma-COPD overlap syndrome J44.9 Moderate major depression F32.1 Additional Codes DARRYL-7 Assessment Billing - DARRYL-7 Assessment Tool: DARRYL-7 Assessment 35063 ([id number]) Time Spent (min) 25
[2023-08-06 14:52] VITALS: BP 120/60; BMI 32.1
== END 2023-08-06 15:27 | disposition home or self-care (01) ==
PROVIDERS: PCP Internal Medicine; Visit Provider Internal Medicine
DX: E11.65 Type 2 diabetes mellitus with hyperglycemia (principal); I13.0 Hypertensive heart and chronic kidney disease with heart failure and stage 1 through stage 4 chronic kidney disease, or unspecified chronic kidney disease; N18.30 Chronic kidney disease, stage 3 unspecified; I50.20 Unspecified systolic (congestive) heart failure; J44.9 Chronic obstructive pulmonary disease, unspecified; F32.1 Major depressive disorder, single episode, moderate
CPT/HCPCS: 83036; 99214

== ENCOUNTER → 2023-09-04 23:59 | Outpatient (BNV) | payer OTHER, SELFPAY ==
--- NOTE | 2023-09-07 16:09 | A.OFFVIS_ITS ---
Intake Intake Visit Reasons: Remote HF monitoring- [facility] Allergies dog dander [dogs] Allergy (Intermediate, Verified 08/06/23 15:15) Sneezing grass Allergy (Intermediate, Verified 08/06/23 15:15) Rash insect venom [mosquito bites] Allergy (Intermediate, Verified 08/06/23 15:15) Rash roaches Allergy (Intermediate, Verified 08/06/23 15:15) Rash trees Allergy (Intermediate, Verified 08/06/23 15:15) Rash atorvastatin [Lipitor] Adverse Reaction (Intermediate, Verified 08/06/23 15:15) stomach aches PFSH Medical History Permanent atrial fibrillation History of cardioversion Hospital discharge follow-up Cellulitis of left ankle Elevated TSH Diabetes mellitus Persistent atrial fibrillation Ear discomfort Atrial flutter Acute on chronic HFrEF (heart failure with reduced ejection fraction) Tubular adenoma of colon Cardiomyopathy ICD (implantable 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-defibrillator) in place Paroxysmal atrial fibrillation Heart failure with reduced ejection fraction CHF (congestive heart failure) Mixed hyperlipidemia Seborrheic dermatitis of scalp Hearing loss Obesity (BMI 30-39.9) Hypoglycemia unawareness associated with type 2 diabetes mellitus Vitamin D deficiency Diabetic nephropathy associated with type 2 diabetes mellitus 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 of 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 Restrictive lung disease Asthma-COPD overlap syndrome Asthma Anemia COPD (chronic obstructive pulmonary disease) HLD (hyperlipidemia) HTN (hypertension) Depression with anxiety GERD (gastroesophageal reflux disease) Essential hypertension Diabetes type 2, uncontrolled Surgical History Hx of bilateral cataract extraction History of esophagogastroduodenoscopy (EGD) Hx of colonoscopy History of cardiac defibrillator placement History of thumb surgery Family History Father Cancer Mother Cancer Family/Other Diabetes CHF (congestive heart failure) Social History Household Members: None Housing: Apartment Alcohol intake: never Patient Tobacco Use Status: Former Tobacco user Quit Date: 2012 Tobacco use type: Cigarette e-Cigarette/Vaping Use: Never Used Second Hand Smoke Exposure: No service: No Current occupational status: disabled Cognitive needs: No Hearing needs: No Vision needs: Yes Office Procedures Cardiac Device Check Cardiac Device Check Details: Remote heart failure report generated September 04/2024. Heart failure parameters are stable [id number] Cardiac Device Interrogation, cardio physiologic monitor Procedure code (CPT) selection complete Assessment & Plan Assessment & Plan (1) ICD (implantable 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-defibrillator) in place: Code(s): Z95.810 - Presence of automatic (implantable) cardiac defibrillator Plan: See above Coding Level of Care Code Procedure Only Diagnoses ICD (implantable 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-defibrillator) in place Z95.810 CPT Codes Cardiac Device Check - Cardiac Device 15: [id number] Cardiac Device Interrogation, cardio physiologic monitor ([id number])
== END ==
PROVIDERS: PCP Internal Medicine; Visit Provider Internal Medicine Cardiovascular Disease
DX: Z45.02 Encounter for adjustment and management of automatic implantable cardiac defibrillator (principal)
CPT/HCPCS: 93297

== ENCOUNTER → 2023-10-12 23:59 | Outpatient (BNV) | payer OTHER, SELFPAY ==
--- NOTE | 2023-10-15 17:41 | A.OFFVIS_ITS ---
Intake Visit Reasons: Remote ICD check- [facility] Allergies dog dander [dogs] Allergy (Intermediate, Verified 08/06/23 15:15) Sneezing grass Allergy (Intermediate, Verified 08/06/23 15:15) Rash insect venom [mosquito bites] Allergy (Intermediate, Verified 08/06/23 15:15) Rash roaches Allergy (Intermediate, Verified 08/06/23 15:15) Rash trees Allergy (Intermediate, Verified 08/06/23 15:15) Rash atorvastatin [Lipitor] Adverse Reaction (Intermediate, Verified 08/06/23 15:15) stomach aches PFSH Medical History Permanent atrial fibrillation History of cardioversion Hospital discharge follow-up Cellulitis of left ankle Elevated TSH Diabetes mellitus Persistent atrial fibrillation Ear discomfort Atrial flutter Acute on chronic HFrEF (heart failure with reduced ejection fraction) Tubular adenoma of colon Cardiomyopathy ICD (implantable 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-defibrillator) in place Paroxysmal atrial fibrillation Heart failure with reduced ejection fraction CHF (congestive heart failure) Mixed hyperlipidemia Seborrheic dermatitis of scalp Hearing loss Obesity (BMI 30-39.9) Hypoglycemia unawareness associated with type 2 diabetes mellitus Vitamin D deficiency Diabetic nephropathy associated with type 2 diabetes mellitus longterm (current) use of insulin Restrictive lung disease Asthma-COPD overlap syndrome Asthma Anemia COPD (chronic obstructive pulmonary disease) HLD (hyperlipidemia) HTN (hypertension) Depression with anxiety GERD (gastroesophageal reflux disease) Essential hypertension Diabetes type 2, uncontrolled Surgical History Hx of bilateral cataract extraction History of esophagogastroduodenoscopy (EGD) Hx of colonoscopy History of cardiac defibrillator placement History of thumb surgery Family History Father Cancer Mother Cancer Family/Other Diabetes CHF (congestive heart failure) Social History Household Members: None Housing: Apartment Alcohol intake: never Patient Tobacco Use Status: Former Tobacco user Quit Date: 2012 Tobacco use type: Cigarette e-Cigarette/Vaping Use: Never Used Second Hand Smoke Exposure: No service: No Current occupational status: disabled Cognitive needs: No Hearing needs: No Vision needs: Yes Office Procedures Cardiac Device Check Cardiac Device Check Details: Remote ICD report generated 10/12/2023. ICD function is adequate [id number] Cardiac Interrogation, implant defibrillator w/interim Procedure code (CPT) selection complete Assessment & Plan Assessment & Plan (1) ICD (implantable 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-defibrillator) in place: Code(s): Z95.810 - Presence of automatic (implantable) cardiac defibrillator Category: Medical Plan: See above Coding Level of Care Code Procedure Only Diagnoses ICD (implantable 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-defibrillator) in place Z95.810 CPT Codes Cardiac Device Check - Cardiac Device 13: [id number] Cardiac Interrogation, implant defibrillator w/interim ([id number])
== END ==
PROVIDERS: PCP Internal Medicine; Visit Provider Internal Medicine Cardiovascular Disease
DX: Z45.02 Encounter for adjustment and management of automatic implantable cardiac defibrillator (principal)
CPT/HCPCS: 93295

== ENCOUNTER 2023-11-12 14:17 | Outpatient (AMB) | payer OTHER, SELFPAY ==
[2023-11-12 14:20] VITALS: BP 119/54; PULSE 63; BMI 32.5
--- NOTE | 2023-11-12 14:20 | A.OFFVIS_ITS ---
Vital Signs 11/12/23 14:20 Height 5 ft 7 in Weight 207 lb 10.807 oz BMI 32.5 BP 119/54 L Blood Pressure Location Lt brachial Position Sitting Pulse 63 Intake Visit Reasons: 6 month follow up Intake Note: Stephen returns to in office 6 months follow up of IBS. CC: Patient c/o watery diarrhea for about 2 weeks, abdominal bloating, and a lot of gas. Denies other GI symptoms. 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 Accompanied by: Self / Same As Patient Allergies dog dander [dogs] Allergy (Intermediate, Verified 11/12/23 14:21) Sneezing grass Allergy (Intermediate, Verified 11/12/23 14:21) Rash insect venom [mosquito bites] Allergy (Intermediate, Verified 11/12/23 14:21) Rash roaches Allergy (Intermediate, Verified 11/12/23 14:21) Rash trees Allergy (Intermediate, Verified 11/12/23 14:21) Rash atorvastatin [Lipitor] Adverse Reaction (Intermediate, Verified 11/12/23 14:21) stomach aches HPI HPI 6 month follow up: Details: Assessment & Plan (1) Irritable bowel syndrome with diarrhea: Code(s): K58.0 - Irritable bowel syndrome with diarrhea Plan: The (2) GERD (gastroesophageal reflux disease): Code(s): K21.9 - Gastro-esophageal reflux disease without esophagitis Qualifiers: Esophagitis presence: esophagitis presence not specified Qualified Cod e(s): K21.9 - Gastro-esophageal reflux disease without esophagitis (3) Tubular adenoma of colon: Comment: 05/17/2021 Neg Cologuard as pt has poor cardiac status, repeat 3 years: 07/2020 scope poor prep repeat 6-8 months, 12 mm pedunculated polyp removed with cold snare and base of stalk clipped x 2, with no bleeding noted. another 6-7 mm sessile polyp removed with cold snare, this was followed by a negative Cologuard so repeat in 2023 Code(s): D12.6 - Benign neoplasm of colon, unspecified Plan Vietnamese #[employer] Live He has now stabilized his diarrhea by taking the viberzi 100g qd and loperimide bid, if he takes more he will have CIC. However he is quite satisfied with this regimen as it stands so we will continue it as stated.. He also continues on his famotidine at bedtime with good control of his GERD. He tells me that his and his dementia has progressed substantially and he might not be able to get her in to see me in the near future because she will frequently refuse to get into a car. Obviously this is fine I will continue to prescribed to her and they should just try to make the last years of her like comfortable. Return office visit in 6 months at the next visit discuss repeat Cologuard study Medications: Refilled loperamide (Imodium A-D) 4 mg (2 x 2 mg) PO TID PRN 90 caps 3RF loose stool K58.0 - Irritable bowel syndrome with diarrhea eluxadoline (Viberzi) must administer with a meal/food 100 mg PO BID 60 tabs 5RF K58.0 - Irritable bowel syndrome with diarrhea famotidine (Pepcid) 40 mg PO BEDTIME 30 tabs 6RF K21.9 - Gastro-esophageal reflux disease without esophagitis TODAY'S VISIT Vietnamese # Jorge Luis, jose antonio The patient is due for a repeat Cologuard test He continues on Viberzi, loperamide, and famotidine. I also treat his who has progressing dementia name Christie. Unfortunately, his this June after a long donovan with her Alzheimer's disease. He is agreeable to a repeat colonoscopy as he now has a pacer and his chronic afib is stable. He is on Eliquis and Trulicity which will need to be held per protocol. He is having a great deal of diarrhea and cramping and gas despite taking his [id number] bid and his loperimide. I want to get a stool calprotectin and pancrease to see if there is another underlaying pahtology to address as he has failed many modalities of tx. There are no prior problems with anesthesia or sedation. He has asthma/COPD that is controlled and chronic afib and HF that is controlled with pacer. NO ID problems. He has a history of tubular adenomas in 2020 but then had uncontrolled cardiac problems that prevented colonoscopy. We did a Cologuard that year that was negative. ROV 6 weeks to review results and decide on further tx. [facility] Medical History Permanent atrial fibrillation History of cardioversion Hospital discharge follow-up Cellulitis of left ankle Elevated TSH Diabetes mellitus Persistent atrial fibrillation Ear discomfort Atrial flutter Acute on chronic HFrEF (heart failure with reduced ejection fraction) Tubular adenoma of colon Cardiomyopathy ICD (implantable 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-defibrillator) in place Paroxysmal atrial fibrillation Heart failure with reduced ejection fraction CHF (congestive heart failure) Mixed hyperlipidemia Seborrheic dermatitis of scalp Hearing loss Obesity (BMI 30-39.9) Hypoglycemia unawareness associated with type 2 diabetes mellitus Vitamin D deficiency Diabetic nephropathy associated with type 2 diabetes mellitus 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 Restrictive lung disease Asthma-COPD overlap syndrome Asthma Anemia COPD (chronic obstructive pulmonary disease) HLD (hyperlipidemia) HTN (hypertension) Depression with anxiety GERD (gastroesophageal reflux disease) Essential hypertension Diabetes type 2, uncontrolled Surgical History Hx of bilateral cataract extraction History of esophagogastroduodenoscopy (EGD) Hx of colonoscopy History of cardiac defibrillator placement History of thumb surgery Family History Father Cancer Mother Cancer Family/Other Diabetes CHF (congestive heart failure) Social History Household Members: None Housing: Apartment Alcohol intake: never Patient Tobacco Use Status: Former Tobacco user Tobacco use type: Cigarette e-Cigarette/Vaping Use: Never Used Second Hand Smoke Exposure: No service: No Current occupational status: disabled Cognitive needs: No Hearing needs: No Vision needs: Yes Review of Systems Const Denies fatigue, Denies fever(s), Denies night sweats, Denies poor appetite and D enies weight loss ENT Reports Normal hearing present, Denies dental pain, Denies dysphagia, Reports dizziness, Denies hearing loss, Denies mouth pain, Denies odynophagia, Reports disequilibrium, Denies throat swelling, Denies tongue swelling and Reports other (Dentition adequate) Card Reports no additional complaints Resp Reports no additional complaints GI Details: Denies abdominal pain, Denies melena, Reports bloating, Denies hematochezia, Denies constipation, Denies GI cramping, Denies dysphagia, Reports excessive flatus, Denies early satiety, Reports heartburn, Reports diarrhea, Denies nausea, Denies odynophagia, Denies vomiting and Denies hematemesis Skin/Breast Denies pruritus, Denies lesions, Denies rash and Denies jaundice Neuro Reports Normal hearing present, Denies Abnormal speech present, Reports dizziness and Reports disequilibrium Endo Denies fatigue Aller/Immun Denies throat swelling and Denies tongue swelling Physical Exam Vital Signs: BMI result Body Mass Index 32.5 Const General: cooperative, no acute distress, well developed and well groomed Nutritional Appearance: well nourished and obese centrally obese Orientation/consciousness: oriented to person, oriented to place and oriented to time Limitations: language barrier HEENT Head: Yes normocephalic and Yes atraumatic Eyes General: appearance normal, both eyes and all related structures Pupils: Equal, round and reactive pupils present Neck Neck: Yes normal visual inspection and Yes no lymphadenopathy Thyroid: Thyroid normal Resp Effort & Inspection: normal respiratory effort and able to speak in complete sentences Auscultation: clear to auscultation bilaterally Cardio Rate: regular rate Rhythm: abnormal rhythm irregularly irregular Heart sounds: Normal, physiologic split S2 sound present Peripheral pulses: radial pulses present and posterior tibial pulses present GI Inspection: No distended, Yes Abdominal panniculus present and Yes obesity Palpation (GI): Soft to palpation, nontender, no guarding, not rigid, No hepatosplenomegaly present and Hernia present umbilical Percussion: Yes normal to percussion Auscultation: normal bowel sounds Rectal Exam - Male: Yes deferred Skin General skin exam: no rashes or lesions noted, turgor normal, skin not dry, no jaundice, No spider nevi and no striae Rashes: no rashes Nails: normal Neuro General: oriented to person, oriented to place and oriented to time Cranial nerves: Yes Equal, round and reactive pupils present and Yes Normal hearing present Speech: No Abnormal speech present Extrem General: Yes normal to inspection, No clubbing, No cyanosis and No edema Psych Appearance: grossly normal and well kempt Mental Status: mental status grossly normal Speech and movement: Normal speech and movement present Affect: normal affect Attitude: cooperative Thought process: Normal thought process present and not confabulating Thought content: Normal thought content present Insight: Fair insight present (Psych) and Limited insight present (Psych) Judgement: Fair judgement present (Psych) and Limited judgement present (Psych) Assessment & Plan Assessment & Plan (1) GERD (gastroesophageal reflux disease): Code(s): K21.9 - Gastro-esophageal reflux disease without esophagitis Category: Medical Qualifiers: Esophagitis presence: esophagitis presence not specified Qualified Code(s): K21.9 - Gastro-esophageal reflux disease without esophagitis (2) Irritable bowel syndrome with diarrhea: Code(s): K58.0 - Irritable bowel syndrome with diarrhea Category: Medical (3) Tubular adenoma of colon: Comment: 05/17/2021 Neg Cologuard as pt has poor cardiac status, repeat 3 years: 07/2020 scope poor prep repeat 6-8 months, 12 mm pedunculated polyp removed with cold snare and base of stalk clipped x 2, with no bleeding noted. another 6-7 mm sessile polyp removed with cold snare, this was followed by a negative Cologuard so repeat in 2023 Code(s): D12.6 - Benign neoplasm of colon, unspecified Category: Medical (4) ICD (implantable 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-defibrillator) in place: Code(s): Z95.810 - Presence of automatic (implantable) cardiac defibrillator Category: Medical (5) Cardiomyopathy: Code(s): I42.9 - Cardiomyopathy, unspecified Category: Medical (6) Pre-op examination: Code(s): Z01.818 - Encounter for other preprocedural examination Category: Medical Plan Vietnamese # Jorge Luis, live The patient is due for a repeat Cologuard test He continues on Viberzi, loperamide, and famotidine. I also treat his who has progressing dementia name Christie. Unfortunately, his this June after a long donovan with her Alzheimer's disease. He is agreeable to a repeat colonoscopy as he now has a pacer and his chronic afib is stable. He is on Eliquis and Trulicity which will need to be held per protocol. He is having a great deal of diarrhea and cramping and gas despite taking his [id number] bid and his loperimide. I want to get a stool calprotectin and pancrease to see if there is another underlaying pahtology to address as he has failed many modalities of tx. There are no prior problems with anesthesia or sedation. He has asthma/COPD that is controlled and chronic afib and HF that is controlled with pacer. NO ID problems. He has a history of tubular adenomas in 2020 but then had uncontrolled cardiac problems that prevented colonoscopy. We did a Cologuard that year that was negative. ROV 6 weeks to review results and decide on further tx. Orders: Orders Calprotectin, Fecal Today I42.9 - Cardiomyopathy, unspecified, K58.0 - Irri table bowel syndrome with diarrhea, Z95.810 - Presence of automatic (implantable) cardiac defibrillator C Reactive Protein Today I42.9 - Cardiomyopathy, unspecified, K58.0 - Irritable bowel syndrome with diarrhea, Z95.810 - Presence of automatic (implantable) cardiac defibrillator Pancreatic Elastase-1 Today I42.9 - Cardiomyopathy, unspecified, K58.0 - Irritable bowel syndrome with diarrhea, Z95.810 - Presence of automatic (implantable) cardiac defibrillator Colonoscopy - GI Use Only Today I42.9 - Cardiomyopathy, unspecified, K58.0 - Irritable bowel syndrome with diarrhea, Z95.810 - Presence of automatic (implantable) cardiac defibrillator Comprehensive Met. Panel Today D12.6 - Benign neoplasm of colon, unspecified, Z01.818 - Encounter for other preprocedural examination Complete Blood Count Auto Diff Today D12.6 - Benign neoplasm of colon, unspecified, Z01.818 - Encounter for other preprocedural examination Rast Allergen Today K58.0 - Irritable bowel syndrome with diarrhea Medications: New peg 3350-electrolytes 236-22.74-6.74 -5.86 gram (Golytely) until fecal effluent is clear; do not exceed a total volume of 2,000 mL 240 mL PO Q10M 1 day 4,000 mL 0RF Z12.11 - Encounter for screening for malignant neoplasm of colon Refilled loperamide (Imodium A-D) 4 mg (2 x 2 mg) PO TID PRN 90 caps 3RF loose stool K58.0 - Irritable bowel syndrome with diarrhea Coding Level of Care Code Est Pt Level 4 (66808) Diagnoses Gastroesophageal reflux disease, unspecified whether esophagitis present K21.9 Esophagitis presence: esophagitis presence not specified Irritable bowel syndrome with diarrhea K58.0 Tubular adenoma of colon D12.6 ICD (implantable 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-defibrillator) in place Z95.810 Cardiomyopathy I42.9 Pre-op examination Z01.818
== END 2023-11-12 15:07 | disposition home or self-care (01) ==
PROVIDERS: PCP Internal Medicine; Visit Provider Nurse Practitioner
DX: K21.9 Gastro-esophageal reflux disease without esophagitis (principal); K58.0 Irritable bowel syndrome with diarrhea; D12.6 Benign neoplasm of colon, unspecified; Z95.810 Presence of automatic (implantable) cardiac defibrillator; I42.9 Cardiomyopathy, unspecified; Z01.818 Encounter for other preprocedural examination
CPT/HCPCS: 99214

== ENCOUNTER 2023-11-12 14:17 | Outpatient (REF) | payer OTHER, SELFPAY ==
[2023-11-12 15:47] LABS: MANUAL DIFF FLAG NO
[2023-11-12 16:11] LABS: Basophils Percent Auto 0.5 % (0-2); Eosinophils Absolute Auto 0.3 X10*3/uL (0.0-0.4); Eosinophils Percent Auto 3.3 % (0-4); Hematocrit 38.8 % (42.0-52.0); Hemoglobin 13.6 g/dl (14.0-18.0); Imm Gran Abs Auto 0.06 X10*3/uL (0.00-0.03); Imm Gran Pct Auto 0.7 % (0.0-0.4); Lymphocytes Percent Auto 11.5 % (20-40); Mean Corpuscular HGB Conc 35.1 g/dl (31.0-36.0); Mean Corpuscular Volume 91.3 fL (80.0-98.0); Mean Platelet Volume 9.7 fL (9.4-12.4); Monocytes Absolute Auto 1.2 X10*3/uL (0.1-1.2); Monocytes Percent Auto 14.3 % (2-11); Neutrophils Absolute Auto 5.8 x10*3/uL (2.0-8.3); Neutrophils Percent Auto 69.7 % (45-73); Platelet Count 245 X10*3/uL (160-400); Red Blood Count 4.25 X10*6/uL (4.60-5.80); White Blood Count 8.3 X10*3/uL (4.8-10.8)
[2023-11-12 16:41] LABS: Alanine Aminotransferase 24 U/L (0-40); Albumin Level 4.4 g/dL (3.5-5.0); Alkaline Phosphatase 49 U/L (39-117); Anion Gap 15 (12-20); Aspartate Amino Transferase 16 U/L (5-37); Bilirubin Total 0.3 mg/dL (0.0-1.0); Blood Urea Nitrogen 23 mg/dL (9-16); C Reactive Protein 0.64 mg/dL (< or = 0.50); Calcium 9.5 mg/dL (8.4-10.2); Carbon Dioxide 22 mmol/L (22-29); Chloride 104 mmol/L (96-108); Estimated Glomerular Filt Rate 50; Glucose Random 138 mg/dL (60-115); Sodium 137 mmol/L (135-145); Total Protein 7.2 g/dL (6.5-8.0)
== END 2023-11-12 14:18 | disposition home or self-care (01) ==
LOC: HO.LAB 14:17
PROVIDERS: PCP Internal Medicine; Visit Provider Nurse Practitioner
DX: D12.6 Benign neoplasm of colon, unspecified (principal); Z95.810 Presence of automatic (implantable) cardiac defibrillator; I42.9 Cardiomyopathy, unspecified; Z01.818 Encounter for other preprocedural examination; K58.0 Irritable bowel syndrome with diarrhea
CPT/HCPCS: 36415; 80053; 85025; 86140; 99212

== ENCOUNTER 2023-11-23 14:33 | Outpatient (AMB) | payer OTHER, SELFPAY ==
[2023-11-23 14:51] VITALS: BP 114/62; BMI 32.5
--- NOTE | 2023-11-23 14:51 | A.OFFVIS_ITS ---
Vital Signs 11/23/23 14:51 Height 5 ft 7 in Weight 207 lb 3.752 oz BMI 32.5 BP 114/62 Blood Pressure Location Lt brachial Position Sitting Intake Visit Reasons: 6 mos followup Intake Note: 6 month follow-up with [facility] c/o some heaviness on chest and dizziness Gis Database Administrator Required: Yes Gis Database Administrator Services: Gis Database Administrator Present Gis Database Administrator Name: Jarret cyracom Allergies dog dander [dogs] Allergy (Intermediate, Verified 11/12/23 14:21) Sneezing grass Allergy (Intermediate, Verified 11/12/23 14:21) Rash insect venom [mosquito bites] Allergy (Intermediate, Verified 11/12/23 14:21) Rash roaches Allergy (Intermediate, Verified 11/12/23 14:21) Rash trees Allergy (Intermediate, Verified 11/12/23 14:21) Rash atorvastatin [Lipitor] Adverse Reaction (Intermediate, Verified 11/12/23 14:21) stomach aches Medication List - Last Reconciled 11/23/23 by Bk Canchola MD albuterol sulfate 90 mcg/actuation (Ventolin HFA) 2 puffs inhalation Q6H PRN 30 days apixaban (Eliquis) 5 mg PO BID Arnuity Ellipta 200 mcg/actuation (fluticasone furoate) 1 inh inhalation DAILY NS blood sugar diagnostic (FreeStyle Lite Strips) 3 times a day carvedilol 25 mg PO BID cholecalciferol (vitamin D3) 25 mcg PO DAILY 90 days clonazepam 0.5 mg PO DAILY PRN clonazepam (Klonopin) 0.5 mg PO BEDTIME cyanocobalamin (vitamin B-12) 500 mcg PO every other day in the morning; dapagliflozin propanediol (Farxiga) 10 mg PO DAILY 90 days dulaglutide (Trulicity) 1.5 mg (0.5 mL) subcut QWEEK 90 days duloxetine 30 mg PO QAM duloxetine 60 mg PO DAILY eluxadoline (Viberzi) 100 mg PO BID famotidine (Pepcid) 40 mg PO BEDTIME fenofibrate 54 mg PO DAILY 90 days furosemide 40 mg PO DAILY 90 days gabapentin 300 mg PO BID 90 days hospital bed As directed hydrocortisone 1% (Anti-Itch (hydrocortisone)) 1 appl topical BID PRN 2 weeks icosapent ethyl (Vascepa) 2 grams (2 x 1 gram) PO BID 90 days ketoconazole 2% 1 appl topical 2XW lancets (TRUEplus Lancets) TEST BLOOD SUGAR THREE TIMES DAILY lancets 3 times a day loperamide (Imodium A-D) 4 mg (2 x 2 mg) PO TID PRN metformin ER 1,000 mg (2 x 500 mg) PO BID 90 days peg 3350-electrolytes 236-22.74-6.74 -5.86 gram (Golytely) 240 mL PO Q10M 1 day pen needle, diabetic (Pentips) As directed pen needle, diabetic (UltiCare Pen Needle) As directed 1 time a day rosuvastatin 10 mg PO BEDTIME 90 days sacubitril-valsartan 49-51 mg (Entresto) 1 tab PO BID 90 days [scooter As directed] [wipes As directed] HPI Comments Details: Stephen comes for follow up. Patient comes here and says about 5 months ago his and since then he has not been sleeping well. He feels depressed. He said he feels fatigued and tired and has generalized body pains on also having chest pain. He also complains of fatigue and will exertional shortness of breath. Not clear about orthopnea PND or leg edema. Taking all his medications. Denies any palpitations, lightheadedness, syncope. No bleeding issues or neurologic events. [facility] Medical History Permanent atrial fibrillation History of cardioversion Hospital discharge follow-up Cellulitis of left ankle Elevated TSH Diabetes mellitus Persistent atrial fibrillation Ear discomfort Atrial flutter Acute on chronic HFrEF (heart failure with reduced ejection fraction) Tubular adenoma of colon Cardiomyopathy ICD (implantable 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-defibrillator) in place Paroxysmal atrial fibrillation Heart failure with reduced ejection fraction CHF (congestive heart failure) Mixed hyperlipidemia Seborrheic dermatitis of scalp Hearing loss Obesity (BMI 30-39.9) Hypoglycemia unawareness associated with type 2 diabetes mellitus Vitamin D deficiency Diabetic nephropathy associated with type 2 diabetes mellitus 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 Restrictive lung disease Asthma-COPD overlap syndrome Asthma Anemia COPD (chronic obstructive pulmonary disease) HLD (hyperlipidemia) HTN (hypertension) Depression with anxiety GERD (gastroesophageal reflux disease) Essential hypertension Diabetes type 2, uncontrolled Surgical History Hx of bilateral cataract extraction History of esophagogastroduodenoscopy (EGD) Hx of colonoscopy History of cardiac defibrillator placement History of thumb surgery Family History Father Cancer Mother Cancer Family/Other Diabetes CHF (congestive heart failure) Social History Household Members: None Housing: Apartment Alcohol intake: never Patient Tobacco Use Status: Former Tobacco user Tobacco use type: Cigarette e-Cigarette/Vaping Use: Never Used Second Hand Smoke Exposure: No service: No Current occupational status: disabled Cognitive needs: No Hearing needs: No Vision needs: Yes Review of Systems Const Denies chills, Denies fatigue, Denies fever(s), Denies frequent falls, Denies weakness, Denies weight gain and Denies weight loss ENT Denies dizziness Card Denies chest pain, Denies leg edema, Denies lightheadedness, Denies palpitations, Denies dyspnea, Denies dyspnea on exertion, Denies orthopnea and Denies other (loss of consciousness) Resp Denies cough, Denies dyspnea and Denies dyspnea on exertion GI Denies hematochezia and Denies change in stool character Musc Denies abnormal gait, Denies muscle weakness, Denies numbness, Denies radiating pain into limb and Denies tingling Neuro Denies abnormal gait, Denies dizziness, Denies frequent falls, Denies numbness, Denies tingling and Denies weakness Endo Denies fatigue and Denies palpitations Physical Exam Vital Signs: Last Vital Signs BP 114/62 11/23/23 14:51 BMI result Body Mass Index 32.5 Const General: comfortable, no acute distress, alert and awake Orientation/consciousness: patient oriented x3 HEENT General nose exam: No nasal polyps present and No nasal discharge present Face and sinus: Yes sinuses nontender Mouth: oropharynx normal Throat: Yes posterior oropharynx normal Neck Neck: Yes trachea midline, Yes supple and Yes no JVD Chest Chest palpation & inspection: tenderness Resp Effort & Inspection: normal respiratory effort Auscultation: clear to auscultation bilaterally Cardio Palpation: abnormal PMI displaced PMI Rhythm: abnormal rhythm irregularly irregular Heart sounds: S1 normal heart sound present, S2 normal heart sound present, no gallops and no murmurs GI Auscultation: normal bowel sounds Back/Spine/Pelvis Thoracic/Lumbar Spine: thoracic and lumbar spine normal to inspection Neuro General: patient oriented x3 and no focal motor deficits Extrem General: Yes no clubbing, cyanosis or edema Psych Appearance: grossly normal and well kempt Speech and movement: Normal speech and movement present Office Procedures Cardiac Device Check Cardiac Device Check Details: Single-chamber [place] ICD in place. Programmed in VVI at 40 beats per minute. Ventricular pacing thresholds are adequate and stable. Ventricular sensing is excellent. Pacing and shock lead impedance is stable. Battery life is at 2.2 years [id number] Cardiac Device Check, single lead implantable defibrillator Procedure code (CPT) selection complete Assessment & Plan Assessment & Plan (1) Permanent atrial fibrillation: Code(s): I48.21 - Permanent atrial fibrillation Category: Medical Plan: Permanent atrial fibrillation in this elderly gentleman has failed rhythm control approach. Will continue with rate control approach. Could be contributing to his symptoms of exertional shortness of breath although it seems like all of his symptoms are mostly related to psychological issues related to his 's passing and lack of sleep. Discussed with him about pursuing alexander atment from that perspective. Continue full oral anticoagulation, currently on Eliquis 5 mg b.i.d.. Will check BNP as well as CBC. Will obtain digoxin assay today. Continue rate control with carvedilol. (2) Heart failure with reduced ejection fraction: Code(s): I50.20 - Unspecified systolic (congestive) heart failure Category: Medical Plan: Heart failure with reduced ejection fraction with persistent severely reduced LV ejection fraction. Clinically appears to be euvolemic and well compensated although it is difficult to determine his overall fluid status. Will check BNP and BMP today. Continue current medical therapy including with carvedilol, Entresto, Farxiga. Continue current diuretic dose. Daily weight monitoring avoidance of salt loading was discussed. Continue participate in physical activity. Given his symptoms will refer him for phase 2 cardiac rehabilitation. (3) ICD (implantable 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-defibrillator) in place: Code(s): Z95.810 - Presence of automatic (implantable) cardiac defibrillator Category: Medical Plan: ICD in place, working well. Will follow remotely. Also follow-up every 3 months for device check. Thank you for allowing me to partake in his care. Orders: Orders Cardiac Rehab Today I50.20 - Unspecified systolic (congestive) heart failure Basic Metabolic Panel Today I50.20 - Unspecified systolic (congestive) heart failure B Type Natriuretic Peptide Today I50.20 - Unspecified systolic (congestive) heart failure Complete Blood Count no Diff Today I50.20 - Unspecified systolic (congestive) heart failure Coding Level of Care Code Est Pt Level 4 (27568) Diagnoses Permanent atrial fibrillation I48.21 Heart failure with reduced ejection fraction I50.20 ICD (implantable 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-defibrillator) in place Z95.810 CPT Codes Cardiac Device Check - Cardiac Device 4: [id number] Cardiac Device Check, single lead implantable defibrillator ([id number])
== END 2023-11-23 15:36 | disposition home or self-care (01) ==
LOC: HO.HCS 14:33
PROVIDERS: PCP Internal Medicine; Visit Provider Internal Medicine Cardiovascular Disease
DX: I48.21 Permanent atrial fibrillation (principal); I50.20 Unspecified systolic (congestive) heart failure; Z95.810 Presence of automatic (implantable) cardiac defibrillator
CPT/HCPCS: 93010; 93282; 99214

== ENCOUNTER 2023-11-23 14:33 | Outpatient (REF) | payer OTHER, SELFPAY ==
[2023-11-23 16:06] LABS: Hematocrit 41.5 % (42.0-52.0); Hemoglobin 14.4 g/dl (14.0-18.0); Mean Corpuscular HGB Conc 34.7 g/dl (31.0-36.0); Mean Corpuscular Hemoglobin 31.8 pg (27.0-33.0); Mean Corpuscular Volume 91.6 fL (80.0-98.0); Mean Platelet Volume 9.3 fL (9.4-12.4); Platelet Count 254 X10*3/uL (160-400); Red Blood Count 4.53 X10*6/uL (4.60-5.80); Red Cell Distribution Width 13.2 % (11.0-16.0); White Blood Count 9.2 X10*3/uL (4.8-10.8)
[2023-11-23 16:24] LABS: B Type Natriuretic Peptide 314 pg/mL (<100)
[2023-11-23 16:27] LABS: Anion Gap 14 (12-20); Blood Urea Nitrogen 23 mg/dL (9-16); Carbon Dioxide 25 mmol/L (22-29); Chloride 105 mmol/L (96-108); Estimated Glomerular Filt Rate 54; Glucose Random 179 mg/dL (60-115); Potassium 4.7 mmol/L (3.3-5.1); Sodium 139 mmol/L (135-145)
== END 2023-11-23 14:34 | disposition home or self-care (01) ==
LOC: HO.LAB 14:33
PROVIDERS: PCP Internal Medicine; Visit Provider Internal Medicine Cardiovascular Disease
DX: I48.21 Permanent atrial fibrillation (principal); I50.20 Unspecified systolic (congestive) heart failure; Z95.810 Presence of automatic (implantable) cardiac defibrillator
CPT/HCPCS: 36415; 80048; 83880; 85027; 93005; 99212

== ENCOUNTER 2023-12-08 15:18 | Outpatient (AMB) | payer OTHER, SELFPAY ==
[2023-12-08 15:24] VITALS: BP 122/60; PULSE 56; O2SAT 98; BMI 31.9
--- NOTE | 2023-12-08 15:24 | MHC.PC.OV ---
Vital Signs 12/08/23 15:24 Height 5 ft 7 in Weight 203 lb 8 oz BMI 31.9 BP 122/60 Blood Pressure Location Lt brachial Position Sitting Pulse 56 Pulse Source Pulse Oximeter Pulse Oximetry (%) 98 Oxygen Delivery Method Room Air Intake Visit Reasons: dm Post Anesthesia Room Nurse Required: No Accompanied by: Self / Same As Patient Allergies dog dander [dogs] Allergy (Intermediate, Verified 12/08/23 15:36) Sneezing grass Allergy (Intermediate, Verified 12/08/23 15:36) Rash insect venom [mosquito bites] Allergy (Intermediate, Verified 12/08/23 15:36) Rash roaches Allergy (Intermediate, Verified 12/08/23 15:36) Rash trees Allergy (Intermediate, Verified 12/08/23 15:36) Rash atorvastatin [Lipitor] Adverse Reaction (Intermediate, Verified 12/08/23 15:36) stomach aches Medication List - Last Reconciled 12/08/23 by Christie Jain MD albuterol sulfate 90 mcg/actuation (Ventolin HFA) 2 puffs inhalation Q6H PRN 30 days apixaban (Eliquis) 5 mg PO BID Arnuity Ellipta 200 mcg/actuation (fluticasone furoate) 1 inh inhalation DAILY NS blood sugar diagnostic (FreeStyle Lite Strips) 3 times a day carvedilol 25 mg PO BID cholecalciferol (vitamin D3) 25 mcg PO DAILY 90 days clonazepam 0.5 mg PO DAILY PRN clonazepam (Klonopin) 0.5 mg PO BEDTIME cyanocobalamin (vitamin B-12) 500 mcg PO every other day in the morning; dapagliflozin propanediol (Farxiga) 10 mg PO DAILY 90 days dulaglutide (Trulicity) 1.5 mg (0.5 mL) subcut QWEEK 90 days duloxetine 30 mg PO QAM duloxetine 60 mg PO DAILY eluxadoline (Viberzi) 100 mg PO BID famotidine (Pepcid) 40 mg PO BEDTIME fenofibrate 54 mg PO DAILY 90 days furosemide 40 mg PO DAILY 90 days gabapentin 300 mg PO BID 90 days hospital bed As directed hydrocortisone 1% (Anti-Itch (hydrocortisone)) 1 appl topical BID PRN 2 weeks icosapent ethyl (Vascepa) 2 grams (2 x 1 gram) PO BID 90 days ketoconazole 2% 1 appl topical 2XW lancets (TRUEplus Lancets) TEST BLOOD SUGAR THREE TIMES DAILY lancets 3 times a day loperamide (Imodium A-D) 4 mg (2 x 2 mg) PO TID PRN metformin ER 1,000 mg (2 x 500 mg) PO BID 90 days peg 3350-electrolytes 236-22.74-6.74 -5.86 gram (Golytely) 240 mL PO Q10M 1 day pen needle, diabetic (Pentips) As directed pen needle, diabetic (UltiCare Pen Needle) As directed 1 time a day rosuvastatin 10 mg PO BEDTIME 90 days sacubitril-valsartan 24-26 mg (Entresto) 1 tab PO BID [scooter As directed] [wipes As directed] Tobacco use date assessed: 08/06/23 Fall risk assessment: No Falls in past year Last assessed Fall Risk: 12/08/23 Dental Screening Dental Screen Date: 08/06/23 HPI HPI Comments History of Present Illness Details This is a 73-year-old male with diabetes mellitus type 2, chronic kidney disease stage 3, asthma-COPD overlap syndrome, chronic systolic congestive heart failure, moderate major depression and permanent atrial fibrillation that comes today for follow-up on his conditions. A1c elevated and I will increase Trulicity. Diabetes is follow by Endocrinology. Last GFR was 54. Asthma-COPD overlap syndrome is follow by pulmonology and requires rescue inhaler few times a month. Last echocardiogram done May 2023 showed ejection fraction of 20-25%. He denies gaining 5 lb in a week. Compliant with medications. Atrial fibrillation and congestive heart failure is follow by cardiology. On chronic anticoagulation for atrial fibrillation and the goal is heart rate control. He has moderate major depression follow by Psychiatry and has been using duloxetine for this matter. He does have a dog which has improved his depression. Due to his congestive heart failure he will benefit from a hospital bed requiring and and goal that can not be done with a regular bed. Also will benefit from a recliner to avoid leg edema and shortness of breath. [facility] Medical History (Updated 12/08/23 @ 19:47 by Christie Jain MD) Diabetes mellitus with hyperglycemia, with long-term current use of insulin Permanent atrial fibrillation History of cardioversion Hospital discharge follow-up Cellulitis of left ankle Elevated TSH Diabetes mellitus Persistent atrial fibrillation Ear discomfort Atrial flutter Acute on chronic HFrEF (heart failure with reduced ejection fraction) Tubular adenoma of colon Cardiomyopathy ICD (implantable 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-defibrillator) in place Paroxysmal atrial fibrillation Heart failure with reduced ejection fraction CHF (congestive heart failure) Mixed hyperlipidemia Seborrheic dermatitis of scalp Hearing loss Obesity (BMI 30-39.9) Hypoglycemia unawareness associated with type 2 diabetes mellitus Vitamin D deficiency Diabetic nephropathy associated with type 2 diabetes mellitus 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 Restrictive lung disease Asthma-COPD overlap syndrome Asthma Anemia COPD (chronic obstructive pulmonary disease) HLD (hyperlipidemia) HTN (hypertension) Depression with anxiety GERD (gastroesophageal reflux disease) Essential hypertension Diabetes type 2, uncontrolled Surgical History Hx of bilateral cataract extraction History of esophagogastroduodenoscopy (EGD) Hx of colonoscopy History of cardiac defibrillator placement History of thumb surgery Family History Father Cancer Mother Cancer Family/Other Diabetes CHF (congestive heart failure) Social History Household Members: None Housing: Apartment Alcohol intake: never Patient Tobacco Use Status: Former Tobacco user Tobacco use type: Cigarette e-Cigarette/Vaping Use: Never Used Second Hand Smoke Exposure: No service: No Current occupational status: disabled Cognitive needs: No Hearing needs: No Vision needs: Yes Questionnaire Thrive Questionnaire Date Thrive assessed: 08/06/23 DARRYL-7 AMB Questionnaire DARRYL-7 Date DARRYL - 7 assessed: 08/06/23 Source: Developed by Drs. José Miguel Neri, Yomaira Roman, Maxwell Erazo and colleagues, with an educational bong from [employer]. Review of Systems Const All systems reviewed & are unremarkable except as noted in HPI and below Card Denies chest pain at rest, Denies chest pain with activity, Denies edema, Denies irregular heart rhythm, Denies claudication, Denies dyspnea, Denies dyspnea on exertion, Denies orthopnea, Denies paroxysmal nocturnal dyspnea and Denies slow heart rate Resp Denies cough, Denies dyspnea and Denies dyspnea on exertion GI Denies abdominal pain, Denies change in bowel habits, Denies excessive flatus, Denies nausea and Denies vomiting Denies urinary hesitancy, Denies urinary incontinence and Denies urinary urgency Musc Denies abnormal gait, Denies atrophy, Denies deformity and Denies limited range of motion Skin/Breast Denies bleeding lesions, Denies changing lesions and Denies rash Neuro Denies abnormal gait and Denies lack of coordination Physical exam (Primary Care) Vital Signs: Last Vital Signs Pulse 56 12/08/23 15:24 BP 122/60 12/08/23 15:24 Pulse Ox 98 12/08/23 15:24 Oxygen Delivery Method Room Air 12/08/23 15:24 BMI result Body Mass Index 31.9 Tobacco/Smoking Status: Tobacco use Status Tobacco use date assessed 08/06/23 12/08/23 15:29 Patient Tobacco Use Status Former Tobacco user 12/08/23 15:29 Tobacco use type Cigarette 12/08/23 15:29 e-Cigarette/Vaping Use Never Used 12/08/23 15:29 Thrive Assessment: Date of Thrive Assessment Date Thrive assessed 08/06/23 12/08/23 15:29 Resp Effort & Inspection: normal respiratory effort Auscultation: clear to auscultation bilaterally Cardio Jugular venous distension: no JVD Rate: regular rate Rhythm: regular rhythm Heart sounds: S1 normal heart sound present and S2 normal heart sound present Extrem General: Yes full ROM Results AMB Hemoglobin A1c AMB Hemoglobin A1c 8.0 % Last Edit by JAYA Mendoza on 12/08/23 15:41 Results Reviewed Results Reviewed: Laboratory Last Values Hgb A1c (Clinic) 8.0 % (4.0-6.0) H 12/08/23 15:40 Assessment and Plan Assessment & Plan (1) Moderate major depression: Code(s): F32.1 - Major depressive disorder, single episode, moderate Plan: Continue duloxetine. Follow-up with psychiatry. (2) CKD (chronic kidney disease) stage 3, GFR 30-59 ml/min: Code(s): N18.30 - Chronic kidney disease, stage 3 unspecified Plan: Avoid NSAIDs. Keep blood pressure within goal. (3) Permanent atrial fibrillation: Code(s): I48.21 - Permanent atrial fibrillation Plan: Continue Doacs. The goal is heart rate control. (4) Heart failure with reduced ejection fraction: Code(s): I50.20 - Unspecified systolic (congestive) heart failure Plan: Continue carvedilol, Farxiga and Entresto. The goal is to not gain 5 lb in a week. Follow-up with Cardiology. (5) Asthma-COPD overlap syndrome: Comment: The Asthma/COPD is fairly well controlled. spirometry on his last visit showed moderate restrictive disorder, FVC 64%, FEV1 70% No obstructive component . These results were similar to the results in 2020. Code(s): J44.9 - Chronic obstructive pulmonary disease, unspecified Plan: Continue long-acting inhaler. Use rescue inhaler as needed. 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 Increase Trulicity. A1c goal is equal or less than 7%. Follow-up with endocrinology. Orders: Orders AMB Hemoglobin A1c Today E11.65 - Type 2 diabetes mellitus with hyperglycemia Vitamin D 25-OH Total 4 Months E55.9 - Vitamin D deficiency, unspecified Vitamin B12 and Folate 4 Months E53.8 - Deficiency of other specified B group vitamins IRON PROFILE 4 Months D64.9 - Anemia, unspecified Comprehensive Sutton. Panel Fast 4 Months N18.30 - Chronic kidney disease, stage 3 unspecified NT-proBNP 4 Months I42.9 - Cardiomyopathy, unspecified US abdominal aortic aneurysm Today Z87.891 - Personal history of nicotine dependence Lipid Panel 4 Months E78.5 - Hyperlipidemia, unspecified Microalbumin, Random (w Creat) 4 Months E11.9 - Type 2 diabetes mellitus without complications Complete Blood Count Auto Diff 4 Months D64.9 - Anemia, unspecified Medications: New dulaglutide (Trulicity) 3 mg (0.5 mL) subcut QWEEK 90 days 6.5 mL 3RF E11.65 - Type 2 diabetes mellitus with hyperglycemia [recliner] As directed 1 ea 0RF I42.9 - Cardiomyopathy, unspecified, I48.21 - Permanent atrial fibrillation, M51.36 - Other intervertebral disc degeneration, lumbar region Discontinued dulaglutide (Trulicity) Discontinued Reason: Patient Completed Course 1.5 mg (0.5 mL) subcut QWEEK 90 days 6.5 mL 1RF Coding Level of Care Code Est Pt Level 4 (58870) Complex EM visit Add On G2211 Diagnoses Moderate major depression F32.1 CKD (chronic kidney disease) stage 3, GFR 30-59 ml/min N18.30 Permanent atrial fibrillation I48.21 Heart failure with reduced ejection fraction I50.20 Asthma-COPD overlap syndrome J44.9 Type 2 diabetes mellitus with hyperglycemia, without long-term current use of insulin E11.65 Diabetes mellitus type: type 2 Diabetes mellitus fci insulin use: without regional intermodal truck driver use Diabetes mellitus complication status: with hyperglycemia Time Spent (min) 25
== END 2023-12-08 15:52 | disposition home or self-care (01) ==
PROVIDERS: PCP Internal Medicine; Visit Provider Internal Medicine
DX: F32.1 Major depressive disorder, single episode, moderate (principal); N18.30 Chronic kidney disease, stage 3 unspecified; I48.21 Permanent atrial fibrillation; I50.20 Unspecified systolic (congestive) heart failure; J44.9 Chronic obstructive pulmonary disease, unspecified; E11.65 Type 2 diabetes mellitus with hyperglycemia
CPT/HCPCS: 83036; 99214; G2211

== ENCOUNTER 2023-12-18 08:32 | Outpatient (REF) | payer OTHER, SELFPAY ==
--- NOTE | ~2023-12-18 | US_ITS ---
EXAMINATION: US RETROPERITONEAL LIMITED (AORTA) CLINICAL INFORMATION: Hyperlipidemia. COMPARISON: US retroperitoneal limited (aorta) 01/07/2019. TECHNIQUE: Mendes-scale, color Doppler and spectral Doppler evaluation of the abdominal aorta. FINDINGS: There is atherosclerotic disease. The measurements of the aorta in maximum AP and transverse dimensions respectively are as follows: Proximal: 2.5 x 2.5 cm. Mid: 2.0 x 2.2 cm. Distal: 2.0 x 1.9 cm. PSV: 87.4 cm/s. The measurements of the common iliac arteries in maximum AP and TRV dimensions are as follows: Right Common Iliac Artery: 1.0 x 1.3 cm. Left Common Iliac Artery: 1.0 x 1.3 cm. Incidental note is increased echogenicity of the liver suggesting hepatic steatosis. US/US abdominal aortic aneurysm IMPRESSION: No abdominal aortic or iliac artery aneurysm.
== END 2023-12-18 08:33 | disposition home or self-care (01) ==
LOC: HO.US 08:32
PROVIDERS: PCP Internal Medicine; Visit Provider Internal Medicine
DX: Z13.6 Encounter for screening for cardiovascular disorders (principal); Z87.891 Personal history of nicotine dependence
CPT/HCPCS: 76706

== ENCOUNTER 2023-12-23 15:51 | Outpatient (REF) | payer OTHER, SELFPAY ==
--- NOTE | 2023-12-28 14:14 | P.CONNP_ITS ---
History of Present Illness Reason for Consult Consult date: 12/28/23 Chief Complaint Chief complaint: Irritable bowel syndrome with diarrhea Cardiomyopa History of Present Illness Narrative: RTANE patient seen by me for his CKD 3 in ting of DM and HFrEF I reviewed with him our approach and ongoing manage,ment Full notes aail in my office if needed--[phone]) Call or TText me any questions He has f/u with me stephy LEAVITT Past Medical History Medical History (Updated 12/08/23 @ 19:47 by Christie Jain MD) Diabetes mellitus with hyperglycemia, with long-term current use of insulin Permanent atrial fibrillation History of cardioversion Hospital discharge follow-up Cellulitis of left ankle Elevated TSH Diabetes mellitus Persistent atrial fibrillation Ear discomfort Atrial flutter Acute on chronic HFrEF (heart failure with reduced ejection fraction) Tubular adenoma of colon Cardiomyopathy ICD (implantable 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-defibrillator) in place Paroxysmal atrial fibrillation Heart failure with reduced ejection fraction CHF (congestive heart failure) Mixed hyperlipidemia Seborrheic dermatitis of scalp Hearing loss Obesity (BMI 30-39.9) Hypoglycemia unawareness associated with type 2 diabetes mellitus Vitamin D deficiency Diabetic nephropathy associated with type 2 diabetes mellitus residential (current) use of insulin Restrictive lung disease Asthma-COPD overlap syndrome Asthma Anemia COPD (chronic obstructive pulmonary disease) HLD (hyperlipidemia) HTN (hypertension) Depression with anxiety GERD (gastroesophageal reflux disease) Essential hypertension Diabetes type 2, uncontrolled Family History Family History Father Cancer Mother Cancer Family/Other Diabetes CHF (congestive heart failure) Surgical History Surgical History Hx of bilateral cataract extraction History of esophagogastroduodenoscopy (EGD) Hx of colonoscopy History of cardiac defibrillator placement History of thumb surgery Social History Social History Household Members: None Housing: Apartment Alcohol intake: never Patient Tobacco Use Status: Former Tobacco user Tobacco use type: Cigarette e-Cigarette/Vaping Use: Never Used Second Hand Smoke Exposure: No service: No Current occupational status: disabled Cognitive needs: No Hearing needs: No Vision needs: Yes Meds Allergies Allergy/AdvReac Type Severity Reaction Status Date / Time dog dander [dogs] Allergy Intermediate Sneezing Verified 12/08/23 15:36 grass Allergy Intermediate Rash Verified 12/08/23 15:36 insect venom [mosquito bites] Allergy Intermediate Rash Verified 12/08/23 15:36 roaches Allergy Intermediate Rash Verified 12/08/23 15:36 trees Allergy Intermediate Rash Verified 12/08/23 15:36 atorvastatin [Lipitor] AdvReac Intermediate stomach Verified 12/08/23 15:36 aches Home Medications ?Medication ?Instructions ?Recorded ?Confirmed ?Last Taken ?Type clonazepam 0.5 mg tablet 0.5 mg PO DAILY PRN Anxiety 04/16/20 12/08/23 Unknown History duloxetine 30 mg capsule,delayed 30 mg PO QAM 07/22/22 12/08/23 12/31/22 History release duloxetine 60 mg capsule,delayed 60 mg PO DAILY 08/19/22 12/08/23 12/31/22 History release clonazepam 0.5 mg tablet (Klonopin) 0.5 mg PO BEDTIME 11/12/23 12/08/23 Unknown History Procedures Date of Service Date of Service: 12/28/23
[2023-12-31 00:09] LABS: Pancreatic Elastase-1 327 mcg/g
[2024-01-01 01:49] LABS: Calprotectin, Fecal 155 mcg/g
== END 2023-12-23 15:52 | disposition home or self-care (01) ==
LOC: HO.LNP 15:51
PROVIDERS: Visit Provider Nurse Practitioner
DX: K58.0 Irritable bowel syndrome with diarrhea (principal); I42.9 Cardiomyopathy, unspecified; Z95.810 Presence of automatic (implantable) cardiac defibrillator
CPT/HCPCS: 82656; 83993

== ENCOUNTER 2023-12-30 14:08 | Outpatient (AMB) | payer OTHER, SELFPAY ==
--- NOTE | 2023-12-30 14:09 | A.OFFVIS_ITS ---
Vital Signs 12/30/23 14:14 Height 5 ft 7 in Weight 204 lb 9.423 oz BMI 32.0 BP 116/52 L Blood Pressure Location Lt brachial Position Sitting Pulse 70 Intake Visit Reasons: 6 week follow up Intake Note: Patient in office today in follow up of labs. CC: Patient states that he had an abdominal arterial study US ordered by Dr. Sanches that was normal. Patient states that he was advised by Dr. Sanches to make sure that he is cleared from cardiology standpoint before having colonoscopy done. He c/o abdominal pain, diarrhea, constipation, and nausea. 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 Accompanied by: Self / Same As Patient Allergies dog dander [dogs] Allergy (Intermediate, Verified 12/30/23 14:23) Sneezing grass Allergy (Intermediate, Verified 12/30/23 14:23) Rash insect venom [mosquito bites] Allergy (Intermediate, Verified 12/30/23 14:23) Rash roaches Allergy (Intermediate, Verified 12/30/23 14:23) Rash trees Allergy (Intermediate, Verified 12/30/23 14:23) Rash atorvastatin [Lipitor] Adverse Reaction (Intermediate, Verified 12/30/23 14:23) stomach aches HPI HPI 6 week follow up: Details: Assessment & Plan (1) GERD (gastroesophageal reflux disease): Code(s): K21.9 - Gastro-esophageal reflux disease without esophagitis Category: Medical Qualifiers: Esophagitis presence: esophagitis presence not specified Qualified Code(s): K21.9 - Gastro-esophageal reflux disease without esophagitis (2) Irritable bowel syndrome with diarrhea: Code(s): K58.0 - Irritable bowel syndrome with diarrhea Category: Medical (3) Tubular adenoma of colon: Comment: 05/17/2021 Neg Cologuard as pt has poor cardiac status, repeat 3 years: 07/2020 scope poor prep repeat 6-8 months, 12 mm pedunculated polyp removed with cold snare and base of stalk clipped x 2, with no bleeding noted. another 6-7 mm sessile polyp removed with cold snare, this was followed by a negative Cologuard so repeat in 2023 Code(s): D12.6 - Benign neoplasm of colon, unspecified Category: Medical (4) ICD (implantable 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-defibrillator) in place: Code(s): Z95.810 - Presence of automatic (implantable) cardiac defibrillator Category: Medical (5) Cardiomyopathy: Code(s): I42.9 - Cardiomyopathy, unspecified Category: Medical (6) Pre-op examination: Code(s): Z01.818 - Encounter for other preprocedural examination Category: Medical Plan Slovenian # Jorge Luis, jose antonio The patient is due for a repeat Cologuard test He continues on Viberzi, loperamide, and famotidine. I also treat his who has progressing dementia name Christie. Unfortunately, his this June after a long donovan with her Alzheimer's disease. He is agreeable to a repeat colonoscopy as he now has a pacer and his chronic afib is stable. He is on Eliquis and Trulicity which will need to be held per protocol. He is having a great deal of diarrhea and cramping and gas despite taking his [id number] bid and his loperimide. I want to get a stool calprotectin and pancrease to see if there is another underlying pathology to address as he has failed many modalities of tx. There are no prior problems with anesthesia or sedation. He has asthma/COPD that is controlled and chronic afib and HF that is controlled with pacer. NO ID problems. He has a history of tubular adenomas in 2020 but then had uncontrolled cardiac problems that prevented colonoscopy. We did a Cologuard that year that was negative. ROV 6 weeks to review results and decide on further tx. Orders: Orders Calprotectin, Fecal Today I42.9 - Cardiomyopathy, unspecified, K58.0 - Irritable bowel syndrome with diarrhea, Z95.810 - Presence of automatic (implantable) cardiac defibrillator C Reactive Protein Today I42.9 - Cardiomyopathy, unspecified, K58.0 - Irritable bowel syndrome with diarrhea, Z95.810 - Presence of automatic (implantable) cardiac defibrillator Pancreatic Elastase-1 Today I42.9 - Cardiomyopathy, unspecified, K58.0 - Irritable bowel syndrome with diarrhea, Z95.810 - Presence of automatic (implantable) cardiac defibrillator Colonoscopy - GI Use Only Today I42.9 - Cardiomyopathy, unspecified, K58.0 - Irritable bowel syndrome with diarrhea, Z95.810 - Presence of automatic (implantable) cardiac defibrillator Comprehensive Met. Panel Today D12.6 - Benign neoplasm of colon, unspecified, Z01.818 - Encounter for other preprocedural examination Complete Blood Count Auto Diff Today D12.6 - Benign neoplasm of colon, unspecified, Z01.818 - Encounter for other preprocedural examination Rast Allergen Today K58.0 - Irritable bowel syndrome with diarrhea Medications: New peg 3350-electrolytes 236-22.74-6.74 -5.86 gram (Golytely) until fecal effluent is clear; do not exceed a total volume of 2,000 mL 240 mL PO Q10M 1 day 4,000 mL 0RF Z12.11 - Encounter for screening for malignant neoplasm of colon Refilled loperamide (Imodium A-D) 4 mg (2 x 2 mg) PO TID PRN 90 caps 3RF loose stool K58.0 - Irritable bowel syndrome with diarrhea LABS: Laboratory Tests 05/21/23 11/12/23 11/23/23 15:22 15:44 15:53 WBC 9.2 RBC 4.53 L Hgb 14.4 Hct 41.5 L MCV 91.6 MCH 31.8 Plt Count 254 Estimated GFR 54 Hgb A1c (Clinic) C-Reactive Protein 0.64 H B-Natriuretic Peptide 154 H 314 H 12/08/23 15:40 WBC RBC Hgb Hct MCV MCH Plt Count Estimated GFR Hgb A1c (Clinic) 8.0 H C-Reactive Protein B-Natriuretic Peptide The fecal calprotectin and pancreatic a last taste are pending. It does not appear that the RAST allergen panel was ever obtained. COLONOSCOPY SCHEDULED FOR 04/01/2024 BIOPSY TODAY'S VISIT [place]ian #Carol Live He continues on Viberzi, loperamide, and famotidine. The fecal calprotectin and pancreatic a last taste are pending. It does not appear that the RAST allergen panel was ever obtained. He says he is having less diarrhea, but at times he also has solid stools. While we are waiting for the return of the stool samples THere is a great deal of confusion about his medications as they are all put in a box. I want him to return with all of his medicines so that I can see what he is taking - there is confusion regarding if he is taking Viberzi - and he is still also taking Pepto and imodium. He says that Dr. Sanches says I have to check my heart to see if I can have the colonoscopy, since he was just seen by Dr. Canchola in October I will send him a mess age. Apparently, he had several attempts at cardioversion for his afib last year. For now, I don't know how to move forward until I see what he is taking for medications. ROV 6 weeks. [facility] Medical History Depression with anxiety Dysuria Hearing loss Pre-op examination Diverticulosis Mixed hyperlipidemia Hospital discharge follow-up Cellulitis of left ankle Diabetes mellitus Ear discomfort Asthma Diabetes mellitus with hyperglycemia, with long-term current use of insulin Permanent atrial fibrillation History of cardioversion Elevated TSH Persistent atrial fibrillation Atrial flutter Acute on chronic HFrEF (heart failure with reduced ejection fraction) Tubular adenoma of colon Cardiomyopathy ICD (implantable 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-defibrillator) in place Paroxysmal atrial fibrillation Heart failure with reduced ejection fraction CHF (congestive heart failure) Mixed hyperlipidemia Seborrheic dermatitis of scalp Hearing loss Obesity (BMI 30-39.9) Hypoglycemia unawareness associated with type 2 diabetes mellitus Vitamin D deficiency Diabetic nephropathy associated with type 2 diabetes mellitus [employer] worker (current) use of insulin Restrictive lung disease Asthma-COPD overlap syndrome Anemia COPD (chronic obstructive pulmonary disease) HLD (hyperlipidemia) HTN (hypertension) GERD (gastroesophageal reflux disease) Essential hypertension Diabetes type 2, uncontrolled Surgical History Hx of bilateral cataract extraction History of esophagogastroduodenoscopy (EGD) Hx of colonoscopy History of cardiac defibrillator placement History of thumb surgery Family History Father Cancer Mother Cancer Family/Other Diabetes CHF (congestive heart failure) Social History Household Members: None Housing: Apartment Alcohol intake: never Patient Tobacco Use Status: Former Tobacco user Tobacco use type: Cigarette e-Cigarette/Vaping Use: Never Used Second Hand Smoke Exposure: No service: No Current occupational status: disabled Cognitive needs: No Hearing needs: No Vision needs: Yes Review of Systems Const Denies fatigue, Denies fever(s), Denies night sweats, Denies poor appetite and Denies weight loss ENT Reports Normal hearing present, Denies dental pain, Denies dysphagia, Denies hearing loss, Denies mouth pain, Denies odynophagia, Denies throat swelling, Denies tongue swelling and Reports other (Dentition adequate) Card Reports no additional complaints Resp Reports no additional complaints GI Details: Denies abdominal pain, Denies melena, Denies bloating, Denies hematochezia, Reports constipation, Denies GI cramping, Denies dysphagia, Denies excessive flatus, Denies early satiety, Reports heartburn, Reports diarrhea, Denies nausea, Denies odynophagia, Denies vomiting and Denies hematemesis Skin/Breast Denies pruritus, Denies lesions, Denies rash and Denies jaundice Neuro Reports Normal hearing present and Denies Abnormal speech present Endo Denies fatigue Aller/Immun Denies throat swelling and Denies tongue swelling Physical Exam Vital Signs: Last Vital Signs Pulse 70 12/30/23 14:14 BP 116/52 L 12/30/23 14:14 BMI result Body Mass Index 32.0 Const General: cooperative, no acute distress, well developed and well groomed Nutritional Appearance: well nourished and obese Orientation/consciousness: oriented to person, oriented to place and oriented to time Limitations: language barrier HEENT Head: Yes normocephalic and Yes atraumatic Eyes General: appearance normal, both eyes and all related structures Pupils: Equal, round and reactive pupils present Neck Neck: Yes normal visual inspection and Yes no lymphadenopathy Thyroid: Thyroid normal Resp Effort & Inspection: normal respiratory effort and able to speak in complete sentences Auscultation: clear to auscultation bilaterally Cardio Rate: regular rate Rhythm: regular rhythm Heart sounds: Normal, physiologic split S2 sound present Peripheral pulses: radial pulses present and posterior tibial pulses present GI Inspection: No distended, Yes Abdominal panniculus present and Yes obesity Palpation (GI): Soft to palpation, nontender, no guarding, not rigid and No hepatosplenomegaly present Percussion: Yes normal to percussion Auscultation: normal bowel sounds Rectal Exam - Male: Yes deferred Skin General skin exam: no rashes or lesions noted, turgor normal, skin not dry, no jaundice, No spider nevi and no striae Rashes: no rashes Nails: normal Neuro General: oriented to person, oriented to place and oriented to time Cranial nerves: Yes Equal, round and reactive pupils present and Yes Normal hearing present Speech: No Abnormal speech present Extrem General: Yes normal to inspection, No clubbing, No cyanosis and No edema Psych Appearance: grossly normal and well kempt Mental Status: mental status grossly normal Speech and movement: Normal speech and movement present Affect: normal affect Attitude: cooperative Thought process: Normal thought process present and not confabulating Thought content: Normal thought content present Insight: Limited insight present (Psych) Judgement: Limited judgement present (Psych) Results Reviewed Results Reviewed: Laboratory Tests 05/21/23 11/12/23 11/23/23 15:22 15:44 15:53 WBC 9.2 RBC 4.53 L Hgb 14.4 Hct 41.5 L MCV 91.6 MCH 31.8 Plt Count 254 Estimated GFR 54 Hgb A1c (Clinic) C-Reactive Protein 0.64 H B-Natriuretic Peptide 154 H 314 H 12/08/23 15:40 WBC RBC Hgb Hct MCV MCH Plt Count Estimated GFR Hgb A1c (Clinic) 8.0 H C-Reactive Protein B-Natriuretic Peptide Assessment & Plan Assessment & Plan (1) Irritable bowel syndrome with diarrhea: Code(s): K58.0 - Irritable bowel syndrome with diarrhea Category: Medical (2) Tubular adenoma of colon: Comment: 05/17/2021 Neg Cologuard as pt has poor cardiac status, repeat 3 years: 07/2020 scope poor prep repeat 6-8 months, 12 mm pedunculated polyp removed with cold snare and base of stalk clipped x 2, with no bleeding noted. another 6-7 mm sessile polyp removed with cold snare, this was followed by a negative Cologuard so repeat in 2023 Code(s): D12.6 - Benign neoplasm of colon, unspecified Category: Medical (3) GERD (gastroesophageal reflux disease): Code(s): K21.9 - Gastro-esophageal reflux disease without esophagitis Category: Medical Qualifiers: Esophagitis presence: esophagitis presence not specified Qualified Code(s): K21.9 - Gastro-esophageal reflux disease without esophagitis Plan Slovenian #Carol Rivera He continues on Viberzi, loperamide, and famotidine. The fecal calprotectin and pancreatic a last taste are pending. It does not appear that the RAST allergen panel was ever obtained. He says he is having less diarrhea, but at times he also has solid stools. While we are waiting for the return of the stool samples THere is a great deal of confusion about his medications as they are all put in a box. I want him to return with all of his medicines so that I can see what he is taking - there is confusion regarding if he is taking Viberzi - and he is still also taking Pepto and imodium. He says that Dr. Sanches says I have to check my heart to see if I can have the colonoscopy, since he was just seen by Dr. Canchola in October I will send him a message. Apparently, he had several attempts at cardioversion for his afib last year. For now, I don't know how to move forward until I see what he is taking for medications. ROV 6 weeks. COLONOSCOPY SCHEDULED FOR 04/01/2024 BIOPSY Coding Level of Care Code Est Pt Level 3 (23232) Diagnoses Irritable bowel syndrome with diarrhea K58.0 Tubular adenoma of colon D12.6 Gastroesophageal reflux disease, unspecified whether esophagitis present K21.9 Esophagitis presence: esophagitis presence not specified
[2023-12-30 14:14] VITALS: BP 116/52; PULSE 70; BMI 32.0
== END 2023-12-30 15:04 | disposition home or self-care (01) ==
PROVIDERS: PCP Internal Medicine; Visit Provider Nurse Practitioner
DX: K58.0 Irritable bowel syndrome with diarrhea (principal); D12.6 Benign neoplasm of colon, unspecified; K21.9 Gastro-esophageal reflux disease without esophagitis
CPT/HCPCS: 99213

== ENCOUNTER → 2023-12-30 14:08 | Outpatient (BNVA) | payer OTHER, SELFPAY | PROVIDERS: PCP Internal Medicine; Visit Provider Nurse Practitioner | DX: K58.0 Irritable bowel syndrome with diarrhea (principal); K21.9 Gastro-esophageal reflux disease without esophagitis; D12.6 Benign neoplasm of colon, unspecified | CPT/HCPCS: 99212 ==

== ENCOUNTER → 2024-01-14 23:59 | Outpatient (BNV) | payer OTHER, SELFPAY ==
--- NOTE | 2024-01-20 08:42 | MHC.OFFVIS ---
Intake Visit Reasons: Remote ICD check- [facility] Allergies dog dander [dogs] Allergy (Intermediate, Verified 12/30/23 14:23) Sneezing grass Allergy (Intermediate, Verified 12/30/23 14:23) Rash insect venom [mosquito bites] Allergy (Intermediate, Verified 12/30/23 14:23) Rash roaches Allergy (Intermediate, Verified 12/30/23 14:23) Rash trees Allergy (Intermediate, Verified 12/30/23 14:23) Rash atorvastatin [Lipitor] Adverse Reaction (Intermediate, Verified 12/30/23 14:23) stomach aches PFSH Medical History Depression with anxiety Dysuria Hearing loss Pre-op examination Diverticulosis Mixed hyperlipidemia Hospital discharge follow-up Cellulitis of left ankle Diabetes mellitus Ear discomfort Asthma Diabetes mellitus with hyperglycemia, with long-term current use of insulin Permanent atrial fibrillation History of cardioversion Elevated TSH Persistent atrial fibrillation Atrial flutter Acute on chronic HFrEF (heart failure with reduced ejection fraction) Tubular adenoma of colon Cardiomyopathy ICD (implantable 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-defibrillator) in place Paroxysmal atrial fibrillation Heart failure with reduced ejection fraction CHF (congestive heart failure) Mixed hyperlipidemia Seborrheic dermatitis of scalp Hearing loss Obesity (BMI 30-39.9) Hypoglycemia unawareness associated with type 2 diabetes mellitus Vitamin D deficiency Diabetic nephropathy associated with type 2 diabetes mellitus [facility] (current) use of insulin Restrictive lung disease Asthma-COPD overlap syndrome Anemia COPD (chronic obstructive pulmonary disease) HLD (hyperlipidemia) HTN (hypertension) GERD (gastroesophageal reflux disease) Essential hypertension Diabetes type 2, uncontrolled Surgical History Hx of bilateral cataract extraction History of esophagogastroduodenoscopy (EGD) Hx of colonoscopy History of cardiac defibrillator placement History of thumb surgery Family History Father Cancer Mother Cancer Family/Other Diabetes CHF (congestive heart failure) Social History Household Members: None Housing: Apartment Alcohol intake: never Patient Tobacco Use Status: Former Tobacco user Tobacco use type: Cigarette e-Cigarette/Vaping Use: Never Used Second Hand Smoke Exposure: No service: No Current occupational status: disabled Cognitive needs: No Hearing needs: No Vision needs: Yes Office Procedures Cardiac Device Check Cardiac Device Check Details: Remote ICD report generated 01/14/2024. ICD function is adequate [id number] Cardiac Interrogation, implant defibrillator w/interim Procedure code (CPT) selection complete Assessment & Plan Assessment & Plan (1) ICD (implantable 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-defibrillator) in place: Code(s): Z95.810 - Presence of automatic (implantable) cardiac defibrillator Category: Medical Plan: See above Coding Level of Care Code Procedure Only Diagnoses ICD (implantable 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-defibrillator) in place Z95.810 CPT Codes Cardiac Device Check - Cardiac Device 13: [id number] Cardiac Interrogation, implant defibrillator w/interim ([id number])
== END ==
PROVIDERS: PCP Internal Medicine; Visit Provider Internal Medicine Cardiovascular Disease
DX: Z45.02 Encounter for adjustment and management of automatic implantable cardiac defibrillator (principal)
CPT/HCPCS: 93295

== ENCOUNTER 2024-02-03 13:28 | Outpatient (AMB) | payer OTHER, SELFPAY ==
[2024-02-03 13:37] VITALS: BP 120/52; PULSE 56; O2SAT 97; BMI 32.1
--- NOTE | 2024-02-03 13:37 | MHC.OFFVIS ---
Vital Signs 02/03/24 13:37 Height 5 ft 7 in Weight 205 lb BMI 32.1 BP 120/52 L Blood Pressure Location Lt brachial Position Sitting Pulse 56 Pulse Source Pulse Oximeter Pulse Oximetry (%) 97 Oxygen Delivery Method Room Air Intake Visit Reasons: COPD Directional Bore Operator Required: Yes Directional Bore Operator Services: Directional Bore Operator Present Directional Bore Operator Name: tachira Allergies dog dander [dogs] Allergy (Intermediate, Verified 02/03/24 13:42) Sneezing grass Allergy (Intermediate, Verified 02/03/24 13:42) Rash insect venom [mosquito bites] Allergy (Intermediate, Verified 02/03/24 13:42) Rash roaches Allergy (Intermediate, Verified 02/03/24 13:42) Rash trees Allergy (Intermediate, Verified 02/03/24 13:42) Rash atorvastatin [Lipitor] Adverse Reaction (Intermediate, Verified 02/03/24 13:42) stomach aches Medication List - Last Reconciled 02/03/24 by Sacha Gonzalez MD albuterol sulfate 90 mcg/actuation (Ventolin HFA) 2 puffs inhalation Q6H PRN 30 days apixaban (Eliquis) 5 mg PO BID Arnuity Ellipta 200 mcg/actuation (fluticasone furoate) 1 inh inhalation DAILY NS blood sugar diagnostic (FreeStyle Lite Strips) 3 times a day carvedilol 25 mg PO BID cholecalciferol (vitamin D3) 25 mcg PO DAILY 90 days clonazepam (Klonopin) 0.5 mg PO BEDTIME cyanocobalamin (vitamin B-12) 500 mcg PO every other day in the morning; dapagliflozin propanediol (Farxiga) 10 mg PO DAILY 90 days dulaglutide (Trulicity) 3 mg (0.5 mL) subcut QWEEK 90 days duloxetine 30 mg PO QAM duloxetine 60 mg PO DAILY eluxadoline (Viberzi) 100 mg PO BID famotidine (Pepcid) 40 mg PO BEDTIME fenofibrate 54 mg PO DAILY 90 days furosemide 40 mg PO DAILY 90 days gabapentin 300 mg PO BID 90 days hospital bed As directed hydrocortisone 1% (Anti-Itch (hydrocortisone)) 1 appl topical BID PRN 2 weeks icosapent ethyl (Vascepa) 2 grams (2 x 1 gram) PO BID 90 days ketoconazole 2% 1 appl topical 2XW lancets (TRUEplus Lancets) TEST BLOOD SUGAR THREE TIMES DAILY lancets 3 times a day loperamide (Imodium A-D) 4 mg (2 x 2 mg) PO TID PRN metformin ER 1,000 mg (2 x 500 mg) PO BID 90 days peg 3350-electrolytes 236-22.74-6.74 -5.86 gram (Golytely) 240 mL PO Q10M 1 day pen needle, diabetic (Pentips) As directed pen needle, diabetic (UltiCare Pen Needle) As directed 1 time a day [recliner As directed] rosuvastatin 10 mg PO BEDTIME 90 days sacubitril-valsartan 24-26 mg (Entresto) 1 tab PO BID [scooter As directed] [wipes As directed] Do you need a note to return to daycare/school/sports/work: No HPI HPI COPD: Details: This 74 years old gentleman, is a case of mild bronchial asthma, which has been relatively well controlled with the use of Arnuity once a day. Now for the past week he is having some increased cough but not bringing up any phlegm. There has been no active respiratory infection. He wonders if he can get prescription for a cough medicine. He is nonsmoker. [facility] Medical History Depression with anxiety Dysuria Hearing loss Pre-op examination Diverticulosis Mixed hyperlipidemia Hospital discharge follow-up Cellulitis of left ankle Diabetes mellitus Ear discomfort Asthma Diabetes mellitus with hyperglycemia, with long-term current use of insulin Permanent atrial fibrillation History of cardioversion Elevated TSH Persistent atrial fibrillation Atrial flutter Acute on chronic HFrEF (heart failure with reduced ejection fraction) Tubular adenoma of colon Cardiomyopathy ICD (implantable 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-defibrillator) in place Paroxysmal atrial fibrillation Heart failure with reduced ejection fraction CHF (congestive heart failure) Mixed hyperlipidemia Seborrheic dermatitis of scalp Hearing loss Obesity (BMI 30-39.9) Hypoglycemia unawareness associated with type 2 diabetes mellitus Vitamin D deficiency Diabetic nephropathy associated with type 2 diabetes mellitus assisted (current) use of insulin Restrictive lung disease Asthma-COPD overlap syndrome Anemia COPD (chronic obstructive pulmonary disease) HLD (hyperlipidemia) HTN (hypertension) GERD (gastroesophageal reflux disease) Essential hypertension Diabetes type 2, uncontrolled Surgical History Hx of bilateral cataract extraction History of esophagogastroduodenoscopy (EGD) Hx of colonoscopy History of cardiac defibrillator placement History of thumb surgery Family History Father Cancer Mother Cancer Family/Other Diabetes CHF (congestive heart failure) Social History Household Members: None Housing: Apartment Alcohol intake: never Patient Tobacco Use Status: Former Tobacco user Tobacco use type: Cigarette e-Cigarette/Vaping Use: Never Used Second Hand Smoke Exposure: No service: No Current occupational status: disabled Cognitive needs: No Hearing needs: No Vision needs: Yes Review of Systems Const All systems reviewed & are unremarkable except as noted in HPI and below Eyes Reports no additional complaints ENT Reports no additional complaints Card Denies chest pain, Reports irregular heart rhythm and Denies leg edema Resp Reports as per HPI GI Reports no additional complaints Reports no additional complaints Musc Reports back pain (Mild) and Reports arthralgias (Mild) Skin/Breast Reports system reviewed and no additional complaints, except as documented Neuro Reports no additional complaints Psych Reports no additional complaints Physical Exam Vital Signs: Last Vital Signs Pulse 56 02/03/24 13:37 BP 120/52 L 02/03/24 13:37 Pulse Ox 97 02/03/24 13:37 Oxygen Delivery Method Room Air 02/03/24 13:37 BMI result Body Mass Index 32.1 Const General: comfortable, no acute distress, alert and awake Orientation/consciousness: patient oriented x3 HEENT Head: Yes normal to inspection General nose exam: No nasal polyps present and No nasal discharge present Face and sinus: Yes sinuses nontender Mouth: oropharynx normal Throat: Yes posterior oropharynx normal Eyes General: appearance normal, both eyes and all related structures Neck Neck: Yes normal visual inspection, Yes no lymphadenopathy, Yes trachea midline and Yes no JVD Thyroid: Thyroid normal Chest Chest palpation & inspection: normal inspection of the chest, normal palpation of entire chest wall and no tenderness Resp Other: He has good breath sounds on both sides. Has a few fine wheezes over the back of the chest , no crepitations. Cardio Palpation: normal PMI Rate: regular rate Rhythm: regular rhythm Heart sounds: no gallops and no murmurs GI Palpation (GI): Soft to palpation, nontender, No hepatosplenomegaly present, no masses and Other GI palpation findings present (ABDOMEN IS OBESE AND SLIGHTLY PROTUBERANT) Auscultation: normal bowel sounds Back/Spine/Pelvis Thoracic/Lumbar Spine: thoracic and lumbar spine normal to inspection Skin General skin exam: no rashes or lesions noted Neuro General: patient oriented x3 and no focal motor deficits Cranial nerves: Yes CN's II-XII intact bilaterally Extrem General: Yes normal to inspection, Yes no clubbing, cyanosis or edema and Yes no calf tenderness Psych Appearance: grossly normal and well kempt Speech and movement: Normal speech and movement present Assessment & Plan Assessment & Plan (1) Obesity (BMI 30-39.9): Comment: PATIENT REMAINS MODERATELY OBESE . HE DENIES SYMPTOMS OF SLEEP APNEA. HE IS A DIABETIC AND REMAINS ON DIABETIC DIET. HE IS NOT ABLE TO DO MUCH EXERCISE. Code(s): E66.9 - Obesity, unspecified Category: Medical Plan: Talked to him about diet and need to lose some weight. He is not able to do any active exercise. (2) Asthma-COPD overlap syndrome: Comment: The Asthma/COPD is fairly well controlled. Spirometry on his last visit showed moderate restrictive disorder, FVC= 64%, FEV1 =70% No obstructive component . These results were similar to the results in 2020. Code(s): J44.9 - Chronic obstructive pulmonary disease, unspecified Category: Medical Plan: Advised to continue using Arnuity Ellipta-200 1 inhalation daily. Ventolin HFA 2 puffs Q 4-6 hours p.r.n., but do not use more than once or twice a week . May use OTC cough medicine such as Robitussin syrup or cough drops as needed Coding Level of Care Code Est Pt Level 3 (27251) Diagnoses Obesity (BMI 30-39.9) E66.9 Asthma-COPD overlap syndrome J44.9
== END 2024-02-03 13:52 | disposition home or self-care (01) ==
PROVIDERS: PCP Internal Medicine; Visit Provider Internal Medicine
DX: E66.9 Obesity, unspecified (principal); J44.9 Chronic obstructive pulmonary disease, unspecified
CPT/HCPCS: 99213

== ENCOUNTER → 2024-02-03 13:28 | Outpatient (BNVA) | payer OTHER, SELFPAY | PROVIDERS: PCP Internal Medicine; Visit Provider Internal Medicine | DX: J44.9 Chronic obstructive pulmonary disease, unspecified (principal); E66.9 Obesity, unspecified; Z68.32 Body mass index [BMI] 32.0-32.9, adult | CPT/HCPCS: 99212 ==

== ENCOUNTER 2024-02-09 16:12 | Outpatient (AMB) | payer OTHER, SELFPAY ==
[2024-02-09 16:13] VITALS: BP 120/58; PULSE 67; BMI 31.4
--- NOTE | 2024-02-09 16:13 | MHC.OFFVIS ---
Vital Signs 02/09/24 16:13 Height 5 ft 7 in Weight 200 lb 9.93 oz BMI 31.4 BP 120/58 L Blood Pressure Location Lt brachial Position Sitting Pulse 67 Intake Visit Reasons: 6 week follow up Intake Note: Stephen presents to in office 6 week follow up of IBS. CC: Patient reports a lot of gas and occasional watery stools. He states that today the stools were more solid. Per patient he is having a poor appetite. Second Mate Required: Yes Accompanied by: Sister Allergies dog dander [dogs] Allergy (Intermediate, Verified 02/09/24 16:23) Sneezing grass Allergy (Intermediate, Verified 02/09/24 16:23) Rash insect venom [mosquito bites] Allergy (Intermediate, Verified 02/09/24 16:23) Rash roaches Allergy (Intermediate, Verified 02/09/24 16:23) Rash trees Allergy (Intermediate, Verified 02/09/24 16:23) Rash atorvastatin [Lipitor] Adverse Reaction (Intermediate, Verified 02/09/24 16:23) stomach aches HPI HPI 6 week follow up: Details: Assessment & Plan (1) Irritable bowel syndrome with diarrhea: Code(s): K58.0 - Irritable bowel syndrome with diarrhea Category: Medical (2) Tubular adenoma of colon: Comment: 05/17/2021 Neg Cologuard as pt has poor cardiac status, repeat 3 years: 07/2020 scope poor prep repeat 6-8 months, 12 mm pedunculated polyp removed with cold snare and base of stalk clipped x 2, with no bleeding noted. another 6-7 mm sessile polyp removed with cold snare, this was followed by a negative Cologuard so repeat in 2023 Code(s): D12.6 - Benign neoplasm of colon, unspecified Category: Medical (3) GERD (gastroesophageal reflux disease): Code(s): K21.9 - Gastro-esophageal reflux disease without esophagitis Category: Medical Qualifiers: Esophagitis presence: esophagitis presence not specified Qualified Code(s): K21.9 - Gastro-esophageal reflux disease without esophagitis Plan [place] [facility] He continues on Viberzi, loperamide, and famotidine. The fecal calprotectin and pancreatic a last taste are pending. It does not appear that the RAST allergen panel was ever obtained. He says he is having less diarrhea, but at times he also has solid stools. While we are waiting for the return of the stool samples There is a great deal of confusion about his medications as they are all put in a box. I want him to return with all of his medicines so that I can see what he is taking - there is confusion regarding if he is taking Viberzi - and he is still also taking Pepto and imodium. He says that Dr. Sanches says I have to check my heart to see if I can have the colonoscopy, since he was just seen by Dr. Canchola in October I will send him a message. Apparently, he had several attempts at cardioversion for his afib last year. For now, I don't know how to move forward until I see what he is taking for medications. ROV 6 weeks. COLONOSCOPY SCHEDULED FOR 04/01/2024 BIOPSY TODAYS VISIT [facility] ? did we repeat cologuard vs getting cardiac clearance for colonoscopy. He still has diarrhea. But he still does not know if her is taking his Viberzi. Bring all meds to next appt. Will need reminder call. [facility] Medical History Depression with anxiety Dysuria Hearing loss Pre-op examination Diverticulosis Mixed hyperlipidemia Hospital discharge follow-up Cellulitis of left ankle Diabetes mellitus Ear discomfort Asthma Diabetes mellitus with hyperglycemia, with long-term current use of insulin Permanent atrial fibrillation History of cardioversion Elevated TSH Persistent atrial fibrillation Atrial flutter Acute on chronic HFrEF (heart failure with reduced ejection fraction) Tubular adenoma of colon Cardiomyopathy ICD (implantable 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-defibrillator) in place Paroxysmal atrial fibrillation Heart failure with reduced ejection fraction CHF (congestive heart failure) Mixed hyperlipidemia Seborrheic dermatitis of scalp Hearing loss Obesity (BMI 30-39.9) Hypoglycemia unawareness associated with type 2 diabetes mellitus Vitamin D deficiency Diabetic nephropathy associated with type 2 diabetes 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 Restrictive lung disease Asthma-COPD overlap syndrome Anemia COPD (chronic obstructive pulmonary disease) HLD (hyperlipidemia) HTN (hypertension) GERD (gastroesophageal reflux disease) Essential hypertension Diabetes type 2, uncontrolled Surgical History Hx of bilateral cataract extraction History of esophagogastroduodenoscopy (EGD) Hx of colonoscopy History of cardiac defibrillator placement History of thumb surgery Family History Father Cancer Mother Cancer Family/Other Diabetes CHF (congestive heart failure) Social History Household Members: None Housing: Apartment Alcohol intake: never Patient Tobacco Use Status: Former Tobacco user Tobacco use type: Cigarette e-Cigarette/Vaping Use: Never Used Second Hand Smoke Exposure: No service: No Current occupational status: disabled Cognitive needs: No Hearing needs: No Vision needs: Yes Review of Systems Const Denies fatigue, Denies fever(s), Denies night sweats, Denies poor appetite and Denies weight loss ENT Reports Normal hearing present, Denies dental pain, Denies dysphagia, Denies hearing loss, Denies mouth pain, Denies odynophagia, Denies throat swelling, Denies tongue swelling and Reports other (Dentition adequate) Card Reports no additional complaints Resp Reports no additional complaints GI Details: Denies abdominal pain, Denies melena, Denies bloating, Denies hematochezia, Denies constipation, Denies GI cramping, Denies dysphagia, Denies excessive flatus, Denies early satiety, Denies heartburn, Reports diarrhea, Denies nausea, Denies odynophagia, Denies vomiting and Denies hematemesis Skin/Breast Denies pruritus, Denies lesions, Denies rash and Denies jaundice Neuro Reports Normal hearing present and Denies Abnormal speech present Endo Denies fatigue Aller/Immun Denies throat swelling and Denies tongue swelling Physical Exam Vital Signs: Last Vital Signs Pulse 67 02/09/24 16:13 BP 120/58 L 02/09/24 16:13 BMI result Body Mass Index 31.4 Const General: cooperative, no acute distress, well developed and well groomed Nutritional Appearance: well nourished and obese Orientation/consciousness: oriented to person, oriented to place and oriented to time Limitations: language barrier HEENT Head: Yes normocephalic and Yes atraumatic Eyes General: appearance normal, both eyes and all related structures Pupils: Equal, round and reactive pupils present Neck Neck: Yes normal visual inspection and Yes no lymphadenopathy Thyroid: Thyroid normal Resp Effort & Inspection: normal respiratory effort and able to speak in complete sentences Auscultation: clear to auscultation bilaterally Cardio Rate: regular rate Rhythm: regular rhythm Heart sounds: Normal, physiologic split S2 sound present Peripheral pulses: radial pulses present and posterior tibial pulses present GI Inspection: No distended, No Abdominal panniculus present and Yes obesity Palpation (GI): Soft to palpation, nontender, no guarding, not rigid and No hepatosplenomegaly present Percussion: Yes normal to percussion Auscultation: normal bowel sounds Rectal Exam - Male: Yes deferred Skin General skin exam: no rashes or lesions noted, turgor normal, skin not dry, no jaundice, No spider nevi and no striae Rashes: no rashes Nails: normal Neuro General: oriented to person, oriented to place and oriented to time Cranial nerves: Yes Equal, round and reactive pupils present and Yes Normal hearing present Speech: No Abnormal speech present Extrem General: Yes normal to inspection, No clubbing, No cyanosis and No edema Psych Appearance: grossly normal and well kempt Mental Status: mental status grossly normal Speech and movement: Normal speech and movement present Thought process: Circumstantial thought process present and not confabulating Thought content: Normal thought content present Insight: Limited insight present (Psych) Judgement: Limited judgement present (Psych) Assessment & Plan Assessment & Plan (1) Irritable bowel syndrome with diarrhea: Code(s): K58.0 - Irritable bowel syndrome with diarrhea Category: Medical (2) GERD (gastroesophageal reflux disease): Code(s): K21.9 - Gastro-esophageal reflux disease without esophagitis Category: Medical Qualifiers: Esophagitis presence: esophagitis presence not specified Qualified Code(s): K21.9 - Gastro-esophageal reflux disease without esophagitis Plan [place] [facility] ? did we repeat cologuard vs getting cardiac clearance for colonoscopy. He still has diarrhea. But he still does not know if her is taking his Viberzi. Bring all meds to next appt. Will need reminder call. Return office visit in 3 weeks Coding Level of Care Code Est Pt Level 3 (00777) Diagnoses Irritable bowel syndrome with diarrhea K58.0 Gastroesophageal reflux disease, unspecified whether esophagitis present K21.9 Esophagitis presence: esophagitis presence not specified
== END 2024-02-09 17:24 | disposition home or self-care (01) ==
PROVIDERS: PCP Internal Medicine; Visit Provider Nurse Practitioner
DX: K58.0 Irritable bowel syndrome with diarrhea (principal); K21.9 Gastro-esophageal reflux disease without esophagitis
CPT/HCPCS: 99213

== ENCOUNTER → 2024-02-09 16:12 | Outpatient (BNVA) | payer OTHER, SELFPAY | PROVIDERS: PCP Internal Medicine; Visit Provider Nurse Practitioner | DX: K58.0 Irritable bowel syndrome with diarrhea (principal); K21.9 Gastro-esophageal reflux disease without esophagitis | CPT/HCPCS: 99212 ==

== ENCOUNTER → 2024-02-16 23:59 | Outpatient (BNV) | payer OTHER, SELFPAY ==
--- NOTE | 2024-02-18 15:30 | MHC.OFFVIS ---
Intake Visit Reasons: Remote HF monitoring- [facility] Allergies dog dander [dogs] Allergy (Intermediate, Verified 02/09/24 16:23) Sneezing grass Allergy (Intermediate, Verified 02/09/24 16:23) Rash insect venom [mosquito bites] Allergy (Intermediate, Verified 02/09/24 16:23) Rash roaches Allergy (Intermediate, Verified 02/09/24 16:23) Rash trees Allergy (Intermediate, Verified 02/09/24 16:23) Rash atorvastatin [Lipitor] Adverse Reaction (Intermediate, Verified 02/09/24 16:23) stomach aches PFSH Medical History Depression with anxiety Dysuria Hearing loss Pre-op examination Diverticulosis Mixed hyperlipidemia Hospital discharge follow-up Cellulitis of left ankle Diabetes mellitus Ear discomfort Asthma Diabetes mellitus with hyperglycemia, with long-term current use of insulin Permanent atrial fibrillation History of cardioversion Elevated TSH Persistent atrial fibrillation Atrial flutter Acute on chronic HFrEF (heart failure with reduced ejection fraction) Tubular adenoma of colon Cardiomyopathy ICD (implantable 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-defibrillator) in place Paroxysmal atrial fibrillation Heart failure with reduced ejection fraction CHF (congestive heart failure) Mixed hyperlipidemia Seborrheic dermatitis of scalp Hearing loss Obesity (BMI 30-39.9) Hypoglycemia unawareness associated with type 2 diabetes mellitus Vitamin D deficiency Diabetic nephropathy associated with type 2 diabetes mellitus 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 of insulin Restrictive lung disease Asthma-COPD overlap syndrome Anemia COPD (chronic obstructive pulmonary disease) HLD (hyperlipidemia) HTN (hypertension) GERD (gastroesophageal reflux disease) Essential hypertension Diabetes type 2, uncontrolled Surgical History Hx of bilateral cataract extraction History of esophagogastroduodenoscopy (EGD) Hx of colonoscopy History of cardiac defibrillator placement History of thumb surgery Family History Father Cancer Mother Cancer Family/Other Diabetes CHF (congestive heart failure) Social History Household Members: None Housing: Apartment Alcohol intake: never Patient Tobacco Use Status: Former Tobacco user Tobacco use type: Cigarette e-Cigarette/Vaping Use: Never Used Second Hand Smoke Exposure: No service: No Current occupational status: disabled Cognitive needs: No Hearing needs: No Vision needs: Yes Office Procedures Cardiac Device Check Cardiac Device Check Details: Remote heart failure report generated 02/16/2024. Heart failure parameters are stable [id number] Cardiac Device Interrogation, cardio physiologic monitor Procedure code (CPT) selection complete Assessment & Plan Assessment & Plan (1) ICD (implantable 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-defibrillator) in place: Code(s): Z95.810 - Presence of automatic (implantable) cardiac defibrillator Category: Medical Plan: See above Coding Level of Care Code Procedure Only Diagnoses ICD (implantable 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-defibrillator) in place Z95.810 CPT Codes Cardiac Device Check - Cardiac Device 15: [id number] Cardiac Device Interrogation, cardio physiologic monitor ([id number])
== END ==
PROVIDERS: PCP Internal Medicine; Visit Provider Internal Medicine Cardiovascular Disease
DX: Z45.02 Encounter for adjustment and management of automatic implantable cardiac defibrillator (principal)
CPT/HCPCS: 93297

== ENCOUNTER 2024-03-08 15:44 | Outpatient (AMB) | payer OTHER, SELFPAY ==
[2024-03-08 15:52] VITALS: BP 129/62; PULSE 91; BMI 31.8
--- NOTE | 2024-03-08 15:52 | A.OFFVIS_ITS ---
Vital Signs 03/08/24 15:52 Height 5 ft 7 in Weight 202 lb 13.204 oz BMI 31.8 BP 129/62 Blood Pressure Location Lt brachial Position Sitting Pulse 91 Intake Visit Reasons: Follow up to check medications Intake Note: Stephen presents to in office follow up to check medications. CC: Patient continues to have a lot of gas and occasional watery stools. Denies other GI symptoms. 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 Accompanied by: Self / Same As Patient Allergies dog dander [dogs] Allergy (Intermediate, Verified 04/14/24 15:47) Sneezing grass Allergy (Intermediate, Verified 04/14/24 15:47) Rash insect venom [mosquito bites] Allergy (Intermediate, Verified 04/14/24 15:47) Rash roaches Allergy (Intermediate, Verified 04/14/24 15:47) Rash trees Allergy (Intermediate, Verified 04/14/24 15:47) Rash atorvastatin [Lipitor] Adverse Reaction (Intermediate, Verified 04/14/24 15:47) stomach aches HPI HPI Follow up to check medications: Details: Assessment & Plan (1) Irritable bowel syndrome with diarrhea: Code(s): K58.0 - Irritable bowel syndrome with diarrhea Category: Medical (2) GERD (gastroesophageal reflux disease): Code(s): K21.9 - Gastro-esophageal reflux disease without esophagitis Category: Medical Qualifiers: Esophagitis presence: esophagitis presence not specified Qualified Code(s): K21.9 - Gastro-esophageal reflux disease without esophagitis Plan Mong[place]ian #Jorge Luis Live ? did we repeat cologuard vs getting cardiac clearance for colonoscopy. He still has diarrhea. But he still does not know if her is taking his Viberzi. Bring all meds to next appt. Will need reminder call. Return office visit in 3 weeks LABS: COLONOSCOPY SCHEDULED FOR 04/21/2024 BIOPSY TODAY'S VISIT Mongolian # We finally are able to confirm that he IS taking Viberzi 100mg bid. He says that he has been taking OTC Pepto BIsmol liquid and together these 2 medicaines are controlling his diarrhea. 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 He says that Imodium does not work for him. He has a follow up with me 05/03 after the procedure. [facility] Medical History (Updated 04/19/24 @ 15:50 by Alta Vargas, JAMES) Environmental allergies Diabetes mellitus with hyperglycemia, with long-term current use of insulin Former smoker Pre-op examination Permanent atrial fibrillation Dysuria History of cardioversion Mixed hyperlipidemia Hospital discharge follow-up Cellulitis of left ankle Elevated TSH Diabetes mellitus Persistent atrial fibrillation Ear discomfort Atrial flutter Acute on chronic HFrEF (heart failure with reduced ejection fraction) Diverticulosis Tubular adenoma of colon Cardiomyopathy ICD (implantable 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-defibrillator) in place Paroxysmal atrial fibrillation Heart failure with reduced ejection fraction CHF (congestive heart failure) Mixed hyperlipidemia Seborrheic dermatitis of scalp Hearing loss Obesity (BMI 30-39.9) Hypoglycemia unawareness associated with type 2 diabetes mellitus Vitamin D deficiency Diabetic nephropathy associated with type 2 diabetes mellitus skilled nursing (current) use of insulin Restrictive lung disease Asthma-COPD overlap syndrome Asthma Anemia COPD (chronic obstructive pulmonary disease) HLD (hyperlipidemia) HTN (hypertension) Hearing loss Depression with anxiety GERD (gastroesophageal reflux disease) Essential hypertension Diabetes type 2, uncontrolled Surgical History Hx of bilateral cataract extraction History of esophagogastroduodenoscopy (EGD) Hx of colonoscopy History of cardiac defibrillator placement History of thumb surgery Family History Father Cancer Mother Cancer Family/Other Diabetes CHF (congestive heart failure) Social History Household Members: None Housing: Apartment Alcohol intake: never Patient Tobacco Use Status: Former Tobacco user Tobacco use type: Cigarette e-Cigarette/Vaping Use: Never Used Second Hand Smoke Exposure: No Advance Directives: No Advance Directives Information Provided: Yes service: No Current occupational status: disabled Cognitive needs: No Hearing needs: No Vision needs: Yes Review of Systems Const Denies fatigue, Denies fever(s), Denies night sweats, Denies poor appetite and Denies weight loss ENT Reports Normal hearing present, Denies dental pain, Denies dysphagia, Denies hearing loss, Denies mouth pain, Denies odynophagia, Denies throat swelling, Denies tongue swelling and Reports other (Dentition adequate) Card Reports no additional complaints Resp Reports no additional complaints GI Details: Denies abdominal pain, Denies melena, Denies bloating, Denies hematochezia, Denies constipation, Denies GI cramping, Denies dysphagia, Denies excessive flatus, Denies early satiety, Denies heartburn, Reports diarrhea, Denies nausea, Denies odynophagia, Denies vomiting and Denies hematemesis Skin/Breast Denies pruritus, Denies lesions, Denies rash and Denies jaundice Neuro Reports Normal hearing present and Denies Abnormal speech present Endo Denies fatigue Aller/Immun Denies throat swelling and Denies tongue swelling Physical Exam Vital Signs: Last Vital Signs Pulse 91 03/08/24 15:52 BP 129/62 03/08/24 15:52 BMI result Body Mass Index 31.8 Const General: cooperative, no acute distress, well developed and well groomed Nutritional Appearance: well nourished and obese Orientation/consciousness: oriented to person, oriented to place and oriented to time Limitations: language barrier HEENT Head: Yes normocephalic and Yes atraumatic Eyes General: appearance normal, both eyes and all related structures Pupils: Equal, round and reactive pupils present Neck Neck: Yes normal visual inspection and Yes no lymphadenopathy Thyroid: Thyroid normal Resp Effort & Inspection: normal respiratory effort and able to speak in complete sentences Auscultation: clear to auscultation bilaterally Cardio Rate: regular rate Rhythm: regular rhythm Heart sounds: Normal, physiologic split S2 sound present Peripheral pulses: radial pulses present and posterior tibial pulses present GI Inspection: No distended, No Abdominal panniculus present and Yes obesity Palpation (GI): Soft to palpation, nontender, no guarding, not rigid and No hepatosplenomegaly present Percussion: Yes normal to percussion Auscultation: normal bowel sounds Rectal Exam - Male: Yes deferred Skin General skin exam: no rashes or lesions noted, turgor normal, skin not dry, no jaundice, No spider nevi and no striae Rashes: no rashes Nails: normal Neuro General: oriented to person, oriented to place and oriented to time Cranial nerves: Yes Equal, round and reactive pupils present and Yes Normal hearing present Speech: No Abnormal speech present Extrem General: Yes normal to inspection, No clubbing, No cyanosis and No edema Psych Appearance: grossly normal and well kempt Mental Status: mental status grossly normal Speech and movement: Normal speech and movement present Affect: normal affect Attitude: cooperative Thought process: Normal thought process present and not confabulating Thought content: Normal thought content present Insight: Limited insight present (Psych) Judgement: Limited judgement present (Psych) Assessment & Plan Assessment & Plan (1) Irritable bowel syndrome with diarrhea: Code(s): K58.0 - Irritable bowel syndrome with diarrhea Category: Medical (2) GERD (gastroesophageal reflux disease): Code(s): K21.9 - Gastro-esophageal reflux disease without esophagitis Category: Medical Qualifiers: Esophagitis presence: esophagitis presence not specified Qualified Code(s): K21.9 - Gastro-esophageal reflux disease without esophagitis Plan Mong[place]ian # We finally are able to confirm that he IS taking Viberzi 100mg bid. He says that he has been taking OTC Pepto BIsmol liquid and together these 2 medicaines are controlling his diarrhea. 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 He says that Imodium does not work for him. He has a follow up with me 05/03 after the procedure. COLONOSCOPY SCHEDULED FOR 04/21/2024 BIOPSY Coding Level of Care Code Est Pt Level 3 (12683) Diagnoses Irritable bowel syndrome with diarrhea K58.0 Gastroesophageal reflux disease, unspecified whether esophagitis present K21.9 Esophagitis presence: esophagitis presence not specified
== END 2024-03-09 11:50 | disposition home or self-care (01) ==
PROVIDERS: PCP Internal Medicine; Visit Provider Nurse Practitioner
DX: K58.0 Irritable bowel syndrome with diarrhea (principal); K21.9 Gastro-esophageal reflux disease without esophagitis
CPT/HCPCS: 99213

== ENCOUNTER → 2024-03-08 15:44 | Outpatient (BNVA) | payer OTHER, SELFPAY | PROVIDERS: PCP Internal Medicine; Visit Provider Nurse Practitioner | DX: K58.0 Irritable bowel syndrome with diarrhea (principal); K21.9 Gastro-esophageal reflux disease without esophagitis | CPT/HCPCS: 99212 ==

== ENCOUNTER 2024-04-14 15:27 | Outpatient (AMB) | payer OTHER, SELFPAY ==
[2024-04-14 15:30] VITALS: BP 108/70; BMI 31.6
--- NOTE | 2024-04-14 15:30 | A.OFFPC_ITS ---
Vital Signs 04/14/24 15:30 Height 5 ft 7 in Weight 202 lb BMI 31.6 BP 108/70 Blood Pressure Location Lt brachial Position Sitting Intake Visit Reasons: dm Intake Note: Patient here for a follow up DM Jboss Architect Required: No Accompanied by: Self / Same As Patient Allergies dog dander [dogs] Allergy (Intermediate, Verified 04/14/24 15:47) Sneezing grass Allergy (Intermediate, Verified 04/14/24 15:47) Rash insect venom [mosquito bites] Allergy (Intermediate, Verified 04/14/24 15:47) Rash roaches Allergy (Intermediate, Verified 04/14/24 15:47) Rash trees Allergy (Intermediate, Verified 04/14/24 15:47) Rash atorvastatin [Lipitor] Adverse Reaction (Intermediate, Verified 04/14/24 15:47) stomach aches Medication List - Last Reconciled 04/14/24 by Christie Jain MD albuterol sulfate 90 mcg/actuation (Ventolin HFA) 2 puffs inhalation Q6H PRN 30 days apixaban (Eliquis) 5 mg PO BID Arnuity Ellipta 200 mcg/actuation (fluticasone furoate) 1 inh PO DAILY NS bisacodyl (Dulcolax (bisacodyl)) 20 mg (4 x 5 mg) PO ONCE 1 day blood sugar diagnostic (FreeStyle Lite Strips) 3 times a day carvedilol 25 mg PO BID cholecalciferol (vitamin D3) 25 mcg PO DAILY 90 days clonazepam (Klonopin) 0.5 mg PO BEDTIME [collagen PO BID] cyanocobalamin (vitamin B-12) 500 mcg PO every other day in the morning; dapagliflozin propanediol (Farxiga) 10 mg PO DAILY 90 days diaper,brief,adult,disposable As directed [disposable gloves As directed] duloxetine 30 mg PO QAM duloxetine 60 mg PO DAILY eluxadoline (Viberzi) 100 mg PO BID famotidine (Pepcid) 40 mg PO BEDTIME fenofibrate 54 mg PO DAILY 90 days furosemide 40 mg PO DAILY 90 days gabapentin 300 mg PO BID 90 days hospital bed As directed hydrocortisone 1% (Anti-Itch (hydrocortisone)) 1 appl topical BID PRN 2 weeks icosapent ethyl 2 grams (2 x 1 gram) PO BID incontinence pad, liner, disp As directed ketoconazole 2% 1 appl topical 2XW lancets (TRUEplus Lancets) TEST BLOOD SUGAR THREE TIMES DAILY lancets 3 times a day loperamide (Imodium A-D) 4 mg (2 x 2 mg) PO TID PRN metformin ER 1,000 mg (2 x 500 mg) PO BID 90 days peg 3350-electrolytes 236-22.74-6.74 -5.86 gram 240 mL PO Q10M peg 3350-electrolytes 236-22.74-6.74 -5.86 gram (Golytely) 240 mL PO Q10M 1 day peg 3350-electrolytes 236-22.74-6.74 -5.86 gram 240 mL PO Q10M pen needle, diabetic (Pentips) As directed pen needle, diabetic (UltiCare Pen Needle) As directed 1 time a day [recliner As directed] rosuvastatin 10 mg PO BEDTIME 90 days sacubitril-valsartan 24-26 mg (Entresto) 1 tab PO BID [scooter As directed] tamsulosin mg PO DAILY tirzepatide (Mounjaro) mg subcut [wipes As directed] Tobacco use date assessed: 08/06/23 Fall risk assessment: No Falls in past year Last assessed Fall Risk: 04/14/24 Dental Screening Dental Screen Date: 04/14/24 Did you have a dental visit in the last 12 months?: No Did you have a dental problem in the last 6 months where you did not have access to dental care?: No Was dental information given to patient?: Patient has dentist HPI HPI Comments History of Present Illness Details This is a 74-year-old male with diabetes mellitus type 2, mild major depression, asthma-COPD overlap syndrome, paroxysmal atrial fibrillation, chronic kidney disease stage 3 and chronic systolic congestive heart failure with reduced ejection fraction that comes today for follow-up on his conditions. A1c elevated but has improved. Dietary changes were advised. Depression stable with duloxetine. On longstanding inhaler for asthma-COPD overlap syndrome. Use rescue inhaler few times a month. On chronic anticoagulation for atrial fibrillation. Last ejection fraction was 20-25% last May and this is follow by cardiology. Has not gain 5 lb in a week. Compliant with medications. Last GFR is 54 which has improved and he was told to avoid NSAIDs. [facility] Medical History (Updated 04/15/24 @ 18:18 by Christie Jain MD) Seborrheic dermatitis of scalp Former smoker Depression with anxiety Dysuria Hearing loss Pre-op examination Diverticulosis Mixed hyperlipidemia Hospital discharge follow-up Cellulitis of left ankle Diabetes mellitus Ear discomfort Asthma Diabetes mellitus with hyperglycemia, with long-term current use of insulin Permanent atrial fibrillation History of cardioversion Elevated TSH Persistent atrial fibrillation Atrial flutter Acute on chronic HFrEF (heart failure with reduced ejection fraction) Tubular adenoma of colon Cardiomyopathy ICD (implantable 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-defibrillator) in place Paroxysmal atrial fibrillation Heart failure with reduced ejection fraction CHF (congestive heart failure) Mixed hyperlipidemia Hearing loss Obesity (BMI 30-39.9) Hypoglycemia unawareness associated with type 2 diabetes mellitus Vitamin D deficiency Diabetic nephropathy associated with type 2 diabetes mellitus 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 of 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 Restrictive lung disease Asthma-COPD overlap syndrome Anemia COPD (chronic obstructive pulmonary disease) HLD (hyperlipidemia) HTN (hypertension) GERD (gastroesophageal reflux disease) Essential hypertension Diabetes type 2, uncontrolled Surgical History Hx of bilateral cataract extraction History of esophagogastroduodenoscopy (EGD) Hx of colonoscopy History of cardiac defibrillator placement History of thumb surgery Family History Father Cancer Mother Cancer Family/Other Diabetes CHF (congestive heart failure) Social History Household Members: None Housing: Apartment Alcohol intake: never Patient Tobacco Use Status: Former Tobacco user Tobacco use type: Cigarette e-Cigarette/Vaping Use: Never Used Second Hand Smoke Exposure: No service: No Current occupational status: disabled Cognitive needs: No Hearing needs: No Vision needs: Yes Questionnaire Thrive Questionnaire Date Thrive assessed: 08/06/23 DARRYL-7 AMB Questionnaire DARRYL-7 Date DARRYL - 7 assessed: 08/06/23 Source: Developed by Drs. José Miguel Neri, Yomaira Roman, Maxwell Erazo and colleagues, with an educational bong from [employer]. Review of Systems Const All systems reviewed & are unremarkable except as noted in HPI and below Card Denies chest pain at rest, Denies chest pain with activity, Denies edema, Denies irregular heart rhythm, Denies claudication, Denies dyspnea, Denies dyspnea on exertion, Denies orthopnea, Denies paroxysmal nocturnal dyspnea and Denies slow heart rate Resp Denies cough, Denies dyspnea and Denies dyspnea on exertion Physical exam (Primary Care) Vital Signs: Last Vital Signs BP 108/70 04/14/24 15:30 BMI result Body Mass Index 31.6 BMI Assessment/Plan discussion: High BMI High, discussed plan: lifestyle, weight reduction, dietary and physical activity Tobacco/Smoking Status: Tobacco use Status Tobacco use date assessed 08/06/23 04/14/24 15:33 Patient Tobacco Use Status Former Tobacco user 04/14/24 15:33 Tobacco use type Cigarette 04/14/24 15:33 e-Cigarette/Vaping Use Never Used 04/14/24 15:33 Thrive Assessment: Date of Thrive Assessment Date Thrive assessed 08/06/23 04/14/24 15:33 Resp Effort & Inspection: normal respiratory effort Auscultation: clear to auscultation bilaterally Cardio Jugular venous distension: no JVD Rate: regular rate Rhythm: regular rhythm Heart sounds: S1 normal heart sound present and S2 normal heart sound present Extrem General: Yes full ROM Office Procedures Flu Questionnaire Does the patient have a severe egg allergy?: No Results AMB Hemoglobin A1c AMB Hemoglobin A1c 7.7 % Last Edit by MOLLY Chamberlain on 04/14/24 15:4 7 Immunizations Fluarix Triv [id number] (PF) 45 mcg (15 mcg x 3)/0.5 mL IM syringe Performing Provider: Christie Jain MD [place] [facility] [facility] [place] [facility] Documented (not given) by: MOLLY Chamberlain on 04/14/24 15:37 Reason Not Given: Received Previously Results Reviewed Results Reviewed: Laboratory Last Values Hgb A1c (Clinic) 7.7 % (4.0-6.0) H 04/14/24 15:29 Coding Level of Care Code Est Pt Level 4 (66549) Complex EM visit Add On G2211 Diagnoses Moderate major depression F32.1 Stage 3a chronic kidney disease N18.31 Chronic kidney disease stage 3 subtype: stage 3a (GFR 45-59) Permanent atrial fibrillation I48.21 Heart failure with reduced ejection fraction I50.20 Asthma-COPD overlap syndrome J44.9 Uncontrolled type 2 diabetes mellitus with hyperglycemia E11.65 Glycemic state: with hyperglycemia Time Spent (min) 22 Assessment & Plan Assessment & Plan (1) Moderate major depression: Code(s): F32.1 - Major depressive disorder, single episode, moderate Category: Medical Plan: Continue duloxetine. (2) CKD (chronic kidney disease) stage 3, GFR 30-59 ml/min: Code(s): N18.30 - Chronic kidney disease, stage 3 unspecified Category: Medical Qualifiers: Chronic kidney disease stage 3 subtype: stage 3a (GFR 45-59) Qualified Code(s): N18.31 - Chronic kidney disease, stage 3a Plan: Avoid NSAIDs. Keep blood pressure less than 130/80. (3) Permanent atrial fibrillation: Code(s): I48.21 - Permanent atrial fibrillation Category: Medical Plan: Continue Eliquis. The goal is heart rate control. Follow-up with Cardiology. (4) Heart failure with reduced ejection fraction: Code(s): I50.20 - Unspecified systolic (congestive) heart failure Category: Medical Plan: Continue carvedilol. Follow-up with Cardiology. The goal is to not gain 5 lb in a week. (5) Asthma-COPD overlap syndrome: Comment: The Asthma/COPD is fairly well controlled. Spirometry on his last visit showed moderate restrictive disorder, FVC= 64%, FEV1 =70% No obstructive component . These results were similar to the results in 2020. Code(s): J44.9 - Chronic obstructive pulmonary disease, unspecified Category: Medical Plan: Continue long-acting inhaler. Use rescue inhaler as needed. (6) Diabetes type 2, uncontrolled: Code(s): E11.65 - Type 2 diabetes mellitus with hyperglycemia Category: Medical Qualifiers: Glycemic state: with hyperglycemia Qualified Code(s): E11.65 - Type 2 diabetes mellitus with hyperglycemia Plan: Continue Farxiga and metformin. A1c goal is equal or less than 7%. Orders: Orders Influenza [id number] Immunization 04/14/24 Z23 - Encounter for immunization AMB Hemoglobin A1c 04/14/24 E11.65 - Type 2 diabetes mellitus with hyperglycemia Microalbumin, Random (w Creat) 04/14/24 R80.9 - Proteinuria, unspecified Comprehensive [place]. Panel Fast 04/14/24 I50.20 - Unspecified systolic (congestive) heart failure NT-proBNP 04/14/24 I50.20 - Unspecified systolic (congestive) heart failure Lipid Panel 04/14/24 E78.5 - Hyperlipidemia, unspecified Vitamin D 25-OH Total 04/14/24 E55.9 - Vitamin D deficiency, unspecified CA echo transthoracic complete 1 Month I50.20 - Unspecified systolic (congestive) heart failure
== END 2024-04-14 15:56 | disposition home or self-care (01) ==
PROVIDERS: PCP Internal Medicine; Visit Provider Internal Medicine
DX: E11.65 Type 2 diabetes mellitus with hyperglycemia (principal); F32.1 Major depressive disorder, single episode, moderate; N18.31 Chronic kidney disease, stage 3a; I48.21 Permanent atrial fibrillation; I50.20 Unspecified systolic (congestive) heart failure; J44.9 Chronic obstructive pulmonary disease, unspecified

== ENCOUNTER → 2024-04-14 15:27 | Outpatient (BNVA) | payer OTHER, SELFPAY | PROVIDERS: PCP Internal Medicine; Visit Provider Internal Medicine | DX: F32.1 Major depressive disorder, single episode, moderate (principal); I48.21 Permanent atrial fibrillation; I50.20 Unspecified systolic (congestive) heart failure; J44.9 Chronic obstructive pulmonary disease, unspecified; E11.65 Type 2 diabetes mellitus with hyperglycemia | CPT/HCPCS: 83036; 90471; 99212 ==

== ENCOUNTER → 2024-04-21 07:36 | Day surgery (SDC) | payer OTHER, SELFPAY ==
[2024-04-19 16:05] VITALS: BMI 32.1
--- NOTE | 2024-04-20 10:20 | HO.ANESPROP2 ---
Documented by User: Kelly Prasad NP 04/20/24 10:32 HPI - Anesthesia Eval Consult details Narrative: 74yo M for Colonoscopy Follows [facility] [place] for: Afib/flutter - eliquis ICD in situ - EF 20-25% CHF Last office visit 10/2023 Follows [facility] [place] pulmo for asthma/copd. Stable last visit Follows [facility] for CKD 3. Stable without changes to meds 11/2023 Anesthesia Pre-Procedure Meds Is the patient on any of the following meds?: GLP1/DPP4 and SGLT2 Inhib PMFSH Active Problems Active Problems: All Active Problems Moderate major depression (Acute) Lumbar degenerative disc disease (Acute) CKD (chronic kidney disease) stage 3, GFR 30-59 ml/min (Acute) Urinary incontinence (Acute) Irritable bowel syndrome with diarrhea (Acute) Tubular adenoma of colon (Acute) Permanent atrial fibrillation (Acute) Elevated TSH (Acute) Cardiomyopathy (Acute) ICD (implantable 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-defibrillator) in place (Acute) Heart failure with reduced ejection fraction (Acute) Mixed hyperlipidemia (Acute) Hearing loss (Acute) Obesity (BMI 30-39.9) (Acute) Hypoglycemia unawareness associated with type 2 diabetes mellitus (Acute) Vitamin D deficiency (Acute) Diabetic nephropathy associated with type 2 diabetes mellitus (Acute) care home (current) use of insulin (Acute) Restrictive lung disease (Acute) Asthma-COPD overlap syndrome (Acute) GERD (gastroesophageal reflux disease) (Acute) Essential hypertension (Acute) Diabetes type 2, uncontrolled (Acute) Past Medical History Medical History (Updated 04/19/24 @ 15:50 by Alta Vargas RN) Environmental allergies Diabetes mellitus with hyperglycemia, with long-term current use of insulin Former smoker Pre-op examination Permanent atrial fibrillation Dysuria History of cardioversion Mixed hyperlipidemia Hospital discharge follow-up Cellulitis of left ankle Elevated TSH Diabetes mellitus Persistent atrial fibrillation Ear discomfort Atrial flutter Acute on chronic HFrEF (heart failure with reduced ejection fraction) Diverticulosis Tubular adenoma of colon Cardiomyopathy ICD (implantable 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-defibrillator) in place Paroxysmal atrial fibrillation Heart failure with reduced ejection fraction CHF (congestive heart failure) Mixed hyperlipidemia Seborrheic dermatitis of scalp Hearing loss Obesity (BMI 30-39.9) Hypoglycemia unawareness associated with type 2 diabetes mellitus Vitamin D deficiency Diabetic nephropathy associated with type 2 diabetes mellitus 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 Restrictive lung disease Asthma-COPD overlap syndrome Asthma Anemia COPD (chronic obstructive pulmonary disease) HLD (hyperlipidemia) HTN (hypertension) Hearing loss Depression with anxiety GERD (gastroesophageal reflux disease) Essential hypertension Diabetes type 2, uncontrolled Family History Family History Father Cancer Mother Cancer Family/Other Diabetes CHF (congestive heart failure) Family history of problems with anesthesia: No Surgical History Surgical History Hx of bilateral cataract extraction History of esophagogastroduodenoscopy (EGD) Hx of colonoscopy History of cardiac defibrillator placement History of thumb surgery History of Problems with Anesthesia: No Social History Social History Household Members: None Housing: Apartment Alcohol intake: never Patient Tobacco Use Status: Former Tobacco user Tobacco use type: Cigarette e-Cigarette/Vaping Use: Never Used Second Hand Smoke Exposure: No Advance Directives: No Advance Directives Information Provided: Yes service: No Current occupational status: disabled Cognitive needs: No Hearing needs: No Vision needs: Yes Meds Allergies Allergy/AdvReac Type Severity Reaction Status Date / Time dog dander [dogs] Allergy Intermediate Sneezing Verified 04/14/24 15:47 grass Allergy Intermediate Rash Verified 04/14/24 15:47 insect venom [mosquito bites] Allergy Intermediate Rash Verified 04/14/24 15:47 roaches Allergy Intermediate Rash Verified 04/14/24 15:47 trees Allergy Intermediate Rash Verified 04/14/24 15:47 atorvastatin [Lipitor] AdvReac Intermediate stomach Verified 04/14/24 15:47 aches Home Medications ?Medication ?Instructions ?Recorded ?Confirmed ?Last Taken ?Type duloxetine 30 mg capsule,delayed 30 mg PO QAM 07/22/22 04/14/24 12/31/22 History release duloxetine 60 mg capsule,delayed 60 mg PO DAILY 08/19/22 04/14/24 12/31/22 History release clonazepam 0.5 mg tablet (Klonopin) 0.5 mg PO BEDTIME 11/12/23 04/14/24 Unknown History tamsulosin 0.4 mg capsule mg PO DAILY 02/09/24 04/14/24 Unknown History tirzepatide 5 mg/0.5 mL mg subcut 02/09/24 04/14/24 Unknown History subcutaneous pen injector (Mounjaro) collagen PO BID 03/08/24 04/14/24 Unknown History dulaglutide 0.75 mg/0.5 mL mg subcut 04/20/24 04/20/24 Unknown History subcutaneous pen injector (Trulicity) Exam Height,Weight and Vital Signs: Height 5 ft 7 in Weight 92.986 kg Pertinent Lab Results Pertinent Lab Results: Laboratory Tests 11/23/23 15:53 WBC 9.2 Hgb 14.4 Hct 41.5 L Plt Count 254 Sodium 139 Potassium 4.7 Chloride 105 Carbon Dioxide 25 BUN 23 H Creatinine 1.30 Narrative Narrative: Cardiac Device Check Details: Remote heart failure report generated 02/16/2024. Heart failure parameters are stable [id number] Cardiac Device Interrogation, cardio physiologic monitor Cardiac Device Check 10/2023 Details: Single-chamber [place] ICD in place. Programmed in VVI at 40 beats per minute. Ventricular pacing thresholds are adequate and stable. Ventricular sensing is excellent. Pacing and shock lead impedance is stable. Battery life is at 2.2 years EKG 10/2023 EKG Details: EKG shows atrial fibrillation with left axis deviation with nonspecific ST T wave changes ECHO 05/2023 Conclusions: - 1. Moderately dilated left ventricle with LVEF of 20-25% 2. Early dilated left atrium 3. No significant abnormality of cardiac valvular Dopplers 4. No gross pericardial effusion Assessment and Plan Assessment Anesthesia Assessment: Chart Reviewed Final Anesthetic Review Family History of Problems with Anesthesia: No History of Problems with Anesthesia: No Documented by User: Carlos Rich MD 05/06/24 07:35 [facility] Past Medical History Medical History (Updated 04/19/24 @ 15:50 by Alta Vargas RN) Environmental allergies Diabetes mellitus with hyperglycemia, with long-term current use of insulin Former smoker Pre-op examination Permanent atrial fibrillation Dysuria History of cardioversion Mixed hyperlipidemia Hospital discharge follow-up Cellulitis of left ankle Elevated TSH Diabetes mellitus Persistent atrial fibrillation Ear discomfort Atrial flutter Acute on chronic HFrEF (heart failure with reduced ejection fraction) Diverticulosis Tubular adenoma of colon Cardiomyopathy ICD (implantable 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-defibrillator) in place Paroxysmal atrial fibrillation Heart failure with reduced ejection fraction CHF (congestive heart failure) Mixed hyperlipidemia Seborrheic dermatitis of scalp Hearing loss Obesity (BMI 30-39.9) Hypoglycemia unawareness associated with type 2 diabetes mellitus Vitamin D deficiency Diabetic nephropathy associated with type 2 diabetes mellitus care home (current) use of insulin Restrictive lung disease Asthma-COPD overlap syndrome Asthma Anemia COPD (chronic obstructive pulmonary disease) HLD (hyperlipidemia) HTN (hypertension) Hearing loss Depression with anxiety GERD (gastroesophageal reflux disease) Essential hypertension Diabetes type 2, uncontrolled Family History Family History Father Cancer Mother Cancer Family/Other Diabetes CHF (congestive heart failure) Surgical History Surgical History Hx of bilateral cataract extraction History of esophagogastroduodenoscopy (EGD) Hx of colonoscopy History of cardiac defibrillator placement History of thumb surgery Social History Social History Household Members: None Housing: Apartment Alcohol intake: never Patient Tobacco Use Status: Former Tobacco user Tobacco use type: Cigarette e-Cigarette/Vaping Use: Never Used Second Hand Smoke Exposure: No Advance Directives: No Advance Directives Information Provided: Yes service: No Current occupational status: disabled Cognitive needs: No Hearing needs: No Vision needs: Yes Meds Allergies Allergy/AdvReac Type Severity Reaction Status Date / Time dog dander [dogs] Allergy Intermediate Sneezing Verified 04/14/24 15:47 grass Allergy Intermediate Rash Verified 04/14/24 15:47 insect venom [mosquito bites] Allergy Intermediate Rash Verified 04/14/24 15:47 roaches Allergy Intermediate Rash Verified 04/14/24 15:47 trees Allergy Intermediate Rash Verified 04/14/24 15:47 atorvastatin [Lipitor] AdvReac Intermediate stomach Verified 04/14/24 15:47 aches Home Medications ?Medication ?Instructions ?Recorded ?Confirmed ?Last Taken ?Type duloxetine 30 mg capsule,delayed 30 mg PO QAM 07/22/22 04/14/2412/31/23 History release duloxetine 60 mg capsule,delayed 60 mg PO DAILY 08/19/22 04/14/24 12/31/22 History release clonazepam 0.5 mg tablet (Klonopin) 0.5 mg PO BEDTIME 11/12/23 04/14/24 Unknown History tamsulosin 0.4 mg capsule mg PO DAILY 02/09/24 04/14/24 Unknown History tirzepatide 5 mg/0.5 mL mg subcut 02/09/24 04/14/24 Unknown History subcutaneous pen injector (Renita) collagen PO BID 03/08/24 04/14/24 Unknown History dulaglutide 0.75 mg/0.5 mL mg subcut 04/20/24 04/20/24 Unknown History subcutaneous pen injector (Kath) Assessment and Plan Assessment Anesthesia Assessment: Chart Reviewed (Procedure was cancelled bec the patient had not stopped his anticoagulant)
--- NOTE | 2024-04-21 08:17 | MHC.SHP ---
Pre-Procedural Eval Section A - 24 Hr Update-Section A only Date of Service: 04/21/24 Section B - Complete if H&P > 30 days Chief Complaint: Irritable bowel syndrome with diarrhea Relevant Family History (Specify if Yes): No Relevant Social History: None Present Medications: see Short Stay Collaborative assessment Medical History: Significant History (Environmental allergies Diabetes mellitus with hyperglycemia, with long-term current use of insulin Former smoker Pre-op examination Permanent atrial fibrillation Dysuria History of cardioversion Mixed hyperlipidemia Hospital discharge follow-up Cellulitis of left ankle Elevated TSH Diabetes mellitu) History of Previous Operations: Relevant previous surgery/procedure and date(s) (Hx of bilateral cataract extraction History of esophagogastroduodenoscopy (EGD) Hx of colonoscopy History of cardiac defibrillator placement History of thumb surgery) Allergies: Allergies Allergy/AdvReac Type Severity Reaction Status Date / Time dog dander [dogs] Allergy Intermediate Sneezing Verified 04/14/24 15:47 grass Allergy Intermediate Rash Verified 04/14/24 15:47 insect venom [mosquito bites] Allergy Intermediate Rash Verified 04/14/24 15:47 roaches Allergy Intermediate Rash Verified 04/14/24 15:47 trees Allergy Intermediate Rash Verified 04/14/24 15:47 atorvastatin [Lipitor] AdvReac Intermediate stomach Verified 04/14/24 15:47 aches Review of Systems Sugical H&P ROS: Negative: Constitution, Cardiovascular, Respiratory, Neurological, Psychiatric, Hem-Onc, Allergic/Immunologic, Gastrointestinal, Genitourinary, Musculoskeletal, Integumentary, Endocrine and Eyes/Ears/Nose/Throat Exam Surgical H&P Exam: Normal: HEENT, Normal: Heart, Normal: Lungs, Normal: Extremities, Normal: Abdomen, Normal: Skin and Normal: Neurological Plan Diagnosis/Plan: Unchanged I have reviewed the history and physical and performed a pertinent physical examination on my patient. No changes have occurred unless specified. Patient took eliquis yesterday inspite of instructions, was given option to r/s or cont with proviso he would need to come back if any significant polyp seen today which would need removal, he wants to continue with the procedure. Time Spent With Patient Time: Total time managing care of this patient today ____ minutes.
--- NOTE | 2024-04-21 08:34 | PC.NURSE ---
Dr. Zuñiga, Dr. Rich and translator/interpreter at bedside. Patient took his Farxiga and Eliquis yesterday and did not stop as asked. Patient aware of risks and agreeable with doctors that procedure needs to be rescheduled and medications stopped as asked prior to next procedure.
--- NOTE | 2024-04-21 08:38 | PC.NURSE ---
Patient left with all belongings to meet niece in lobby. No IV was ever inserted.
== END ==
LOC: HO.SSS 07:37
PROVIDERS: PCP Internal Medicine; Visit Provider Internal Medicine Gastroenterology
DX: K58.0 Irritable bowel syndrome with diarrhea (principal); Z53.09 Procedure and treatment not carried out because of other contraindication; Z86.0101 Personal history of adenomatous and serrated colon polyps; I48.92 Unspecified atrial flutter; E11.65 Type 2 diabetes mellitus with hyperglycemia; Z79.01 Long term (current) use of anticoagulants; Z79.4 Long term (current) use of insulin; Z79.85 Long-term (current) use of injectable non-insulin antidiabetic drugs

== ENCOUNTER 2024-06-28 14:29 | Outpatient (REF) | payer OTHER, SELFPAY ==
[2024-06-28 15:45] LABS: MANUAL DIFF FLAG NO
--- OUTSIDE RECORDS SUMMARY | 2024-06-28 16:21 | XMS_ITS | Clinical Summary ---
Author Organization [facility] Address [address] [facility] [address] [place] [address] Phone Care Team Providers Care Business Process Associate Name Role Phone Christie Royal MD Primary Care Provider [phone] Allergies No known active allergies Medications amiodarone [...] 05/24/2024 Refill [facility] [address] [place] [address] Justus [...] Visit [facility] [address] [place] [address] Justus Lee MD [address] [facility] [address] [place] [address] Health Maintenance Due Date Last [...] Recently Relevant [place] [id number] [facility] ([id number]) [place] [id number] [facility] ([id number]) Care Teams Business Process Associate Relationship Specialty Start Date End Date Christie Royal MD [address] [facility] [address] [place] [address] PCP - General Internal Medicine 08/25/23
--- OUTSIDE RECORDS SUMMARY | 2024-06-28 16:21 | XMS_ITS | Data Portability ---
Author Organization [place] [facility], Allergy Address [address] [place] [id number] Assessment Encounter Date Assessment Date Assessment LastModified by Organization Details LastModified Time 12/29/2023 12/29/2023 73-year-old male presents for reevaluation. On examination there is evidence of persistent fungal dermatitis of the meatus. Will refill Lotrisone. EACs are free of debris and TMs normal to inspection. Updated audiometric testing was obtained today. He was provided a copy of his hearing test along with medical clearance for bilateral hearing aids. Was also given a [facility] provider sheet. Follow-up in 6 months for reevaluation or sooner if needed. [email or web address] Not available 12/29/2023 13:47:32 Plan of Treatment Reminders Order Date Submit Date Provider Last Modified By Organization Details Last Modified Time Details Appointments Establish ed 15 2024 02:15P Alena PIERCE PA-C Not available Not available Not available Lab None recorded. Referral None recorded. Procedures None recorded. Surgeries None recorded. Imaging None recorded. Medication Orders clotrimaz ole-betam ethasone 1 %-0.05 % topical cream 2023 024 [facility], [address] [facility], [place], [place], [id number], 03/11/2024 16:25:17 Patient TargetsNo targets recorded. Patient InstructionsNo instructions recorded. Reason for Referral None Reported. Results Created Date Observation Date Name Description Value Unit Range Abnormal Flag Note LastModifiedBy Organization Detail LastModifiedTime 12/29/19 24 audio gram No observ ation record ed. [email or web address] Not Available 12/01 15:42:05 01/20/20 24 09/12/2021 imagi ng/di agnos tic resul t No observ ation record ed. [email or web address] Not Available 09:48:39 01/20/20 24 09/12/2021 imagi ng/di agnos tic resul t No observ ation record ed. [email or web address] Not Available 09:48:40 01/20/20 24 09/12/2021 audio gram No observ ation record ed. [email or web address] Not Available 09:49:03 Result Notes None recorded. Problems Name Problem SNOMED Code Status Onset Date Resolution Date Notes Provider Name and Address Organization Details Recorded Time Bilatera l diffuse otitis externa 70107840621 25770 Completed 202001/01/2024 Diffuse otitis externa, bilatera l; Note: Date Diagnose d: 1 2:18 PM (H60.313 ) Not Available [facility] 4 02:50:54 Type 2 diabetes mellitus without complica tion 835218637 Active 2021 Type 2 diabetes mellitus without complica tions; Note: Date Diagnose d: 2 2:35 PM (E11.9) Not Available [facility] 4 02:50:56 Bilatera l external auditory canal chronic otitis externa 04229752347 38670 Active 2022 Unspecif ied chronic otitis externa, bilatera l; Note: Date Diagnose d: 03/27/20 23 9:22 AM (H60.63) Not Available [facility] 4 02:51:00 Sensorin eural hearing loss of bilatera l ears 191395088 Active 2021 Sensorin eural hearing loss, bilatera l; Note: Date Diagnose d: 2 3:33 PM (H90.3) Not Available [facility] 4 02:50:54 Problem Notes None recorded. Procedures Surgical History Date Name Laterality Status Provider Name and Address Organization Details Recorded Time 12/29/2023 Comp Audio with Tymps (57252 & 33195) completed SOBIA BINGHAM [place], CCC-A [address],[facility] [address], [place], [address], [place] [facility] 12/29/2023 14:20:08 Imaging Results Imaging Date Name Status LastModified by Organiz ation Details LastModified Time 12/29/2023 audiogram completed [email or web address] Information n ot available 12/29/2023 15:42:05 09/12/2021 imaging/diagno stic result completed Information not available 01/20/2024 09:48:39 09/12/2021 imaging/diagno stic result completed Information not available 01/20/2024 09:48:40 09/12/2021 audiogram completed Information not available 01/20/2024 09:49:03 Procedure Notes None recorded. Medical Equipment None Reported. Medications Name Sig Start Date Stop Date Status Note LastModified by Organization Details LastModified Time medbox status USE DIRECTED active Not Available Not Available No t Available furosemide 40 mg tablet TAKE 1 TABLET BY MOUTH EVERY MORNING active Not Available Not Available No t Available carvedilol 25 mg tablet TAKE 1 TABLET BY MOUTH TWICE DAILY IN THE MORNING AND IN THE EVENING active Not Available Not Available No t Available ketoconazo le 2 % shampoo APPLY TOPICALLY TWICE A WEEK active Not Available Not Available No t Available loperamide 2 mg capsule TAKE 2 CAPSULES BY MOUTH THREE TIMES DAILY NEEDED FOR LOOSE STOOL active Not Available Not Available No t Available amiodarone 200 mg tablet TAKE 1 TABLET BY MOUTH EVERY MORNING active Not Available Not Available No t Available famotidine 40 mg tablet TAKE 1 TABLET BY MOUTH AT BEDTIME active Not Available Not Available No t Available clonazepam 0.5 mg tablet TAKE 1 TABLET BY MOUTH ONCE DAILY NEEDED active Not Available Not Available No t Available cyanocobal nicholas (vit B-12) 500 mcg tablet TAKE 1 TABLET BY MOUTH EVERY OTHER DAY IN THE MORNING active Not Available Not Available No t Available tamsulosin 0.4 mg capsule TAKE 1 CAPSULE BY MOUTH ONCE DAILY IN THE EVENING active Not Available Not Available No t Available nitrofuran toin macrocryst al 100 mg capsule TAKE 1 CAPSULE BY MOUTH TWICE DAILY FOR 7 DAYS. TAKE WITH FOOD active Not Available Not Available No t Available clotrimazo le-betamet hasone 1 %-0.05 % topical cream APPLY TOPICALLY TO THE AFFECTED AREA(S) SMALL AMOUNT TWICE DAILY 2023 active Not Available Not Available Not Avai lable clotrimazo le 1 % topical solution 2021 active Medicatio n ID: [id number] Du ration Value: 14 Prescrib ed By Name: DANA Hernandez Name: holli miller Send Method: E-Prescri bed Subs Allowed: subs OK Specia l Instructi on: 4 drops to both ears BID x 2 weeks Med icationGe nericName : clotrimaz ole Not Available Not Available Not Available gabapentin 300 mg capsule TAKE 1 CAPSULE BY MOUTH TWICE DAILY IN THE MORNING AND AT BEDTIME active Not Available Not Available No t Available metformin ER 500 mg tablet,ext ended release 24 hr TAKE 2 TABLETS BY MOUTH TWICE DAILY IN THE MORNING AND EVENING active Not Available Not Available No t Available Ventolin HFA 90 mcg/actuat ion aerosol inhaler INHALE 1 PUFF BY MOUTH EVERY 4 HOURS NEEDED active Not Available Not Available No t Available TobraDex 0.3 %-0.1 % eye drops,susp ension 2020 active Medicatio n ID: [id number] Pr escribed By Name: Petar Sanchez MD Brand Name: TobraDex Send Method: E-Prescri bed Subs Allowed: subs OK Specia l Instructi on: Instill 3 drops in the affect ear BID for 14 days Medi cationGen ericName: TobraDex Not Available Not Available Not Available Vitamin D3 25 mcg (1,000 unit) capsule TAKE 1 TABLET BY MOUTH EVERY MORNING active Not Available Not Available No t Available rosuvastat in 10 mg tablet TAKE 1 TABLET BY MOUTH AT BEDTIME active Not Available Not Available No t Available duloxetine 30 mg capsule,de layed release TAKE 1 CAPSULE BY MOUTH EVERY MORNING active Not Available Not Available No t Available duloxetine 60 mg capsule,de layed release TAKE 1 CAPSULE BY MOUTH EVERY EVENING active Not Available Not Available No t Available fluocinolo ne acetonide oil 0.01 % ear drops INSTILL 5 DROPS IN THE LEFT EAR TWICE DAILY FOR 7 DAYS active Not Available Not Available No t Available peg 3350-elect rolytes 236 gram-22.74 gram-6.74 gram-5.86 gram solution MIX WITH WATER AND DRINK 240 ML BY MOUTH EVERY 10 MINUTES FOR 1 DAY UNTIL FECAL EFFLUENT IS CLEAR. NO MORE THAN 1/2 BOTTLE active Not Available Not Available No t Available fenofibrat e 54 mg tablet TAKE 1 TABLET BY MOUTH EVERY MORNING active Not Available Not Available No t Available TRUEplus Lancets 33 gauge TEST BLOOD SUGAR THREE TIMES DAILY active Not Available Not Available No t Available icosapent ethyl 1 gram capsule TAKE 2 CAPSULES BY MOUTH TWICE DAILY IN THE MORNING AND EVENING active Not Available Not Available No t Available Eliquis 5 mg tablet TAKE 1 TABLET BY MOUTH TWICE DAILY IN THE MORNING AND IN THE EVENING active Not Available Not Available No t Available Farxiga 10 mg tablet TAKE 1 TABLET BY MOUTH EVERY MORNING active Not Available Not Available No t Available Trulicity 1.5 mg/0.5 mL subcutaneo us pen injector INJECT ONE PEN (=1.5MG) SUBCUTANE OUSLY ONCE A WEEK DIRECTED active Not Available Not Available No t Available Trulicity 0.75 mg/0.5 mL subcutaneo us pen injector INJECT ONE PEN (=0.75MG) SUBCUTANE OUSLY ONCE A WEEK DIRECTED active Not Available Not Available No t Available Arnuity Ellipta 200 mcg/actuat ion powder for inhalation INHALE 1 PUFF BY MOUTH EVERY DAY active Not Available Not Available No t Available Entresto 49 mg-51 mg tablet TAKE 1 TABLET BY MOUTH TWICE DAILY IN THE MORNING AND IN THE EVENING active Not Available Not Available No t Available Entresto 24 mg-26 mg tablet active Not Available Not Available No t Available Pentips Pen Needle 32 gauge x 5/32 USE DIRECTED active Not Available Not Available No t Available Tresiba FlexTouch U-100 insulin 100 unit/mL (3 mL) subcutaneo us pen INJECT 15 UNITS SUBCUTANE OUSLY AT BEDTIME active Not Available Not Available No t Available Viberzi 100 mg tablet TAKE 1 TABLET BY MOUTH TWICE DAILY IN THE MORNING AND IN THE EVENING WITH FOOD active Not Available Not Available No t Available Mounjaro 5 mg/0.5 mL subcutaneo us pen injector active Not Available Not Available Not Available Vitals Date Recorded Body height Body mass index (BMI) Body weight Provider Name and Address Organization Details Last Updated DateTime 12/29/2023 170.18 cm 32.1 kg/m2 86333.44 g Fifi Becerril [place] [facility] 12/29/2023 13:35:25 Social History None recorded. Functional Status None recorded. Mental Status None recorded. Family History Nothing Reported. Medical History No medical history recorded. Past Encounters Encounter ID Performer Location Encounter Start Date Encounter Closed Date Diagnosis/Indication Diagnosis SNOMED-CT Code Diagnosis ICD10 Code Diagnosis Note [id number] ROSAURA SANCHEZ MD [facility] [address] [address] 12/29/2023 13:25:58 12/29/2023 14:32:01 Bilateral external auditory canal chronic otitis externa [id number] 066417 H60.63 Sensorineu ral hearing loss of bilateral ears 611042286 H90.3 Audiologic al evaluation results:Ri ght ear:{{Norm al Normal through 2 kHz Mild M oderate Mo derately-s evere Jodi re Profoun d Normal hearing thru 1000Hz#}} {{hearing sloping to a mild slopi ng to a moderate s loping to moderately severe slo ping to severe slo ping to profound f lat high frequency low frequency mid frequency cookie bite huggins curve slop ing to a mild-moder ate SNHL#}} {{with* se nsorineura l hearing loss with condu ctive hearing loss with mixed hearing loss with}} {{excellen t good* fa ir poor no measurable }} word recognitio n.Left ear:{{Norm al Normal through 2 kHz Mild M oderate Mo derately-s evere Jodi re Profoun d Normal hearing thru 1000Hz #}} {{hearing sloping to a mild slopi ng to a moderate s loping to moderately severe slo ping to severe slo ping to profound f lat high frequency low frequency mid frequency cookie bite huggins curve slop ing to a mild to severe SNHL#}} {{with* se nsorineura l hearing loss with condu ctive hearing loss with mixed hearing loss with}} {{excellen t good* fa ir poor no measurable }} word recognitio n. Tympanomet ry:Right Ear:{{Type A* Type As Type Ad Type C Type C, shallow & rounded Ty pe B Type B with large volume Cou ld not maintain a hermetic seal}}Left Ear:{{Type A Type As Type Ad* Type C Type C, shallow & rounded Ty pe B Type B with large volume Cou ld not maintain a hermetic seal}} Health Concerns Section Related Observation LastModified by Organization Detai ls LastModified Time None Recorded Concern Status LastModified by Organization Details LastModified Time None Recorded Advance Directives Directive None Recorded Payers Encounter Date Sequence Insurance Name Policy Number Policy Lord Covered Member ID Lord Member ID Guarantor Name 12/29/2023 1 [facility] - DOS ON OR AFTER 2022 - ONE CARE (MEDICARE REPLACEMENT/ADV ANTAGE - HMO) Stephen Reno [id number] Stephen Reno Notes Date Note Type Note Provider Name and Address Organization Details Recorded Time 12/29/2023 text/html 73-year-old male presents for reevaluation of chronic fungal dermatitis. Previously was using Lotrisone but needs a refill. Overall however his ears are doing well. He does have hearing aids but thinks he needs a new pair. His current pair are over 3 years old. ROSAURA SANCHEZ MD [address] [place] [address], [place], [address], [facility] - [facility] 12/30/2023 07:52:39
[2024-06-28 16:29] LABS: Basophils Percent Auto 0.4 % (0-2); Eosinophils Absolute Auto 0.3 X10*3/uL (0.0-0.4); Eosinophils Percent Auto 2.8 % (0-4); Hematocrit 38.9 % (42.0-52.0); Hemoglobin 13.2 g/dl (14.0-18.0); Imm Gran Abs Auto 0.13 X10*3/uL (0.00-0.03); Imm Gran Pct Auto 1.3 % (0.0-0.4); Lymphocytes Absolute Auto 0.8 X10*3/uL (1.2-4.9); Lymphocytes Percent Auto 7.8 % (20-40); Mean Corpuscular HGB Conc 33.9 g/dl (31.0-36.0); Mean Corpuscular Hemoglobin 31.3 pg (27.0-33.0); Mean Corpuscular Volume 92.2 fL (80.0-98.0); Mean Platelet Volume 9.3 fL (9.4-12.4); Monocytes Absolute Auto 1.2 X10*3/uL (0.1-1.2); Monocytes Percent Auto 11.7 % (2-11); Neutrophils Absolute Auto 7.8 x10*3/uL (2.0-8.3); Platelet Count 333 X10*3/uL (160-400); Red Blood Count 4.22 X10*6/uL (4.60-5.80); Red Cell Distribution Width 13.8 % (11.0-16.0); White Blood Count 10.3 X10*3/uL (4.8-10.8)
[2024-06-28 16:54] LABS: B Type Natriuretic Peptide 242 pg/mL (<100)
[2024-06-28 17:06] LABS: Alanine Aminotransferase 36 U/L (0-40); Albumin Level 4.5 g/dL (3.5-5.0); Alkaline Phosphatase 56 U/L (39-117); Anion Gap 13 (12-20); Aspartate Amino Transferase 25 U/L (5-37); Bilirubin Total 0.3 mg/dL (0.0-1.0); Blood Urea Nitrogen 25 mg/dL (9-16); Calcium 9.6 mg/dL (8.4-10.2); Carbon Dioxide 29 mmol/L (22-29); Chloride 102 mmol/L (96-108); Cholesterol 114 mg/dL (<200); Estimated Glomerular Filt Rate 60; Glucose Fasting 144 mg/dL (60-99); Glucose Random 144 mg/dL (60-115); HDL Cholesterol 34 mg/dL (>40); Iron 69 mcg/dL (45-160); LDL Cholesterol Calculated 43 mg/dL (<100); Percent Iron Saturation 19 % (15-50); Potassium 4.3 mmol/L (3.3-5.1); Sodium 140 mmol/L (135-145); Total Iron Binding Capacity 358 mcg/dL (228-428); Total Protein 8.1 g/dL (6.5-8.0); Triglycerides 187 mg/dL (<150); Unsaturated Iron Binding 289 ug/dL
[2024-06-28 17:21] LABS: Vitamin D 25-OH Total 38.5 ng/mL (>30)
[2024-06-28 17:33] LABS: Folate 7.6 ng/mL (> or = 4.0); Vitamin B12 737 pg/mL (200-900)
[2024-06-28 17:44] LABS: Creatinine Urine 105.88 mg/dL
[2024-07-01 22:59] LABS: NT-proBNP 809 pg/mL (<125)
== END 2024-06-28 14:30 | disposition home or self-care (01) ==
LOC: HO.LAB 14:29
PROVIDERS: Absent Provider Internal Medicine; PCP Internal Medicine; Visit Provider Internal Medicine Cardiovascular Disease
DX: I50.20 Unspecified systolic (congestive) heart failure (principal); N18.30 Chronic kidney disease, stage 3 unspecified; E55.9 Vitamin D deficiency, unspecified; E78.5 Hyperlipidemia, unspecified; D64.9 Anemia, unspecified; E53.8 Deficiency of other specified B group vitamins; I42.9 Cardiomyopathy, unspecified; E11.9 Type 2 diabetes mellitus without complications; I48.21 Permanent atrial fibrillation; Z95.810 Presence of automatic (implantable) cardiac defibrillator
CPT/HCPCS: 36415; 80048; 80053; 80061; 82043; 82306; 82570; 82607; 82746; 83540; 83880; 85025; 85027; 93005; 99212

== ENCOUNTER 2024-06-28 14:29 | Outpatient (AMB) | payer OTHER, SELFPAY ==
--- NOTE | 2024-06-28 14:38 | A.OFFVIS_ITS ---
Vital Signs 06/28/24 14:39 Height 5 ft 7 in Weight 198 lb 6.656 oz BMI 31.1 BP 120/74 Blood Pressure Location Lt brachial Position Sitting Pulse 65 Intake Visit Reasons: r/s 05/19/24 6 mos f/u w/ekg icd ck Intake Note: 6 Month follow-up with [facility] check feeling good Assistant Executive Housekeeper Required: Yes Assistant Executive Housekeeper Name: Adan Burgos Allergies dog dander [dogs] Allergy (Intermediate, Verified 04/14/24 15:47) Sneezing grass Allergy (Intermediate, Verified 04/14/24 15:47) Rash insect venom [mosquito bites] Allergy (Intermediate, Verified 04/14/24 15:47) Rash roaches Allergy (Intermediate, Verified 04/14/24 15:47) Rash trees Allergy (Intermediate, Verified 04/14/24 15:47) Rash atorvastatin [Lipitor] Adverse Reaction (Intermediate, Verified 04/14/24 15:47) stomach aches Medication List - Last Reconciled 06/28/24 by Bk Canchola MD albuterol sulfate 90 mcg/actuation (Ventolin HFA) 2 puffs inhalation Q6H PRN 30 days apixaban (Eliquis) 5 mg PO BID Arnuity Ellipta 200 mcg/actuation (fluticasone furoate) 1 inh PO DAILY NS bisacodyl (Dulcolax (bisacodyl)) 20 mg (4 x 5 mg) PO ONCE 1 day blood sugar diagnostic (FreeStyle Lite Strips) 3 times a day carvedilol 25 mg PO BID cholecalciferol (vitamin D3) 25 mcg PO DAILY 90 days clonazepam (Klonopin) 0.5 mg PO BEDTIME [collagen PO BID] cyanocobalamin (vitamin B-12) 500 mcg PO every other day in the morning; dapagliflozin propanediol (Farxiga) 10 mg PO DAILY 90 days diaper,brief,adult,disposable As directed [disposable gloves As directed] dulaglutide (Trulicity) mg subcut duloxetine 30 mg PO QAM duloxetine 60 mg PO DAILY eluxadoline (Viberzi) 100 mg PO BID famotidine (Pepcid) 40 mg PO BEDTIME fenofibrate 54 mg PO DAILY 90 days furosemide 40 mg PO DAILY 90 days gabapentin 300 mg PO BID 90 days hospital bed As directed hydrocortisone 1% (Anti-Itch (hydrocortisone)) 1 appl topical BID PRN 2 weeks icosapent ethyl 2 grams (2 x 1 gram) PO BID incontinence pad, liner, disp As directed ketoconazole 2% 1 appl topical 2XW lancets 3 times a day lancets (TRUEplus Lancets) TEST BLOOD SUGAR THREE TIMES DAILY loperamide 4 mg (2 x 2 mg) PO TID PRN metformin ER 1,000 mg (2 x 500 mg) PO BID 90 days peg 3350-electrolytes 236-22.74-6.74 -5.86 gram 240 mL PO Q10M pen needle, diabetic (UltiCare Pen Needle) As directed 1 time a day pen needle, diabetic (Pentips Pen Needle) As directed [recliner As directed] rosuvastatin 10 mg PO BEDTIME 90 days sacubitril-valsartan 24-26 mg (Entresto) 1 tab PO BID [scooter As directed] tamsulosin mg PO DAILY tirzepatide (Mounjaro) mg subcut [wipes As directed] HPI Comments Details: Stephen comes for follow-up. History was obtained with help of feeder catcher over the phone. Patient continues to have symptoms of shortness of breath and fatigue with exertion, NYHA class 2-3. Also has symptoms of palpitations and irregular heartbeat and not feeling well. Has remained in atrial fibrillation despite attempts at rhythm control with including amiodarone therapy. Currently taking his oral anticoagulation therapy without any bleeding issues or neurologic events. Takes all his heart failure medications. He was not had any worsening orthopnea, PND, leg edema. Denies any chest pain. No prolonged fast heart rate, lightheadedness, syncope, ICD discharge. [facility] Medical History Environmental allergies Diabetes mellitus with hyperglycemia, with long-term current use of insulin Former smoker Pre-op examination Permanent atrial fibrillation Dysuria History of cardioversion Mixed hyperlipidemia Hospital discharge follow-up Cellulitis of left ankle Elevated TSH Diabetes mellitus Persistent atrial fibrillation Ear discomfort Atrial flutter Acute on chronic HFrEF (heart failure with reduced ejection fraction) Diverticulosis Tubular adenoma of colon Cardiomyopathy ICD (implantable 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-defibrillator) in place Paroxysmal atrial fibrillation Heart failure with reduced ejection fraction CHF (congestive heart failure) Mixed hyperlipidemia Seborrheic dermatitis of scalp Hearing loss Obesity (BMI 30-39.9) Hypoglycemia unawareness associated with type 2 diabetes mellitus Vitamin D deficiency Diabetic nephropathy associated with type 2 diabetes mellitus 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 Restrictive lung disease Asthma-COPD overlap syndrome Asthma Anemia COPD (chronic obstructive pulmonary disease) HLD (hyperlipidemia) HTN (hypertension) Hearing loss Depression with anxiety GERD (gastroesophageal reflux disease) Essential hypertension Diabetes type 2, uncontrolled Surgical History Hx of bilateral cataract extraction History of esophagogastroduodenoscopy (EGD) Hx of colonoscopy History of cardiac defibrillator placement History of thumb surgery Family History Father Cancer Mother Cancer Family/Other Diabetes CHF (congestive heart failure) Social History Household Members: None Housing: Apartment Alcohol intake: never Patient Tobacco Use Status: Former Tobacco user Tobacco use type: Cigarette e-Cigarette/Vaping Use: Never Used Second Hand Smoke Exposure: No service: No Current occupational status: disabled Cognitive needs: No Hearing needs: No Vision needs: Yes Review of Systems Const Denies chills, Denies fatigue, Denies fever(s), Denies frequent falls, Denies weakness, Denies weight gain and Denies weight loss ENT Denies dizziness Card Denies chest pain, Denies leg edema, Denies lightheadedness, Denies palpitations, Denies dyspnea, Denies dyspnea on exertion, Denies orthopnea and Denies other (loss of consciousness) Resp Denies cough, Denies dyspnea and Denies dyspnea on exertion GI Denies hematochezia and Denies change in stool character Musc Denies abnormal gait, Denies muscle weakness, Denies numbness, Denies radiating pain into limb and Denies tingling Neuro Denies abnormal gait, Denies dizziness, Denies frequent falls, Denies numbness, Denies tingling and Denies weakness Endo Denies fatigue and Denies palpitations Physical Exam Vital Signs: Last Vital Signs Pulse 65 06/28/24 14:39 BP 120/74 06/28/24 14:39 BMI result Body Mass Index 31.1 Const General: comfortable, no acute distress, alert and awake Orientation/consciousness: patient oriented x3 HEENT General nose exam: No nasal polyps present and No nasal discharge present Face and sinus: Yes sinuses nontender Mouth: oropharynx normal Throat: Yes posterior oropharynx normal Neck Neck: Yes trachea midline, Yes supple and Yes no JVD Chest Chest palpation & inspection: tenderness Resp Effort & Inspection: normal respiratory effort Auscultation: clear to auscultation bilaterally Cardio Palpation: abnormal PMI displaced PMI Rhythm: abnormal rhythm irregularly irregular Heart sounds: S1 normal heart sound present, S2 normal heart sound present, no gallops and no murmurs GI Auscultation: normal bowel sounds Back/Spine/Pelvis Thoracic/Lumbar Spine: thoracic and lumbar spine normal to inspection Neuro General: patient oriented x3 and no focal motor deficits Extrem General: Yes no clubbing, cyanosis or edema Psych Appearance: grossly normal and well kempt Speech and movement: Normal speech and movement present Office Procedures Cardiac Device Check Cardiac Device Check Details: Single-chamber [place] ICD in place. Programmed in VVI at 40 beats per minute. No sustained ventricular arrhythmias noted. Ventricular sensing is ex cellent. Capture thresholds adequate. Pacing and shock lead impedance is stable. Battery life is at 1 and half years [id number] Cardiac Device Check, single lead implantable defibrillator Procedure code (CPT) selection complete EKG Details: EKG shows atrial fibrillation with left axis deviation with poor R-wave progression with possible incomplete left bundle-branch block 26000-[id number], Complete Assessment & Plan Assessment & Plan (1) Permanent atrial fibrillation: Code(s): I48.21 - Permanent atrial fibrillation Category: Medical Plan: Persistent and labeled permanent atrial fibrillation with significant symptoms persistent given his loss of AV synchrony as well as poor LV systolic function. Remains NYHA class 2-3 with symptoms. Has failed amiodarone based rhythm management therapy. Given new ablation techniques will refer him to EPS for further consideration for ablation as an option to manage sinus rhythm. Will refer to Dr. Navarro at [facility] to see if he will be a candidate. Continue full oral anticoagulation, currently on Eliquis 5 mg b.i.d.. Importance of oral anticoagulation therapy was discussed to reduce stroke risk. He understands and agrees. He is encouraged to continue maintain activity level as tolerated. CHADSVASc score of at least 4 (2) Heart failure with reduced ejection fraction: Code(s): I50.20 - Unspecified systolic (congestive) heart failure Category: Medical Plan: Heart failure with reduced ejection fraction, clinically euvolemic and well compensated with worsening symptoms related to persistent atrial fibrillation due to loss of atrial kick. Continue current neurohormonal modulation with carvedilol as well as Entresto as well as Farxiga. Importance of neurohormonal modulation was discussed. Continue current diuretic regimen. Daily weight monitoring avoidance of salt loading was discussed. He understands agrees. Will pursue see if it will be possible to pursue rhythm control approach. Will also refer him to phase 2 cardiac rehabilitation to improve his exercise capacity. (3) ICD (implantable 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-defibrillator) in place: Code(s): Z95.810 - Presence of automatic (implantable) cardiac defibrillator Category: Medical Plan: ICD in place for primary prevention. ICD is working well. Reprogrammed for adequate functioning. Follow-up remotely for heart failure as well as device monitoring. Follow up in the clinic in 6 months time, sooner p.r.n.. Thank you for allowing me to partake in his care. Greater than 40 minutes was spent in managing his complex care. Orders: Orders CA echo transthoracic complete 06/28/24 I50.20 - Unspecified systolic (congestive) heart failure Basic Metabolic Panel 06/28/24 I50.20 - Unspecified systolic (congestive) heart failure Complete Blood Count no Diff 06/28/24 I50.20 - Unspecified systolic (congestive) heart failure B Type Natriuretic Peptide 06/28/24 I50.20 - Unspecified systolic (congestive) heart failure Referrals Cardiac Electrophysiology Referral I48.21 - Permanent atrial fibrillation Coding Level of Care Code Est Pt Level 5 (86626) Complex EM visit Add On G2211 Diagnoses Permanent atrial fibrillation I48.21 Heart failure with reduced ejection fraction I50.20 ICD (implantable 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-defibrillator) in place Z95.810 CPT Codes Cardiac Device Check - Cardiac Device 4: 42454-VS Cardiac Device Check, single lead implantable defibrillator ([id number]) EKG - CPT: 17300-[id number], Complete ([id number])
[2024-06-28 14:39] VITALS: BP 120/74; PULSE 65; BMI 31.1
--- OUTSIDE RECORDS SUMMARY | 2024-06-28 15:22 | XMS_ITS | Clinical Summary ---
Author Organization [facility] Address [address] [facility] [address] [place] [address] Phone Care Team Providers Care Credit Risk Specialist Name Role Phone Christie Royal MD Primary Care Provider [phone] Allergies No known active allergies Medications amiodarone (PACERONE) 200 MG tablet Take 200 mg by mouth 04/01/2023 Active carvedilol (COREG) 25 MG tablet Take 25 mg by mouth every morning and evening 04/28/2023 Active DULoxetine (CYMBALTA) [address] capsule Take 60 mg by mouth 1 (one) time each day in the evening 04/28/2023 Active DULoxetine (CYMBALTA) [address] capsule Take 30 mg by mouth 04/28/2023 Active Eliquis 5 MG tablet Take 5 mg by mouth every morning and evening 03/03/2023 Active Entresto 49-51 MG per tablet Take 1 tablet by mouth every morning and evening 04/01/2023 Active Dapagliflozin Propanediol (Farxiga) 10 MG tablet Take 10 mg by mouth 1 (one) time each day in the morning Active fenofibrate (TRICOR) 54 MG tablet Take 54 mg by mouth 1 (one) time each day Active furosemide (LASIX) 40 MG tablet Take 40 mg by mouth in the morning and 40 mg in the evening. Active gabapentin (NEURONTIN) 300 MG capsule Take 300 mg by mouth in the morning and 300 mg in the evening and 300 mg before bedtime. Active metFORMIN (GLUCOPHAGE) 500 MG tablet Take 500 mg by mouth in the morning and 500 mg in the evening. Take with meals. Active rosuvastatin (CRESTOR) 10 MG tablet Take 10 mg by mouth 1 (one) time each day Active cyancobalamine (VITAMIN B-12) 500 MCG tablet Take 500 mcg by mouth 1 (one) time each day Active Cholecalciferol (Vitamin D3) 1000 units capsule Take by mouth Active tamsulosin (FLOMAX) 0.4 MG 24 hr capsule TAKE 1 CAPSULE BY MOUTH EVERY EVENING 90 capsule 05/24/2024 Active Active Problems Problem Noted Date Diagnosed Date Stage 3a chronic kidney disease 12/28/2023 Hyponatremia 05/18/2023 05/18/2023 Hypertensive disorder 05/18/2023 05/18/2023 History of myocardial infarction 05/18/2023 05/18/2023 Diabetes mellitus 05/18/2023 05/18/2023 Chronic obstructive pulmonary disease 05/18/2023 05/18/2023 Anemia 05/18/2023 05/18/2023 Stage 3b chronic kidney disease 05/18/2023 Type 2 diabetes mellitus wit h diabetic chronic kidney disease 05/18/2023 Encounters Date Type Department Care Team Description 05/24/2024 [facility]ill [facility] [address] [place] [address] Justus Lee MD from Last 3 Months Immunizations Name Administration Dates Next Due Pneumococcal Polysaccharide 03/06/2014 Family History Medical History Relation Comments Cancer Father Cancer Mother Relation Status Comments Father Mother Social History Tobacco Use Types Packs/Day Years Used Date Smoking Tobacco: Never Alcohol Use Standard Drinks/Week Comments No 0 (1 standard drink = 0.6 oz pur e alcohol) Sex and Gender Information Value Date Recorded Sex Assigned at Not on file Legal Sex Male 5:07 PM EST Gender Identity Not on file Sexual Orientation Not on file Last Filed Vital Signs Vital Sign Reading Time Taken Comments Blood Pressure 118/62 12/28/2023 1:57 PM EDT Pulse 58 12/28/2023 1:57 PM EDT Temperature - - Respiratory Rate - - Oxygen Saturation 98% 12/28/2023 1:57 PM EDT Inhaled Oxygen Concentration - - Weight 93.3 kg (205 lb 9.6 oz) 12/28/2023 1:57 P M EDT Height - - Body Mass Index - - Plan of Treatment Upcoming Encounters Date Type Department Care Team (Late st Contact Info) Description 10/03/2024 1:15 PM EDT Office Visit [facility] [address] [place] [address] Justus Lee MD [address] [facility] [address] [place] [address] Health Maintenance Due Date Last Done Comments Colorectal Cancer Screening: Annual FOBT 01/28/2001 Colorectal Cancer Screening: Colonoscopy 01/28/2001 Colorectal Cancer Screening: Sigmoidoscopy 01/28/2001 Pneumococcal Vaccine: 65+ Ye ars (2 of 2 - PCV) 03/06/2015 03/06/2014 Diabetes: Ophthalmology Exam 03/17/2023 Diabetes: Pedal Pulse Checked 03/17/2023 Diabetes: Sensory Foot Exam 03/17/2023 Diabetes: Visual Foot Exam 03/17/2023 Diabetes: Hemoglobin A1C 11/09/2023 08/09/2023 Influenza Vaccine (#1) 2024 Hepatitis B Vaccine Aged Out No longe r eligible based on patient's age to complete this topic Procedures Procedure Name Priority Date/Time Associated Diagnosis Comments EXT RESULT ENTRY Routine 08/09/2023 from Last 3 Months or Most Recently Relevant to Health Maintenance Results * (ABNORMAL) EXT RESULT ENTRY (08/09/2023) Hemoglobin A1C 7.2(A) 4.0 - 6.0 08/09/2023 Historical Provider LAB BLOOD ORDERABLES Zainab l Result from Last 3 Months or Most Recently [place] [address] [facility] ([id number]) [place] [id number] [facility] ([id number]) Care Teams Credit Risk Specialist Relationship Specialty Start Date End Date Christie Royal MD [address] [facility] [address] [place] [address] PCP - General Internal Medicine 08/25/23
== END 2024-06-28 15:27 | disposition home or self-care (01) ==
PROVIDERS: PCP Internal Medicine; Visit Provider Internal Medicine Cardiovascular Disease
DX: I48.21 Permanent atrial fibrillation (principal); I50.20 Unspecified systolic (congestive) heart failure; Z95.810 Presence of automatic (implantable) cardiac defibrillator
CPT/HCPCS: 93010; 93282; 99215; G2211

== ENCOUNTER → 2024-07-14 23:59 | Outpatient (BNV) | payer OTHER, SELFPAY ==
--- NOTE | 2024-07-19 14:42 | A.OFFVIS_ITS ---
Intake Visit Reasons: Remote ICD check- [facility] Allergies dog dander [dogs] Allergy (Intermediate, Verified 04/14/24 15:47) Sneezing grass Allergy (Intermediate, Verified 04/14/24 15:47) Rash insect venom [mosquito bites] Allergy (Intermediate, Verified 04/14/24 15:47) Rash roaches Allergy (Intermediate, Verified 04/14/24 15:47) Rash trees Allergy (Intermediate, Verified 04/14/24 15:47) Rash atorvastatin [Lipitor] Adverse Reaction (Intermediate, Verified 04/14/24 15:47) stomach aches PFSH Medical History Environmental allergies Diabetes mellitus with hyperglycemia, with long-term current use of insulin Former smoker Pre-op examination Permanent atrial fibrillation Dysuria History of cardioversion Mixed hyperlipidemia Hospital discharge follow-up Cellulitis of left ankle Elevated TSH Diabetes mellitus Persistent atrial fibrillation Ear discomfort Atrial flutter Acute on chronic HFrEF (heart failure with reduced ejection fraction) Diverticulosis Tubular adenoma of colon Cardiomyopathy ICD (implantable 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-defibrillator) in place Paroxysmal atrial fibrillation Heart failure with reduced ejection fraction CHF (congestive heart failure) Mixed hyperlipidemia Seborrheic dermatitis of scalp Hearing loss Obesity (BMI 30-39.9) Hypoglycemia unawareness associated with type 2 diabetes mellitus Vitamin D deficiency Diabetic nephropathy associated with type 2 diabetes mellitus assisted (current) use of insulin Restrictive lung disease Asthma-COPD overlap syndrome Asthma Anemia COPD (chronic obstructive pulmonary disease) HLD (hyperlipidemia) HTN (hypertension) Hearing loss Depression with anxiety GERD (gastroesophageal reflux disease) Essential hypertension Diabetes type 2, uncontrolled Surgical History Hx of bilateral cataract extraction History of esophagogastroduodenoscopy (EGD) Hx of colonoscopy History of cardiac defibrillator placement History of thumb surgery Family History Father Cancer Mother Cancer Family/Other Diabetes CHF (congestive heart failure) Social History Household Members: None Housing: Apartment Alcohol intake: never Patient Tobacco Use Status: Former Tobacco user Tobacco use type: Cigarette e-Cigarette/Vaping Use: Never Used Second Hand Smoke Exposure: No service: No Current occupational status: disabled Cognitive needs: No Hearing needs: No Vision needs: Yes Office Procedures Cardiac Device Check Cardiac Device Check Details: Remote ICD report generated 07/14/2024. ICD function is adequate [id number] Cardiac Interrogation, implant defibrillator w/interim Procedure code (CPT) selection complete Assessment & Plan Assessment & Plan (1) ICD (implantable 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-defibrillator) in place: Code(s): Z95.810 - Presence of automatic (implantable) cardiac defibrillator Category: Medical Plan: See above Coding Level of Care Code Procedure Only Diagnoses ICD (implantable 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-defibrillator) in place Z95.810 CPT Codes Cardiac Device Check - Cardiac Device 13: [id number] Cardiac Interrogation, implant defibrillator w/interim ([id number])
== END ==
PROVIDERS: PCP Internal Medicine; Visit Provider Internal Medicine Cardiovascular Disease
DX: Z45.02 Encounter for adjustment and management of automatic implantable cardiac defibrillator (principal)
CPT/HCPCS: 93295

== ENCOUNTER → 2024-07-28 14:52 | Outpatient (REF) | payer OTHER, SELFPAY ==
--- OUTSIDE RECORDS SUMMARY | 2024-07-28 18:09 | XMS_ITS | Data Portability ---
Author Organization [place] - [facility], Allergy Address [address] [place] [address] Assessment Encounter Date Assessment Date Assessment LastModified [...] bilateral hearing aids. Was also given a [facility] provider sheet. Follow-up in 6 months for reevaluation or sooner if needed. [email or web address] Not available 12/29/2023 13:47:32 Plan of Treatment [...] 1 %-0.05 % topical cream 2023 024 [facility], [address] [facility], [place], [place], [phone], 03/11/2024 16:25:17 Patient TargetsNo targets recorded. Patient InstructionsNo instructions recorded. Reason for Referral None Reported. Results Created Date Observation Date Name Description Value Unit Range Abnormal Flag Note LastModifiedBy Organization Detail LastModifiedTime 12/29/19 24 audio gram No observ ation record ed. [email or web address] Not Available 12/01 15:42:05 01/20/20 24 09/12/2021 [...] Recorded Time Bilatera l diffuse otitis externa [id number] 13437 Completed 202001/01/2024 Diffuse otitis externa, bilatera l; Note: Date Diagnose d: 1 2:18 PM (H60.313 ) Not Available [facility] 4 02:50:54 Type 2 diabetes mellitus without complica tion 804304315 Active 2021 Type 2 diabetes mellitus without complica tions; Note: Date Diagnose d: 2 2:35 PM (E11.9) Not Available [facility] 4 02:50:56 Bilatera l external auditory canal chronic otitis externa 71396358796 95259 Active 2022 Unspecif ied chronic otitis externa, bilatera l; Note: Date Diagnose d: 03/27/20 23 9:22 AM (H60.63) Not Available [facility] 4 02:51:00 Sensorin eural hearing loss of bilatera l ears 218560915 Active 2021 Sensorin eural hearing loss, bilatera l; Note: Date Diagnose d: 2 3:33 PM (H90.3) Not Available [facility] 4 02:50:54 Problem Notes None recorded. Procedures Surgical History Date Name Laterality Status Provider Name and Address Organization Details Recorded Time 12/29/2023 Comp Audio with Tymps (32917 & 86071) completed SOBIA BINGHAM MA, CCC-A [address],[facility] [address], [place], [address], [place] - [facility] 12/29/2023 14:20:08 Imaging Results Imaging Date Name Status LastModified by Organiz ation Details LastModified Time 12/29/2023 audiogram completed [email or web address] Information n ot available 12/29/2023 15:42:05 09/12/2021 [...] topical solution 2021 active Medicatio n ID: [id number] Du ration Value: 14 Prescrib ed By [...] drops,susp ension 2020 active Medicatio n ID: [id number] Pr escribed By Name: Petar Sanchez MD [...] Updated DateTime 12/29/2023 170.18 cm 32.1 kg/m2 33046.44 g Fifi Becerril [place] - [facility] 12/29/2023 13:35:25 Social History None recorded. Functional Status None recorded. Mental Status None recorded. Family History Nothing Reported. Medical History No medical history recorded. Past Encounters Encounter ID Performer Location Encounter Start Date Encounter Closed Date Diagnosis/Indication Diagnosis SNOMED-CT Code Diagnosis ICD10 Code Diagnosis Note [id number] ROSAURA SANCHEZ MD [facility] [address] [address] 12/29/2023 13:25:58 12/29/2023 14:32:01 Bilateral external auditory canal chronic otitis externa [id number] 132141 H60.63 Sensorineu ral hearing loss of bilateral ears 652625273 H90.3 Audiologic al evaluation results:Ri ght ear:{{Norm [...] Lord Member ID Guarantor Name 12/29/2023 1 [facility] - [facility] AFTER 2022 - ONE CARE (MEDICARE REPLACEMENT/ADV ANTAGE - HMO) Stephen Reno [id number] Stephen Reno Notes Date Note Type Note [...] over 3 years old. ROSAURA SANCHEZ MD [address] [place] [address], [place], [address], [facility] - [facility] 12/30/2023 07:52:39
--- OUTSIDE RECORDS SUMMARY | 2024-07-28 18:09 | XMS_ITS | Clinical Summary ---
Author Organization [facility] Address [address] [facility] 200 [place] [address] Phone Care Team Providers Care Social Secretary Name Role Phone Christie Royal MD Primary Care Provider [phone] Allergies No known active allergies Medications amiodarone [...] 05/24/2024 Refill [facility] [address] [place] [address] Justus Lee [...] Visit [facility] [address] [place] [address] Justus Lee MD [address] [facility] [address] [place] [address] Health Maintenance Due Date Last [...] Recently [place] [address] [facility] ([id number]) Y[place] OLMEDO [id number] [facility] ([id number]) Care Teams Social Secretary Relationship Specialty Start Date End Date Christie Royal MD [address] [place] [address] PCP - General Internal Medicine 08/25/23
== END ==
LOC: HO.CARD 14:52
PROVIDERS: PCP Internal Medicine; Visit Provider Internal Medicine Cardiovascular Disease
DX: I50.20 Unspecified systolic (congestive) heart failure (principal)
CPT/HCPCS: 93306; Q9957

== ENCOUNTER → 2024-07-28 14:54 | Outpatient (BNV) | payer OTHER, SELFPAY | PROVIDERS: PCP Internal Medicine; Visit Provider Internal Medicine Cardiovascular Disease | DX: I35.1 Nonrheumatic aortic (valve) insufficiency (principal); I51.7 Cardiomegaly; I50.20 Unspecified systolic (congestive) heart failure | CPT/HCPCS: 93306 ==

== ENCOUNTER 2024-08-04 13:33 | Outpatient (AMB) | payer OTHER, SELFPAY ==
[2024-08-04 13:51] VITALS: BP 94/40; PULSE 60; O2SAT 98; BMI 31.8
--- NOTE | 2024-08-04 13:51 | A.OFFVIS_ITS ---
Vital Signs 08/04/24 13:51 Height 5 ft 7 in Weight 202 lb 13.204 oz BMI 31.8 BP 94/40 L Blood Pressure Location Lt brachial Position Sitting Pulse 60 Pulse Source Pulse Oximeter Pulse Oximetry (%) 98 Oxygen Delivery Method Room Air Intake Visit Reasons: COPD Intake Note: pt is here for follow up and states he is feeling good has cardiac stuff happening. Catapult And Arresting Gear Officer Required: Yes Catapult And Arresting Gear Officer Services: Catapult And Arresting Gear Officer Present Catapult And Arresting Gear Officer Name: [id number] [email or web address] Allergies dog dander [dogs] Allergy (Intermediate, Verified 08/04/24 14:15) Sneezing grass Allergy (Intermediate, Verified 08/04/24 14:15) Rash insect venom [mosquito bites] Allergy (Intermediate, Verified 08/04/24 14:15) Rash roaches Allergy (Intermediate, Verified 08/04/24 14:15) Rash trees Allergy (Intermediate, Verified 08/04/24 14:15) Rash atorvastatin [Lipitor] Adverse Reaction (Intermediate, Verified 08/04/24 14:15) stomach aches Medication List - Last Reconciled 08/04/24 by Sacha Gonzalez MD albuterol sulfate 90 mcg/actuation (Ventolin HFA) 2 puffs inhalation Q6H PRN 30 days apixaban (Eliquis) 5 mg PO BID Arnuity Ellipta 200 mcg/actuation (fluticasone furoate) 1 inh PO DAILY NS bisacodyl (Dulcolax (bisacodyl)) 20 mg (4 x 5 mg) PO ONCE 1 day blood sugar diagnostic (FreeStyle Lite Strips) 3 times a day carvedilol 25 mg PO BID cholecalciferol (vitamin D3) 25 mcg PO DAILY 90 days clonazepam (Klonopin) 0.5 mg PO BEDTIME [collagen PO BID] cyanocobalamin (vitamin B-12) 500 mcg PO every other day in the morning; dapagliflozin propanediol (Farxiga) 10 mg PO DAILY 90 days diaper,brief,adult,disposable As directed [disposable gloves As directed] dulaglutide (Trulicity) mg subcut duloxetine 30 mg PO QAM duloxetine 60 mg PO DAILY eluxadoline 75 mg PO BID 30 days famotidine (Pepcid) 40 mg PO BEDTIME fenofibrate 54 mg PO DAILY 90 days furosemide 40 mg PO DAILY 90 days gabapentin 300 mg PO BID 90 days hospital bed As directed hydrocortisone 1% (Anti-Itch (hydrocortisone)) 1 appl topical BID PRN 2 weeks icosapent ethyl 2 grams (2 x 1 gram) PO BID incontinence pad, liner, disp As directed ketoconazole 2% 1 appl topical 2XW lancets 3 times a day lancets (TRUEplus Lancets) TEST BLOOD SUGAR THREE TIMES DAILY loperamide 4 mg (2 x 2 mg) PO TID PRN metformin ER 1,000 mg (2 x 500 mg) PO BID 90 days peg 3350-electrolytes 236-22.74-6.74 -5.86 gram 240 mL PO Q10M pen needle, diabetic (UltiCare Pen Needle) As directed 1 time a day pen needle, diabetic (Pentips Pen Needle) As directed [recliner As directed] rosuvastatin 10 mg PO BEDTIME 90 days sacubitril-valsartan 24-26 mg (Entresto) 1 tab PO BID [scooter As directed] tamsulosin mg PO DAILY tirzepatide (Mounjaro) mg subcut [wipes As directed] Do you need a note to return to daycare/school/sports/work: No HPI HPI COPD: Details: 74 YEARS 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 HE DOES USE ARNUITY-201 PUFF A DAY AND NEEDS TO USE ALBUTEROL ONLY ONCE IN A WHILE. FROM RESPIRATORY POINT OF VIEW HE HAS BEEN VERY. STABLE IN THE LAST 6 MONTHS DENIES ANY COUGH OR EXPECTORATION. HE REMAINS WEAK AND SHORT OF BREATH ON WALKING AROUND BUT THIS IS MAINLY BECAUSE OF HIS CARDIAC ISSUES. [facility] Medical History Environmental allergies Diabetes mellitus with hyperglycemia, with long-term current use of insulin Former smoker Pre-op examination Permanent atrial fibrillation Dysuria History of cardioversion Mixed hyperlipidemia Hospital discharge follow-up Cellulitis of left ankle Elevated TSH Diabetes mellitus Persistent atrial fibrillation Ear discomfort Atrial flutter Acute on chronic HFrEF (heart failure with reduced ejection fraction) Diverticulosis Tubular adenoma of colon Cardiomyopathy ICD (implantable 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-defibrillator) in place Paroxysmal atrial fibrillation Heart failure with reduced ejection fraction CHF (congestive heart failure) Mixed hyperlipidemia Seborrheic dermatitis of scalp Hearing loss Obesity (BMI 30-39.9) Hypoglycemia unawareness associated with type 2 diabetes mellitus Vitamin D deficiency Diabetic nephropathy associated with type 2 diabetes 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 Restrictive lung disease Asthma-COPD overlap syndrome Asthma Anemia COPD (chronic obstructive pulmonary disease) HLD (hyperlipidemia) HTN (hypertension) Hearing loss Depression with anxiety GERD (gastroesophageal reflux disease) Essential hypertension Diabetes type 2, uncontrolled Surgical History Hx of bilateral cataract extraction History of esophagogastroduodenoscopy (EGD) Hx of colonoscopy History of cardiac defibrillator placement History of thumb surgery Family History Father Cancer Mother Cancer Family/Other Diabetes CHF (congestive heart failure) Social History Household Members: None Housing: Apartment Alcohol intake: never Patient Tobacco Use Status: Former Tobacco user Tobacco use type: Cigarette e-Cigarette/Vaping Use: Never Used Second Hand Smoke Exposure: No service: No Current occupational status: disabled Cognitive needs: No Hearing needs: No Vision needs: Yes Review of Systems Const All systems reviewed & are unremarkable except as noted in HPI and below Eyes Reports no additional complaints ENT Reports no additional complaints Card Denies chest pain, Reports irregular heart rhythm and Denies leg edema Resp Reports as per HPI GI Reports no additional complaints Reports no additional complaints Musc Reports back pain (Mild) and Reports arthralgias (Mild) Skin/Breast Reports system reviewed and no additional complaints, except as documented Neuro Reports no additional complaints Psych Reports no additional complaints Physical Exam Vital Signs: Last Vital Signs Pulse 60 08/04/24 13:51 BP 94/40 L 08/04/24 13:51 Pulse Ox 98 08/04/24 13:51 Oxygen Delivery Method Room Air 08/04/24 13:51 BMI result Body Mass Index 31.8 Const General: comfortable, no acute distress, alert and awake Orientation/consciousness: patient oriented x3 HEENT Head: Yes normal to inspection General nose exam: No nasal polyps present and No nasal discharge present Face and sinus: Yes sinuses nontender Mouth: oropharynx normal Throat: Yes posterior oropharynx normal Eyes General: appearance normal, both eyes and all related structures Neck Neck: Yes normal visual inspection, Yes no lymphadenopathy, Yes trachea midline and Yes no JVD Thyroid: Thyroid normal Chest Chest palpation & inspection: normal inspection of the chest, normal palpation of entire chest wall and no tenderness Resp Other: He has good breath sounds on both sides. No wheezes or rhonchi are heard today. Cardio Palpation: normal PMI Rate: regular rate Rhythm: regular rhythm Heart sounds: no gallops and no murmurs GI Palpation (GI): Soft to palpation, nontender, No hepatosplenomegaly present, no masses and Other GI palpation findings present (ABDOMEN IS OBESE AND SLIGHTLY PROTUBERANT) Auscultation: normal bowel sounds Back/Spine/Pelvis Thoracic/Lumbar Spine: thoracic and lumbar spine normal to inspection Skin General skin exam: no rashes or lesions noted Neuro General: patient oriented x3 and no focal motor deficits Cranial nerves: Yes CN's II-XII intact bilaterally Extrem General: Yes normal to inspection, Yes no clubbing, cyanosis or edema and Yes no calf tenderness Psych Appearance: grossly normal and well kempt Speech and movement: Normal speech and movement present Assessment & Plan Assessment & Plan (1) Asthma-COPD overlap syndrome: Comment: The Asthma/COPD is fairly well controlled. Code(s): J44.9 - Chronic obstructive pulmonary disease, unspecified Category: Medical Plan: Continue using Arnuity Ellipta-200 1 inhalation daily. Albuterol HFA 2 puffs q.6 hours only p.r.n. (2) Restrictive lung disease: Comment: As per previous pulmonary function test and spirometry he has pattern of moderately severe restrictive pulmonary disorder. This is most likely due to his obesity and cardiac disease. Code(s): J98.4 - Other disorders of lung Category: Medical Plan: He is advised to keep on doing deep breathing exercises 2 or 3 times a day Coding Level of Care Code Est Pt Level 3 (30360) Diagnoses Asthma-COPD overlap syndrome J44.9 Restrictive lung disease J98.4
--- OUTSIDE RECORDS SUMMARY | 2024-08-04 16:29 | XMS_ITS | Clinical Summary ---
Author Organization [facility] Address [address] [facility] 200 [place] [address] Phone Care Team Providers Care Loss Prevention Manager Name Role Phone Christie Royal MD Primary Care Provider [phone] Allergies No known active allergies Medications amiodarone [...] 05/24/2024 Refill [facility] [address] [place] [address] Justus Lee [...] Visit [facility] [address] [place] [address] Justus Lee MD [address] [facility] [address] [place] [address] Health Maintenance Due Date Last [...] Recently Relevant [place] [address] [facility] ([id number]) [place] [id number] [facility] ([id number]) Care Teams Loss Prevention Manager Relationship Specialty Start Date End Date Christie Royal MD [address] [facility] [address] [place] [address] PCP - General Internal Medicine 08/25/23
--- OUTSIDE RECORDS SUMMARY | 2024-08-04 16:29 | XMS_ITS | Data Portability ---
Author Organization [place] - [facility], Allergy Address [address] [place] [address] Assessment Encounter Date Assessment Date Assessment LastModified [...] bilateral hearing aids. Was also given a [facility] provider sheet. Follow-up in 6 months for reevaluation or sooner if needed. [email or web address] Not available 12/29/2023 13:47:32 Plan of Treatment Reminders Order Date Submit Date Provider Last Modified By Organization Details Last Modified Time Details Appointments None recorded. Lab None recorded. Referral None recorded. Procedures None recorded. Surgeries None recorded. Imaging None recorded. Medication Orders clotrimaz ole-betam ethasone 1 %-0.05 % topical cream 024 [facility], [address] [place] [address], [phone], 4 16:25:17 Patient TargetsNo targets recorded. Patient InstructionsNo instructions recorded. Reason for Referral None Reported. Results Created Date Observation Date Name Description Value Unit Range Abnormal Flag Note LastModifiedBy Organization Detail LastModifiedTime 12/29/19 24 audio gram No observ ation record ed. [email or web address] Not Available 12/01 15:42:05 01/20/20 24 09/12/2021 [...] Recorded Time Bilatera l diffuse otitis externa [id number] 53696 Completed 202001/01/2024 Diffuse otitis externa, bilatera l; Note: Date Diagnose d: 1 2:18 PM (H60.313 ) Not Available [facility] 4 02:50:54 Type 2 diabetes mellitus without complica tion 844175671 Active 2021 Type 2 diabetes mellitus without complica tions; Note: Date Diagnose d: 2 2:35 PM (E11.9) Not Available [facility] 4 02:50:56 Bilatera l external auditory canal chronic otitis externa 29207903031 59110 Active 2022 Unspecif ied chronic otitis externa, bilatera l; Note: Date Diagnose d: 03/27/20 23 9:22 AM (H60.63) Not Available [facility] 4 02:51:00 Sensorin eural hearing loss of bilatera l ears 823558155 Active 2021 Sensorin eural hearing loss, bilatera l; Note: Date Diagnose d: 2 3:33 PM (H90.3) Not [facility] 4 02:50:54 Problem Notes None recorded. Procedures Surgical History Date Name Laterality Status Provider Name and Address Organization Details Recorded Time 12/29/2023 Comp Audio with Tymps (09400 & 39559) completed SOBIA BINGHAM [place], [facility] [address] [place] [address], [address], [place] - [facility] 12/29/2023 14:20:08 Imaging Results Imaging Date Name Status LastModified by Organiz ation Details LastModified Time 12/29/2023 audiogram completed Information n ot available 12/29/2023 15:42:05 09/12/2021 [...] topical solution 2021 active Medicatio n ID: [id number] Du ration Value: 14 Prescrib ed By [...] drops,susp ension 2020 active Medicatio n ID: [id number] Pr escribed By Name: Petar Sanchez MD [...] Updated DateTime 12/29/2023 170.18 cm 32.1 kg/m2 77623.44 g Fifi Becerril [place] - [facility] 12/29/2023 13:35:25 Social History None recorded. Functional Status None recorded. Mental Status None recorded. Family History Nothing Reported. Medical History No medical history recorded. Past Encounters Encounter ID Performer Location Encounter Start Date Encounter Closed Date Diagnosis/Indication Diagnosis SNOMED-CT Code Diagnosis ICD10 Code Diagnosis Note [id number] ROSAURA SANCHEZ MD [facility] [address] [address] 12/29/2023 13:25:58 12/29/2023 14:32:01 Bilateral external auditory canal chronic otitis externa [id number] 645613 H60.63 Sensorineu ral hearing loss of bilateral ears 082474898 H90.3 Audiologic al evaluation results:Ri ght ear:{{Norm [...] Lord Member ID Guarantor Name 12/29/2023 1 [facility] - DOS ON OR AFTER 2022 - ONE CARE (MEDICARE REPLACEMENT/ADV ANTAGE - HMO) Stephen Reno [id number] Stephen Reno Notes Date Note Type Note [...] over 3 years old. ROSAURA SANCHEZ MD [address] [place] [address], [address], [facility] - [facility] 12/30/2023 07:52:39
== END 2024-08-04 14:16 | disposition home or self-care (01) ==
PROVIDERS: PCP Internal Medicine; Visit Provider Internal Medicine
DX: J44.9 Chronic obstructive pulmonary disease, unspecified (principal); J98.4 Other disorders of lung
CPT/HCPCS: 99213

== ENCOUNTER → 2024-08-04 13:33 | Outpatient (BNVA) | payer OTHER, SELFPAY | PROVIDERS: PCP Internal Medicine; Visit Provider Internal Medicine | DX: J44.9 Chronic obstructive pulmonary disease, unspecified (principal); J98.4 Other disorders of lung; Z79.899 Other long term (current) drug therapy | CPT/HCPCS: 99212 ==

== ENCOUNTER 2024-09-22 17:04 | Outpatient (AMB) | payer OTHER, SELFPAY ==
[2024-09-22 17:14] VITALS: BP 110/58; PULSE 85; TEMP 36.2; O2SAT 97; BMI 31.8
--- NOTE | 2024-09-22 17:14 | A.OFFPC_ITS ---
Vital Signs 09/22/24 17:14 Height 5 ft 7 in Weight 203 lb BMI 31.8 BP 110/58 L Blood Pressure Location Lt brachial Position Sitting Pulse 85 Pulse Source Pulse Oximeter Temp 97.1 F Temp Source Temporal Artery Scan Pulse Oximetry (%) 97 Oxygen Delivery Method Room Air Intake Visit Reasons: Follow Up Line Person Required: No Accompanied by: Self / Same As Patient Allergies dog dander [dogs] Allergy (Intermediate, Verified 09/22/24 17:18) Sneezing grass Allergy (Intermediate, Verified 09/22/24 17:18) Rash insect venom [mosquito bites] Allergy (Intermediate, Verified 09/22/24 17:18) Rash roaches Allergy (Intermediate, Verified 09/22/24 17:18) Rash trees Allergy (Intermediate, Verified 09/22/24 17:18) Rash atorvastatin [Lipitor] Adverse Reaction (Intermediate, Verified 09/22/24 17:18) stomach aches Medication List - Last Reconciled 09/22/24 by Christie Jain MD albuterol sulfate 90 mcg/actuation (Ventolin HFA) 2 puffs inhalation Q6H PRN 30 days apixaban (Eliquis) 5 mg PO BID Arnuity Ellipta 200 mcg/actuation (fluticasone furoate) 1 inh PO DAILY NS bisacodyl (Dulcolax (bisacodyl)) 20 mg (4 x 5 mg) PO ONCE 1 day blood sugar diagnostic (FreeStyle Lite Strips) 3 times a day carvedilol 25 mg PO BID cholecalciferol (vitamin D3) 25 mcg PO DAILY 90 days clonazepam (Klonopin) 0.5 mg PO BEDTIME [collagen PO BID] cyanocobalamin (vitamin B-12) 500 mcg PO every other day in the morning; dapagliflozin propanediol (Farxiga) 10 mg PO DAILY 90 days diaper,brief,adult,disposable As directed [disposable gloves As directed] dulaglutide (Trulicity) mg subcut duloxetine 30 mg PO QAM duloxetine 60 mg PO DAILY eluxadoline 75 mg PO BID 30 days famotidine 40 mg PO BEDTIME fenofibrate 54 mg PO DAILY 90 days furosemide 40 mg PO DAILY 90 days gabapentin 300 mg PO BID 90 days hospital bed As directed hydrocortisone 1% (Anti-Itch (hydrocortisone)) 1 appl topical BID PRN 2 weeks icosapent ethyl 2 grams (2 x 1 gram) PO BID incontinence pad, liner, disp As directed ketoconazole 2% 1 appl topical 2XW lancets 3 times a day lancets (TRUEplus Lancets) TEST BLOOD SUGAR THREE TIMES DAILY loperamide 4 mg (2 x 2 mg) PO TID PRN metformin ER 1,000 mg (2 x 500 mg) PO BID 90 days peg 3350-electrolytes 236-22.74-6.74 -5.86 gram 240 mL PO Q10M pen needle, diabetic (UltiCare Pen Needle) As directed 1 time a day pen needle, diabetic (Pentips Pen Needle) As directed [recliner As directed] rosuvastatin 10 mg PO BEDTIME 90 days sacubitril-valsartan 24-26 mg (Entresto) 1 tab PO BID [scooter As directed] tamsulosin mg PO DAILY tirzepatide (Mounjaro) mg subcut [wipes As directed] Tobacco use date assessed: 09/22/24 Fall risk assessment: No Falls in past year Last assessed Fall Risk: 09/22/24 Dental Screening Dental Screen Date: 09/22/24 Did you have a dental visit in the last 12 months?: Yes Did you have a dental problem in the last 6 months where you did not have access to dental care?: No Was dental information given to patient?: Patient has dentist HPI HPI Comments History of Present Illness Details The patient is a 74-year-old male presenting with a follow-up evaluation for ongoing management of multiple chronic conditions including Type 2 Diabetes Mellitus, Chronic Systolic Heart Failure (NYHA Class II-III), and Atrial Fibrillation. Diabetes management has been challenging with a recent hemoglobin A1c of 7.5%, above the goal of 7.0%. The patient was started on Mounjaro approximately two months ago, originally on a lower dose which was increased about six weeks ago due to persistently elevated glucose levels. A dditionally, the patient reports feeling weak and experiencing body pain without a specific onset or inciting event, which he suspects may be related to his heart condition. Also has chronic kidney disease. For heart failure, a recent echocardiogram indicated an ejection fraction of 20- 25%. Despite the echocardiogram findings, the patient's wire drawing die maker advised against the placement of a defibrillator. A ProBNP level was recorded at 809 mg/dL, indicative of cardiac failure. The patient monitors his weight regularly, as advised, due to the risk of fluid retention. Atrial fibrillation management includes the use of Eliquis without any incidences of reported bleeding. The patient also has asthma and COPD, for which he uses an inhaler prescribed by his paper pattern inspector. He experiences occasional exacerbations and works on breath management strategies and exercises. A history of elevated cholesterol was reported, but recent control measures appear effective with LDL levels managed under 70 mg/dL following the prescription of rosuvastatin. The patient's hypertension is noted and controlled with current medications, with no significant concerns raised during this visit. [facility] Medical History Environmental allergies Diabetes mellitus with hyperglycemia, with long-term current use of insulin Former smoker Pre-op examination Permanent atrial fibrillation Dysuria History of cardioversion Mixed hyperlipidemia Hospital discharge follow-up Cellulitis of left ankle Elevated TSH Diabetes mellitus Persistent atrial fibrillation Ear discomfort Atrial flutter Acute on chronic HFrEF (heart failure with reduced ejection fraction) Diverticulosis Tubular adenoma of colon Cardiomyopathy ICD (implantable 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-defibrillator) in place Paroxysmal atrial fibrillation Heart failure with reduced ejection fraction CHF (congestive heart failure) Mixed hyperlipidemia Seborrheic dermatitis of scalp Hearing loss Obesity (BMI 30-39.9) Hypoglycemia unawareness associated with type 2 diabetes mellitus Vitamin D deficiency Diabetic nephropathy associated with type 2 diabetes mellitus 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 Restrictive lung disease Asthma-COPD overlap syndrome Asthma Anemia COPD (chronic obstructive pulmonary disease) HLD (hyperlipidemia) HTN (hypertension) Hearing loss Depression with anxiety GERD (gastroesophageal reflux disease) Essential hypertension Diabetes type 2, uncontrolled Surgical History Hx of bilateral cataract extraction History of esophagogastroduodenoscopy (EGD) Hx of colonoscopy History of cardiac defibrillator placement History of thumb surgery Family History Father Cancer Mother Cancer Family/Other Diabetes CHF (congestive heart failure) Social History Household Members: None Housing: Apartment Alcohol intake: never Patient Tobacco Use Status: Former Tobacco user Tobacco use type: Cigarette e-Cigarette/Vaping Use: Never Used Second Hand Smoke Exposure: No service: No Current occupational status: disabled Cognitive needs: No Hearing needs: No Vision needs: Yes Questionnaire PHQ-9 Over the last 2 weeks, how often have you been bothered by any of the following problems? 1. Little interest or pleasure in doing things: not at all 2. Feeling down, depressed, or hopeless: not at all 3. Trouble falling or staying asleep, or sleeping too much: not at all 4. Feeling tired or having little energy: not at all 5. Poor appetite or overeating: not at all 6. Feeling bad about yourself - or that you are a failure or have let yourself or your family down: not at all 7. Trouble concentrating on things, such as reading the newspaper or watching television: not at all 8. Moving or speaking so slowly that other people could have noticed. Or the opposite - being so fidgety or restless that you have been moving around a lot more than usual: not at all 9. Thoughts that you would be better off or of hurting yourself in some way: not at all Total score: 0 Depression Screening Interpretation: Negative Depression Screening Done: Yes 77949 - PHQ-9 Billing: Yes Source: Developed by Drs. José Miguel Neri, Yomaira Roman, Maxwell Erazo and colleagues, with an educational bong from [employer]. Thrive Questionnaire Date Thrive assessed: 09/22/24 I am a: Patient What is your living situation today?: I have a steady place to live Within the past 12 months, did the food you bought not last and you didn't have the money to get more?: Never true Within the past 12 months, did you worry whether your food would run out before you got money to buy more?: Never true Do you have trouble paying for medicines?: No Do you have trouble getting transportation to medical appointments?: No Do you have trouble paying your heating and electricity bill?: No Do you have trouble taking care of your child, family member or friend?: No Do you have trouble with day-to-day activities such as bathing, preparing meals, shopping, managing finances, etc.?: No Are you currently unemployed and looking for a job?: No Are you interested in more education?: No Please select the resources that you would like help with: None Currently or been in a relationship where the following occur: No concerns reported THRIVE Score: 0 AUDIT C Alcohol Use Questionnaire (AUDIT-C) 1. How often do you have a drink containing alcohol?: Never 3. How often do you have six or more drinks on one occasion?: Never Total Score: 0 DARRYL-7 AMB Questionnaire DARRYL-7 Date DARRYL - 7 assessed: 09/22/24 Feeling nervous, anxious, or on edge: 0 = Not at all Not being able to stop or control worryin = Not at all Worrying too much about different things: 0 = Not at all Trouble relaxin = Not at all Being so restless that it is hard to sit still: 0 = Not at all Becoming easily annoyed or irritable: 0 = Not at all Feeling afraid as if something awful might happen: 0 = Not at all Total DARRYL-7 score (0-4 normal; 5-9 mild; 10-14 moderate; 15-21 severe): 0 Source: Developed by Drs. José Miguel Neri, Yomaira Roman, Maxwell Erazo and colleagues, with an educational bong from [employer]. DARRYL-7 Assessment Billing DARRYL-7 Assessment Tool: DARRYL-7 Assessment 44415 Review of Systems Const All systems reviewed & are unremarkable except as noted in HPI and below Reports fatigue Card Denies chest pain at rest, Denies chest pain with activity, Denies edema, Denies irregular heart rhythm, Denies claudication, Denies dyspnea, Denies dyspnea on exertion, Denies orthopnea, Denies paroxysmal nocturnal dyspnea and Denies slow heart rate Resp Denies cough, Denies dyspnea and Denies dyspnea on exertion GI Denies abdominal pain, Denies change in bowel habits, Denies excessive flatus, Denies nausea and Denies vomiting Neuro Denies lack of coordination Endo Reports fatigue Physical exam (Primary Care) Vital Signs: Last Vital Signs Temp 97.1 F 09/22/24 17:14 Pulse 85 09/22/24 17:14 BP 110/58 L 09/22/24 17:14 Pulse Ox 97 09/22/24 17:14 Oxygen Delivery Method Room Air 09/22/24 17:14 BMI result Body Mass Index 31.8 Tobacco/Smoking Status: Tobacco use Status Tobacco use date assessed 09/22/24 09/22/24 17:16 Patient Tobacco Use Status Former Tobacco user 09/22/24 17:16 Tobacco use type Cigarette 09/22/24 17:16 e-Cigarette/Vaping Use Never Used 09/22/24 17:16 PHQ-9: PHQ-9 Score PHQ-9: Total score 0 09/22/24 17:43 Depression Screening Interpretation: Negative Thrive Assessment: Date of Thrive Assessment Date Thrive assessed 09/22/24 09/22/24 17:16 Currently or been in a relationship where the following occur: No concerns reported Resp Effort & Inspection: normal respiratory effort Auscultation: clear to auscultation bilaterally Cardio Jugular venous distension: no JVD Rate: regular rate Rhythm: regular rhythm Heart sounds: S1 normal heart sound present and S2 normal heart sound present Extrem General: Yes full ROM Right lower extremity: lower leg Details: pitting edema Details: 1+ Left lower extremity: lower leg Details: pitting edema Details: 1+ Results AMB Hemoglobin A1c AMB Hemoglobin A1c 7.5 % Last Edit by JAYA Mendoza on 09/22/24 17:43 Results Reviewed Results Reviewed: Laboratory Last Values Hgb A1c (Clinic) 7.5 % (4.0-6.0) H 09/22/24 17:06 Coding Level of Care Code Est Pt Level 4 (40243) Complex EM visit Add On G2211 Diagnoses Moderate major depression F32.1 Stage 3a chronic kidney disease N18.31 Chronic kidney disease stage 3 subtype: stage 3a (GFR 45-59) Permanent atrial fibrillation I48.21 Heart failure with reduced ejection fraction I50.20 Mixed hyperlipidemia E78.2 Asthma-COPD overlap syndrome J44.9 Uncontrolled type 2 diabetes mellitus with hyperglycemia E11.65 Glycemic state: with hyperglycemia Essential hypertension I10 Additional Codes DARRYL-7 Assessment Billing - DARRYL-7 Assessment Tool: DARRYL-7 Assessment 70090 ([id number]) PHQ-9 - 94762 - PHQ-9 Billing: Yes ([id number]) Time Spent (min) 25 Assessment & Plan Assessment & Plan (1) Moderate major depression: Code(s): F32.1 - Major depressive disorder, single episode, moderate Category: Medical (2) CKD (chronic kidney disease) stage 3, GFR 30-59 ml/min: Code(s): N18.30 - Chronic kidney disease, stage 3 unspecified Category: Medical Qualifiers: Chronic kidney disease stage 3 subtype: stage 3a (GFR 45-59) Qualified Code(s): N18.31 - Chronic kidney disease, stage 3a (3) Permanent atrial fibrillation: Code(s): I48.21 - Permanent atrial fibrillation Category: Medical (4) Heart failure with reduced ejection fraction: Code(s): I50.20 - Unspecified systolic (congestive) heart failure Category: Medical (5) Mixed hyperlipidemia: Code(s): E78.2 - Mixed hyperlipidemia Category: Medical (6) Asthma-COPD overlap syndrome: Comment: The Asthma/COPD is fairly well controlled. Code(s): J44.9 - Chronic obstructive pulmonary disease, unspecified Category: Medical (7) Diabetes type 2, uncontrolled: Code(s): E11.65 - Type 2 diabetes mellitus with hyperglycemia Category: Medical Qualifiers: Glycemic state: with hyperglycemia Qualified Code(s): E11.65 - Type 2 diabetes mellitus with hyperglycemia (8) Essential hypertension: Code(s): I10 - Essential (primary) hypertension Category: Medical Plan Continued management focuses on Type 2 Diabetes Mellitus with monitoring of blood glucose levels, adjusting Mounjaro dosing as needed. Attention to heart failure includes vigilant weight tracking to manage fluid retention, while the patient's atrial fibrillation is adequately controlled with current Eliquis therapy. Asthma and COPD management is in place with inhaler usage and paper pattern inspector-directed strategies, while hyperlipidemia and hypertension remain under control with the current medication regimen. Laboratories will be revisited in 4 months, and testosterone levels may be evaluated as the patient has inquired about energy level concerns. Overall, optimization of chronic disease management with lifestyle adjustments will continue, providing a foundation for stable health. Patient was informed and verbally consented to the use of an ambient scribe for clinic note documentation during this visit. The visit centered around the management of longstanding chronic conditions. I reviewed the current status of the patient?s Type 2 Diabetes Mellitus, Chronic Systolic Heart Failure, Atrial Fibrillation, Asthma, and COPD. We discussed the current control measures being implemented, including the rationale for dose adjustments made to Mounjaro given the A1c results, and the continued assessment of heart failure status through regular monitoring and medication adherence. I spoke about the risks of uncontrolled diabetes and the importance of ejection fraction improvement as a goal, using medication as a primary strategy. Regular monitoring of the patient's condition through laboratory work and weight management was emphasized, highlighting the advantages and potential risks associated. We touched on heart failure management goals linked to lifestyle modification and medication adherence while leveraging cardio and pulmonology follow-up care. Consent and understanding of ongoing and planned interventions were affirmed. A comprehensive follow-up lab plan was charted, with fasting labs anticipated in the coming months. Orders: Orders IRON PROFILE 4 Months D64.9 - Anemia, unspecified Vitamin D 25-OH Total 4 Months E55.9 - Vitamin D deficiency, unspecified Comprehensive [place]. Panel Fast 4 Months N18.31 - Chronic kidney disease, stage 3a Free T4 (Free Thyroxine) 4 Months R79.89 - Other specified abnormal findings of blood chemistry NT-proBNP 4 Months I50.20 - Unspecified systolic (congestive) heart failure Testosterone, Free/Total 4 Months R53.83 - Other fatigue AMB Hemoglobin A1c Today E11.21 - Type 2 diabetes mellitus with diabetic nephropathy Lipid Panel 4 Months E78.5 - Hyperlipidemia, unspecified Microalbumin, Random (w Creat) 4 Months R80.9 - Proteinuria, unspecified Complete Blood Count Auto Diff 4 Months D64.9 - Anemia, unspecified Vitamin B12 and Folate 4 Months E53.8 - Deficiency of other specified B group vitamins Thyroid Stimulating Hormone 4 Months R79.89 - Other specified abnormal findings of blood chemistry Patient Instructions: - Continue monitoring blood sugar levels. - Regularly weigh yourself; report a gain of 5 lbs as it may indicate fluid retention. - Follow up with your wire drawing die maker as scheduled. - Use inhalers as directed for asthma/COPD. - Continue current medications, including Eliquis, as prescribed. - Expect laboratory tests in four months, ensuring fasting beforehand. - Discuss testosterone levels at your next visit or as necessary.
--- OUTSIDE RECORDS SUMMARY | 2024-09-22 18:52 | XMS_ITS | Data Portability ---
Author Organization [place] [facility] Former[facility], Allergy Address [address] [place] [address] Assessment Encounter Date Assessment Date Assessment LastModified [...] bilateral hearing aids. Was also given a [facility] provider sheet. Follow-up in 6 months for reevaluation or sooner if needed. aubrey Not available 12/29/2023 13:47:32 09/06/2024 09/06/2024 74-year-old male presents for possible cerumen removal. Otologic exam reveals no cerumen bilaterally and normal TMs. Reassurance was provided and he may follow-up for cerumen as needed. Continue hearing aid use. Not available 09/06/2024 14:56:54 Plan of Treatment Reminders Order Date Submit Date Provider Last Modified By Organization Details Last Modified Time Details Appointments None recorded. Lab None recorded. Referral None recorded. Procedures None recorded. Surgeries None recorded. Imaging None recorded. Medication Orders clotrimaz ole-betam ethasone 1 %-0.05 % topical cream [facility], [address], [place], [id number], 16:25:17 Patient TargetsNo targets recorded. Patient InstructionsNo instructions recorded. Reason for Referral None Reported. Results Created Date Observation Date Name Description Value Unit Range Abnormal Flag Note LastModifiedBy Organization Detail LastModifiedTime 12/29/19 audio gram No observ ation record ed. [email or web address] Not Available 12/01 15:42:05 01/20/20 24 09/12/2021 [...] Recorded Time Bilatera l diffuse otitis externa 56349523272 62390 Completed 202001/01/2024 Diffuse otitis externa, bilatera l; Note: Date Diagnose d: 1 2:18 PM (H60.313 ) Not Available [facility] 4 02:50:54 Type 2 diabetes mellitus without complica tion 987862443 Active 2021 Type 2 diabetes mellitus without complica tions; Note: Date Diagnose d: 2 2:35 PM (E11.9) Not Available [facility] 4 02:50:56 Bilatera l external auditory canal chronic otitis externa 09098622367 39799 Active 2022 Unspecif ied chronic otitis externa, bilatera l; Note: Date Diagnose d: 03/27/20 23 9:22 AM (H60.63) Not Available [facility] 4 02:51:00 Sensorin eural hearing loss of bilatera l ears 606793505 Active 2021 Sensorin eural hearing loss, bilatera l; Note: Date Diagnose d: 2 3:33 PM (H90.3) Not Available [facility] 4 02:50:54 Problem Notes None recorded. Procedures Surgical History Date Name Laterality Status Provider Name and Address Organization Details Recorded Time 12/29/2023 Comp Audio with Tymps (63939 & 33081) completed SOBIA BINGHAM [place], [facility] [address], [place], [address], [place] [facility] 12/29/2023 14:20:08 Imaging Results Imaging Date Name Status LastModified by Organiz ation Details LastModified Time 12/29/2023 audiogram completed [email or web address] Information n ot available 12/29/2023 15:42:05 09/12/2021 [...] tablet TAKE 1 TABLET BY MOUTH EVERY DAY NEEDED active Not Available Not Available No t Available amoxicilli n 500 mg tablet TAKE 1 TABLET BY MOUTH EVERY 8 HOURS active Not Available Not Available No t Available cyanocobal nicholas (vit B-12) 500 mcg tablet TAKE 1 TABLET BY MOUTH EVERY OTHER DAY IN THE MORNING active Not Available Not Available No t Available tamsulosin 0.4 mg capsule TAKE 1 CAPSULE BY MOUTH EVERY EVENING active Not Available Not Available No t Available nitrofuran toin macrocryst al 100 mg capsule TAKE 1 CAPSULE BY MOUTH TWICE DAILY FOR 7 DAYS. TAKE WITH FOOD active Not Available Not Available No t Available clotrimazo le-betamet hasone 1 %-0.05 % topical cream APPLY SMALL AMOUNT TOPICALLY TO AFFECTED AREA(S) TWICE DAILY active Not Available Not Available No t Available clotrimazo le 1 % topical solution 2021 active Medicatio n ID: [id number] Du ration Value: 14 Prescrib ed By Name: DANA Hernandez Name: indigogage miller Send Method: E-Prescri bed Subs Allowed: subs OK Specia l Instructi on: 4 drops to both ears BID x 2 weeks Med icationGe nericName : clotrimaz ole Not Available Not Available Not Available gabapentin 300 mg capsule TAKE 1 CAPSULE BY MOUTH TWICE DAILY IN THE MORNING AND AT BEDTIME active Not Available Not Available No t Available bisacodyl 5 mg tablet,del ayed release TAKE 2 TABLETS AT NOON AND 2 TABLETS AT 5 IN THE EVENING WITH WATER, 1 DAY BEFORE COLONOSCO PY DIRECTED active Not Available Not Available No t Available ibuprofen 600 mg tablet TAKE 1 TABLET BY MOUTH EVERY 8 HOURS NEEDED FOR PAIN active Not Available Not Available No t [...] drops,susp ension 2020 active Medicatio n ID: [id number] Pr escribed By Name: Petar Sanchez MD Brand Name: TobraDex Send Method: E-Prescri bed Subs Allowed: subs OK Specia l Instructi on: Instill 3 drops in the affect ear BID for 14 days Medi cationGen ericName: TobraDex Not Available Not Available Not Available Vitamin D3 25 mcg (1,000 unit) capsule TAKE 1 CAPSULE BY MOUTH EVERY MORNING [...] MIX WITH WATER AND DRINK 240 ML EVERY 10 MINUTES UNTIL CLEAR. USE DIRECTED BY DOCTOR active Not Available Not Available No t Available fenofibrat e 54 mg tablet TAKE 1 TABLET BY MOUTH EVERY MORNING active Not Available Not Available No t Available BD Ultra-Fine Rosemary Pen Needle 32 gauge x USE DIRECTED active Not Available Not Available No t Available TRUEplus Lancets 33 gauge TEST BLOOD SUGAR THREE TIMES DAILY active Not Available Not Available No t Available Vascepa 1 gram capsule TAKE 2 CAPSULES BY [...] INHALE 1 PUFF BY MOUTH EVERY DAY AT THE SAME TIME RINSE MOUTH AFTER USING active Not Available Not Available No t Available Entresto 49 mg-51 mg tablet TAKE 1 TABLET BY MOUTH TWICE DAILY IN THE MORNING AND IN THE EVENING active Not Available Not Available No t Available Entresto 24 mg-26 mg tablet TAKE 1 TABLET BY MOUTH [...] Available Not Available No t Available Viberzi 75 mg tablet TAKE 1 TABLET BY MOUTH TWICE DAILY IN THE MORNING AND IN THE EVENING WITH FOOD active Not Available Not Available No t Available Mounjaro 7.5 mg/0.5 mL subcutaneo us pen injector INJECT ONE PEN (=7.5MG) SUBCUTANE OUSLY ONCE A WEEK DIRECTED active Not Available Not Available No t Available Mounjaro 5 mg/0.5 mL subcutaneo us pen injector INJECT ONE PEN (=5MG) SUBCUTANE OUSLY ONCE A WEEK DIRECTED active Not Available Not Available No t Available Vitals Date Recorded Body height Body mass index (BMI) Body weight Provider Name and Address Organization Details Last Updated DateTime 09/06/2024 170.18 cm 32.1 kg/m2 17250.44 g Fifi Becerril [facility] 09/06/2024 14:10:25 Date Recorded Body height Body mass index (BMI) Body weight Provider Name and Address Organization Details Last Updated DateTime 12/29/2023 170.18 cm 32.1 kg/m2 22721.44 g Fifi Becerril [facility] 12/29/2023 13:35:25 Social History None recorded. Functional Status None recorded. Mental Status None recorded. Family History Nothing Reported. Medical History No medical history recorded. Past Encounters Encounter ID Performer Location Encounter Start Date Encounter Closed Date Diagnosis/Indication Diagnosis SNOMED-CT Code Diagnosis ICD10 Code Diagnosis Note [id number] ROSAURA SANCHEZ MD [facility] [address] [address] 12/29/2023 13:25:58 12/29/2023 14:32:01 Bilateral external auditory canal chronic otitis externa [id number] 346234 H60.63 Sensorineu ral hearing loss of bilateral ears 521003694 H90.3 Audiologic al evaluation results:Ri ght ear:{{Norm [...] Cou ld not maintain a hermetic seal}} [id number] CARLOS PIERCE PA-C [facility] [address] [address] 09/06/2024 14:03:26 09/06/2024 14:30:12 Sensorineural hearing loss of bilateral ears 288472633 H90.3 Audiologic al evaluation results:Il ght ear:{{Norm al Normal through 2 kHz [...] Lord Member ID Guarantor Name 12/29/2023 1 [facility] - DOS ON OR AFTER 2022 - [employer] (MEDICARE REPLACEMENT/ADV ANTAGE - HMO) Stephen Reno [id number] Stephen Reno 09/06/2024 1 [facility] - DOS ON OR AFTER 2022 - [employer] (MEDICARE REPLACEMENT/ADV ANTAGE - HMO) Stephen Reno [id number] Stephen Reno Notes Date Note Type Note [...] over 3 years old. ROSAURA SANCHEZ MD [address] [facility],[address], [address], [facility] [place] 12/30/2023 07:52:39 09/06/2024 text/html 74-year-old male with sensorineural hearing loss presents for possible cerumen removal. He has hearing aids which he is using with good benefit. No acute changes in hearing. CARLOS PIERCE PA-C [address] [facility],[address] [address], [place], [address], [facility] - [facility] 09/06/2024 14:57:16
--- OUTSIDE RECORDS SUMMARY | 2024-09-22 18:52 | XMS_ITS | Clinical Summary ---
Author Organization [facility] Address [address] [facility] [address] [place] [address] Phone Care Team Providers Care Animation Director Name Role Phone Christie Royal MD Primary Care Provider [phone] Allergies No known active allergies Medications amiodarone (PACERONE) 200 MG tablet Take 200 mg by mouth 3 Active carvedilol (COREG) 25 MG tablet Take 25 mg by mouth every morning and evening 3 Active DULoxetine (CYMBALTA) [address] capsule Take 60 mg by mouth 1 (one) time each day in the evening 3 Active DULoxetine (CYMBALTA) [address] capsule Take 30 mg by mouth 3 Active Eliquis 5 MG tablet Take 5 mg by mouth every morning and evening 3 Active Entresto 49-51 MG per tablet Take 1 tablet by mouth every morning and evening 3 Active Dapagliflozin Propanediol (Farxiga) 10 MG tablet [...] CAPSULE BY MOUTH EVERY EVENING 90 capsule Active tamsulosin (FLOMAX) 0.4 MG 24 hr capsule TAKE 1 CAPSULE BY MOUTH EVERY EVENING 90 capsule 025 Discontinued Active Problems Problem Noted Date Diagnosed Date Stage 3a chronic kidney disease 12/28/2023 Hyponatremia 05/18/2023 05/18/2023 Hypertensive disorder 05/18/2023 05/18/2023 History of myocardial infarction 05/18/2023 05/18/2023 Diabetes mellitus 05/18/2023 05/18/2023 Chronic obstructive pulmonary disease 05/18/2023 05/18/2023 Anemia 05/18/2023 05/18/2023 Stage 3b chronic kidney disease 05/18/2023 Type 2 diabetes mellitus wit h diabetic chronic kidney disease 05/18/2023 Encounters Date Type Department Care Team Description 08/24/2024 Refill [facility] [address] [place] [address] Justus Lee MD from Last 3 Months Immunizations Immunization Administration Dates Next Due Pneumococcal Polysaccharide 03/06/2014 [...] Visit [facility] [address] RODRIGUEZ Gautam [place] [address] Justus Lee MD [address] [facility] [address] [place] [id number] Health Maintenance Due Date Last Done Comments Colorectal Cancer Screening: Annual FOBT 01/28/2001 Colorectal Cancer Screening: Colonoscopy 01/28/2001 Colorectal Cancer Screening: Sigmoidoscopy 01/28/2001 Pneumococcal Vaccine: 50+ Ye ars (2 of 2 - PCV) 03/06/2015 03/06/2014 Diabetes: Ophthalmology Exam 03/17/2023 Diabetes: Pedal Pulse Checked 03/17/2023 Diabetes: Sensory Foot Exam 03/17/2023 Diabetes: Visual Foot Exam 03/17/2023 Diabetes: Hemoglobin A1C 11/09/2023 08/09/2023 Influenza Vaccine (Season Ended) 2025 Pneumococcal Vaccine: Peds ( 0 to 5 Years) and At-Risk Patients (6 to 49 Years) Discontinued 03/06/2014 Hepatitis B Vaccine Aged Out No longe r eligible based on patient's age to complete this topic Procedures Procedure Name Priority Date/Time Associated Diagnosis Comments EXT RESULT ENTRY Routine 08/09/2023 from Last 3 Months or Most Recently Relevant to Health Maintenance Results * (ABNORMAL) EXT RESULT ENTRY (08/09/2023) Hemoglobin A1C 7.2(A) 4.0 - 6.0 08/09/2023 us Historical Provider LAB BLOOD ORDERABLES Zainab l Result from Last 3 Months or Most Recently Relevant to Health Maintenance Insurance [facility] ([id number]) [facility] ([id number]) YAO OLMEDO [phone] Care Teams Animation Director Relationship Specialty Start Date End Date Christie Royal MD [address] PCP - General Internal Medicine 08/25/23
== END 2024-09-22 17:34 | disposition home or self-care (01) ==
LOC: HO.HMCH 17:05
PROVIDERS: PCP Internal Medicine; Visit Provider Internal Medicine
DX: I12.9 Hypertensive chronic kidney disease with stage 1 through stage 4 chronic kidney disease, or unspecified chronic kidney disease (principal); N18.31 Chronic kidney disease, stage 3a; I50.20 Unspecified systolic (congestive) heart failure; E11.65 Type 2 diabetes mellitus with hyperglycemia; F32.1 Major depressive disorder, single episode, moderate; I48.21 Permanent atrial fibrillation; J44.9 Chronic obstructive pulmonary disease, unspecified; E11.21 Type 2 diabetes mellitus with diabetic nephropathy; E78.2 Mixed hyperlipidemia

== ENCOUNTER → 2024-09-22 17:04 | Outpatient (BNVA) | payer OTHER, SELFPAY | PROVIDERS: PCP Internal Medicine; Visit Provider Internal Medicine | DX: E11.22 Type 2 diabetes mellitus with diabetic chronic kidney disease (principal); E11.65 Type 2 diabetes mellitus with hyperglycemia; I13.0 Hypertensive heart and chronic kidney disease with heart failure and stage 1 through stage 4 chronic kidney disease, or unspecified chronic kidney disease; I50.22 Chronic systolic (congestive) heart failure; N18.31 Chronic kidney disease, stage 3a; J44.9 Chronic obstructive pulmonary disease, unspecified; F32.1 Major depressive disorder, single episode, moderate; I48.21 Permanent atrial fibrillation; E78.2 Mixed hyperlipidemia; D63.1 Anemia in chronic kidney disease; R80.9 Proteinuria, unspecified; Z79.899 Other long term (current) drug therapy | CPT/HCPCS: 83036; 96127; 99212 ==

== ENCOUNTER 2024-10-04 12:25 | Outpatient (AMB) | payer OTHER, SELFPAY ==
--- NOTE | 2024-10-04 12:29 | MHC.OFFVIS ---
Vital Signs 10/04/24 12:31 Height 5 ft 7 in Weight 205 lb 0.478 oz BMI 32.1 BP 119/61 Blood Pressure Location Lt brachial Position Sitting Pulse 80 Intake Visit Reasons: Follow up medication Intake Note: Stephen presents in the office as a follow up to continue medications. CC: No concerns at this time! Ship Painter Helper Required: Yes Allergies dog dander [dogs] Allergy (Intermediate, Verified 10/04/24 12:31) Sneezing grass Allergy (Intermediate, Verified 10/04/24 12:31) Rash insect venom [mosquito bites] Allergy (Intermediate, Verified 10/04/24 12:31) Rash roaches Allergy (Intermediate, Verified 10/04/24 12:31) Rash trees Allergy (Intermediate, Verified 10/04/24 12:31) Rash atorvastatin [Lipitor] Adverse Reaction (Intermediate, Verified 10/04/24 12:31) stomach aches HPI HPI Follow up medication: Details: Assessment & Plan (1) Irritable bowel syndrome with diarrhea: Code(s): K58.0 - Irritable bowel syndrome with diarrhea Category: Medical (2) GERD (gastroesophageal reflux disease): Code(s): K21.9 - Gastro-esophageal reflux disease without esophagitis Category: Medical Qualifiers: Esophagitis presence: esophagitis presence not specified Qualified Code(s): K21.9 - Gastro-esophageal reflux disease without esophagitis Plan [place] # We finally are able to confirm that he IS taking Viberzi 100mg bid. He says that he has been taking OTC Pepto BIsmol liquid and together these 2 medicines are controlling his diarrhea. I don't mind this, but I advise him to check with his addressing machine operator since the salisylate interacts with his Eliquis and could cause bleeding or GIB. He says that Imodium does not work for him. He has a follow up with me 05/03 after the procedure. COLONOSCOPY SCHEDULED FOR 04/21/2024 BIOPSY CORRESPONDENCE On 04/21/24 @ 08:44 Jessica Sainz Wrote To Jessica Sainz noted - as documented below I spoke to him with alpine guide reviewed multiple times prep and medications. Jessica Sainz completed item. On 04/21/24 @ 08:33 Elpidio Zuñiga Wrote To Jessica Sainz FYI- patient still took eliquis and farxiga yesterday, discussed with anesthesia, case cancelled, patient informed and said he will not be coming back. He can resume eliquis today. TODAY'S VISIT [place]arian #[id number] He says he told them via a good alpine guide 6 times, that he had held his Mounjaro and his Eliquis as directed, 3 days prior. With this, I don;t understand where the disconnect happened. The patient is quite oriented at his baseline w/o any psych problems, so I don't understand why they did not believe him. At this time he does not want to reschedule with our service. He says I referred him to [place] for colonoscopy, he has some sort of letter that he will bring to me tomorrow since I don't know what this is. He continues on his Viberzi 100 mg twice a day with good control of all of his symptoms. ROV 6 mos. [facility] Medical History Environmental allergies Diabetes mellitus with hyperglycemia, with long-term current use of insulin Former smoker Pre-op examination Permanent atrial fibrillation Dysuria History of cardioversion Mixed hyperlipidemia Hospital discharge follow-up Cellulitis of left ankle Elevated TSH Diabetes mellitus Persistent atrial fibrillation Ear discomfort Atrial flutter Acute on chronic HFrEF (heart failure with reduced ejection fraction) Diverticulosis Tubular adenoma of colon Cardiomyopathy ICD (implantable 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-defibrillator) in place Paroxysmal atrial fibrillation Heart failure with reduced ejection fraction CHF (congestive heart failure) Mixed hyperlipidemia Seborrheic dermatitis of scalp Hearing loss Obesity (BMI 30-39.9) Hypoglycemia unawareness associated with type 2 diabetes mellitus Vitamin D deficiency Diabetic nephropathy associated with type 2 diabetes mellitus 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 Restrictive lung disease Asthma-COPD overlap syndrome Asthma Anemia COPD (chronic obstructive pulmonary disease) HLD (hyperlipidemia) HTN (hypertension) Hearing loss Depression with anxiety GERD (gastroesophageal reflux disease) Essential hypertension Diabetes type 2, uncontrolled Surgical History Hx of bilateral cataract extraction History of esophagogastroduodenoscopy (EGD) Hx of colonoscopy History of cardiac defibrillator placement History of thumb surgery Family History Father Cancer Mother Cancer Family/Other Diabetes CHF (congestive heart failure) Social History Household Members: None Housing: Apartment Alcohol intake: never Patient Tobacco Use Status: Former Tobacco user Tobacco use type: Cigarette e-Cigarette/Vaping Use: Never Used Second Hand Smoke Exposure: No service: No Current occupational status: disabled Cognitive needs: No Hearing needs: No Vision needs: Yes Review of Systems Const Denies fatigue, Denies fever(s), Denies night sweats, Denies poor appetite and Denies weight loss ENT Reports Normal hearing present, Denies dental pain, Denies dysphagia, Denies hearing loss, Denies mouth pain, Denies odynophagia, Denies throat swelling, Denies tongue swelling and Reports other (Dentition adequate) Card Reports no additional complaints Resp Reports no additional complaints GI Details: Denies abdominal pain, Denies melena, Denies bloating, Denies hematochezia, Denies constipation, Denies GI cramping, Denies dysphagia, Reports excessive flatus, Denies early satiety, Denies heartburn, Reports diarrhea, Denies nausea, Denies odynophagia, Denies vomiting and Denies hematemesis Skin/Breast Denies pruritus, Denies lesions, Denies rash and Denies jaundice Neuro Reports Normal hearing present and Denies Abnormal speech present Endo Denies fatigue Aller/Immun Denies throat swelling and Denies tongue swelling Physical Exam Vital Signs: Last Vital Signs Pulse 80 10/04/24 12:31 BP 119/61 10/04/24 12:31 BMI result Body Mass Index 32.1 Const General: cooperative, no acute distress, well developed and well groomed Nutritional Appearance: well nourished and obese Orientation/consciousness: oriented to person, oriented to place and oriented to time Limitations: language barrier HEENT Head: Yes normocephalic and Yes atraumatic Eyes General: appearance normal, both eyes and all related structures Pupils: Equal, round and reactive pupils present Neck Neck: Yes normal visual inspection and Yes no lymphadenopathy Thyroid: Thyroid normal Resp Effort & Inspection: normal respiratory effort and able to speak in complete sentences Auscultation: clear to auscultation bilaterally Cardio Rate: regular rate Rhythm: regular rhythm Heart sounds: Normal, physiologic split S2 sound present Peripheral pulses: radial pulses present and posterior tibial pulses present GI Inspection: No distended, No Abdominal panniculus present and Yes obesity Palpation (GI): Soft to palpation, nontender, no guarding, not rigid and No hepatosplenomegaly present Percussion: Yes normal to percussion Auscultation: normal bowel sounds Rectal Exam - Male: Yes deferred Skin General skin exam: no rashes or lesions noted, turgor normal, skin not dry, no jaundice, No spider nevi and no striae Rashes: no rashes Nails: normal Neuro General: oriented to person, oriented to place and oriented to time Cranial nerves: Yes Equal, round and reactive pupils present and Yes Normal hearing present Speech: No Abnormal speech present Extrem General: Yes normal to inspection, No clubbing, No cyanosis and No edema Psych Appearance: grossly normal and well kempt Mental Status: mental status grossly normal Speech and movement: Normal speech and movement present Affect: normal affect Attitude: cooperative Thought process: Normal thought process present and not confabulating Thought content: Normal thought content present Insight: Fair insight present (Psych) Judgement: Fair judgement present (Psych) Assessment & Plan Assessment & Plan (1) Irritable bowel syndrome with diarrhea: Code(s): K58.0 - Irritable bowel syndrome with diarrhea Category: Medical (2) GERD (gastroesophageal reflux disease): Code(s): K21.9 - Gastro-esophageal reflux disease without esophagitis Category: Medical Qualifiers: Esophagitis presence: esophagitis presence not specified Qualified Code(s): K21.9 - Gastro-esophageal reflux disease without esophagitis (3) Tubular adenoma of colon: Comment: 05/17/2021 Neg Cologuard as pt has poor cardiac status, repeat 3 years: 07/2020 scope poor prep repeat 6-8 months, 12 mm pedunculated polyp removed with cold snare and base of stalk clipped x 2, with no bleeding noted. another 6-7 mm sessile polyp removed with cold snare, this was followed by a negative Cologuard so repeat in 2023 Code(s): D12.6 - Benign neoplasm of colon, unspecified Category: Medical Plan [place] #[id number] He says he told them via a good alpine guide 6 times, that he had held his Mounjaro and his Eliquis as directed, 3 days prior. With this, I don;t understand where the disconnect happened. The patient is quite oriented at his baseline w/o any psych problems, so I don't understand why they did not believe him. At this time he does not want to reschedule with our service. He says I referred him to [place] for colonoscopy, he has some sort of letter that he will bring to me tomorrow since I don't know what this is. He continues on his Viberzi 100 mg twice a day with good control of all of his symptoms. ROV 6 mos. Medications: New eluxadoline (Viberzi) must administer with a meal/food 100 mg PO BID 60 tabs 5RF K58.0 - Irritable bowel syndrome with diarrhea Coding Level of Care Code Est Pt Level 3 (59941) Diagnoses Irritable bowel syndrome with diarrhea K58.0 Gastroesophageal reflux disease, unspecified whether esophagitis present K21.9 Esophagitis presence: esophagitis presence not specified Tubular adenoma of colon D12.6
[2024-10-04 12:31] VITALS: BP 119/61; PULSE 80; BMI 32.1
--- OUTSIDE RECORDS SUMMARY | 2024-10-04 13:44 | XMS_ITS | Clinical Summary ---
Author Organization [facility] Address [address] [place] [address] Phone Care Team Providers Care Business Functional Analyst Name Role Phone Christie Royal MD Primary Care Provider Allergies No known active allergies Medications carvedilol (COREG) 25 MG tablet Take 25 mg by mouth every morning and evening 023 Active DULoxetine (CYMBALTA) [address] capsule Take 60 mg by mouth 1 (one) time each day in the evening 023 Active DULoxetine (CYMBALTA) [address] capsule Take 30 mg by mouth 023 Active Eliquis 5 MG tablet Take 5 mg by mouth every morning and evening 023 Active Entresto 49-51 MG per tablet Take 1 tablet by mouth every morning and evening 023 Active Dapagliflozin Propanediol (Farxiga) 10 MG tablet [...] mouth 1 (one) time each day Active Cholecalcifero l (Vitamin D3) 1000 units capsule Take by mouth Active tamsulosin (FLOMAX) 0.4 MG 24 hr capsule TAKE 1 CAPSULE BY MOUTH EVERY EVENING 90 capsule 025 Active Vascepa 1 g capsule TAKE 2 CAPSULES BY MOUTH TWICE DAILY IN THE MORNING AND EVENING Active Mounjaro 7.5 MG/0.5ML solution auto-injector INJECT ONE PEN (=7.5MG) SUBCUTANEOUSLY ONCE A WEEK DIRECTED 025 Active amiodarone (PACERONE) 200 MG tablet Take 200 mg by mouth 023 2024 Discontinued Active Problems Problem Noted Date Diagnosed [...] Encounters Date Type Department Care Team Description 10/03/2024 1:15 PM EDT Office Visit [facility] [address] [place] [address] Justus Lee MD Stage 3a chronic kidney disease (HCC) (Primary Dx); Hypertensive disorder 08/24/2024 Refill [facility] [address] [place] [address] Justus Lee MD from Last 3 Months [...] Reading Time Taken Comments Blood Pressure 118/62 10/03/2024 1:14 PM EDT Pulse 60 10/03/2024 1:14 PM EDT Temperature - - Respiratory Rate - - Oxygen Saturation 97% 10/03/2024 1:14 PM EDT Inhaled Oxygen Concentration - - Weight 92.4 kg (203 lb 9.6 oz) 10/03/2024 1:14 P M EDT Height - - Body Mass Index - - Plan of Treatment Upcoming Encounters Date Type Department Care Team (Late st Contact Info) Description 10/02/2025 1:00 PM EDT Office Visit [facility] [address] [place] [address] Justus Lee MD [phone] [facility] [address] [place] [address] Health Maintenance Due Date Last [...] Most Recently Relevant to Health Maintenance Insurance [facility] ([id number]) [facility] ([id number]) [place] [id number] Care Teams Business Functional Analyst Relationship Specialty Start Date End Date Christie Royal MD [address] [place], [place] PCP - General Internal Medicine 08/25/23
--- OUTSIDE RECORDS SUMMARY | 2024-10-04 13:44 | XMS_ITS | Data Portability ---
Author Organization [place] [facility] Address [address] [place] [phone] Assessment Encounter Date Assessment Date Assessment LastModified [...] bilateral hearing aids. Was also given a [facility] provider sheet. Follow-up in 6 months for reevaluation or sooner if needed. [email or web address] Not available 12/29/2023 13:47:32 09/06/2024 09/06/2024 74-year-old male presents for possible cerumen removal. Otologic exam reveals no cerumen bilaterally and normal TMs. Reassurance was provided and he may follow-up for cerumen as needed. Continue hearing aid use. [email or web address] Not available 09/06/2024 14:56:54 Plan of Treatment Reminders Order Date Submit Date Provider Last Modified By Organization Details Last Modified Time Details Appointments None recorded. Lab None recorded. Referral None recorded. Procedures None recorded. Surgeries None recorded. Imaging None recorded. Medication Orders clotrimaz ole-betam ethasone 1 %-0.05 % topical cream [facility], [address] [place], [place], [id number], 16:25:17 Patient TargetsNo targets recorded. Patient InstructionsNo instructions recorded. Reason for Referral None Reported. Results Created Date Observation Date Name Description Value Unit Range Abnormal Flag Note LastModifiedBy Organization Detail LastModifiedTime 12/29/19 audio gram No observ ation record ed. [email or web address] Not Available 12/01 15:42:05 01/20/20 24 09/12/2021 [...] Recorded Time Bilatera l diffuse otitis externa 13747450755 23412 Completed 202001/01/2024 Diffuse otitis externa, bilatera l; Note: Date Diagnose d: 1 2:18 PM (H60.313 ) Not Available [facility] 4 02:50:54 Type 2 diabetes mellitus without complica tion 942427681 Active 2021 Type 2 diabetes mellitus without complica tions; Note: Date Diagnose d: 2 2:35 PM (E11.9) Not Available [facility] 4 02:50:56 Bilatera l external auditory canal chronic otitis externa 97141397700 59567 Active 2022 Unspecif ied chronic otitis externa, bilatera l; Note: Date Diagnose d: 03/27/20 23 9:22 AM (H60.63) Not Available [facility] 4 02:51:00 Sensorin eural hearing loss of bilatera l ears 680839262 Active 2021 Sensorin eural hearing loss, bilatera l; Note: Date Diagnose d: 2 3:33 PM (H90.3) Not Available [facility] 4 02:50:54 Problem Notes None recorded. Procedures Surgical History Date Name Laterality Status Provider Name and Address Organization Details Recorded Time 12/29/2023 Comp Audio with Tymps - 22381 & 34298 completed SOBIA BING[place], [facility]-[address],[place] [address], [place], [address], [place] - [facility] 12/29/2023 14:20:08 Imaging Results Imaging Date Name Status LastModified by Organiz ation Details LastModified Time 12/29/2023 audiogram completed [email or web address] Information n ot available 12/29/2023 15:42:05 09/12/2021 [...] topical solution 2021 active Medicatio n ID: [id number] Du ration Value: 14 Prescrib ed By [...] drops,susp ension 2020 active Medicatio n ID: [id number] Pr escribed By Name: Petar Sanchez MD [...] Updated DateTime 09/06/2024 170.18 cm 32.1 kg/m2 09999.44 g Fifi Becerril [facility] 09/06/2024 14:10:25 Date Recorded Body height Body mass index (BMI) Body weight Provider Name and Address Organization Details Last Updated DateTime 12/29/2023 170.18 cm 32.1 kg/m2 56963.44 g Fifi Becerril [facility] 12/29/2023 13:35:25 Social History None recorded. Functional Status None recorded. Mental Status None recorded. Family History Nothing Reported. Medical History No medical history recorded. Past Encounters Encounter ID Performer Location Encounter Start Date Encounter Closed Date Diagnosis/Indication Diagnosis SNOMED-CT Code Diagnosis ICD10 Code Diagnosis Note [id number] CARLOS PIERCE PA-C [facility] [address] [address] 12/29/2023 13:25:58 12/29/2023 14:32:01 Bilateral external auditory canal chronic otitis externa [id number] 369307 H60.63 Sensorineu ral hearing loss of bilateral ears 754529715 H90.3 Audiologic al evaluation results:Ri ght ear:{{Norm [...] Cou ld not maintain a hermetic seal}} [id number] CARLOS PIERCE PA-C [facility] [address] [address] 09/06/2024 14:03:26 09/06/2024 14:30:12 Sensorineural hearing loss of bilateral ears [id number] H90.3 Audiologic al evaluation results:Sd ght ear:{{Norm al Normal through 2 kHz [...] Lord Member ID Guarantor Name 12/29/[address] [facility] - DOS ON OR AFTER 2022 - ONE C[employer] (MEDICARE REPLACEMENT/ADV ANTAGE - HMO) Stephen Reno [id number] Stephen Reno 09/06/[address] [facility] - DOS ON OR AFTER 2022 - [employer] (MEDICARE REPLACEMENT/ADV ANTAGE - HMO) Stephen Reno [id number] Stephen Reno Notes Date Note Type Note [...] 5 years old. ROSAURA SANCHEZ MD [address] [facility],[address], [address], [facility] [place] 12/30/2023 07:52:39 09/06/2024 text/html 74-year-old male with sensorineural hearing loss presents for possible cerumen removal. He has hearing aids which he is using with good benefit. No acute changes in hearing. CARLOS PIERCE PA-C [address] [facility],[place] [address], [place], [address], [facility] 09/06/2024 14:57:16
--- OUTSIDE RECORDS SUMMARY | 2024-10-04 13:44 | XMS_ITS | Encounter Summary ---
Author Organization [facility] Address [address] [place] [phone] Phone Care Team Providers Care Cook Cashier Food Prep Name Role Phone Christie Royal MD Primary Care Provider [phone] Reason for Referral * Consultation (Routine) - Closed Specialty Diagnoses / Procedures Referred By Janey mcdowell Referred To Contact Urology Diagnoses Stage 3a chronic kidney disease (HCC) Hypertensive disorder Justus Lee MD [address] [address] Phone: tel: fax: Referral ID Status Reason Start Date Expiration Date V isits Requested Visits Authorized [id number] Closed Specialty Services Required 10/03/2024 10/03/2025 1 1 Reason for Visit * Reason Comments Stage 3a chronic kidney disease Encounter Details Date Type Department Care Team ([facility] st Contact Info) Description 10/03/2024 1:15 PM EDT Office Visit [facility] [address] [place] [address] Justus Lee MD [address] [phone] Stage 3a chronic kidney disease (HCC) (Primary Dx); Hypertensive disorder Social History Tobacco Use Types Packs/Day Years Used Date Smoking Tobacco: Never Alcohol Use Standard Drinks/Week Comments No 0 (1 standard drink = 0.6 oz pur e alcohol) Sex and Gender Information Value Date Recorded Sex Assigned at Not on file Legal Sex Male 5:07 PM EST Gender Identity Not on file Sexual Orientation Not on file documented as of this encounter Last Filed Vital Signs Vital Sign Reading Time Taken Comments Blood Pressure 118/62 10/03/2024 1:14 PM EDT Pulse 60 10/03/2024 1:14 PM EDT Temperature - - Respiratory Rate - - Oxygen Saturation 97% 10/03/2024 1:14 PM EDT Inhaled Oxygen Concentration - - Weight 92.4 kg (203 lb 9.6 oz) 10/03/2024 1:14 P M EDT Height - - Body Mass Index - - documented in this encounter Patient Instructions * Patient Instructions* Justus Lee MD - 10/03/2024 1:15 PM EDT No NSAIDS - Do not take non-steroidal anti-inflammatory medications (NSAIDS) such as Ibuprofen (Advil, Motrin, etc), Naproxen (Aleve, etc), Celecoxib (Celebrex) or Ketoprofen. These common arthritis medications can cause permanent kidney damage or worsen your kidney damage. For mild occasional pain, Acetaminophen (Tylenol, etc) is safe for your kidneys. Sodium and Your CKD Diet: How to Spice Up Your Cooking What is sodium? Sodium is a mineral found naturally in foods and is the major part of table salt. What are the effects of eating too much sodium? When your kidneys are not healthy, extra sodium and fluid build up in your body. This can cause swollen ankles, puffiness, a rise in blood pressure, shortness of breath, and/or fluid around your heart and lungs. See the following table for suggestions on how to reduce sodium in your diet. LIMIT THE [AMOUNT OF... FOOD TO LIMIT BECAUSE OF THEIR HIGH SODIUM CONTENT ACCEPTABLE SUBSTITUTES SALT & SALT SEASONINGS Table salt Seasoning salt Garlic salt Onion salt Celery salt Lemon pepper Lite salt Meat tenderizer Bouillon cubes Flavor enhancers Fresh garlic, fresh onion, garlic powder, onion powder, black [pepper, lemon juice, low-sodium/salt-free seasoning blends, vinegar SALTY FOODS Barbecue sauce Steak sauce Soy sauce Teriaky sauce Oyster sauce Salted Snacks such as Crackers Potato chips [place] chips Pretzels Tortilla chips Nuts Popcorn Pearsall seeds Homemade or low- sodium sauces and salad dressings; Vinegar, dry mustard, unsalted popcorn, pretzels, tortilla or corn chips Cured Foods Ham Salt pork Ware Sauerkraut Pickles, pickle relish Lox & Dutton Olives Fresh beef, veal, pork, poultry, fish, eggs [place] MEATS Hot Dogs Cold cuts, deli meats Pastrami Sausage Corned beef Spam Low-salt deli meats PROCESSED FOODS Buttermilk Cheese Canned: Soups Tomato products Vegetable juices Canned vegetables Convenience Foods such as: TV Dinners Canned raviolis Addison Macaroni & Cheese Spaghetti Frozen prepared foods Fast foods Natural cheese (1-2 oz Per week) Homemade or julia,1- sodium soups, canned food without added salt Homemade casseroles without added salt, made with fresh or raw vegetables, fresh meat, malena, pasta, or unsalted canned vegetables Some salt or sodium is needed for body water balance. But when your kidneys lose the ability to control sodium and water balance, you may experience the following: thirst fluid gain high blood pressure discomfort during dialysis By using less sodium in your diet, you can control these problems. Hints to keep your sodium intake down Cook with herbs and spices instead of salt. (Refer to Spice Up Your Cooking section for further suggestions.) Read food labels and choose those foods low in sodium. Avoid salt substitutes and specialty low-sodium foods made with salt substitutes because they are high in potassium. When eating out, ask for meat or fish without salt. Ask for gravy or sauce on the side; these may contain large amounts of salt and should be used in small amounts . Limit use of canned, processed and frozen foods. Some information about reading labels Understanding the terms: Sodium Free - Only a trivial amount of sodium per serving. Very Low Sodium - 35 mg or less per serving. Low Sodium - 140 mg or less per serving. Reduced Sodium - Foods in which the level of sodium is reduced by 25%. Light or Lite in Sodium - Foods in which the sodium is reduced by at least 50% . Simple rule of thumb : If salt is listed in the first five ingredients, the item is probably too high in sodium to use. All food labels now have milligrams (mg) of sodium listed. Follow these steps when reading the sodiwn information on the label: 1. Know how much sodium you are allowed each day. Remember that there are 1000 milligrams (mg) in 1gram. For [id number], if your diet prescription is 2 grams of sodium , your limit is 2000 milligrams per day. Consider the sodium value or other food to be eaten during the day. 2. Look at the package label. Check the serving size. Nutrition values are expressed per birgit g. How does this compare to your total daily allowance? If the sodium level is 500 mg or more per serving, the item is not a good choice. 3. Compare labels of similar products. Select the lowest sodium level for the same serving size. How to Spice Up Your Cooking Giving up salt does not mean giving up flavor. Learn to season your food with herbs and spices. Be creative and experiment for a new and exciting flavor. What kinds of spices and herbs should I use instead of salt to add flavor? Try the following spices with the foods listed. Allspice: Use with beef, fish, beets, cabbage, canots, peas, fruit. Basil: Use with beef, pork, most vegetables. [place]: Use with beef, pork, most vegetables. [place]: Use with beef, pork, green beans, cauliflower, cabbage, beets, asparagus, and in dips and marinades. Cardamom: Use with fruit and in baked goods. Cardona: Use with beef, chicken, pork, fish, green beans, carrots and in marinades. Dill: Use with beef, chicken, green beans, cabbage, carrots, peas and in dips. Susy: Use with beef, chicken, pork, green beans, cauliflower and eggplant. Marjoram: Use with beef, chicken, pork, green beans, cauliflower and eggplant. Dilcia: Use with chicken, pork, cauliflower, peas and in marinades. Thyme: Use with beef, chicken, pork, fish, green beans, beets and carrots. [place]: Use with chicken, pork, eggplant and in dressing. Tarragon: Use with fish, chicken, asparagus, beets, cabbage, cauliflower and in marinades. Tips for cooking with herbs and spices Purchase spices and herbs in small amounts . When they sit on the shelf for years they lose their flavor. Use no more than ?? teaspoon of dried spice (?? of fresh) per pound of meat. Add ground spices to food about 15 minutes before the end of the cooking period. Add whole spices to food at least one hour before the end of the cooking period. Combine herbs with oil or butter, set for 30 minutes to bring out their flavor, then brush on foodswhile they cook, or brush meat with oil and sprinkle herbs one hour before coolcing. Crush dried herbs before adding to foods. Can I use salt substitutes? Caution! If you are told to limit potassium in your diet, be very cautious about using salt substitutes because most of them contain some form of potassium. Check with your doctor or dietitian beforeusing and salt substitute. [place] and create your own seasoning containing those spices that you like. If you would like to become a volunteer and find out more about what's happening where you live, contact your local [facility]. Blood pressure monitoring education: Monitor home blood pressure values after sitting for 5 minutes with back and arm support. Keep a log. Bring your log and blood pressure cuff to your next visit. documented in this encounter Progress Notes * Justus Lee MD - 10/03/2024 1:15 PM EDT Images from the original note were not included. Patient Name: Will Petit Date of : 1950, 74 y.o. Date: 10/03/24 [] New Patient [x] Established Patient [] New Hospital Follow Up [] Established Hospital Follow Up [] Telemed Visit [] H&P Referring MD: No primary care provider on file. PCP: Christie Royal MD Reason For Visit: CKD 3, DM, HTN, HFrEF Stephen Reno is a 74 y.o. male seen todayin f/u re: PT eval for CKD 3 in setting of DM, HTN , HFrEF. Closely followed by Card given H/O EF 15-20%. Remains well compensated !! C/O JOVEL. No CP. No orhtopnea. Meds reveiwed--he is on SGLT2, entresto but not on aldactone or kerendia at this time Denies chest pain. No blood in the urine or difficulties urinating. Complains of mild arthritic complaints but avoids use of NSAIDs. The following portions of the patient's chart were reviewed in this encounter and updated as appropriate: Allergies Meds Problems Med Hx Surg Hx Fam Hx Constitutional: Negative for chills and fever. Respiratory: Negative for cough and shortness of breath. Cardiovascular: Negative for chest pain, palpitations and leg swelling. Gastrointestinal: Negative for abdominal pain, nausea and vomiting. Genitourinary: Negative for dysuria, frequency, hematuria and urgency. Full 13 point review of systems unremarkable except as noted above. History reviewed. No pertinent past medical history. History reviewed. No pertinent surgical history. Social History Tobacco Use Smoking status: Never Smokeless tobacco: Not on file Substance Use Topics Alcohol use: No Family History Problem Relation Age of Onset Cancer Father Cancer Mother Current Outpatient Medications Medication Sig Dispense Refill carvedilol (COREG) 25 MG tablet Take 25 mg by mouth every morning and evening Cholecalciferol (Vitamin D3) 1000 units capsule Take by mouth cyancobalamine (VITAMIN B-12) 500 MCG tablet Take 500 mcg by mouth 1 (one) time each day Dapagliflozin Propanediol (Farxiga) 10 MG tablet Take 10 mg by mouth 1 (one) time each day in the morning DULoxetine (CYMBALTA) [address] capsule Take 30 mg by mouth DULoxetine (CYMBALTA) [address] capsule Take 60 mg by mouth 1 (one) time each day in the evening Eliquis 5 MG tablet Take 5 mg by mouth every morning and evening Entresto 49-51 MG per tablet Take 1 tablet by mouth every morning and evening fenofibrate (TRICOR) 54 MG tablet Take 54 mg by mouth 1 (one) time each day furosemide (LASIX) 40 MG tablet Take 40 mg by mouth in the morning and 40 mg in the evening. gabapentin (NEURONTIN) 300 MG capsule Take 300 mg by mouth in the morning and 300 mg in the eveningand 300 mg before bedtime. metFORMIN (GLUCOPHAGE) 500 MG tablet Take 500 mg by mouth in the morning and 500 mg in the evening.Take with meals. Mounjaro 7.5 MG/0.5ML solution auto-injector INJECT ONE PEN (=7.5MG) SUBCUTANEOUSLY ONCE A WEEK DIRECTED rosuvastatin (CRESTOR) 10 MG tablet Take 10 mg by mouth 1 (one) time each day tamsulosin (FLOMAX) 0.4 MG 24 hr capsule TAKE 1 CAPSULE BY MOUTH EVERY EVENING 90 capsule 0 Vascepa 1 g capsule TAKE 2 CAPSULES BY MOUTH TWICE DAILY IN THE MORNING AND EVENING No current facility-administered medications for this visit. No Known Allergies Objective: Vitals: 10/03/24 1314 BP: 118/62 BP Location: Left upper arm Patient Position: Sitting BP Cuff Size: Adult long Pulse: 60 SpO2: 97% Weight: 203 lb 9.6 oz (92.4 kg) 116/70 Vitals reviewed. Constitutional: No distress. Cardiovascular: Normal rate, regular rhythm and normal heart sounds. He exhibits no edema. Pulmonary/Chest: Effort normal and breath sounds normal. No respiratory distress. Abdominal: Soft. There is no abdominal tenderness. No hernia. Skin: Skin is warm and dry. Psychiatric: He has a normal mood and affect. His behavior is normal. No results found for: EGFRAFR No results found for: EGFRNAFR Chemistry Lab Units 08/09/23 0000 03/03/23 0000 CREATININE mg/dL -- 1.45* BUN mg/dL -- 21 POTASSIUM -- 4.6 SODIUM -- 140 CHLORIDE -- 106.0 ALBUMIN g/dL -- 4.2 HEMOGLOBIN A1C 7.2* -- Bone Mineral Lab Units 03/03/23 0000 CALCIUM mg/dL 10.1 CBC Lab Units 03/03/23 0000 WBC AUTO 10*3/ML 7.9 HEMATOCRIT 38.4* HEMOGLOBIN 12.5* PLATELETS AUTO 10*3/UL 289 No lab exists for component: SPECGRAV , GLUCOSEUR , BILIRUBINUR , RBCUR , UPROTEIN , LEUKOCYTESUR , NITRITE Labs 10/2023 Scr 1.30 ( eGFR 54) PLAN: Assessment & Plan 74 Y/O M CKD 3 DIABETIC HTN AND HFrEF CKD 3a: c/w DN/HTN renal dis HFrEF: compensated DM HTN: ocntrolled 5. Metabolic Bone Disease of CKD: cont to track CA, Phos, HCO3, PTH and vit D levels and treat accordingly Maintained on ARB and farxiga for cadio/renal protection. Look to add Kerendia in future PLAN: cont current meds at this time; track renal labs and urine studies ; avoid NSAIDs; ; may be candidate for aldactone as part of his GDMT by cards 1. Stage 3a chronic kidney disease (HCC) 2. Hypertensive disorder Orders Placed This Encounter PTH, Intact Renal Function Panel Urinalysis with microscopic Urine Albumin / Creatinine Ratio Urine Culture Protein, Total, Random Urine w/Creatinine (Protein/Creat Ratio) Vitamin D 25 Hydroxy CBC Phosphorus Magnesium Albumin Calcium Ambulatory referral to Urology Return in about 1 year (around 10/03/2025). Justus Lee MD documented in this encounter Plan of Treatment Upcoming Encounters Date Type Department Care Team (Late st Contact Info) Description 10/02/2025 1:00 PM EDT Office Visit [facility] [address] [place] [address] Justus Lee MD [address] [facility] [address] [place] [id number] Scheduled Orders Name Type Priority Associated Diagnoses Orde r Schedule PTH, Intact Lab Routine Stage 3a chronic kidney disease (HCC) Hypertensive disorder Expected: 10/03/2024, Expires: 11/03/2025 Renal Function Panel Lab Routine Stage 3a chronic kidney disease (HCC) Hypertensive disorder Expected: 10/03/2024, Expires: 11/03/2025 Urinalysis with microscopic Lab Routine Stage 3a chronic kidney disease (HCC) Hypertensive disorder Expected: 10/03/2024, Expires: 11/03/2025 Urine Albumin / Creatinine Ratio Lab Routine Stage 3a chronic kidney disease (HCC) Hypertensive disorder Expected: 10/03/2024, Expires: 11/03/2025 Urine Culture Lab Routine Stage 3a chronic kidney disease (HCC) Hypertensive disorder Expected: 10/03/2024, Expires: 11/03/2025 Protein, Total, Random Urine w/Creatinine (Protein/Creat Ratio) Lab Routine Stage 3a chronic kidney disease (HCC) Hypertensive disorder Expected: 10/03/2024, Expires: 11/03/2025 Vitamin D 25 Hydroxy Lab Routine Stage 3a chronic kidney disease (HCC) Hypertensive disorder Expected: 10/03/2024, Expires: 11/03/2025 CBC Lab Routine Stage 3a chronic kidney disease (HCC) Hypertensive disorder Expected: 10/03/2024, Expires: 11/03/2025 Phosphorus Lab Routine Stage 3a chronic kidney disease (HCC) Hypertensive disorder Expected: 10/03/2024, Expires: 11/03/2025 Magnesium Lab Routine Stage 3a chronic kidney disease (HCC) Hypertensive disorder Expected: 10/03/2024, Expires: 11/03/2025 Albumin Lab Routine Stage 3a chronic kidney disease (HCC) Hypertensive disorder Expected: 10/03/2024, Expires: 11/03/2025 Calcium Lab Routine Stage 3a chronic kidney disease (HCC) Hypertensive disorder Expected: 10/03/2024, Expires: 11/03/2025 Scheduled Referrals Name Type Priority Associated Diagnoses Order Schedule Ambulatory referral to Urology Outpatient Referral Routine Stage 3a chronic kidney disease (HCC) Hypertensive disorder Expected: 10/03/2024, Expires: 11/03/2025 documented as of this encounter Visit Diagnoses Diagnosis Stage 3a chronic kidney disease (HCC)- Primary Hypertensive disorder documented in this encounter Care Teams Cook Cashier Food Prep Relationship Specialty Start Date End Date Christie Royal MD [address] [facility] [address] [place] [address] PCP - General Internal Medicine 08/25/23 documented as of this encounter
== END 2024-10-04 13:27 | disposition home or self-care (01) ==
LOC: HO.HGI 12:26
PROVIDERS: PCP Internal Medicine; Visit Provider Nurse Practitioner
DX: K58.0 Irritable bowel syndrome with diarrhea (principal); K21.9 Gastro-esophageal reflux disease without esophagitis; D12.6 Benign neoplasm of colon, unspecified
CPT/HCPCS: 99213

== ENCOUNTER → 2024-10-04 12:25 | Outpatient (BNVA) | payer OTHER, SELFPAY | PROVIDERS: PCP Internal Medicine; Visit Provider Nurse Practitioner | DX: K58.0 Irritable bowel syndrome with diarrhea (principal); K21.9 Gastro-esophageal reflux disease without esophagitis; D12.6 Benign neoplasm of colon, unspecified | CPT/HCPCS: 99212 ==

== ENCOUNTER 2024-12-27 14:33 | Outpatient (AMB) | payer OTHER, SELFPAY ==
--- NOTE | 2024-12-27 14:41 | A.OFFVIS_ITS ---
Vital Signs 12/27/24 14:43 Height 5 ft 7 in Weight 196 lb 3.382 oz BMI 30.7 BP 120/70 Blood Pressure Location Lt brachial Position Sitting Pulse 58 Intake Visit Reasons: 6m follow up Intake Note: 6 month follow-up with [facility] check feeling ok Tobacco Cloth Reclaimer Required: Yes Tobacco Cloth Reclaimer Services: Tobacco Cloth Reclaimer Present Tobacco Cloth Reclaimer Name: karen Gutierrez Allergies dog dander (dogs) Allergy (Intermediate, Verified 10/04/24 12:31) Sneezing grass Allergy (Intermediate, Verified 10/04/24 12:31) Rash insect venom (mosquito bites) Allergy (Intermediate, Verified 10/04/24 12:31) Rash roaches Allergy (Intermediate, Verified 10/04/24 12:31) Rash trees Allergy (Intermediate, Verified 10/04/24 12:31) Rash atorvastatin (Lipitor) Adverse Reaction (Intermediate, Verified 10/04/24 12:31) stomach aches Medication List - Last Reconciled 12/27/24 by Bk Canchola MD albuterol sulfate 90 mcg/actuation (Ventolin HFA) 2 puffs inhalation Q6H PRN 30 days apixaban (Eliquis) 5 mg PO BID Arnuity Ellipta 200 mcg/actuation (fluticasone furoate) 1 inh PO DAILY NS bisacodyl (Dulcolax (bisacodyl)) 20 mg (4 x 5 mg) PO ONCE 1 day blood sugar diagnostic (FreeStyle Lite Strips) 3 times a day carvedilol 25 mg PO BID cholecalciferol (vitamin D3) 10 mcg PO DAILY cholecalciferol (vitamin D3) 25 mcg PO DAILY 90 days clonazepam (Klonopin) 0.5 mg PO BEDTIME [collagen PO BID] cyanocobalamin (vitamin B-12) 500 mcg PO every other day in the morning; dapagliflozin propanediol (Farxiga) 10 mg PO DAILY 90 days diaper,brief,adult,disposable As directed [disposable gloves As directed] duloxetine 30 mg PO QAM duloxetine 60 mg PO DAILY eluxadoline (Viberzi) 100 mg PO BID fenofibrate 54 mg PO DAILY 90 days furosemide 40 mg PO DAILY 90 days gabapentin 300 mg PO BID 90 days hospital bed As directed hydrocortisone 1% (Anti-Itch (hydrocortisone)) 1 appl topical BID PRN 2 weeks incontinence pad, liner, disp As directed ketoconazole 2% 1 appl topical 2XW lancets 3 times a day lancets (TRUEplus Lancets) TEST BLOOD SUGAR THREE TIMES DAILY mecobalamin (vitamin B12) 1,000 mcg PO DAILY metformin ER 1,000 mg (2 x 500 mg) PO BID 90 days peg 3350-electrolytes 236-22.74-6.74 -5.86 gram 240 mL PO Q10M pen needle, diabetic (UltiCare Pen Needle) As directed 1 time a day pen needle, diabetic (Pentips Pen Needle) As directed [recliner As directed] rosuvastatin 10 mg PO BEDTIME 90 days sacubitril-valsartan 24-26 mg (Entresto) 1 tab PO BID [scooter As directed] tamsulosin mg PO DAILY tirzepatide (Mounjaro) mg subcut Vascepa (icosapent ethyl) 2 grams (2 x 1 gram) PO BID NS [wipes As directed] HPI Comments Details: Stephen comes for follow-up. He is status post ablation in November very underwent pulmonary vein isolation as well as left posterior wall ablation. Comes today and noted to be in atrial fibrillation again. History was obtained with help of captain waiter over the phone. Patient says he walks 4-5 blocks without any issues. Denies any exertional shortness of breath. Denies orthopnea, PND. Denies prolonged palpitation irregular heartbeat. No bleeding issues or neurologic events. Takes all his medications. No leg edema, lightheadedness, syncope, ICD discharge. [facility] Medical History Environmental allergies Diabetes mellitus with hyperglycemia, with long-term current use of insulin Former smoker Pre-op examination Permanent atrial fibrillation Dysuria History of cardioversion Mixed hyperlipidemia Hospital discharge follow-up Cellulitis of left ankle Elevated TSH Diabetes mellitus Persistent atrial fibrillation Ear discomfort Atrial flutter Acute on chronic HFrEF (heart failure with reduced ejection fraction) Diverticulosis Tubular adenoma of colon Cardiomyopathy ICD (implantable 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-defibrillator) in place Paroxysmal atrial fibrillation Heart failure with reduced ejection fraction CHF (congestive heart failure) Mixed hyperlipidemia Seborrheic dermatitis of scalp Hearing loss Obesity (BMI 30-39.9) Hypoglycemia unawareness associated with type 2 diabetes mellitus Vitamin D deficiency Diabetic nephropathy associated with type 2 diabetes mellitus MCC (current) use of insulin Restrictive lung disease Asthma-COPD overlap syndrome Asthma Anemia COPD (chronic obstructive pulmonary disease) HLD (hyperlipidemia) HTN (hypertension) Hearing loss Depression with anxiety GERD (gastroesophageal reflux disease) Essential hypertension Diabetes type 2, uncontrolled Surgical History Hx of bilateral cataract extraction History of esophagogastroduodenoscopy (EGD) Hx of colonoscopy History of cardiac defibrillator placement History of thumb surgery Family History Father Cancer Mother Cancer Family/Other Diabetes CHF (congestive heart failure) Social History Household Members: None Housing: Apartment Alcohol intake: never Patient Tobacco Use Status: Former Tobacco user Tobacco use type: Cigarette e-Cigarette/Vaping Use: Never Used Second Hand Smoke Exposure: No service: No Current occupational status: disabled Cognitive needs: No Hearing needs: No Vision needs: Yes Review of Systems Const Denies chills, Denies fatigue, Denies fever(s), Denies frequent falls, Denies weakness, Denies weight gain and Denies weight loss ENT Denies dizziness Card Denies chest pain, Denies leg edema, Denies lightheadedness, Denies palpitations, Denies dyspnea, Denies dyspnea on exertion, Denies orthopnea and Denies other (loss of consciousness) Resp Denies cough, Denies dyspnea and Denies dyspnea on exertion GI Denies hematochezia and Denies change in stool character Musc Denies abnormal gait, Denies muscle weakness, Denies numbness, Denies radiating pain into limb and Denies tingling Neuro Denies abnormal gait, Denies dizziness, Denies frequent falls, Denies numbness, Denies tingling and Denies weakness Endo Denies fatigue and Denies palpitations Physical Exam Vital Signs: Last Vital Signs Pulse 58 12/27/24 14:43 BP 120/70 12/27/24 14:43 BMI result Body Mass Index 30.7 Const General: comfortable, no acute distress, alert and awake Orientation/consciousness: patient oriented x3 HEENT General nose exam: No nasal polyps present and No nasal discharge present Face and sinus: Yes sinuses nontender Mouth: oropharynx normal Throat: Yes posterior oropharynx normal Neck Neck: Yes trachea midline, Yes supple and Yes no JVD Chest Chest palpation & inspection: tenderness Resp Effort & Inspection: normal respiratory effort Auscultation: clear to auscultation bilaterally Cardio Palpation: abnormal PMI displaced PMI Rhythm: abnormal rhythm irregularly irregular Heart sounds: S1 normal heart sound present, S2 normal heart sound present, no gallops and no murmurs GI Auscultation: normal bowel sounds Back/Spine/Pelvis Thoracic/Lumbar Spine: thoracic and lumbar spine normal to inspection Neuro General: patient oriented x3 and no focal motor deficits Extrem General: Yes no clubbing, cyanosis or edema Psych Appearance: grossly normal and well kempt Speech and movement: Normal speech and movement present Office Procedures Cardiac Device Check Cardiac Device Check Details: Single-chamber [place] ICD in place. Programmed in VVI at 40 beats per minute. Minimal ventricular pacing noted. No significant ventricular arrhythmias noted. Battery life is at about 8 and half months 09107-CF Cardiac Device Check, single lead implantable defibrillator Procedure code (CPT) selection complete EKG Details: EKG shows atrial fibrillation with left axis deviation with nonspecific intraventricular conduction delay with ST T wave changes suggestive of repolarization abnormality 06324-Cjktcjljtvgehnrbd, Complete Assessment & Plan Assessment & Plan (1) Permanent atrial fibrillation: Code(s): I48.21 - Permanent atrial fibrillation Category: Medical Plan: Permanent atrial fibrillation with recent attempted ablation but without any success. Patient is continuing to be in atrial fibrillation at this point time. No worsening symptoms. Will discuss with EPS to consider possible AV kim ablation along with TEAM GUIDE upgrade. Discussed with the patient. He will wait to hear from our office. Currently on full oral anticoagulation with Eliquis 5 mg b.i.d.. Quarterly renal function test should be done. Continue rate control approach. (2) ICD (implantable 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-defibrillator) in place: Code(s): Z95.810 - Presence of automatic (implantable) cardiac defibrillator Category: Medical Plan: ICD in place for primary prevention. ICD is working well. Reprogrammed for adequate function. Will follow remotely for heart failure as well as device function. (3) Heart failure with reduced ejection fraction: Code(s): I50.20 - Unspecified systolic (congestive) heart failure Category: Medical Plan: Heart failure with reduced ejection fraction with severe LV systolic dysfunction. NYHA class 1. Doing very well from cardiac perspective. Will continue with current neurohormonal modulation with Farxiga, Entresto as well as carvedilol therapy. Can not further maximize due to lower blood pressure. Continue aggressive risk factor modification. Daily weight monitoring avoidance salt loading was discussed. Will follow up in the clinic in 3 months time, sooner p.r.n.. Thank you for allowing me to partake in his care Coding Level of Care Code Est Pt Level 4 (86788) Complex EM visit Add On G2211 Diagnoses Permanent atrial fibrillation I48.21 ICD (implantable 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-defibrillator) in place Z95.810 Heart failure with reduced ejection fraction I50.20 CPT Codes Cardiac Device Check - Cardiac Device 4: 41429-JK Cardiac Device Check, single lead implantable defibrillator ([id number]) EKG - CPT: 82757-Llnjgyccqcemtczvi, Complete ([id number])
[2024-12-27 14:43] VITALS: BP 120/70; PULSE 58; BMI 30.7
--- OUTSIDE RECORDS SUMMARY | 2024-12-27 15:16 | XMS_ITS | Clinical Summary ---
Author Organization 175 [facility] Address [address] [place] [address] Phone Care Team Providers Care Picker Name Role Phone Christie Jain MD Primary Care Provider [phone] Social History Tobacco Use Types Packs/Day Years Used Date Smoking Tobacco: Never Assessed Comments Unknown Sex and Gender Information Value Date Recorded Sex Assigned at Not on file Legal Sex Female 7:48 AM EDT Gender Identity Not on file Sexual Orientation Not on file Plan of Treatment Upcoming Encounters Date Type Department Care Team ([facility] Contact Info) Description 02/20/2025 1:30 PM EDT Office Visit Orthopedic Surgery - [place] [id number] [id number] Steve Dangelo DPM [address] [address] Health Maintenance Due Date Last Done Comments Breast Cancer Screening 1950 Diabetes: Annual GFR (Glomer ular Filtration Rate) 1950 Diabetes: Annual Foot Exam 01/28/1962 Diabetes: Annual Retina Eye Exam 01/28/1962 DTaP,Tdap,and Td Vaccines (1 - Tdap) 01/28/1971 Pneumococcal Vaccine: 50+ Ye ars (1 of 2 - PCV) 01/28/1971 Zoster Vaccines (1 of 2) 01/28/2002 COVID-19 Vaccine (2023-2 5 season) 2024 Depression Screening 06/01/2024 Cholesterol Screening (Lipid Panel) 12/06/2024 Colorectal Cancer Screening: Colonoscopy 12/06/2024 Diabetes: Annual Urine Albumin-Creatinine Ratio (uACR) 12/06/2024 Diabetes: Blood Sugar Contro l Test (HGBA1C) 12/06/2024 Falls Risk Assessment 12/06/2024 Hepatitis C Screening 12/06/2024 Medicare Annual Wellness Visit 12/06/2024 Osteoporosis Screening (Bone Density Screening) 12/06/2024 Social Influencers of Health Screening 12/06/2024 Influenza Vaccine (#1) 2025 RSV Immunization Adult Patie nts (1 - 1-dose 75+ series) 01/28/2027 HIB Vaccines Aged Out No longer eligi ble based on patient's age to complete this topic HPV Vaccines Aged Out No longer eligi ble based on patient's age to complete this topic Hepatitis A Vaccines Aged Out No long er eligible based on patient's age to complete this topic Hepatitis B Vaccines Aged Out No long er eligible based on patient's age to complete this topic IPV Vaccines Aged Out No longer eligi ble based on patient's age to complete this topic MMR Vaccines Aged Out No longer eligi ble based on patient's age to complete this topic Meningococcal ACWY Vaccine Aged Out N o longer eligible based on patient's age to complete this topic Meningococcal B Vaccine Aged Out No l onger eligible based on patient's age to complete this topic RSV Immunization Patients Un jameson 20 months Aged Out No longer eligible b ased on patient's age to complete this topic Varicella Vaccines Aged Out No longer eligible based on patient's age to complete this topic Insurance [facility] MEDICARE Member Subscriber Plan / Payer (Ef fective 2022-Present) Name:Stephen Reno Relation to Subscriber:Self Name:Stephen Mcintosh Payer ID:[id number] Group ID:[id number] Type:Not on file Address: [place] [address] [place] [id number] Care Teams Picker Relationship Specialty Start Date End Date Christie Jain MD [address] [place] [address] , [address] [facility] D/B/A: Amy León [facility] Internal [facility] [place] PCP - General Internal Medicine 12/06/24
--- OUTSIDE RECORDS SUMMARY | 2024-12-27 15:16 | XMS_ITS | Clinical Summary ---
Author Organization [facility] Address [address] [place] [address] Phone Care Team Providers Care [employer] Name Role Phone Christie Royal MD Primary Care Provider [phone] Allergies No known active allergies Medications carvedilol (COREG) 25 MG tablet Take 25 mg by mouth every morning and evening 04/28/20 23 Active DULoxetine (CYMBALTA) [address] capsule Take 60 mg by mouth 1 (one) time each day in the evening 04/28/20 23 Active DULoxetine (CYMBALTA) [address] capsule Take 30 mg by mouth 04/28/20 23 Active Eliquis 5 MG tablet Take 5 mg by mouth every morning and evening 03/03/20 23 Active Entresto 49-51 MG per tablet Take 1 tablet by mouth every morning and evening 04/01/20 23 Active Dapagliflozin Propanediol (Farxiga) 10 MG tablet [...] CAPSULE BY MOUTH EVERY EVENING 90 capsule 08/25/19 25 Active Vascepa 1 g capsule TAKE 2 CAPSULES BY MOUTH TWICE DAILY IN THE MORNING AND EVENING Active Mounjaro 7.5 MG/0.5ML solution auto-injector INJECT ONE PEN (=7.5MG) SUBCUTANEOUSLY ONCE A WEEK DIRECTED 08/09/19 25 Active Active Problems Problem Noted Date Diagnosed [...] Visit [facility] [address] [place], [place] [address] Justus Lee MD Stage 3a chronic kidney disease (HCC) (Primary Dx); Hypertensive disorder from Last 3 Months Immunizations Immunization Administration [...] Visit [facility] [address] [place] [address] Justus Lee MD [address] [facility] [address] [place] [address] Health Maintenance Due Date Last [...] Hemoglobin A1C 11/09/2023 08/09/2023 Influenza Vaccine (#1) 2025 Pneumococcal Vaccine: Peds ( 0 to [...] Most Recently Relevant to Health Maintenance Insurance [facility] MCR ([id number]) [facility] MCR ([id number]) Care Teams [employer] Relationship Specialty Start Date End Date Christie Royal MD [address] [place], [place] PCP - General Internal Medicine 08/25/23
--- OUTSIDE RECORDS SUMMARY | 2024-12-27 15:16 | XMS_ITS | Patient Health Record ---
Author Organization [facility] Address [address] [place] [address] Care Team Providers Care Accountant Cost Name Role Phone Dusty Edwards M.D. Primary Care Provider Bella lety Washington Jr Ede Unavailable Reason For Referral No Information Medications Medication SIG (Take, Route, Frequency, Duration) Notes Start Date End Date Status Aspir-81 Active Victoza Active Albuterol Sulfate 108mcg Active Carvedilol 25mg Acti ve Spironolactone 25mg Active Atacand 16mg Active Tricor 145mg Active Cymbalta 60mg Active Gabapentin 300mg Act nelson metFORMIN HCl 1000mg Active Advair Diskus 250-50mcg Active ProAir HFA 108mcg Ac tive Ipratropium-Albuterol 0.5-2.5mg Active Social History Tobacco Use: Social History Observation Description Date Details (start date - stop date) Former Smoker NA - NA Tobacco Use/Smoking Question Answer Notes Patient is a former smoker How long has it been since you last smoked? > 10 years Alcohol Screen Question Answer Notes Did you have a drink containing alcohol in the p ast year? No Points 0 Interpretation Negative Problems Problem Type SNOMED Code ICD Code Onset Dates Problem Status W/U Status Risk Notes Problem Anemia (285.9) Active confirmed Problem Elevated liver enzymes level (471721151) Elevated liver function tests (790.6) Active confirmed Plan Of Treatment No Information Insurance Providers Payer Name Payer Address Payer Phone Subscriber Number Group Number Insured Name Patient Relationship to Insured Coverage Start Date Coverage End Date MEDICARE OF [place] [address] [place] [address] [id number] UYEN SAEZ Self - patient is the insured MEDICAID OF [facility] [address] [place] [id number] UYEN SAEZ Self - patient is the insured Medical (General) History Medical History History ICD Code diabetes mellitus COPD asthma hypertension
--- OUTSIDE RECORDS SUMMARY | 2024-12-27 15:16 | XMS_ITS | Data Portability ---
Author Organization [place] [facility] Address [address] [place] [address] Assessment Encounter Date Assessment Date Assessment LastModified [...] bilateral hearing aids. Was also given a [facility] provider sheet. Follow-up in 6 months for reevaluation or sooner if needed. [email or web address] Not available 12/29/2023 13:47:32 09/06/2024 09/06/2024 74-year-old male presents for possible cerumen removal. Otologic exam reveals no cerumen bilaterally and normal TMs. Reassurance was provided and he may follow-up for cerumen as needed. Continue hearing aid use. [email or web address] Not available 09/06/2024 14:56:54 Plan of Treatment Reminders Order Date Submit Date Provider Last Modified By Organization Details Last Modified Time Details Appointments None recorded. Lab None recorded. Referral None recorded. Procedures None recorded. Surgeries None recorded. Imaging None recorded. Medication Orders clotrimaz ole-betam ethasone 1 %-0.05 % topical cream [facility], [address] [place] [address], [id number], 16:25:17 Patient TargetsNo targets recorded. Patient InstructionsNo instructions recorded. Reason for Referral None Reported. Results Created Date Observation Date Name Description Value Unit Range Abnormal Flag Note LastModifiedBy Organization Detail LastModifiedTime 12/29/19 audio gram No observ ation record ed. [email or web address] Not Available 12/01 15:42:05 01/20/20 24 09/12/2021 [...] Recorded Time Bilatera l diffuse otitis externa 53229890909 09102 Completed 202001/01/2024 Diffuse otitis externa, bilatera l; Note: Date Diagnose d: 1 2:18 PM (H60.313 ) Not Available [facility] 4 02:50:54 Type 2 diabetes mellitus without complica tion 336414476 Active 2021 Type 2 diabetes mellitus without complica tions; Note: Date Diagnose d: 2 2:35 PM (E11.9) Not Available [facility] 4 02:50:56 Sensorin eural hearing loss of bilatera l ears 302614847 Active 2021 Sensorin eural hearing loss, bilatera l; Note: Date Diagnose d: 2 3:33 PM (H90.3) Not Available [facility] 4 02:50:54 Bilatera l external auditory canal chronic otitis externa 65446254703 70151 Active 2022 Unspecif ied chronic otitis externa, bilatera l; Note: Date Diagnose d: 03/27/20 23 9:22 AM (H60.63) Not Available [facility] 02:51:00 Problem Notes None recorded. Procedures Surgical History Date Name Laterality Status Provider Name and Address Organization Details Recorded Time 12/29/2023 Comp Audio with Tymps - 79200 & 12408 completed SO[place], [facility],[address], [address], [place] - [facility] 12/29/2023 14:20:08 Imaging Results None recorded. Procedure Notes None recorded. Medical Equipment None [...] topical solution 2021 active Medicatio n ID: [id number] Du ration Value: 14 Prescrib ed By Name: DANA Hernandez Name: holli miller Send Method: E-Prescri bed Subs Allowed: subs OK Specia l Instructi on: 4 drops to both ears BID x 2 weeks Med icationGe nericName : holli miller Not Available Not Available Not Available gabapentin [...] drops,susp ension 2020 active Medicatio n ID: [id number] Pr escribed By Name: Petar Sanchez MD [...] Updated DateTime 09/06/2024 170.18 cm 32.1 kg/m2 28978.44 g Fifi Becerril [facility] 09/06/2024 14:10:25 Date Recorded Body height Body mass index (BMI) Body weight Provider Name and Address Organization Details Last Updated DateTime 12/29/2023 170.18 cm 32.1 kg/m2 93511.44 g Fifi Becerril [facility] 12/29/2023 13:35:25 Social History None recorded. Functional Status None recorded. Mental Status None recorded. Family History Nothing Reported. Medical History No medical history recorded. Past Encounters Encounter ID Performer Location Encounter Start Date Encounter Closed Date Diagnosis/Indication Diagnosis SNOMED-CT Code Diagnosis ICD10 Code Diagnosis Note [id number] CARLOS PIERCE PA-C [facility] [address] [address] 12/29/2023 13:25:58 12/29/2023 14:32:01 Bilateral external auditory canal chronic otitis externa [id number] 183493 H60.63 Sensorineu ral hearing loss of bilateral ears 369717289 H90.3 Audiologic al evaluation results:Ri ght ear:Normal hearing thru 1000Hz sloping to a mild-moder ate SNHL with good word recognitio n.Left ear:Normal hearing thru 1000Hz sloping to a mild to severe SNHL with good word recognitio n. Tympanomet ry:Right Ear:Type ALeft Ear:Type Ad [id number] CARLOS PIERCE PA-C [facility] [address] [address] 09/06/2024 14:03:26 09/06/2024 14:30:12 Sensorineural hearing loss of bilateral ears 340961020 H90.3 Audiologic al evaluation results:Ri ght ear:Normal hearing thru 1000Hz sloping to a mild-moder ate SNHL with good word recognitio n.Left ear:Normal hearing thru 1000Hz sloping to a mild to severe SNHL with good word recognitio n. Tympanomet ry:Right Ear:Type ALeft Ear:Type Ad Health Concerns Section Related Observation LastModified by Organization Detai ls LastModified Time None Recorded Concern Status LastModified by Organization Details LastModified Time None Recorded Advance Directives Directive None Recorded Payers Insurance Date Sequence Insurance Name Policy Number Policy Lord Covered Member ID Lord Member ID Guarantor Name 08/30/2024 1 [facility] - DOS ON OR AFTER 2022 - LONGTERM OPTIONS (MEDICARE REPLACEMENT/ADV ANTAGE - HMO) Stephen Reno [id number] Stephen Reno 08/30/2024 1 [facility] - DOS ON OR AFTER 2022 - ONE CARE (MEDICARE REPLACEMENT/ADV ANTAGE - HMO) Stephen Reno [id number] Stephen Reno
== END 2024-12-27 15:09 | disposition home or self-care (01) ==
LOC: HO.HCS 14:34
PROVIDERS: PCP Internal Medicine; Visit Provider Internal Medicine Cardiovascular Disease
DX: I48.21 Permanent atrial fibrillation (principal); Z95.810 Presence of automatic (implantable) cardiac defibrillator; I50.20 Unspecified systolic (congestive) heart failure
CPT/HCPCS: 93010; 93282; 99214; G2211

== ENCOUNTER → 2024-12-27 14:33 | Outpatient (BNVA) | payer OTHER, SELFPAY | PROVIDERS: PCP Internal Medicine; Visit Provider Internal Medicine Cardiovascular Disease | DX: I48.21 Permanent atrial fibrillation (principal); I50.20 Unspecified systolic (congestive) heart failure; Z95.810 Presence of automatic (implantable) cardiac defibrillator | CPT/HCPCS: 93005; 99212 ==

== ENCOUNTER 2025-01-07 10:20 | Outpatient (REF) | payer OTHER, SELFPAY ==
--- NOTE | ~2025-01-07 | CT_ITS ---
CLINICAL HISTORY: Lower abdominal pain. dysuria CT abdomen and pelvis without contrast Comparison: None provided Findings: Mosaic attenuation in the bilateral lung bases. Mild cardiomegaly. Partially included cardiac device. Gallbladder sludge. Nonspecific bilateral perinephric stranding. Calcifications in both kidneys likely due to atherosclerotic calcifications. Extensive sigmoid and descending colon diverticula. Calcifications of the aortic annulus and valve. Normal appendix. There is fat stranding adjacent to the anterosuperior aspect of the urinary bladder which may be due to infection or inflammation. The focal appearance of this adjacent inflammation is atypical and underlying bladder lesion is not excluded. There are adjacent colonic diverticula however the diverticula do not appear inflamed to suggest acute diverticulitis. The bones are intact. Degenerative changes of the spine. Limited evaluation without intravenous contrast. IMPRESSION: There is fat stranding adjacent to the anterosuperior aspect of the urinary bladder which may be due to infection or inflammation. The focal appearance of this adjacent inflammation is atypical and underlying bladder lesion is not excluded. There are adjacent colonic diverticula however the diverticula do not appear inflamed to suggest acute diverticulitis. This document has been electronically signed by: Tan Brown DO on 01/09/2025 11:44:23
--- OUTSIDE RECORDS SUMMARY | 2025-01-07 10:21 | XMS_ITS | Clinical Summary ---
Author Organization 175 [facility] Address 175 [place] [address] Phone Care Team Providers Care Mechanic Assistant Name Role Phone Christie Jain MD Primary Care Provider [phone] Social History Tobacco Use Types Packs/Day Years Used Date Smoking Tobacco: Never Assessed Comments Unknown Sex and Gender Information Value Date Recorded Sex Assigned at Not on file Legal Sex Female 7:48 AM EDT Gender Identity Not on file Sexual Orientation Not on file Plan of Treatment Upcoming Encounters Date Type Department Care Team ([facility] Contact Info) Description 02/20/2025 1:30 PM EDT Office Visit Orthopedic Surgery - [place] [address] [phone] Steve Dangelo DPM [address] [address] Health Maintenance Due Date Last Done Comments [...] patient's age to complete this topic Insurance [facility] MEDICARE Member Subscriber Plan / Payer (Ef fective 2022-Present) Name:Stephen Reno Relation to Subscriber:Self Name:Stephen Mcintosh Payer ID:[id number] Group ID:[id number] Type:Not on file Address: [place] [address] [place] [id number] Care Teams Mechanic Assistant Relationship Specialty Start Date End Date Christie Jain MD [address] [place] [address] , [address] [facility] D/B/A: Amy León In Internal Medicine [place] PCP - General Internal Medicine 12/06/24
--- OUTSIDE RECORDS SUMMARY | 2025-01-07 10:21 | XMS_ITS | Patient Health Record ---
Author Organization [place] [facility] Address [address] [place] [address] Care Team Providers Care Superintendent Refuse Disposal Name Role Phone Dusty Edwards M.D. Primary Care Provider Bella lety [place] Jr Ede Unavailable [phone] Reason For Referral No Information Medications Medication [...] Status W/U Status Risk Notes Problem Anemia (298134120) Anemia (285.9) Active confirmed Problem Elevated liver enzymes level (378366993) Elevated liver function tests (790.6) Active confirmed Plan Of Treatment No Information Insurance Providers Payer Name Payer Address Payer Phone Subscriber Number Group Number Insured Name Patient Relationship to Insured Coverage Start Date Coverage End Date MEDICARE OF [facility] [address] [place] [phone] [id number] UYEN SAEZ Self - patient is the insured MEDICAID OF [facility] [address] [place] [address] [id number] UYEN SAEZ Self - patient is the insured Medical (General) History Medical History History ICD Code diabetes mellitus COPD asthma hypertension
--- OUTSIDE RECORDS SUMMARY | 2025-01-07 10:21 | XMS_ITS | Clinical Summary ---
Author Organization [facility] Address [address] [place] [address] Phone Care Team Providers Care Engineering Specialist Name Role Phone Christie Royal MD Primary Care Provider [phone] Allergies No known active allergies Medications carvedilol [...] BY MOUTH EVERY EVENING 90 capsule 08/25/19 Active Vascepa 1 g capsule TAKE 2 CAPSULES BY MOUTH TWICE DAILY IN THE MORNING AND EVENING Active Mounjaro 7.5 MG/0.5ML solution auto-injector INJECT ONE PEN (=7.5MG) SUBCUTANEOUSLY ONCE A WEEK DIRECTED 08/09/19 Active Active Problems Problem Noted Date Diagnosed Date Stage 3a chronic kidney disease 12/28/2023 Hyponatremia 05/18/2023 05/18/2023 Hypertensive disorder 05/18/2023 05/18/2023 History of myocardial infarction 05/18/2023 05/18/2023 Diabetes mellitus 05/18/2023 05/18/2023 Chronic obstructive pulmonary disease 05/18/2023 05/18/2023 Anemia 05/18/2023 05/18/2023 Stage 3b chronic kidney disease 05/18/2023 Type 2 diabetes mellitus wit h diabetic chronic kidney disease 05/18/2023 Immunizations Immunization Administration Dates Next Due Pneumococcal [...] Visit [facility] [address] [place] [address] Justus Lee MD [address] [place] [address] Health Maintenance Due Date Last Done Comments [...] Most Recently Relevant to Health Maintenance Insurance [facility] ([id number]) [facility] ([id number] Care Teams Engineering Specialist Relationship Specialty Start Date End Date Christie Royal MD [address] [place], [place] PCP - General Internal Medicine 08/25/23
[2025-01-07 11:04] LABS: MANUAL DIFF FLAG NO
[2025-01-07 11:10] LABS: Hematocrit 38.7 % (42.0-52.0); Hemoglobin 13.4 g/dl (14.0-18.0); Imm Gran Abs Auto 0.07 X10*3/uL (0.00-0.03); Imm Gran Pct Auto 1.0 % (0.0-0.4); Lymphocytes Absolute Auto 0.9 X10*3/uL (1.2-4.9); Mean Corpuscular HGB Conc 34.6 g/dl (31.0-36.0); Mean Corpuscular Hemoglobin 31.3 pg (27.0-33.0); Mean Corpuscular Volume 90.4 fL (80.0-98.0); NRBC Abs Auto 0.000 X10*3/uL (0.0-0.012); NRBC Pct Auto 0.0 /100WBC (0.0-0.2); Platelet Count 215 X10*3/uL (160-400); Red Blood Count 4.28 X10*6/uL (4.60-5.80); White Blood Count 6.9 X10*3/uL (4.8-10.8)
[2025-01-07 12:02] LABS: Alanine Aminotransferase 40 U/L (0-40); Albumin Level 4.8 g/dL (3.5-5.0); Alkaline Phosphatase 54 U/L (39-117); Anion Gap 14 (12-20); Aspartate Amino Transferase 24 U/L (5-37); Blood Urea Nitrogen 23 mg/dL (9-16); Calcium 9.7 mg/dL (8.4-10.2); Carbon Dioxide 28 mmol/L (22-29); Chloride 104 mmol/L (96-108); Cholesterol 149 mg/dL (<200); Estimated Glomerular Filt Rate 55; HDL Cholesterol 38 mg/dL (>40); Iron 61 mcg/dL (45-160); Percent Iron Saturation 17 % (15-50); Potassium 4.7 mmol/L (3.3-5.1); Sodium 141 mmol/L (135-145); Total Iron Binding Capacity 356 mcg/dL (228-428); Total Protein 7.4 g/dL (6.5-8.0); Triglycerides 252 mg/dL (<150); Unsaturated Iron Binding 295 ug/dL
[2025-01-07 12:18] LABS: Free T4 (Free Thyroxine) 1.09 ng/dL (0.71-1.85); Thyroid Stimulating Hormone 3.16 uIU/mL (0.32-4.0)
[2025-01-07 12:31] LABS: Folate 8.5 ng/mL (> or = 4.0); Vitamin B12 538 pg/mL (200-900)
[2025-01-13 17:17] LABS: Testosterone, Free 49.6 pg/mL (30.0-135.0)
== END 2025-01-07 10:21 | disposition home or self-care (01) ==
LOC: HO.CT 10:20
PROVIDERS: Absent Provider Internal Medicine; PCP Internal Medicine; Visit Provider Urology
DX: R30.0 Dysuria (principal); R10.30 Lower abdominal pain, unspecified; N18.31 Chronic kidney disease, stage 3a; E55.9 Vitamin D deficiency, unspecified; E53.8 Deficiency of other specified B group vitamins; R79.89 Other specified abnormal findings of blood chemistry; R53.83 Other fatigue; D64.9 Anemia, unspecified; I50.20 Unspecified systolic (congestive) heart failure; R80.9 Proteinuria, unspecified; E78.5 Hyperlipidemia, unspecified
CPT/HCPCS: 36415; 74176; 80053; 80061; 82306; 82570; 82607; 82746; 83540; 83880; 84402; 84403; 84439; 84443; 85025

== ENCOUNTER → 2025-01-07 10:39 | Outpatient (BNV) | payer OTHER, SELFPAY | PROVIDERS: Absent Provider Internal Medicine; PCP Internal Medicine; Visit Provider Family Medicine | DX: R10.30 Lower abdominal pain, unspecified (principal); R30.0 Dysuria | CPT/HCPCS: 74176 ==

== ENCOUNTER 2025-01-20 13:59 | Outpatient (AMB) | payer OTHER, SELFPAY ==
--- OUTSIDE RECORDS SUMMARY | 2025-01-20 14:02 | XMS_ITS | Clinical Summary ---
Author Organization [facility] Address [address] [place] [address] Phone Care Team Providers Care Quality Reviewer Name Role Phone Christie Royal MD Primary [...] Visit [facility] [address] [place] [address] Justus Lee MD [address] [facility] [address] [place] [address] Health Maintenance Due Date Last Done Comments [...] Most Recently Relevant to Health Maintenance Insurance [facility] ([id number]) [facility] ([id number]) Care Teams Quality Reviewer Relationship Specialty Start Date End Date Christie Royal MD [address] [place], [place] PCP - General Internal Medicine 08/25/23
--- OUTSIDE RECORDS SUMMARY | 2025-01-20 14:02 | XMS_ITS | Clinical Summary ---
Author Organization 175 [facility] Address 175 [place] [address] Phone Care Team Providers Care Butcher'S Assistant Name Role Phone Christie Jain MD Primary Care Provider [phone] Social History Tobacco Use Types Packs/Day Years Used Date Smoking Tobacco: Never Assessed Comments Unknown Sex and Gender Information Value Date Recorded Sex Assigned at Not on file Legal Sex Female 7:48 AM EDT Gender Identity Not on file Sexual Orientation Not on file Plan of Treatment Upcoming Encounters Date Type Department Care Team ([facility] Contact Info) Description 02/20/2025 1:30 PM EDT Office Visit Orthopedic Surgery - [place] [address] [phone] Steve Dangelo DPM [address] [address] Health Maintenance Due Date Last Done Comments [...] patient's age to complete this topic Insurance [facility] MEDICARE Member Subscriber Plan / Payer (Ef fective 2022-Present) Name:Stephen Reno Relation to Subscriber:Self Name:Stephen Mcintosh Payer ID:[id number] Group ID:[id number] Type:Not on file Address: [place] [address] [address] [id number] Care Teams Butcher'S Assistant Relationship Specialty Start Date End Date Christie Jain MD [address] [place] [address] , [address] [facility] D/B/A: Amy León In Internal Medicine [place] PCP - General Internal Medicine 12/06/24
--- OUTSIDE RECORDS SUMMARY | 2025-01-20 14:02 | XMS_ITS | Patient Health Record ---
Author Organization [place] [facility] Address [address] [place] [address] Care Team Providers Care Wood Polisher Name Role Phone Dusty Edwards M.D. Primary Care Provider Bella lety [place] Jr Ede Unavailable [phone] Reason For Referral No Information Medications Medication [...] Status W/U Status Risk Notes Problem Anemia (547692908) Anemia (285.9) Active confirmed Problem Elevated liver enzymes level (480831101) Elevated liver function tests (790.6) Active confirmed Plan Of Treatment No Information Insurance Providers Payer Name Payer Address Payer Phone Subscriber Number Group Number Insured Name Patient Relationship to Insured Coverage Start Date Coverage End Date MEDICARE OF [facility] [address] [place] [address] [id number] UYEN SAEZ Self - patient is the insured MEDICAID OF [facility] [address] [place] [address] [id number] UYEN SAEZ Self - patient is the insured Medical (General) History Medical History History ICD Code diabetes mellitus COPD asthma hypertension
--- NOTE | 2025-01-20 14:06 | A.OFFVIS_ITS ---
Vital Signs 01/20/25 14:07 Height 5 ft 7 in Weight 195 lb BMI 30.5 BP 109/62 Blood Pressure Location Rt brachial Position Sitting Respiration 16 Pulse 71 Pulse Source Pulse Oximeter Pulse Oximetry (%) 96 Oxygen Delivery Method Room Air Intake Visit Reasons: BILATERAL SHOULDER PAIN Cartoon Designer Required: Yes Cartoon Designer Name: Greta [id number] Accompanied by: Self / Same As Patient Allergies dog dander (dogs) Allergy (Intermediate, Verified 01/20/25 14:09) Sneezing grass Allergy (Intermediate, Verified 01/20/25 14:09) Rash insect venom (mosquito bites) Allergy (Intermediate, Verified 01/20/25 14:09) Rash roaches Allergy (Intermediate, Verified 01/20/25 14:09) Rash trees Allergy (Intermediate, Verified 01/20/25 14:09) Rash atorvastatin (Lipitor) Adverse Reaction (Intermediate, Verified 01/20/25 14:09) stomach aches HPI Comments Details: The patient is a 74-year-old male presenting with chronic shoulder pain. Visit completed with guardian family member Greta #[id number]. The pain has been persistent for approximately 20 to 25 years, originating during his time in [place]. There is no known injury or specific event that initiated the pain. The pain is exacerbated by strenuous activities and arm movements, particularly when lifting the arms. The patient describes the pain as localized to the shoulder muscles, with no radiation to other areas. The patient underwent physical therapy for six months in [place], approximately 16 years ago, which was ineffective. He also received injections that provided temporary relief but were not long-lasting due to his work activities. The patient has been prescribed medications for arthritis, which have been effective in managing his symptoms. He cannot take ibuprofen due to kidney concerns and current use of Eliquis. The patient has a pacemaker and is currently on Eliquis, prescribed by his wind energy systems installer. He has a history of cardiac catheterization, during which his anticoagulation therapy was temporarily halted. - Onset: Pain has been present for 20 to 25 years. - Quality: Localized to shoulder muscles, no radiation. - Exacerbating factors: Strenuous activities and arm movements. - Relieving factors: Injections provided temporary relief. - Affect: Pain impacts daily activities, limiting arm movements. - Analgesia: Medications for arthritis are effective; injections provided temporary relief. - Adverse Effects: Cannot take ibuprofen due to kidney concerns. - Activities of Daily Living: Pain limits ability to perform strenuous activities. - Aberrant Drug Related Behaviors: None reported. [facility] Medical History Environmental allergies Diabetes mellitus with hyperglycemia, with long-term current use of insulin Former smoker Pre-op examination Permanent atrial fibrillation Dysuria History of cardioversion Mixed hyperlipidemia Hospital discharge follow-up Cellulitis of left ankle Elevated TSH Diabetes mellitus Persistent atrial fibrillation Ear discomfort Atrial flutter Acute on chronic HFrEF (heart failure with reduced ejection fraction) Diverticulosis Tubular adenoma of colon Cardiomyopathy ICD (implantable 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-defibrillator) in place Paroxysmal atrial fibrillation Heart failure with reduced ejection fraction CHF (congestive heart failure) Mixed hyperlipidemia Seborrheic dermatitis of scalp Hearing loss Obesity (BMI 30-39.9) Hypoglycemia unawareness associated with type 2 diabetes mellitus Vitamin D deficiency Diabetic nephropathy associated with type 2 diabetes mellitus half-way (current) use of insulin Restrictive lung disease Asthma-COPD overlap syndrome Asthma Anemia COPD (chronic obstructive pulmonary disease) HLD (hyperlipidemia) HTN (hypertension) Hearing loss Depression with anxiety GERD (gastroesophageal reflux disease) Essential hypertension Diabetes type 2, uncontrolled Surgical History Hx of bilateral cataract extraction History of esophagogastroduodenoscopy (EGD) Hx of colonoscopy History of cardiac defibrillator placement History of thumb surgery Family History Father Cancer Mother Cancer Family/Other Diabetes CHF (congestive heart failure) Social History Household Members: None Housing: Apartment Alcohol intake: never Patient Tobacco Use Status: Former Tobacco user Tobacco use type: Cigarette e-Cigarette/Vaping Use: Never Used Second Hand Smoke Exposure: No service: No Current occupational status: disabled Cognitive needs: No Hearing needs: No Vision needs: Yes Review of Systems Const Details: - Musculoskeletal: Reports chronic shoulder pain exacerbated by movement. - Cardiovascular: Denies any new cardiovascular symptoms; has a pacemaker. Physical Exam Exam Exam: General: awake, alert, oriented. Answers questions appropriately. Fully engaged in examination. Skin: warm, dry, intact HEENT: Normocephalic. Hearing intact. Cardiac: External chest normal in appearance. Respiratory: No cough, audible wheezing or stridor. Abdomen: without gross distension. MS: No obvious swelling or deformities. Able to transition from sit to stand unassisted. Ambulates with bilaterally normal heel strike and toe off Tenderness bilateral upper and middle trapezius with palpable trigger points BUE: Full ROM. no shoulder tenderness. discomfort of trapezius with overhead reach bilaterally Neurological: Oriented to person, place, time and situation. Thought process intact. No gait abnormalities appreciated. Psychiatric: Appropriate mood and affect. Good judgment and insight. Vital Signs: Last Vital Signs Pulse 71 01/20/25 14:07 Resp 16 01/20/25 14:07 BP 109/62 01/20/25 14:07 Pulse Ox 96 01/20/25 14:07 Oxygen Delivery Method Room Air 01/20/25 14:07 BMI result Body Mass Index 30.5 Assessment & Plan Assessment & Plan (1) Myofascial neck pain: Code(s): M54.2 - Cervicalgia Category: Medical (2) Cervical spondylosis: Code(s): M47.812 - Spondylosis without myelopathy or radiculopathy, cervical region Category: Medical (3) Lower back pain: Code(s): M54.50 - Low back pain, unspecified Category: Medical Plan The plan includes sending a prescription for a TENS machine to help manage the myofascial neck pain, as the patient reported previous benefit from such a device. An x-ray of the neck will be ordered to further investigate the source of the pain. Physical therapy will be scheduled to comply with insurance requirements and to potentially alleviate symptoms. Trigger point injections are planned to provide relief, contingent upon clearance from the patient's wind energy systems installer to temporarily stop Eliquis to reduce bleeding risk. The patient will be scheduled for a follow-up appointment to assess the effectiveness of these interventions and to consider further diagnostic imaging if necessary. If no improvement with TENS/PT/TPI will plan for fluoroscopy guided bilateral cervical MBBs. Patient was informed and verbally consented to the use of an ambient scribe for clinic note documentation during this visit. Orders: Orders XR lumbar spine 4V min 01/20/25 M54.50 - Low back pain, unspecified PT Evaluation and Treatment 01/20/25 M54.2 - Cervicalgia, M54.50 - Low back pain, unspecified XR cervical spine w flex/ext 01/20/25 M47.812 - Spondylosis without myelopathy or radiculopathy, cervical region, M54.2 - Cervicalgia XR cervical spine w flex/ext 01/20/25 M54.2 - Cervicalgia Patient Instructions: - Schedule and attend physical therapy sessions as planned. - Obtain the x-ray of the neck at your convenience. - Await contact regarding the TENS machine delivery and follow instructions for its use. - Follow up with the wind energy systems installer about stopping Eliquis before injections. Coding Level of Care Code New Pt Level 4 (25916) Diagnoses Myofascial neck pain M54.2 Cervical spondylosis M47.812 Lower back pain M54.50
[2025-01-20 14:07] VITALS: BP 109/62; PULSE 71; RESP 16; O2SAT 96; BMI 30.5
== END 2025-01-20 14:34 | disposition home or self-care (01) ==
LOC: HO.PMC 14:00
PROVIDERS: PCP Internal Medicine; Visit Provider Registered Nurse Emergency
DX: M54.2 Cervicalgia (principal); M47.812 Spondylosis without myelopathy or radiculopathy, cervical region; M54.50 Low back pain, unspecified
CPT/HCPCS: 99204

== ENCOUNTER 2025-01-20 13:59 | Outpatient (REF) | payer OTHER, SELFPAY ==
--- NOTE | ~2025-01-20 | XR_ITS ---
EXAMINATION: XR LUMBOSACRAL SPINE CLINICAL INFORMATION: M54.50 - Low back pain, unspecified COMPARISON: Correlated to CT abdomen and pelvis dated January 07, 2025. TECHNIQUE: AP oblique and lateral views FINDINGS: Multilevel endplate sclerosis and small marginal osteophyte formation throughout the axial skeleton. Moderate to large syndesmophyte formation/marginal osteophyte formation and L5 and L3 with subchondral cyst formation. Decreased intervertebral disc height at L5-S1. Facet joint hypertrophy at L5-S1 and to a lesser extent L4-5. No acute cortical disruption. Chondrocalcinosis of the intervertebral discs L4-5, L3-4 and likely L2-3. Vascular calcification, aorta and iliac arteries. XR/XR lumbar spine 4V min IMPRESSION: Multilevel thoracolumbar spondylosis pronounced at L5-S1 and to a lesser extent L4-5. Consider CPPD. Atherosclerosis disease.. Electronically signed by: Orlin Kaur MD 01/20/2025 03:55 PM EDT
--- NOTE | ~2025-01-20 | XR_ITS ---
EXAMINATION: XR CERVICAL SPINE CLINICAL INFORMATION: M54.2 - Cervicalgia COMPARISON: None available. TECHNIQUE: AP oblique, lateral views and atlantoodontoid views. Lateral views in flexion and extension position. FINDINGS: Craniocervical junction is intact. Multilevel marginal osteophyte formation and endplate sclerosis and decreased intervertebral disc height from C3 to C7 pronounced at C6-7 and to a lesser extent C4-5. No acute cortical disruption or gross malalignment. Right neuroforamina and narrowing secondary to osteophyte formation at C4-5 posterior C5-6 and C6-7 levels. No gross malalignment during flexion and or extension position. No lytic or blastic lesions. Upper airway is patent. XR/XR cervical spine w flex/ext IMPRESSION: Multilevel cervical spondylosis C3 C7 pronounced at C6-7 and C4-5 with right neuroforamina stenosis C5-6 and to a lesser extent C6-7 and C5-6 level. No instability. Electronically signed by: Orlin Kaur MD 01/20/2025 03:58 PM EDT
== END 2025-01-20 14:00 | disposition home or self-care (01) ==
LOC: HO.XRAY 13:59
PROVIDERS: PCP Internal Medicine; Visit Provider Registered Nurse Emergency
DX: M47.812 Spondylosis without myelopathy or radiculopathy, cervical region (principal); M54.50 Low back pain, unspecified; M54.2 Cervicalgia; Z79.01 Long term (current) use of anticoagulants
CPT/HCPCS: 72052; 72110; 99202

== ENCOUNTER → 2025-01-20 14:52 | Outpatient (BNV) | payer OTHER, SELFPAY | PROVIDERS: PCP Internal Medicine; Visit Provider Radiology Diagnostic Radiology | DX: M47.812 Spondylosis without myelopathy or radiculopathy, cervical region (principal); M47.815 Spondylosis without myelopathy or radiculopathy, thoracolumbar region; I70.90 Unspecified atherosclerosis | CPT/HCPCS: 72052; 72110 ==

== ENCOUNTER 2025-01-24 15:04 | Outpatient (AMB) | payer OTHER, SELFPAY ==
[2025-01-24 15:07] VITALS: BP 110/58; PULSE 97; O2SAT 54; BMI 30.6
--- NOTE | 2025-01-24 15:07 | A.OFFPC_ITS ---
Vital Signs 01/24/25 15:07 Height 5 ft 7 in Weight 195 lb 6 oz BMI 30.6 BP 110/58 L Blood Pressure Location Lt brachial Position Sitting Pulse 97 Pulse Source Pulse Oximeter Pulse Oximetry (%) 54 L Oxygen Delivery Method Room Air Intake Visit Reasons: dm Link Machine Operator Required: No Accompanied by: Self / Same As Patient Allergies dog dander (dogs) Allergy (Intermediate, Verified 01/24/25 15:45) Sneezing grass Allergy (Intermediate, Verified 01/24/25 15:45) Rash insect venom (mosquito bites) Allergy (Intermediate, Verified 01/24/25 15:45) Rash roaches Allergy (Intermediate, Verified 01/24/25 15:45) Rash trees Allergy (Intermediate, Verified 01/24/25 15:45) Rash atorvastatin (Lipitor) Adverse Reaction (Intermediate, Verified 01/24/25 15:45) stomach aches Medication List - Last Reconciled 01/24/25 by Christie Jain MD albuterol sulfate 90 mcg/actuation (Ventolin HFA) 2 puffs inhalation Q6H PRN 30 days apixaban (Eliquis) 5 mg PO BID Arnuity Ellipta 200 mcg/actuation (fluticasone furoate) 1 inh PO DAILY NS bisacodyl (Dulcolax (bisacodyl)) 20 mg (4 x 5 mg) PO ONCE 1 day blood sugar diagnostic (FreeStyle Lite Strips) 3 times a day carvedilol 25 mg PO BID cholecalciferol (vitamin D3) 10 mcg PO DAILY cholecalciferol (vitamin D3) 25 mcg PO DAILY 90 days clonazepam (Klonopin) 0.5 mg PO BEDTIME [collagen PO BID] cyanocobalamin (vitamin B-12) 500 mcg PO every other day in the morning; dapagliflozin propanediol (Farxiga) 10 mg PO DAILY 90 days diaper,brief,adult,disposable As directed [disposable gloves As directed] duloxetine 30 mg PO QAM duloxetine 60 mg PO DAILY eluxadoline (Viberzi) 100 mg PO BID fenofibrate 54 mg PO DAILY 90 days furosemide 40 mg PO DAILY 90 days gabapentin 300 mg PO BID 90 days hospital bed As directed hydrocortisone 1% (Anti-Itch (hydrocortisone)) 1 appl topical BID PRN 2 weeks incontinence pad, liner, disp As directed ketoconazole 2% 1 appl topical 2XW lancets 3 times a day lancets (TRUEplus Lancets) TEST BLOOD SUGAR THREE TIMES DAILY mecobalamin (vitamin B12) 1,000 mcg PO DAILY metformin ER 1,000 mg (2 x 500 mg) PO BID 90 days peg 3350-electrolytes 236-22.74-6.74 -5.86 gram 240 mL PO Q10M pen needle, diabetic (UltiCare Pen Needle) As directed 1 time a day pen needle, diabetic (Pentips Pen Needle) As directed [recliner As directed] rosuvastatin 10 mg PO BEDTIME 90 days sacubitril-valsartan 24-26 mg (Entresto) 1 tab PO BID [scooter As directed] tamsulosin mg PO DAILY tirzepatide (Mounjaro) mg subcut Vascepa (icosapent ethyl) 2 grams (2 x 1 gram) PO BID NS [wipes As directed] Tobacco use date assessed: 01/24/25 Fall risk assessment: No Falls in past year Last assessed Fall Risk: 01/24/25 Dental Screening Dental Screen Date: 01/24/25 Did you have a dental visit in the last 12 months?: No Did you have a dental problem in the last 6 months where you did not have access to dental care?: No Was dental information given to patient?: No HPI HPI Comments History of Present Illness Details The patient is a 74-year-old male presenting with a follow-up for his chronic conditions. The patient has a history of Chronic Obstructive Pulmonary Disease (COPD) which is managed with Arniuty. He also has type 2 diabetes mellitus with a recent A1c of 8.7%, which has worsened from a previous level of 7.5%. Hypertension is part of his medical history, and his blood pressure is currently well-controlled. The patient has hyperlipidemia, but his LDL cholesterol is well-managed, currently at 61 mg/dL. He has chronic systolic congestive heart failure with an ejection fraction of 20-25% as per a recent echocardiogram. This condition is managed with medic ations including Carvedilol and Entresto. Atrial fibrillation is also part of his cardiac history, managed by cardiology with Eliquis. The patient reports urinary bladder inflammation, noted on a CT scan showing fat stranding adjacent to the bladder. [facility] Medical History (Updated 01/24/25 @ 16:46 by Christie Jain MD) Persistent atrial fibrillation Environmental allergies Diabetes mellitus with hyperglycemia, with long-term current use of insulin Former smoker Pre-op examination Permanent atrial fibrillation Dysuria History of cardioversion Mixed hyperlipidemia Hospital discharge follow-up Cellulitis of left ankle Elevated TSH Diabetes mellitus Ear discomfort Atrial flutter Acute on chronic HFrEF (heart failure with reduced ejection fraction) Diverticulosis Tubular adenoma of colon Cardiomyopathy ICD (implantable 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-defibrillator) in place Paroxysmal atrial fibrillation Heart failure with reduced ejection fraction CHF (congestive heart failure) Mixed hyperlipidemia Seborrheic dermatitis of scalp Hearing loss Obesity (BMI 30-39.9) Hypoglycemia unawareness associated with type 2 diabetes mellitus Vitamin D deficiency Diabetic nephropathy associated with type 2 diabetes mellitus 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 Restrictive lung disease Asthma-COPD overlap syndrome Asthma Anemia COPD (chronic obstructive pulmonary disease) HLD (hyperlipidemia) HTN (hypertension) Hearing loss Depression with anxiety GERD (gastroesophageal reflux disease) Essential hypertension Diabetes type 2, uncontrolled Surgical History Hx of bilateral cataract extraction History of esophagogastroduodenoscopy (EGD) Hx of colonoscopy History of cardiac defibrillator placement History of thumb surgery Family History Father Cancer Mother Cancer Family/Other Diabetes CHF (congestive heart failure) Social History Household Members: None Housing: Apartment Alcohol intake: never Patient Tobacco Use Status: Former Tobacco user Tobacco use type: Cigarette e-Cigarette/Vaping Use: Never Used Second Hand Smoke Exposure: No service: No Current occupational status: disabled Cognitive needs: No Hearing needs: No Vision needs: Yes Questionnaire PHQ-9 Over the last 2 weeks, how often have you been bothered by any of the following problems? 1. Little interest or pleasure in doing things: not at all 2. Feeling down, depressed, or hopeless: several days 3. Trouble falling or staying asleep, or sleeping too much: not at all 4. Feeling tired or having little energy: more than half the days 5. Poor appetite or overeating: several days 6. Feeling bad about yourself - or that you are a failure or have let yourself or your family down: not at all 7. Trouble concentrating on things, such as reading the newspaper or watching television: not at all 8. Moving or speaking so slowly that other people could have noticed. Or the opposite - being so fidgety or restless that you have been moving around a lot more than usual: not at all 9. Thoughts that you would be better off or of hurting yourself in some way: not at all Total score: 4 Depression Screening Interpretation: Positive Depression Screening Follow-up: Existing condition and Follow-up Visit Requested Depression Screening Done: Yes Source: Developed by Drs. José Miguel Neri, Yomaira Roman, Maxwell Erazo and colleagues, with an educational bong from [employer]. Thrive Questionnaire Date Thrive assessed: 01/24/25 I am a: Patient What is your living situation today?: I have a steady place to live Within the past 12 months, did the food you bought not last and you didn't have the money to get more?: Often true Within the past 12 months, did you worry whether your food would run out before you got money to buy more?: Often true Do you have trouble paying for medicines?: No Do you have trouble getting transportation to medical appointments?: No Do you have trouble paying your heating and electricity bill?: No Do you have trouble taking care of your child, family member or friend?: No Do you have trouble with day-to-day activities such as bathing, preparing meals, shopping, managing finances, etc.?: No Are you currently unemployed and looking for a job?: I choose not to answer this question Are you interested in more education?: No Please select the resources that you would like help with: Food and None Currently or been in a relationship where the following occur: I choose not to answer THRIVE Score: 2 AUDIT C Alcohol Use Questionnaire (AUDIT-C) 1. How often do you have a drink containing alcohol?: Never 3. How often do you have six or more drinks on one occasion?: Never Total Score: 0 Score Reviewed/Action Taken: No DARRYL-7 AMB Questionnaire DARRYL-7 Date DARRYL - 7 assessed: 01/24/25 Feeling nervous, anxious, or on edge: 0 = Not at all Not being able to stop or control worryin = Not at all Worrying too much about different things: 3 = Nearly every day Trouble relaxin = Several days Being so restless that it is hard to sit still: 0 = Not at all Becoming easily annoyed or irritable: 2 = More than half the days Feeling afraid as if something awful might happen: 0 = Not at all Total DARRYL-7 score (0-4 normal; 5-9 mild; 10-14 moderate; 15-21 severe): 6 Source: Developed by Drs. José Miguel Neri, Yomaira Roman, Maxwell Erazo and colleagues, with an educational bong from [employer]. DARRYL-7 Assessment Billing DARRYL-7 Assessment Tool: DARRYL-7 Assessment 76465 Review of Systems Const All systems reviewed & are unremarkable except as noted in HPI and below Card Denies chest pain at rest, Denies chest pain with activity, Denies edema, Denies irregular heart rhythm, Denies claudication, Denies dyspnea, Denies dyspnea on exertion, Denies orthopnea, Denies paroxysmal nocturnal dyspnea and Denies slow heart rate Resp Denies cough, Denies dyspnea and Denies dyspnea on exertion GI Denies abdominal pain, Denies change in bowel habits, Denies excessive flatus, Denies nausea and Denies vomiting Denies urinary hesitancy, Denies urinary incontinence and Denies urinary urgency Musc Denies abnormal gait, Denies atrophy, Denies deformity and Denies limited range of motion Skin/Breast Denies bleeding lesions, Denies changing lesions and Denies rash Neuro Denies abnormal gait and Denies lack of coordination Physical exam (Primary Care) Vital Signs: Last Vital Signs Pulse 97 01/24/25 15:07 BP 110/58 L 01/24/25 15:07 Pulse Ox 54 L 01/24/25 15:07 Oxygen Delivery Method Room Air 01/24/25 15:07 BMI result Body Mass Index 30.6 Tobacco/Smoking Status: Tobacco use Status Tobacco use date assessed 01/24/25 01/24/25 15:15 Patient Tobacco Use Status Former Tobacco user 01/24/25 15:15 Tobacco use type Cigarette 01/24/25 15:15 e-Cigarette/Vaping Use Never Used 01/24/25 15:15 PHQ-9: PHQ-9 Score PHQ-9: Total score 4 01/24/25 15:49 Depression Screening Interpretation: Positive Depression Screening Follow-up: Existing condition and Follow-up Visit Requested Thrive Assessment: Date of Thrive Assessment Date Thrive assessed 01/24/25 01/24/25 15:15 Currently or been in a relationship where the following occur: I choose not to answer Resp Effort & Inspection: normal respiratory effort Auscultation: clear to auscultation bilaterally Cardio Jugular venous distension: no JVD Rate: regular rate Rhythm: regular rhythm Heart sounds: S1 normal heart sound present and S2 normal heart sound present Extrem General: Yes full ROM Results AMB Hemoglobin A1c AMB Hemoglobin A1c 8.7 % Last Edit by MOLLY Brandon on 01/24/25 15 :37 Results Reviewed Results Reviewed: Laboratory Last Values Hgb A1c (Clinic) 8.7 % (4.0-6.0) H 01/24/25 15:36 Coding Level of Care Code Est Pt Level 4 (78158) Complex EM visit Add On G2211 Diagnoses Moderate major depression F32.1 Heart failure with reduced ejection fraction I50.20 Essential hypertension I10 Permanent atrial fibrillation I48.21 Uncontrolled type 2 diabetes mellitus with hyperglycemia E11.65 Glycemic state: with hyperglycemia Stage 3a chronic kidney disease N18.31 Chronic kidney disease stage 3 subtype: stage 3a (GFR 45-59) Asthma-COPD overlap syndrome J44.9 Additional Codes DARRYL-7 Assessment Billing - DARRYL-7 Assessment Tool: DARRYL-7 Assessment 30351 ([id number]) Time Spent (min) 24 Assessment & Plan Assessment & Plan (1) Moderate major depression: Code(s): F32.1 - Major depressive disorder, single episode, moderate Category: Medical (2) Heart failure with reduced ejection fraction: Code(s): I50.20 - Unspecified systolic (congestive) heart failure Category: Medical (3) Essential hypertension: Code(s): I10 - Essential (primary) hypertension Category: Medical (4) Permanent atrial fibrillation: Code(s): I48.21 - Permanent atrial fibrillation Category: Medical (5) Diabetes type 2, uncontrolled: Code(s): E11.65 - Type 2 diabetes mellitus with hyperglycemia Category: Medical Qualifiers: Glycemic state: with hyperglycemia Qualified Code(s): E11.65 - Type 2 diabetes mellitus with hyperglycemia (6) CKD (chronic kidney disease) stage 3, GFR 30-59 ml/min: Code(s): N18.30 - Chronic kidney disease, stage 3 unspecified Category: Medical Qualifiers: Chronic kidney disease stage 3 subtype: stage 3a (GFR 45-59) Qualified Code(s): N18.31 - Chronic kidney disease, stage 3a (7) Asthma-COPD overlap syndrome: Comment: The Asthma/COPD is fairly well controlled. Code(s): J44.9 - Chronic obstructive pulmonary disease, unspecified Category: Medical Plan Plan Patient was informed and verbally consented to the use of an ambient scribe for clinic note documentation during this visit. 1. Chronic obstructive pulmonary disease, unspecified J44.9 HCC 111 The patient's COPD is managed with Arniuty, and he is scheduled for a follow-up with the multimedia producer next week. 2. Type 2 diabetes mellitus with hyperglycemia E11.65 HCC 18 The patient's diabetes management includes monitoring of blood glucose levels and adjustment of Mounjaro dosage to improve glycemic control. 3. Essential (primary) hypertension I10 The patient's hypertension is currently well-controlled, and no changes to the current management plan were discussed. 4. Hyperlipidemia, unspecified E78.5 The patient's hyperlipidemia is managed with rosuvastatin, and his LDL levels are within target range. 5. Chronic systolic (congestive) heart failure I50.22 HCC 85 The patient's heart failure is managed with medications including Carvedilol and Entresto, and he is under the care of a director drug. 6. Chronic atrial fibrillation, unspecified I48.20 HCC 96 The patient's atrial fibrillation is managed with Eliquis, and he has an upcoming appointment with the director drug. Orders: Orders AMB Hemoglobin A1c Today Z13.9 - Encounter for screening, unspecified Medications: Refilled hydrocortisone 1% (Anti-Itch (hydrocortisone)) 1 appl topical BID PRN 28.4 grams 0RF skin irritation 2 weeks ketoconazole 2% 1 appl topical 2XW 120 mL 6RF
--- OUTSIDE RECORDS SUMMARY | 2025-01-24 15:57 | XMS_ITS | Clinical Summary ---
Author Organization [facility] Address [address] [place] [address] Phone Care Team Providers Care Floral Manager Name Role Phone Christie Royal MD Primary Care Provider [phone] Allergies No known active allergies Medications carvedilol [...] Visit [facility] [address] [place] [address] Justus Lee MD [address] [facility] [address] [place] [address] Health Maintenance Due Date Last Done Comments [...] Most Recently Relevant to Health Maintenance Insurance [facility] ([id number]) [facility] ([id number]) Care Teams Floral Manager Relationship Specialty Start Date End Date Christie Royal MD [address] [place], [place] PCP - General Internal Medicine 08/25/23
--- OUTSIDE RECORDS SUMMARY | 2025-01-24 15:57 | XMS_ITS | Clinical Summary ---
Author Organization [facility] Address [address] [place] [address] Phone Care Team Providers Care Snuff Drier Name Role Phone Christie Jain MD Primary Care Provider [phone] Social History Tobacco Use Types Packs/Day Years Used Date Smoking Tobacco: Never Assessed Comments Unknown Sex and Gender Information Value Date Recorded Sex Assigned at Not on file Legal Sex Female 7:48 AM EDT Gender Identity Not on file Sexual Orientation Not on file Plan of Treatment Upcoming Encounters Date Type Department Care Team ([facility] Contact Info) Description 02/20/2025 1:30 PM EDT Office Visit Orthopedic Surgery [facility] [address] [facility] [address] [place] [phone] Steve Dangelo, GEOFF [address] [place] [address] Health Maintenance Due Date Last Done Comments Breast Cancer Screening 1950 Diabetes: Annual GFR (Glomer ular Filtration Rate) 1950 Diabetes: Annual Foot Exam 01/28/1962 Diabetes: Annual Retina Eye Exam 01/28/1962 DTaP,Tdap,and Td Vaccines (1 - Tdap) 01/28/1971 Pneumococcal Vaccine: 50+ Ye ars (1 of 2 - PCV) 01/28/1971 Zoster Vaccines (1 of 2) 01/28/2002 COVID-19 Vaccine ( - 2023-2 5 season) 2024 Depression Screening 06/01/2024 Cholesterol [...] patient's age to complete this topic Insurance 5-0 [place] [address] [facility] MEDICARE Member Subscriber Plan / Payer (Ef fective 2022-Present) Name:Stephen Reno Relation to Subscriber:Self Name:Stephen Mcintosh Payer ID:[id number] Group ID:[id number] Type:Not on file Address: [address] [place] [address] Care Teams Snuff Drier Relationship Specialty Start Date End Date Christie Jain MD [address] [place] [address] , [address] [facility] D/B/A: [facility] [place], [place] PCP - General Internal Medicine 12/06/24
--- OUTSIDE RECORDS SUMMARY | 2025-01-24 15:57 | XMS_ITS | Patient Health Record ---
Author Organization [facility] Address [address] [place] [address] Care Team Providers Care Syrup Maker Cook Name Role Phone Dusty Edwards M.D. Primary Care Provider Bella lety Washington Jr Ede Unavailable [phone] Reason For Referral No Information Medications Medication [...] Active confirmed Problem Elevated liver enzymes level ([id number]) Elevated liver function tests (790.6) Active confirmed Plan Of Treatment No Information Insurance Providers Payer Name Payer Address Payer Phone Subscriber Number Group Number Insured Name Patient Relationship to Insured Coverage Start Date Coverage End Date MEDICARE OF [employer] [address] [place] [address] [id number] UYEN SAEZ Self - patient is the insured MEDICAID OF [facility] [address] [place] [phone] [id number] UYEN SAEZ Self - patient is the insured Medical (General) History Medical History History ICD Code diabetes mellitus COPD asthma hypertension
== END 2025-01-24 15:58 | disposition home or self-care (01) ==
LOC: HO.HMCH 15:04
PROVIDERS: PCP Internal Medicine; Visit Provider Internal Medicine
DX: I12.9 Hypertensive chronic kidney disease with stage 1 through stage 4 chronic kidney disease, or unspecified chronic kidney disease (principal); F32.1 Major depressive disorder, single episode, moderate; N18.31 Chronic kidney disease, stage 3a; I50.20 Unspecified systolic (congestive) heart failure; I48.21 Permanent atrial fibrillation; E11.65 Type 2 diabetes mellitus with hyperglycemia; J44.9 Chronic obstructive pulmonary disease, unspecified

== ENCOUNTER → 2025-01-24 15:04 | Outpatient (BNVA) | payer OTHER, SELFPAY | PROVIDERS: PCP Internal Medicine; Visit Provider Internal Medicine | DX: E11.22 Type 2 diabetes mellitus with diabetic chronic kidney disease (principal); E11.65 Type 2 diabetes mellitus with hyperglycemia; I13.0 Hypertensive heart and chronic kidney disease with heart failure and stage 1 through stage 4 chronic kidney disease, or unspecified chronic kidney disease; I50.22 Chronic systolic (congestive) heart failure; N18.31 Chronic kidney disease, stage 3a; J44.9 Chronic obstructive pulmonary disease, unspecified; E78.5 Hyperlipidemia, unspecified; F32.1 Major depressive disorder, single episode, moderate; I48.21 Permanent atrial fibrillation | CPT/HCPCS: 83036; 96127; 99212 ==

== ENCOUNTER 2025-02-06 13:30 | Outpatient (AMB) | payer OTHER, SELFPAY ==
--- NOTE | 2025-02-06 13:40 | A.OFFVIS_ITS ---
Vital Signs 02/06/25 13:41 Height 5 ft 7 in Weight 197 lb 5.019 oz BMI 30.9 BP 104/50 L Blood Pressure Location Lt brachial Position Sitting Pulse 75 Pulse Source Pulse Oximeter Pulse Oximetry (%) 96 Oxygen Delivery Method Room Air Intake Visit Reasons: COPD Light Rail Vehicle Operator Required: Yes Light Rail Vehicle Operator Services: Light Rail Vehicle Operator Present Light Rail Vehicle Operator Name: Elida Smith Accompanied by: Self / Same As Patient Allergies dog dander (dogs) Allergy (Intermediate, Verified 02/06/25 13:44) Sneezing grass Allergy (Intermediate, Verified 02/06/25 13:44) Rash insect venom (mosquito bites) Allergy (Intermediate, Verified 02/06/25 13:44) Rash roaches Allergy (Intermediate, Verified 02/06/25 13:44) Rash trees Allergy (Intermediate, Verified 02/06/25 13:44) Rash atorvastatin (Lipitor) Adverse Reaction (Intermediate, Verified 02/06/25 13:44) stomach aches HPI HPI COPD: Details: INJURE IS 75 YEARS OLD GENTLEMAN WHO IS HERE FOR FOLLOW-UP OF ASTHMA/COPD SYNDROME. HE CLAIMS THAT HE HAS HAD NO ACUTE ATTACKS OF COUGH OR WHEEZING. HE HAS HAD NO RESPIRATORY INFECTION. CONTINUE TO USE ARNUITY -200 ONLY 1 INHALATION DAILY. AND HE USES VENTOLIN 2 PUFFS Q 6 HOURS ONLY ONCE IN A WHILE. INJURED IS NONSMOKER. [facility] Medical History Persistent atrial fibrillation Environmental allergies Diabetes mellitus with hyperglycemia, with long-term current use of insulin Former smoker Pre-op examination Permanent atrial fibrillation Dysuria History of cardioversion Mixed hyperlipidemia Hospital discharge follow-up Cellulitis of left ankle Elevated TSH Diabetes mellitus Ear discomfort Atrial flutter Acute on chronic HFrEF (heart failure with reduced ejection fraction) Diverticulosis Tubular adenoma of colon Cardiomyopathy ICD (implantable 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-defibrillator) in place Paroxysmal atrial fibrillation Heart failure with reduced ejection fraction CHF (congestive heart failure) Mixed hyperlipidemia Seborrheic dermatitis of scalp Hearing loss Obesity (BMI 30-39.9) Hypoglycemia unawareness associated with type 2 diabetes mellitus Vitamin D deficiency Diabetic nephropathy associated with 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 Restrictive lung disease Asthma-COPD overlap syndrome Asthma Anemia COPD (chronic obstructive pulmonary disease) HLD (hyperlipidemia) HTN (hypertension) Hearing loss Depression with anxiety GERD (gastroesophageal reflux disease) Essential hypertension Diabetes type 2, uncontrolled Surgical History Hx of bilateral cataract extraction History of esophagogastroduodenoscopy (EGD) Hx of colonoscopy History of cardiac defibrillator placement History of thumb surgery Family History Father Cancer Mother Cancer Family/Other Diabetes CHF (congestive heart failure) Social History Household Members: None Housing: Apartment Alcohol intake: never Patient Tobacco Use Status: Former Tobacco user Tobacco use type: Cigarette e-Cigarette/Vaping Use: Never Used Second Hand Smoke Exposure: No service: No Current occupational status: disabled Cognitive needs: No Hearing needs: No Vision needs: Yes Review of Systems Const All systems reviewed & are unremarkable except as noted in HPI and below Eyes Reports no additional complaints ENT Reports no additional complaints Card Denies chest pain, Reports irregular heart rhythm and Denies leg edema Resp Reports as per HPI GI Reports no additional complaints Reports no additional complaints Musc Reports back pain (Mild) and Reports arthralgias (Mild) Skin/Breast Reports system reviewed and no additional complaints, except as documented Neuro Reports no additional complaints Psych Reports no additional complaints Physical Exam Vital Signs: Last Vital Signs Pulse 75 02/06/25 13:41 BP 104/50 L 02/06/25 13:41 Pulse Ox 96 02/06/25 13:41 Oxygen Delivery Method Room Air 02/06/25 13:41 BMI result Body Mass Index 30.9 Const General: comfortable, no acute distress, alert and awake Orientation/consciousness: patient oriented x3 HEENT Head: Yes normal to inspection General nose exam: No nasal polyps present and No nasal discharge present Face and sinus: Yes sinuses nontender Mouth: oropharynx normal Throat: Yes posterior oropharynx normal Eyes General: appearance normal, both eyes and all related structures Neck Neck: Yes normal visual inspection, Yes no lymphadenopathy, Yes trachea midline and Yes no JVD Thyroid: Thyroid normal Chest Chest palpation & inspection: normal inspection of the chest, normal palpation of entire chest wall and no tenderness Resp Other: He has good breath sounds on both sides. No wheezes or rhonchi are heard today. Cardio Palpation: normal PMI Rate: regular rate Rhythm: regular rhythm Heart sounds: no gallops and no murmurs GI Palpation (GI): Soft to palpation, nontender, No hepatosplenomegaly present, no masses and Other GI palpation findings present (ABDOMEN IS OBESE AND SLIGHTLY PROTUBERANT) Auscultation: normal bowel sounds Back/Spine/Pelvis Thoracic/Lumbar Spine: thoracic and lumbar spine normal to inspection Skin General skin exam: no rashes or lesions noted Neuro General: patient oriented x3 and no focal motor deficits Cranial nerves: Yes CN's II-XII intact bilaterally Extrem General: Yes normal to inspection, Yes no clubbing, cyanosis or edema and Yes no calf tenderness Psych Appearance: grossly normal and well kempt Speech and movement: Normal speech and movement present Assessment & Plan Assessment & Plan (1) Asthma-COPD overlap syndrome: Comment: The Asthma/COPD is fairly well controlled. He has had no acute exacerbations in the last 6 months. Code(s): J44.9 - Chronic obstructive pulmonary disease, unspecified Category: Medical Plan: Advised to continue using Arnuity Ellipta 200 mcg 1 inhalation daily Albuterol HFA( Ventolin) 2 puffs Q 4-6 hours p.r.n... Prescription renewed. (2) Restrictive lung disease: Comment: As per previous pulmonary function test and spirometry he has pattern of moderately severe restrictive pulmonary disorder. This is most likely due to his obesity and cardiac disease. Code(s): J98.4 - Other disorders of lung Category: Medical Plan: Advised to try losing some weight. Do deep breathing exercises 3 times a day. Medications: Refilled albuterol sulfate 90 mcg/actuation (Ventolin HFA) 2 puffs inhalation Q6H PRN 8.5 grams 3RF bronchospasm 30 days Coding Level of Care Code Est Pt Level 3 (62000) Diagnoses Asthma-COPD overlap syndrome J44.9 Restrictive lung disease J98.4
[2025-02-06 13:41] VITALS: BP 104/50; PULSE 75; O2SAT 96; BMI 30.9
--- OUTSIDE RECORDS SUMMARY | 2025-02-06 15:45 | XMS_ITS | Clinical Summary ---
Author Organization [address] [facility] Address [address] [place] [address] Phone Care Team Providers Care Speaker Mounter Name Role Phone Christie Jain MD Primary Care Provider [phone] Social History Tobacco Use Types Packs/Day Years Used Date Smoking Tobacco: Never Assessed Comments Unknown Sex and Gender Information Value Date Recorded Sex Assigned at Not on file Legal Sex Female 7:48 AM EDT Gender Identity Not on file Sexual Orientation Not on file Plan of Treatment Upcoming Encounters Date Type Department Care Team ([facility] Contact Info) Description 02/20/2025 1:30 PM EDT Office Visit Orthopedic Surgery - [place] [address] [phone] Steve Dangelo DPM [address] [address] Health Maintenance Due Date Last Done Comments Breast Cancer Screening 1950 Diabetes: Annual GFR (Glomer ular Filtration Rate) 1950 Diabetes: Annual Foot Exam 01/28/1962 Diabetes: Annual Retina Eye Exam 01/28/1962 DTaP,Tdap,and Td Vaccines (1 - Tdap) 01/28/1971 Pneumococcal Vaccine: 50+ Ye ars (1 of 2 - PCV) 01/28/1971 Zoster Vaccines (1 of 2) 01/28/2002 Depression Screening 06/01/2024 Cholesterol Screening (Lipid Panel) 12/06/2024 Colorectal Cancer Screening: Colonoscopy 12/06/2024 Diabetes: Annual Urine Albumin-Creatinine Ratio (uACR) 12/06/2024 Diabetes: Blood Sugar Contro l Test (HGBA1C) 12/06/2024 Falls Risk Assessment 12/06/2024 Hepatitis C Screening 12/06/2024 Medicare Annual Wellness Visit 12/06/2024 Osteoporosis Screening (Bone Density Screening) 12/06/2024 Social Influencers of Health Screening 12/06/2024 COVID-19 Vaccine ( - 2023-2 5 season) 2025 Influenza Vaccine (#1) 2025 RSV Immunization Adult [...] patient's age to complete this topic Insurance [facility] MEDICARE Member Subscriber Plan / Payer (Ef fective 2022-Present) Name:Stephen Reno Relation to Subscriber:Self Name:Stephen Mcintosh Payer ID:[id number] Group ID:[id number] Type:Not on file Address: [place] [address] [address] [address] Care Teams Speaker Mounter Relationship Specialty Start Date End Date Christie Jain MD [address] [place] [address] , [address] [facility] D/B/A: Amy León [facility] Internal [facility] [place] PCP - General Internal Medicine 12/06/24
--- OUTSIDE RECORDS SUMMARY | 2025-02-06 15:45 | XMS_ITS | Patient Health Record ---
Author Organization [place] [facility] Address [address] [place] [address] Care Team Providers Care Cafeteria Team Leader Name Role Phone Dusty Edwards M.D. Primary [...] Status W/U Status Risk Notes Problem Anemia (096780881) Anemia (285.9) Active confirmed Problem Elevated liver enzymes level (894986920) Elevated liver function tests (790.6) Active confirmed Plan Of Treatment No Information Insurance Providers Payer Name Payer Address Payer Phone Subscriber Number Group Number Insured Name Patient Relationship to Insured Coverage Start Date Coverage End Date MEDICARE OF [facility]ERT [address] [place] [address] [id number] UYEN SAEZ Self - patient is the insured MEDICAID OF [facility] [address] [place] [address] [id number] UYEN SAEZ Self - patient is the insured Medical (General) History Medical History History ICD Code diabetes mellitus COPD asthma hypertension
== END 2025-02-06 14:00 | disposition home or self-care (01) ==
LOC: HO.HPS 13:31
PROVIDERS: PCP Internal Medicine; Visit Provider Internal Medicine
DX: J44.9 Chronic obstructive pulmonary disease, unspecified (principal); J98.4 Other disorders of lung
CPT/HCPCS: 99213

== ENCOUNTER → 2025-02-06 13:30 | Outpatient (BNVA) | payer OTHER, SELFPAY | PROVIDERS: PCP Internal Medicine; Visit Provider Internal Medicine | DX: J44.9 Chronic obstructive pulmonary disease, unspecified (principal); E66.9 Obesity, unspecified; J98.4 Other disorders of lung | CPT/HCPCS: 99212 ==

== ENCOUNTER 2025-02-23 13:14 | Outpatient (AMB) | payer OTHER, SELFPAY ==
[2025-02-23 13:30] VITALS: BP 136/65; PULSE 61; RESP 18; O2SAT 98
--- NOTE | 2025-02-23 13:30 | MHC.OFFVIS ---
Vital Signs 02/23/25 13:30 Weight 200 lb BP 136/65 Blood Pressure Location Lt brachial Position Sitting Respiration 18 Pulse 61 Pulse Source Pulse Oximeter Pulse Oximetry (%) 98 Oxygen Delivery Method Room Air Intake Visit Reasons: B/l Trapezius Trigger Point Inj Elastic Tape Inserter Required: Yes Elastic Tape Inserter Services: Elastic Tape Inserter Present Elastic Tape Inserter Name: neice Allergies dog dander (dogs) Allergy (Intermediate, Verified 02/23/25 13:28) Sneezing grass Allergy (Intermediate, Verified 02/23/25 13:28) Rash insect venom (mosquito bites) Allergy (Intermediate, Verified 02/23/25 13:28) Rash roaches Allergy (Intermediate, Verified 02/23/25 13:28) Rash trees Allergy (Intermediate, Verified 02/23/25 13:28) Rash atorvastatin (Lipitor) Adverse Reaction (Intermediate, Verified 02/23/25 13:28) stomach aches PFSH Medical History Persistent atrial fibrillation Environmental allergies Diabetes mellitus with hyperglycemia, with long-term current use of insulin Former smoker Pre-op examination Permanent atrial fibrillation Dysuria History of cardioversion Mixed hyperlipidemia Hospital discharge follow-up Cellulitis of left ankle Elevated TSH Diabetes mellitus Ear discomfort Atrial flutter Acute on chronic HFrEF (heart failure with reduced ejection fraction) Diverticulosis Tubular adenoma of colon Cardiomyopathy ICD (implantable 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-defibrillator) in place Paroxysmal atrial fibrillation Heart failure with reduced ejection fraction CHF (congestive heart failure) Mixed hyperlipidemia Seborrheic dermatitis of scalp Hearing loss Obesity (BMI 30-39.9) Hypoglycemia unawareness associated with type 2 diabetes mellitus Vitamin D deficiency Diabetic nephropathy associated with type 2 diabetes mellitus 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 of 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 Restrictive lung disease Asthma-COPD overlap syndrome Asthma Anemia COPD (chronic obstructive pulmonary disease) HLD (hyperlipidemia) HTN (hypertension) Hearing loss Depression with anxiety GERD (gastroesophageal reflux disease) Essential hypertension Diabetes type 2, uncontrolled Surgical History Hx of bilateral cataract extraction History of esophagogastroduodenoscopy (EGD) Hx of colonoscopy History of cardiac defibrillator placement History of thumb surgery Family History Father Cancer Mother Cancer Family/Other Diabetes CHF (congestive heart failure) Social History Household Members: None Housing: Apartment Alcohol intake: never Patient Tobacco Use Status: Former Tobacco user Tobacco use type: Cigarette e-Cigarette/Vaping Use: Never Used Second Hand Smoke Exposure: No service: No Current occupational status: disabled Cognitive needs: No Hearing needs: No Vision needs: Yes Physical Exam Vital Signs: Last Vital Signs Pulse 61 02/23/25 13:30 Resp 18 02/23/25 13:30 BP 136/65 02/23/25 13:30 Pulse Ox 98 02/23/25 13:30 Oxygen Delivery Method Room Air 02/23/25 13:30 Office Procedures Therapeutic Injection Therapeutic Injection 17948-Eznspqf Point Injection 1 or 2 sites All charges added?: Procedure code (CPT) selection complete Office Meds triamcinolone acetonide 40 mg/mL suspension for injection Performing Provider: Robert Mayfield MD Performing Location: [facility] Administered by: Robert Mayfield MD on 02/23/25 14:23 Dose Route Admin Location Dispensed Lot Number Expiration Date [facility] Software Engineer Sales 40 mg Infiltration 1 mL [id number] 04/30/26 10 mg Infiltration 10 mL Total Dispensed Waste 11 mL 0 % bupivacaine (PF) 0.5 % (5 mg/mL) injection solution Performing Provider: Robert Mayfield MD Performing Location: [facility] Administered by: Robert Mayfield MD on 02/23/25 14:23 Dose Route Admin Location Dispensed Lot Number Expiration Date [facility] Software Engineer Sales 10 mL Infiltration 10 mL Total Dispensed Waste 10 mL 0 % Assessment & Plan Assessment & Plan (1) Myofascial neck pain: Code(s): M54.2 - Cervicalgia Category: Medical Plan Trigger point injection bilateral trapezius muscles. Informed consent was obtained risks and benefits were explained to the patient. Patient was positioned sitting on the examination bed posterior upper back was prepped with ChloraPrep. The trigger point injections sites were palpated and sites of the injections were determined. After that injection of the 5 cc of bupivacaine 0.5% mixed with Kenalog 20 mg was performed into each site. Total dose of Kenalog 40 mg. Total dose of bupivacaine 0.5% 10 mL. The patient tolerated the procedure well. Band-Aid was applied he went home without immediate complications. Orders: Orders AMB Trigger Point Injection Today M54.2 - Cervicalgia Coding Level of Care Code Procedure Only Diagnoses Myofascial neck pain M54.2 CPT Codes Therapeutic Injection - Ther Injection 1: [id number]-Eohqloo Point Injection 1 or 2 sites ([id number])
--- OUTSIDE RECORDS SUMMARY | 2025-02-23 17:54 | XMS_ITS | Patient Health Record ---
Author Organization [place] [facility] Address [address] [place] [address] Care Team Providers Care Cartridge Belt Puncher Name Role Phone Dusty Edwards M.D. Primary Care Provider Bella lety Washington Jr Ede Unavailable [phone] Reason For Referral No Information Medications Medication [...] Status W/U Status Risk Notes Problem Anemia (116138281) Anemia (285.9) Active confirmed Problem Elevated liver enzymes level (137343093) Elevated liver function tests (790.6) Active confirmed Plan Of Treatment No Information Insurance Providers Payer Name Payer Address Payer Phone Subscriber Number Group Number Insured Name Patient Relationship to Insured Coverage Start Date Coverage End Date MEDICARE OF [facility] [address] [place] [address] [phone] [id number] UYEN SAEZ Self - patient is the insured MEDICAID OF [facility] [address] [place] [address] [id number] UYEN SAEZ Self - patient is the insured Medical (General) History Medical History History ICD Code diabetes mellitus COPD asthma hypertension
--- OUTSIDE RECORDS SUMMARY | 2025-02-23 17:54 | XMS_ITS | Data Portability ---
Author Organization [place] - [facility] Address [address] [place] [address] Assessment Encounter Date Assessment Date Assessment LastModified [...] bilateral hearing aids. Was also given a [facility] provider sheet. Follow-up in 6 months for reevaluation or sooner if needed. [email or web address] Not available 12/29/2023 13:47:32 09/06/2024 09/06/2024 74-year-old male presents for possible cerumen removal. Otologic exam reveals no cerumen bilaterally and normal TMs. Reassurance was provided and he may follow-up for cerumen as needed. Continue hearing aid use. [email or web address] Not available 09/06/2024 14:56:54 Plan of Treatment Reminders Order Date Submit Date Provider Last Modified By Organization Details Last Modified Time Details Appointments None recorded. Lab None recorded. Referral None recorded. Procedures None recorded. Surgeries None recorded. Imaging None recorded. Medication Orders clotrimaz ole-betam ethasone 1 %-0.05 % topical cream [facility], [address] [place] [address], [id number], 16:25:17 Patient TargetsNo targets recorded. Patient InstructionsNo instructions recorded. Reason for Referral None Reported. Results Created Date Observation Date Name Description Value Unit Range Abnormal Flag Note LastModifiedBy Organization Detail LastModifiedTime 12/29/19 audio gram No observ ation record ed. [email or web address] Not Available 12/01 15:42:05 01/20/20 24 09/12/2021 [...] Recorded Time Bilatera l diffuse otitis externa 85938138985 65823 Completed 202001/01/2024 Diffuse otitis externa, bilatera l; Note: Date Diagnose d: 1 2:18 PM (H60.313 ) Not Available [facility] 4 02:50:54 Type 2 diabetes mellitus without complica tion 559553459 Active 2021 Type 2 diabetes mellitus without complica tions; Note: Date Diagnose d: 2 2:35 PM (E11.9) Not Available [facility] 4 02:50:56 Sensorin eural hearing loss of bilatera l ears 890209732 Active 2021 Sensorin eural hearing loss, bilatera l; Note: Date Diagnose d: 2 3:33 PM (H90.3) Not Available [facility] 4 02:50:54 Bilatera l external auditory canal chronic otitis externa 00344837395 40546 Active 2022 Unspecif ied chronic otitis externa, bilatera l; Note: Date Diagnose d: 03/27/20 23 9:22 AM (H60.63) Not Available [facility] 02:51:00 Problem Notes None recorded. Procedures Surgical History Date Name Laterality Status Provider Name and Address Organization Details Recorded Time 12/29/2023 Comp Audio with Tymps - 31481 & 32210 completed SOBIA BING[place], [facility],[address], [address], [place] - [facility] 12/29/2023 14:20:08 Imaging Results None recorded. [...] topical solution 2021 active Medicatio n ID: [id number] Du ration Value: 14 Prescrib ed By [...] drops,susp ension 2020 active Medicatio n ID: [id number] Pr escribed By Name: Petar Sanchez MD [...] Updated DateTime 09/06/2024 170.18 cm 32.1 kg/m2 29449.44 g Fifi Becerril [facility] 09/06/2024 14:10:25 Date Recorded Body height Body mass index (BMI) Body weight Provider Name and Address Organization Details Last Updated DateTime 12/29/2023 170.18 cm 32.1 kg/m2 30870.44 g Fifi Becerril [facility] 12/29/2023 13:35:25 Social History None recorded. Functional Status None recorded. Mental Status None recorded. Family History Nothing Reported. Medical History No medical history recorded. Past Encounters Encounter ID Performer Location Encounter Start Date Encounter Closed Date Diagnosis/Indication Diagnosis SNOMED-CT Code Diagnosis ICD10 Code Diagnosis IMO Codes Diagnosis Note [id number] CARLOS PIERCE PA-C [facility] [address] [address] 12/29/2023 13:25:58 12/29/2023 14:32:01 Bilateral external auditory canal chronic otitis externa [id number] 101290 H60.63 Sensorineu ral hearing loss of bilateral ears 953714013 H90.3 Audiologic al evaluation results:Ri ght ear:Normal hearing thru 1000Hz sloping to a mild-moder ate SNHL with good word recognitio n.Left ear:Normal hearing thru 1000Hz sloping to a mild to severe SNHL with good word recognitio n. Tympanomet ry:Right Ear:Type ALeft Ear:Type Ad [id number] CARLOS PIERCE PA-C [facility] [address] [address] 09/06/2024 14:03:26 09/06/2024 14:30:12 Sensorineural hearing loss of bilateral ears 576927634 H90.3 Audiologic al evaluation results:Ri ght ear:Normal [...] Lord Member ID Guarantor Name 08/30/2024 1 [facility] - DOS ON OR AFTER 2022 - [employer] OPT[employer] (MEDICARE REPLACEMENT/ADV ANTAGE - HMO) Stephen Fabián Reno [id number] Stephen Reno 02/23/2025 1 [facility] - DOS ON OR AFTER 2022 - ONE [employer] (MEDICARE REPLACEMENT/ADV ANTAGE - HMO) Stephen Reno [id number] Stephen Reno Notes Date Note Type Note Provider Name and Address Organization Details Recorded Time 12/29/2023 text/html ROS as noted in the HPI 73-year-old male presents for reevaluation of chronic fungal dermatitis. Previously was using Lotrisone but needs a refill. Overall however his ears are doing well. He does have hearing aids but thinks he needs a new pair. His current pair are over 3 years old. ROSAURA SANCHEZ MD [address] [place] [address], [phone], [facility] 12/30/2023 07:52:39 09/06/2024 text/html ROS as noted in the HPI 74-year-old male with sensorineural hearing loss presents for possible cerumen removal. He has hearing aids which he is using with good benefit. No acute changes in hearing. CARLOS PIERCE PA-C [address] [place] [address], [phone], [facility] 09/06/2024 14:57:16
--- OUTSIDE RECORDS SUMMARY | 2025-02-23 17:54 | XMS_ITS | Clinical Summary ---
Author Organization [facility] Address [address] [place] [address] Phone Care Team Providers Care Protective Signal Repairer Helper Name Role Phone Christie Royal MD Primary Care Provider [phone] Allergies No known active allergies Medications carvedilol [...] Visit [facility] [address] [place] [address] Justus Lee MD [address] [facility] [address] [place] [address] Health Maintenance Due Date Last Done Comments [...] Most Recently Relevant to Health Maintenance Insurance [facility] ([id number]) [facility] ([id number]) Care Teams Protective Signal Repairer Helper Relationship Specialty Start Date End Date Christie Royal MD [address] [place], [place] PCP - General Internal Medicine 08/25/23
== END 2025-02-23 14:19 | disposition home or self-care (01) ==
LOC: HO.PMC 13:15
PROVIDERS: PCP Internal Medicine; Visit Provider Anesthesiology
DX: M79.12 Myalgia of auxiliary muscles, head and neck (principal); M54.2 Cervicalgia
CPT/HCPCS: 20552

== ENCOUNTER → 2025-02-23 13:14 | Outpatient (BNVA) | payer OTHER, SELFPAY | PROVIDERS: PCP Internal Medicine; Visit Provider Anesthesiology | DX: M79.12 Myalgia of auxiliary muscles, head and neck (principal) | CPT/HCPCS: 20552; J0665; J3300 ==

== ENCOUNTER 2025-03-24 10:23 | Outpatient (AMB) | payer OTHER, SELFPAY ==
[2025-03-24 10:29] VITALS: BP 101/59; PULSE 94; RESP 16; O2SAT 95; BMI 30.7
--- NOTE | 2025-03-24 10:29 | A.OFFVIS_ITS ---
Vital Signs 03/24/25 10:29 Height 5 ft 7 in Weight 196 lb BMI 30.7 BP 101/59 L Blood Pressure Location Rt brachial Position Sitting Respiration 16 Pulse 94 Pulse Source Pulse Oximeter Pulse Oximetry (%) 95 Oxygen Delivery Method Room Air Intake Visit Reasons: S/P B/l Trapezius Trigger Point Inj Data Technical Lead Required: Yes Data Technical Lead Name: Kirt [id number] Accompanied by: Self / Same As Patient Allergies dog dander (dogs) Allergy (Intermediate, Verified 03/24/25 10:38) Sneezing grass Allergy (Intermediate, Verified 03/24/25 10:38) Rash insect venom (mosquito bites) Allergy (Intermediate, Verified 03/24/25 10:38) Rash roaches Allergy (Intermediate, Verified 03/24/25 10:38) Rash trees Allergy (Intermediate, Verified 03/24/25 10:38) Rash atorvastatin (Lipitor) Adverse Reaction (Intermediate, Verified 03/24/25 10:38) stomach aches HPI Comments Details: Visit completed with lab aid Kirt [id number] The patient is a 75-year-old male presenting with chronic neck pain. The pain has been persistent for many years, with a history of receiving injections that previously provided relief for up to six months. Recently, bilateral trapezius trigger point injections have not been effective, with relief lasting less than a day. The pain is described as severe, affecting the neck and radiating to the head, causing dizziness and visual disturbances. The patient reports that physical therapy has been ineffective in the past and exacerbates the pain. The patient has a history of arthritis, which contributes to the neck pain. He has been using high-dose Tylenol for pain management, which provides temporary relief. - Onset: Chronic, persistent for many years - Quality: Severe, radiating to the head - Location: Neck, radiating to the head - Exacerbating factors: Physical therapy, movement - Relieving factors: High-dose Tylenol, though temporary - Affect: Pain causes dizziness and visual disturbances - Analgesia: High-dose Tylenol provides temporary relief - Adverse Effects: None reported - Activities of Daily Living: Pain affects driving and daily activities - Aberrant Drug Related Behaviors: None reported Prior: The patient is a 74-year-old male presenting with chronic shoulder pain. Visit completed with lab aid Greta #[id number]. The pain has been persistent for approximately 20 to 25 years, originating during his time in [place]. There is no known injury or specific event that initiated the pain. The pain is exacerbated by strenuous activities and arm movements, particularly when lifting the arms. The patient describes the pain as localized to the shoulder muscles, with no radiation to other areas. The patient underwent physical therapy for six months in [place], approximately 16 years ago, which was ineffective. He also received injections that provided temporary relief but were not long-lasting due to his work activities. The patient has been prescribed medications for arthritis, which have been effective in managing his symptoms. He cannot take ibuprofen due to kidney concerns and current use of Eliquis. The patient has a pacemaker and is currently on Eliquis, prescribed by his corrections caseworker. He has a history of cardiac catheterization, during which his anticoagulation therapy was temporarily halted. - Onset: Pain has been present for 20 to 25 years. - Quality: Localized to shoulder muscles, no radiation. - Exacerbating factors: Strenuous activities and arm movements. - Relieving factors: Injections provided temporary relief. - Affect: Pain impacts daily activities, limiting arm movements. - Analgesia: Medications for arthritis are effective; injections provided temporary relief. - Adverse Effects: Cannot take ibuprofen due to kidney concerns. - Activities of Daily Living: Pain limits ability to perform strenuous activities. - Aberrant Drug Related Behaviors: None reported. [facility] Medical History Persistent atrial fibrillation Environmental allergies Diabetes mellitus with hyperglycemia, with long-term current use of insulin Former smoker Pre-op examination Permanent atrial fibrillation Dysuria History of cardioversion Mixed hyperlipidemia Hospital discharge follow-up Cellulitis of left ankle Elevated TSH Diabetes mellitus Ear discomfort Atrial flutter Acute on chronic HFrEF (heart failure with reduced ejection fraction) Diverticulosis Tubular adenoma of colon Cardiomyopathy ICD (implantable 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-defibrillator) in place Paroxysmal atrial fibrillation Heart failure with reduced ejection fraction CHF (congestive heart failure) Mixed hyperlipidemia Seborrheic dermatitis of scalp Hearing loss Obesity (BMI 30-39.9) Hypoglycemia unawareness associated with type 2 diabetes mellitus Vitamin D deficiency Diabetic nephropathy associated with type 2 diabetes mellitus 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 of insulin Restrictive lung disease Asthma-COPD overlap syndrome Asthma Anemia COPD (chronic obstructive pulmonary disease) HLD (hyperlipidemia) HTN (hypertension) Hearing loss Depression with anxiety GERD (gastroesophageal reflux disease) Essential hypertension Diabetes type 2, uncontrolled Surgical History Hx of bilateral cataract extraction History of esophagogastroduodenoscopy (EGD) Hx of colonoscopy History of cardiac defibrillator placement History of thumb surgery Family History Father Cancer Mother Cancer Family/Other Diabetes CHF (congestive heart failure) Social History Household Members: None Housing: Apartment Alcohol intake: never Patient Tobacco Use Status: Former Tobacco user Tobacco use type: Cigarette e-Cigarette/Vaping Use: Never Used Second Hand Smoke Exposure: No service: No Current occupational status: disabled Cognitive needs: No Hearing needs: No Vision needs: Yes Review of Systems Narrative - Musculoskeletal: Reports chronic neck pain, exacerbated by movement - Neurological: Reports dizziness and visual disturbances associated with pain Physical Exam Exam Exam: General: awake, alert, oriented. Answers questions appropriately. Fully engaged in examination. Skin: warm, dry, intact HEENT: Normocephalic. Hearing intact. Cardiac: External chest normal in appearance. Respiratory: No cough, audible wheezing or stridor. Abdomen: without gross distension. MS: No obvious swelling or deformities. Able to transition from sit to stand unassisted. Ambulates with bilaterally normal heel strike and toe off Tenderness bilateral upper and middle trapezius Tenderness midline cervical vertebra and cervical paraspinal muscles Facet loading positive Decreased cervical range motion Neurological: Oriented to person, place, time and situation. Thought process intact. No gait abnormalities appreciated. Psychiatric: Appropriate mood and affect. Good judgment and insight. Vital Signs: Last Vital Signs Pulse 94 03/24/25 10:29 Resp 16 03/24/25 10:29 BP 101/59 L 03/24/25 10:29 Pulse Ox 95 03/24/25 10:29 Oxygen Delivery Method Room Air 03/24/25 10:29 BMI result Body Mass Index 30.7 Results Reviewed Results Reviewed: 01/20/25 x-ray cervical spine Craniocervical junction is intact. Multilevel marginal osteophyte formation and endplate sclerosis and decreased intervertebral disc height from C3 to C7 pronounced at C6-7 and to a lesser extent C4-5. No acute cortical disruption or gross malalignment. Right neuroforamina and narrowing secondary to osteophyte formation at C4-5 posterior C5-6 and C6-7 levels. No gross malalignment during flexion and or extension position. No lytic or blastic lesions. Upper airway is patent. IMPRESSION: Multilevel cervical spondylosis C3 C7 pronounced at C6-7 and C4-5 with right neuroforamina stenosis C5-6 and to a lesser extent C6-7 and C5-6 level. No instability. Assessment & Plan Assessment & Plan (1) Myofascial neck pain: Code(s): M54.2 - Cervicalgia Category: Medical (2) Cervical spondylosis: Code(s): M47.812 - Spondylosis without myelopathy or radiculopathy, cervical region Category: Medical Plan The plan involves submitting a request to the insurance for diagnostic injections to assess the source of the neck pain. If the diagnostic injections provide relief, further interventions such as steroid injections, temporary nerve stimulator or nerve ablation may be considered. The patient is advised to continue using high-dose Tylenol for temporary relief while awaiting insurance approval. Patient has exhausted conservative therapy. Will schedule for bilateral diagnostic C4-C5 C6 medial branch blocks with local anesthetic. Patient was informed and verbally consented to the use of an ambient scribe for clinic note documentation during this visit. Patient Instructions: - Continue taking high-dose Tylenol as needed for pain relief. - Await contact from the clinic regarding the insurance decision for diagnostic injections. - Report any changes in symptoms or new concerns to the clinic. Coding Level of Care Code Est Pt Level 3 (83689) Complex EM visit Add On G2211 Diagnoses Myofascial neck pain M54.2 Cervical spondylosis M47.812
--- OUTSIDE RECORDS SUMMARY | 2025-03-24 11:51 | XMS_ITS | Clinical Summary ---
Author Organization [address] [facility] Address [address] [place] [address] Phone Care Team Providers Care Etl Informatica Developer Name Role Phone Christie Jain MD Primary Care Provider [phone] Allergies Active Allergy Reactions Criticality Noted Date Comments Atorvastatin 03/02/2025 Dog Dander 03/02/2025 Mosquito Allergenic Extract 03/02/20 25 Medications ammonium lactate (AmLactin) 12 % lotionIndicatio ns:Xerosis cutis Apply topically if needed for dry skin. To the feet 400 g 2 03/03/20 26 Active Encounters Date Type Department Care Team Description 03/02/2025 1:45 PM EDT Office Visit Orthopedic Surgery [facility] [address] [address] Steve Dangelo DPM Controlled type 2 diabetes with neuropathy (CMS/HCC V24, CMS/HCC V28) (Primary Dx); Pain in toes of both feet; Arthritis of both feet; Hammertoes of both feet; Xerosis cutis; Dermatophytosis, nail from Last 3 Months Social History Tobacco Use Types Packs/Day Years Used Date Smoking Tobacco: Never Assessed Comments Unknown Sex and Gender Information Value Date Recorded Sex Assigned at Not on file Legal Sex Female 7:48 AM EDT Gender Identity Not on file Sexual Orientation Not on file Plan of Treatment Upcoming Encounters Date Type Department Care Team ([facility] Contact Info) Description 05/02/2025 2:45 PM EST Office Visit [facility] [address] [phone] Steve Dangelo DPM [address] [id number] Xerosis cutis (Primary Dx) Health Maintenance Due Date Last Done Comments Breast Cancer Screening 1950 Colorectal Cancer Screening: Colonoscopy 1950 Diabetes: Annual GFR (Glomer ular Filtration Rate) 1950 Diabetes: Annual Foot Exam 01/28/1962 Diabetes: Annual Retina Eye Exam 01/28/1962 DTaP,Tdap,and Td Vaccines (1 - Tdap) 01/28/1971 RSV Immunization Adult Patie nts (1 - Risk 50-74 years 1-dose series) 01/28/2002 Zoster Vaccines (1 of 2) 01/28/2002 Pneumococcal Vaccine: 50+ Ye ars (2 of 2 - PCV) 03/06/2015 03/06/2014 Depression Screening 06/01/2024 Cholesterol Screening (Lipid Panel) 12/06/2024 Diabetes: Annual Urine Albumin-Creatinine Ratio (uACR) 12/06/2024 Diabetes: Blood Sugar Contro l Test (HGBA1C) 12/06/2024 Falls Risk Assessment 12/06/2024 Hepatitis C Screening 12/06/2024 Medicare Annual Wellness Visit 12/06/2024 Osteoporosis Screening (Bone Density Screening) 12/06/2024 Social Influencers of Health Screening 12/06/2024 COVID-19 Vaccine ( - 2023-2 5 season) 2025 Influenza Vaccine (#1) 2025 Hypertension/CHF/CAD Annual BMP Blood Test 03/02/2025 HIB Vaccines Aged Out No longer eligi [...] age to complete this topic Insurance 5-0 [place] [id number] [employer] MEDICARE Member Subscriber Plan / Payer (Ef fective 2022-Present) Name:Stephen Reno Relation to Subscriber:Self Name:Stephen Mcintosh Payer ID:[id number] Group ID:[id number] Type:Not on file Address: [place] [address] [address] [id number] Care Teams Etl Informatica Developer Relationship Specialty Start Date End Date Christie Jain MD [address] [place] [address] , [address] [facility] D[facility] GLORIA Reyes PCP - General Internal Medicine 12/06/24
--- OUTSIDE RECORDS SUMMARY | 2025-03-24 11:51 | XMS_ITS | Clinical Summary ---
Author Organization [facility] Address [address] [place] [address] Phone Care Team Providers Care Catheterization Laboratory Technician Name Role Phone Christie Royal MD Primary Care Provider [phone] Allergies No known active allergies Medications carvedilol [...] Visit [facility] [address] [place] [address] Justus Lee MD [address] [place] [address] Health Maintenance Due Date Last Done Comments [...] Most Recently Relevant to Health Maintenance Insurance [facility] ([id number]) [facility] ([id number]) Care Teams Catheterization Laboratory Technician Relationship Specialty Start Date End Date Christie Royal MD [address] [place], [place] PCP - General Internal Medicine 08/25/23
--- OUTSIDE RECORDS SUMMARY | 2025-03-24 11:51 | XMS_ITS | Patient Health Record ---
Author Organization [facility] Address [address] [place] [address] Care Team Providers Care Stadium Manager Name Role Phone Dusty Edwards M.D. Primary [...] Status W/U Status Risk Notes Problem Anemia (031684157) Anemia (285.9) Active confirmed Problem Elevated liver enzymes level (141004734) Elevated liver function tests (790.6) Active confirmed Plan Of Treatment No Information Insurance Providers Payer Name Payer Address Payer Phone Subscriber Number Group Number Insured Name Patient Relationship to Insured Coverage Start Date Coverage End Date MEDICARE OF [facility] [place] [address] [id number] UYEN SAEZ Self - patient is the insured MEDICAID OF [facility] [address] [place] [address] [id number] UYEN SAEZ Self - patient is the insured Medical (General) History Medical History History ICD Code diabetes mellitus COPD asthma hypertension
== END 2025-03-24 11:12 | disposition home or self-care (01) ==
PROVIDERS: PCP Internal Medicine; Visit Provider Registered Nurse Emergency
DX: M54.2 Cervicalgia (principal); M47.812 Spondylosis without myelopathy or radiculopathy, cervical region
CPT/HCPCS: 99213; G2211

== ENCOUNTER → 2025-03-24 10:23 | Outpatient (BNVA) | payer OTHER, SELFPAY | PROVIDERS: PCP Internal Medicine; Visit Provider Registered Nurse Emergency | DX: M54.2 Cervicalgia (principal); M47.812 Spondylosis without myelopathy or radiculopathy, cervical region | CPT/HCPCS: 99212 ==

== ENCOUNTER 2025-03-30 14:17 | Outpatient (AMB) | payer OTHER, SELFPAY ==
--- NOTE | 2025-03-30 14:26 | A.OFFVIS_ITS ---
Vital Signs 03/30/25 14:27 Height 5 ft 7 in Weight 200 lb 9.93 oz BMI 31.4 BP 110/72 Blood Pressure Location Lt brachial Position Sitting Pulse 62 Intake Visit Reasons: 3 mth f/up w/ ICD ck Intake Note: 3 month follow-up with [employer] check c/o mx pain and fatigue Feed Mill Lab Technician Required: Yes Feed Mill Lab Technician Services: Feed Mill Lab Technician Present Feed Mill Lab Technician Name: Adan Villar Allergies dog dander (dogs) Allergy (Intermediate, Verified 03/24/25 10:38) Sneezing grass Allergy (Intermediate, Verified 03/24/25 10:38) Rash insect venom (mosquito bites) Allergy (Intermediate, Verified 03/24/25 10:38) Rash roaches Allergy (Intermediate, Verified 03/24/25 10:38) Rash trees Allergy (Intermediate, Verified 03/24/25 10:38) Rash atorvastatin (Lipitor) Adverse Reaction (Intermediate, Verified 03/24/25 10:38) stomach aches Medication List - Last Reconciled 03/30/25 by Bk Canchola MD albuterol sulfate 90 mcg/actuation (Ventolin HFA) 2 puffs inhalation Q6H PRN 30 days apixaban (Eliquis) 5 mg PO Q12H Arnuity Ellipta 200 mcg/actuation (fluticasone furoate) 1 inh PO DAILY NS bisacodyl (Dulcolax (bisacodyl)) 20 mg (4 x 5 mg) PO ONCE 1 day blood sugar diagnostic (FreeStyle Lite Strips) 3 times a day carvedilol 25 mg PO BID cholecalciferol (vitamin D3) 25 mcg PO DAILY 90 days clonazepam (Klonopin) 0.5 mg PO BEDTIME [collagen PO BID] cyanocobalamin (vitamin B-12) 500 mcg PO every other day in the morning; dapagliflozin propanediol (Farxiga) 10 mg PO DAILY 90 days diaper,brief,adult,disposable As directed [disposable gloves As directed] duloxetine 30 mg PO QAM duloxetine 60 mg PO DAILY eluxadoline (Viberzi) 100 mg PO BID fenofibrate 54 mg PO DAILY 90 days furosemide 40 mg PO DAILY 90 days gabapentin 300 mg PO BID 90 days hospital bed As directed hydrocortisone 1% (Anti-Itch (hydrocortisone)) 1 appl topical BID PRN 2 weeks incontinence pad, liner, disp As directed ketoconazole 2% 1 appl topical 2XW lancets 3 times a day lancets (TRUEplus Lancets) TEST BLOOD SUGAR THREE TIMES DAILY lansoprazole 30 mg PO DAILY metformin ER 1,000 mg (2 x 500 mg) PO BID 90 days pen needle, diabetic (UltiCare Pen Needle) As directed 1 time a day pen needle, diabetic (Pentips Pen Needle) As directed [recliner As directed] rosuvastatin 10 mg PO BEDTIME 90 days sacubitril-valsartan 24-26 mg (Entresto) 1 tab PO BID [scooter As directed] tamsulosin mg PO DAILY tirzepatide (Mounjaro) 10 mg subcut Vascepa (icosapent ethyl) 2 grams (2 x 1 gram) PO BID NS [wipes As directed] HPI Comments Details: Stephen comes for follow-up. Was obtained with help of office machine servicer apprentice. Patient is upset that he is still feeling poorly despite undergoing ablation. We discussed last time that he is still in persistent atrial fibrillation ablation was unsuccessful. He continues to have significantly reduced LV ejection fraction. He has not been hospitalized with heart failure. He is taking all his medications. Continues to have symptoms exertional fatigue and shortness of breath. He does not weigh himself on a regular basis. He said he takes all his medications regularly. He has no bleeding issues or neurologic events. No prolonged palpitation irregular heartbeat. No lightheadedness, syncope. [facility] Medical History Persistent atrial fibrillation Environmental allergies Diabetes mellitus with hyperglycemia, with long-term current use of insulin Former smoker Pre-op examination Permanent atrial fibrillation Dysuria History of cardioversion Mixed hyperlipidemia Hospital discharge follow-up Cellulitis of left ankle Elevated TSH Diabetes mellitus Ear discomfort Atrial flutter Acute on chronic HFrEF (heart failure with reduced ejection fraction) Diverticulosis Tubular adenoma of colon Cardiomyopathy ICD (implantable 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-defibrillator) in place Paroxysmal atrial fibrillation Heart failure with reduced ejection fraction CHF (congestive heart failure) Mixed hyperlipidemia Seborrheic dermatitis of scalp Hearing loss Obesity (BMI 30-39.9) Hypoglycemia unawareness associated with type 2 diabetes mellitus Vitamin D deficiency Diabetic nephropathy associated with type 2 diabetes mellitus MCC (current) use of insulin Restrictive lung disease Asthma-COPD overlap syndrome Asthma Anemia COPD (chronic obstructive pulmonary disease) HLD (hyperlipidemia) HTN (hypertension) Hearing loss Depression with anxiety GERD (gastroesophageal reflux disease) Essential hypertension Diabetes type 2, uncontrolled Surgical History Hx of bilateral cataract extraction History of esophagogastroduodenoscopy (EGD) Hx of colonoscopy History of cardiac defibrillator placement History of thumb surgery Family History Father Cancer Mother Cancer Family/Other Diabetes CHF (congestive heart failure) Social History Household Members: None Housing: Apartment Alcohol intake: never Patient Tobacco Use Status: Former Tobacco user Tobacco use type: Cigarette e-Cigarette/Vaping Use: Never Used Second Hand Smoke Exposure: No service: No Current occupational status: disabled Cognitive needs: No Hearing needs: No Vision needs: Yes Review of Systems Const Denies chills, Denies fatigue, Denies fever(s), Denies frequent falls, Denies weakness, Denies weight gain and Denies weight loss ENT Denies dizziness Card Denies chest pain, Denies leg edema, Denies lightheadedness, Denies palpitations, Denies dyspnea, Denies dyspnea on exertion, Denies orthopnea and Denies other (loss of consciousness) Resp Denies cough, Denies dyspnea and Denies dyspnea on exertion GI Denies hematochezia and Denies change in stool character Musc Denies abnormal gait, Denies muscle weakness, Denies numbness, Denies radiating pain into limb and Denies tingling Neuro Denies abnormal gait, Denies dizziness, Denies frequent falls, Denies numbness, Denies tingling and Denies weakness Endo Denies fatigue and Denies palpitations Physical Exam Vital Signs: Last Vital Signs Pulse 62 03/30/25 14:27 BP 110/72 03/30/25 14:27 BMI result Body Mass Index 31.4 Const General: comfortable, no acute distress, alert and awake Orientation/consciousness: patient oriented x3 HEENT General nose exam: No nasal polyps present and No nasal discharge present Face and sinus: Yes sinuses nontender Mouth: oropharynx normal Throat: Yes posterior oropharynx normal Neck Neck: Yes trachea midline, Yes supple and Yes no JVD Chest Chest palpation & inspection: tenderness Resp Effort & Inspection: normal respiratory effort Auscultation: clear to auscultation bilaterally Cardio Palpation: abnormal PMI displaced PMI Rhythm: abnormal rhythm irregularly irregular Heart sounds: S1 normal heart sound present, S2 normal heart sound present, no gallops and no murmurs GI Auscultation: normal bowel sounds Back/Spine/Pelvis Thoracic/Lumbar Spine: thoracic and lumbar spine normal to inspection Neuro General: patient oriented x3 and no focal motor deficits Extrem General: Yes no clubbing, cyanosis or edema Psych Appearance: grossly normal and well kempt Speech and movement: Normal speech and movement present Office Procedures Cardiac Device Check Cardiac Device Check Details: Single-chamber [place] ICD in place. Programmed in VVI at 40 beats per minute. Few nonsustained ventricular tachycardia episode noted could represent AFib with rapid ventricular response. Pacing and shock lead impedance is stable. Battery life is at 5.6 months 02541-WP Cardiac Device Check, single lead implantable defibrillator Procedure code (CPT) selection complete Assessment & Plan Assessment & Plan (1) Heart failure with reduced ejection fraction: Code(s): I50.20 - Unspecified systolic (congestive) heart failure Category: Medical Plan: Heart failure with reduced ejection fraction with markedly reduced LV ejection fraction with permanent atrial fibrillation contributing to his symptoms. Unfortunately he has not responded to AFib management, see below. We discussed his underlying structural heart abnormality that causes her significant symptoms and limited functionality. This was discussed in details. Management was discussed in details. We discussed about uptitrate Entresto and following up with blood pressure and renal function test next week. Continue other therapy with carvedilol, Farxiga for neurohormonal modulation. Goals of therapy were discussed. Importance of daily weight monitoring to guide congestive heart failure therapy on a daily basis and additional diuretics was discussed with him. He finally showed some understanding. Additional diuretics as need be. Also strongly advised him to pursue phase 2 cardiac rehabilitation for his heart failure symptoms but he currently declines. Goals of therapy were discussed. He showed understanding. (2) Permanent atrial fibrillation: Code(s): I48.21 - Permanent atrial fibrillation Category: Medical Plan: Permanent atrial fibrillation has failed rhythm control approach despite multiple antiarrhythmic, cardioversions as well as ablation therapy. Unfortunately this can not be reversed and this was discussed with him. He was disappointed about it but understands. For now will continue rate control and continue carvedilol therapy. Continue full oral anticoagulation, currently on Eliquis 5 mg b.i.d.. Semi annual renal function test should be pursued. Continue participate in physical activity and weight loss. (3) ICD (implantable 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-defibrillator) in place: Code(s): Z95.810 - Presence of automatic (implantable) cardiac defibrillator Category: Medical Plan: ICD in place for primary prevention. Working well. Reprogrammed for adequate functioning. Follow up in the clinic in 3 months time, sooner PRN. Greater than 40 minutes was spent in managing in his care. Orders: Orders Basic Metabolic Panel 1 Week I50.20 - Unspecified systolic (congestive) heart failure Medications: New sacubitril-valsartan 49-51 mg (Entresto) 1 tab PO BID 60 tabs 5RF Discontinued sacubitril-valsartan 24-26 mg (Entresto) Discontinued Reason: Doctor's Order 1 tab PO BID 180 tabs 3RF Coding Level of Care Code Est Pt Level 5 (42791) Complex EM visit Add On G2211 Diagnoses Heart failure with reduced ejection fraction I50.20 Permanent atrial fibrillation I48.21 ICD (implantable 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-defibrillator) in place Z95.810 CPT Codes Cardiac Device Check - Cardiac Device 4: 07184-HT Cardiac Device Check, single lead implantable defibrillator ([id number])
[2025-03-30 14:27] VITALS: BP 110/72; PULSE 62; BMI 31.4
--- OUTSIDE RECORDS SUMMARY | 2025-03-30 17:19 | XMS_ITS | Clinical Summary ---
Author Organization [facility] Address [address] [place] [address] Phone Care Team Providers Care Coupon Manifest Clerk Name Role Phone Christie Royal MD Primary Care Provider [phone] Allergies No known active allergies Medications carvedilol [...] Visit [facility] [address] [place] [address] Justus Lee MD [address] [place] [address] Health Maintenance Due Date Last Done Comments [...] Most Recently Relevant to Health Maintenance Insurance [facility] ([id number]) [facility] ([id number]) Care Teams Coupon Manifest Clerk Relationship Specialty Start Date End Date Christie Royal MD [address] [place], [place] PCP - General Internal Medicine 08/25/23
--- OUTSIDE RECORDS SUMMARY | 2025-03-30 17:19 | XMS_ITS | Clinical Summary ---
Author Organization [address] [place] [address] Address [address] [place] [address] Phone Care Team Providers Care Senior Financial Reporting Analyst Name Role Phone Christie Jain MD Primary Care Provider [phone] Allergies Active Allergy Reactions Criticality Noted Date Comments Atorvastatin 03/02/2025 Dog Dander 03/02/2025 Mosquito Allergenic Extract 03/02/20 25 Medications ammonium lactate (AmLactin) 12 % lotionIndicatio ns:Xerosis cutis Apply topically if needed for dry skin. To the feet 400 g 2 03/03/20 26 Active Encounters Date Type Department Care Team Description 03/02/2025 1:45 PM EDT Office Visit [facility] [address] [address] Steve Dangelo DPM Controlled type [...] Upcoming Encounters Date Type Department Care Team ([facility] Contact Info) Description 05/02/2025 2:45 PM EST Office Visit [facility] [address] [address] Steve Dangelo DPM [address] [place] [phone] Xerosis cutis (Primary Dx) Health Maintenance Due [...] Influencers of Health Screening 12/06/2024 COVID-19 Vaccine (2023-2 5 season) 2025 Influenza Vaccine (#1) 2025 [...] complete this topic Insurance 5-0 [place] [id number] [employer] MEDICARE Member Subscriber Plan / Payer (Ef fective 2022-Present) Name:Stephen Reno Relation to Subscriber:Self Name:Stephen Mcintosh Payer ID:[id number] Group ID:[id number] Type:Not on file Address: [place] [address] [place] [address] Care Teams Senior Financial Reporting Analyst Relationship Specialty Start Date End Date Christie Jain MD [address] [place] [address] , [address] [facility] D/B/A: [facility] [place]OR[place] Reyes PCP - General Internal Medicine 12/06/24
--- OUTSIDE RECORDS SUMMARY | 2025-03-30 17:19 | XMS_ITS | Data Portability ---
Author Organization [place] [facility] Address [address] [place] [address] Assessment Encounter Date Assessment Date Assessment LastModified [...] bilateral hearing aids. Was also given a [facility] provider sheet. Follow-up in 6 months for reevaluation or sooner if needed. [email or web address] Not available 12/29/2023 13:47:32 09/06/2024 09/06/2024 74-year-old male presents for possible cerumen removal. Otologic exam reveals no cerumen bilaterally and normal TMs. Reassurance was provided and he may follow-up for cerumen as needed. Continue hearing aid use. [email or web address] Not available 09/06/2024 14:56:54 Plan of Treatment Reminders Order Date Submit Date Provider Last Modified By Organization Details Last Modified Time Details Appointments None recorded. Lab None recorded. Referral None recorded. Procedures None recorded. Surgeries None recorded. Imaging None recorded. Medication Orders clotrimaz ole-betam ethasone 1 %-0.05 % topical cream [facility], [address] [place] [address], [id number], 16:25:17 Patient TargetsNo targets recorded. Patient InstructionsNo instructions recorded. Reason for Referral None Reported. Results Created Date Observation Date Name Description Value Unit Range Abnormal Flag Note LastModifiedBy Organization Detail LastModifiedTime 12/29/19 audio gram No observ ation record ed. [email or web address] Not Available 12/01 15:42:05 01/20/20 24 09/12/2021 [...] Recorded Time Bilatera l diffuse otitis externa 34824982067 57916 Completed 202001/01/2024 Diffuse otitis externa, bilatera l; Note: Date Diagnose d: 1 2:18 PM (H60.313 ) Not Available [facility] 4 02:50:54 Type 2 diabetes mellitus without complica tion 276553570 Active 2021 Type 2 diabetes mellitus without complica tions; Note: Date Diagnose d: 2 2:35 PM (E11.9) Not Available [facility] 4 02:50:56 Sensorin eural hearing loss of bilatera l ears 930221830 Active 2021 Sensorin eural hearing loss, bilatera l; Note: Date Diagnose d: 2 3:33 PM (H90.3) Not Available [facility] 4 02:50:54 Bilatera l external auditory canal chronic otitis externa 56023733605 34815 Active 2022 Unspecif ied chronic otitis externa, bilatera l; Note: Date Diagnose d: 03/27/20 23 9:22 AM (H60.63) Not Available [facility] 02:51:00 Problem Notes None recorded. Procedures Surgical History Date Name Laterality Status Provider Name and Address Organization Details Recorded Time 12/29/2023 Comp Audio with Tymps - 76715 & 18750 completed SOBIA BING[place], [facility] [address] [facility],[address], [address], [place] - [facility] 12/29/2023 14:20:08 Imaging Results None recorded. Procedure [...] topical solution 2021 active Medicatio n ID: [id number] Du ration Value: 14 Prescrib ed By [...] drops,susp ension 2020 active Medicatio n ID: [id number] Pr escribed By Name: Petar Sanchez MD [...] Updated DateTime 09/06/2024 170.18 cm 32.1 kg/m2 64983.44 g Fifi Becerril [facility] 09/06/2024 14:10:25 Date Recorded Body height Body mass index (BMI) Body weight Provider Name and Address Organization Details Last Updated DateTime 12/29/2023 170.18 cm 32.1 kg/m2 44939.44 g Fifi Becerril [facility] 12/29/2023 13:35:25 Social History None recorded. Functional Status None recorded. Mental Status None recorded. Family History Nothing Reported. Medical History No medical history recorded. Past Encounters Encounter ID Performer Location Encounter Start Date Encounter Closed Date Diagnosis/Indication Diagnosis SNOMED-CT Code Diagnosis ICD10 Code Diagnosis IMO Codes Diagnosis Note [id number] CARLOS PIERCE PA-C [facility] [address] [address] 12/29/2023 13:25:58 12/29/2023 14:32:01 Bilateral external auditory canal chronic otitis externa 9636264415 559195 H60.63 Sensorineu ral hearing loss of bilateral ears 708197104 H90.3 Audiologic al evaluation results:Ri ght ear:Normal hearing thru 1000Hz sloping to a mild-moder ate SNHL with good word recognitio n.Left ear:Normal hearing thru 1000Hz sloping to a mild to severe SNHL with good word recognitio n. Tympanomet ry:Right Ear:Type ALeft Ear:Type Ad [id number] CARLOS PIERCE PA-C [facility] [address] [address] 09/06/2024 14:03:26 09/06/2024 14:30:12 Sensorineural hearing loss of bilateral ears 489539698 H90.3 Audiologic al evaluation results:Ri ght ear:Normal [...] Lord Member ID Guarantor Name 08/30/[address] [facility] - DOS ON OR AFTER 2022 - ALF OPTIONS (MEDICARE REPLACEMENT/ADV ANTAGE - HMO) Stephen Fabián Reno [id number] Stephen Reno 02/23/[address] [facility] - DOS ON OR AFTER 2022 - ONE CARE (MEDICARE REPLACEMENT/ADV ANTAGE - HMO) Stephen Reno [id number] Stephen Reno Notes Date Note Type Note [...] current pair are over 3 years old. ROSAUAR SANCHEZ MD [address] [place] [address], [phone], [facility] 12/30/2023 07:52:39 09/06/2024 text/html ROS as noted in the HPI 74-year-old male with sensorineural hearing loss presents for possible cerumen removal. He has hearing aids which he is using with good benefit. No acute changes in hearing. CARLOS PIERCE PA-C [address] [place] [address], [phone], [facility] 09/06/2024 14:57:16
--- OUTSIDE RECORDS SUMMARY | 2025-03-30 17:19 | XMS_ITS | Patient Health Record ---
Author Organization [facility] Address [address] [place] [address] Care Team Providers Care Color Making Supervisor Name Role Phone Dusty Edwards M.D. Primary Care Provider Bella lety Washington Jr Ede Unavailable [phone] Reason For Referral No Information Medications [...] Status W/U Status Risk Notes Problem Anemia (068979789) Anemia (285.9) Active confirmed Problem Elevated liver enzymes level (675225114) Elevated liver function tests (790.6) Active confirmed Plan Of Treatment No Information Insurance Providers Payer Name Payer Address Payer Phone Subscriber Number Group Number Insured Name Patient Relationship to Insured Coverage Start Date Coverage End Date MEDICARE OF [facility] [address] [place] [address] [id number] UYEN SAEZ Self - patient is the insured MEDICAID OF [facility] [address] [place] [address] [id number] UYEN SAEZ Self - patient is the insured Medical (General) History Medical History History ICD Code diabetes mellitus COPD asthma hypertension
== END 2025-03-30 15:03 | disposition home or self-care (01) ==
PROVIDERS: PCP Internal Medicine; Visit Provider Internal Medicine Cardiovascular Disease
DX: I50.22 Chronic systolic (congestive) heart failure (principal); I48.21 Permanent atrial fibrillation; Z95.810 Presence of automatic (implantable) cardiac defibrillator
CPT/HCPCS: 93282; 99215; G2211

== ENCOUNTER → 2025-03-30 14:17 | Outpatient (BNVA) | payer OTHER, SELFPAY | PROVIDERS: PCP Internal Medicine; Visit Provider Internal Medicine Cardiovascular Disease | DX: I11.0 Hypertensive heart disease with heart failure (principal); I50.20 Unspecified systolic (congestive) heart failure; I48.21 Permanent atrial fibrillation; Z95.810 Presence of automatic (implantable) cardiac defibrillator | CPT/HCPCS: 93282; 99212 ==

== ENCOUNTER 2025-04-07 14:25 | Outpatient (REF) | payer OTHER, SELFPAY ==
[2025-04-07 17:33] LABS: Anion Gap 17 (12-20); Blood Urea Nitrogen 20 mg/dL (9-16); Calcium 9.7 mg/dL (8.4-10.2); Carbon Dioxide 22 mmol/L (22-29); Chloride 104 mmol/L (96-108); Estimated Glomerular Filt Rate > 60; Potassium 4.1 mmol/L (3.3-5.1); Sodium 139 mmol/L (135-145)
[2025-04-07 17:51] LABS: Prostate Specific Antigen 5.87 ng/mL (<0.05-4.0)
== END 2025-04-07 14:26 | disposition home or self-care (01) ==
LOC: HO.LAB 14:25
PROVIDERS: Absent Provider Nurse Practitioner Family; PCP Internal Medicine; Visit Provider Internal Medicine Cardiovascular Disease
DX: I50.20 Unspecified systolic (congestive) heart failure (principal); R97.20 Elevated prostate specific antigen [PSA]; Z12.5 Encounter for screening for malignant neoplasm of prostate
CPT/HCPCS: 36415; 80048; 84153

== ENCOUNTER → 2025-05-17 14:12 | Outpatient (BNV) | payer OTHER, SELFPAY | PROVIDERS: PCP Internal Medicine; Visit Provider Internal Medicine Cardiovascular Disease | DX: Z45.02 Encounter for adjustment and management of automatic implantable cardiac defibrillator (principal) | CPT/HCPCS: 93295 ==

== ENCOUNTER 2025-05-29 15:20 | Outpatient (AMB) | payer OTHER, SELFPAY ==
[2025-05-29 15:33] VITALS: BP 120/58; PULSE 77; TEMP 36.3; O2SAT 95; BMI 31.2
--- NOTE | 2025-05-29 15:33 | MHC.PC.OV ---
Vital Signs 05/29/25 15:33 Height 5 ft 7 in Weight 199 lb BMI 31.2 BP 120/58 L Blood Pressure Location Lt brachial Position Sitting Pulse 77 Pulse Source Pulse Oximeter Temp 97.3 F Temp Source Temporal Artery Scan Pulse Oximetry (%) 95 Oxygen Delivery Method Room Air Intake Visit Reasons: 4 months Venetian Blind Cleaner Required: No Accompanied by: Self / Same As Patient Allergies dog dander (dogs) Allergy (Intermediate, Verified 05/29/25 15:48) Sneezing grass Allergy (Intermediate, Verified 05/29/25 15:48) Rash insect venom (mosquito bites) Allergy (Intermediate, Verified 05/29/25 15:48) Rash roaches Allergy (Intermediate, Verified 05/29/25 15:48) Rash trees Allergy (Intermediate, Verified 05/29/25 15:48) Rash atorvastatin (Lipitor) Adverse Reaction (Intermediate, Verified 05/29/25 15:48) stomach aches Medication List - Last Reconciled 05/29/25 by Christie Jain MD albuterol sulfate 90 mcg/actuation (Ventolin HFA) 2 puffs inhalation Q6H PRN 30 days apixaban (Eliquis) 5 mg PO Q12H Arnuity Ellipta 200 mcg/actuation (fluticasone furoate) 1 inh PO DAILY NS bisacodyl (Dulcolax (bisacodyl)) 20 mg (4 x 5 mg) PO ONCE 1 day blood sugar diagnostic (FreeStyle Lite Strips) 3 times a day carvedilol 25 mg PO BID cholecalciferol (vitamin D3) 25 mcg PO DAILY 90 days clonazepam (Klonopin) 0.5 mg PO BEDTIME [collagen PO BID] cyanocobalamin (vitamin B-12) 500 mcg PO every other day in the morning; dapagliflozin propanediol (Farxiga) 10 mg PO DAILY 90 days diaper,brief,adult,disposable As directed [disposable gloves As directed] duloxetine 30 mg PO QAM duloxetine 60 mg PO DAILY eluxadoline (Viberzi) 100 mg PO BID famotidine 40 mg PO BEDTIME 90 days fenofibrate 54 mg PO DAILY 90 days furosemide 40 mg PO DAILY 90 days gabapentin 300 mg PO BID 90 days hospital bed As directed hydrocortisone 1% (Anti-Itch (hydrocortisone)) 1 appl topical BID PRN 2 weeks incontinence pad, liner, disp As directed ketoconazole 2% 1 appl topical 2XW lancets 3 times a day lancets (TRUEplus Lancets) TEST BLOOD SUGAR THREE TIMES DAILY lansoprazole 30 mg PO DAILY metformin ER 1,000 mg (2 x 500 mg) PO BID 90 days pen needle, diabetic (UltiCare Pen Needle) As directed 1 time a day pen needle, diabetic (Pentips Pen Needle) As directed [recliner As directed] rosuvastatin 10 mg PO BEDTIME 90 days sacubitril-valsartan 97-103 mg (Entresto) 1 tab PO BID [scooter As directed] tamsulosin mg PO DAILY tirzepatide (Mounjaro) 10 mg subcut Vascepa (icosapent ethyl) 2 grams (2 x 1 gram) PO BID NS [wipes As directed] Tobacco use date assessed: 05/29/25 Fall risk assessment: No Falls in past year Last assessed Fall Risk: 05/29/25 Dental Screening Dental Screen Date: 05/29/25 Did you have a dental visit in the last 12 months?: Yes Did you have a dental problem in the last 6 months where you did not have access to dental care?: No Was dental information given to patient?: Patient has dentist HPI HPI Comments History of Present Illness Details This is a 75 year old male with diabetes mellitus type 2, hypertension, atrial fibrillation, CHF and asthma-COPD overlap syndrome that comes today for follow up on his conditions. A1c of 7 % today which has improved and is within goal. BP stable. On chronic anticoagulation and follow by cardiology. Has not gain 5 lbs in a week and seems euvolemic. On long acting inhalers and follows with pulmunology. [facility] Medical History (Updated 05/29/25 @ 20:48 by Christie Jain MD) Diabetes mellitus Persistent atrial fibrillation Environmental allergies Diabetes mellitus with hyperglycemia, with long-term current use of insulin Former smoker Pre-op examination Permanent atrial fibrillation Dysuria History of cardioversion Mixed hyperlipidemia Hospital discharge follow-up Cellulitis of left ankle Elevated TSH Ear discomfort Atrial flutter Acute on chronic HFrEF (heart failure with reduced ejection fraction) Diverticulosis Tubular adenoma of colon Cardiomyopathy ICD (implantable 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-defibrillator) in place Paroxysmal atrial fibrillation Heart failure with reduced ejection fraction CHF (congestive heart failure) Mixed hyperlipidemia Seborrheic dermatitis of scalp Hearing loss Obesity (BMI 30-39.9) Hypoglycemia unawareness associated with type 2 diabetes mellitus Vitamin D deficiency Diabetic nephropathy associated with type 2 diabetes 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 Restrictive lung disease Asthma-COPD overlap syndrome Asthma Anemia COPD (chronic obstructive pulmonary disease) HLD (hyperlipidemia) HTN (hypertension) Hearing loss Depression with anxiety GERD (gastroesophageal reflux disease) Essential hypertension Diabetes type 2, uncontrolled Surgical History Hx of bilateral cataract extraction History of esophagogastroduodenoscopy (EGD) Hx of colonoscopy History of cardiac defibrillator placement History of thumb surgery Family History Father Cancer Mother Cancer Family/Other Diabetes CHF (congestive heart failure) Social History Household Members: None Housing: Apartment Alcohol intake: never Patient Tobacco Use Status: Former Tobacco user Tobacco use type: Cigarette e-Cigarette/Vaping Use: Never Used Second Hand Smoke Exposure: No service: No Current occupational status: disabled Cognitive needs: No Hearing needs: No Vision needs: Yes Questionnaire PHQ-9 Over the last 2 weeks, how often have you been bothered by any of the following problems? 1. Little interest or pleasure in doing things: not at all 2. Feeling down, depressed, or hopeless: several days 3. Trouble falling or staying asleep, or sleeping too much: not at all 4. Feeling tired or having little energy: more than half the days 5. Poor appetite or overeating: several days 6. Feeling bad about yourself - or that you are a failure or have let yourself or your family down: not at all 7. Trouble concentrating on things, such as reading the newspaper or watching television: not at all 8. Moving or speaking so slowly that other people could have noticed. Or the opposite - being so fidgety or restless that you have been moving around a lot more than usual: not at all 9. Thoughts that you would be better off or of hurting yourself in some way: not at all Total score: 4 Depression Screening Interpretation: Positive Depression Screening Follow-up: Existing condition, In treatment and Follow-up Visit Requested Depression Screening Done: Yes 65387 - PHQ-9 Billing: Yes Source: Developed by Drs. José Miguel Neri, Yomaira Roman, Maxwell Erazo and colleagues, with an educational bong from [employer]. Thrive Questionnaire Date Thrive assessed: 01/22/25 I am a: Patient What is your living situation today?: I have a steady place to live Within the past 12 months, did the food you bought not last and you didn't have the money to get more?: Often true Within the past 12 months, did you worry whether your food would run out before you got money to buy more?: Often true Do you have trouble paying for medicines?: No Do you have trouble getting transportation to medical appointments?: No Do you have trouble paying your heating and electricity bill?: No Do you have trouble taking care of your child, family member or friend?: No Do you have trouble with day-to-day activities such as bathing, preparing meals, shopping, managing finances, etc.?: No Are you currently unemployed and looking for a job?: I choose not to answer this question Are you interested in more education?: No Currently or been in a relationship where the following occur: I choose not to answer THRIVE Score: 2 AUDIT C Alcohol Use Questionnaire (AUDIT-C) 1. How often do you have a drink containing alcohol?: Never 3. How often do you have six or more drinks on one occasion?: Never Total Score: 0 Score Reviewed/Action Taken: No DARRYL-7 AMB Questionnaire DARRYL-7 Date DARRYL - 7 assessed: 01/24/25 Feeling nervous, anxious, or on edge: 0 = Not at all Not being able to stop or control worryin = Not at all Worrying too much about different things: 3 = Nearly every day Trouble relaxin = Several days Being so restless that it is hard to sit still: 0 = Not at all Becoming easily annoyed or irritable: 2 = More than half the days Feeling afraid as if something awful might happen: 0 = Not at all Total DARRYL-7 score (0-4 normal; 5-9 mild; 10-14 moderate; 15-21 severe): 6 Source: Developed by Yomaira Wilkerson Kurt Kroenke and colleagues, with an educational bong from [employer]. DARRYL-7 Assessment Billing DARRYL-7 Assessment Tool: DARRYL-7 Assessment 49142 Review of Systems Const All systems reviewed & are unremarkable except as noted in HPI and below Card Denies chest pain at rest, Denies chest pain with activity, Denies edema, Denies irregular heart rhythm, Denies claudication, Denies dyspnea, Denies dyspnea on exertion, Denies orthopnea, Denies paroxysmal nocturnal dyspnea and Denies slow heart rate Resp Denies cough, Denies dyspnea and Denies dyspnea on exertion Physical exam (Primary Care) Vital Signs: Last Vital Signs Temp 97.3 F 05/29/25 15:33 Pulse 77 05/29/25 15:33 BP 120/58 L 05/29/25 15:33 Pulse Ox 95 05/29/25 15:33 Oxygen Delivery Method Room Air 05/29/25 15:33 BMI result Body Mass Index 31.2 BMI Assessment/Plan discussion: High BMI High, discussed plan: lifestyle, weight reduction, dietary and physical activity Tobacco/Smoking Status: Tobacco use Status Tobacco use date assessed 05/29/25 05/29/25 15:39 Patient Tobacco Use Status Former Tobacco user 05/29/25 15:39 Tobacco use type Cigarette 05/29/25 15:39 e-Cigarette/Vaping Use Never Used 05/29/25 15:39 PHQ-9: PHQ-9 Score PHQ-9: Total score 4 05/29/25 15:52 Depression Screening Interpretation: Positive Depression Screening Follow-up: Existing condition, In treatment and Follow-up Visit Requested Thrive Assessment: Date of Thrive Assessment Date Thrive assessed 01/22/25 05/29/25 15:39 Currently or been in a relationship where the following occur: I choose not to answer Resp Effort & Inspection: normal respiratory effort Auscultation: clear to auscultation bilaterally Cardio Jugular venous distension: no JVD Rate: regular rate Rhythm: regular rhythm Heart sounds: S1 normal heart sound present and S2 normal heart sound present Extrem General: Yes full ROM Results AMB Hemoglobin A1c AMB Hemoglobin A1c 7.0 % Last Edit by Francie Baum CMA on 05/29/25 15:42 Results Reviewed Results Reviewed: Laboratory Last Values Hgb A1c (Clinic) 7.0 % (4.0-6.0) H 05/29/25 15:39 Coding Level of Care Code Add On Preventative Visit Only Diagnoses Essential hypertension I10 Heart failure with reduced ejection fraction I50.20 Permanent atrial fibrillation I48.21 Type 2 diabetes mellitus with hyperglycemia, without long-term current use of insulin E11.65 Diabetes mellitus type: type 2 Diabetes mellitus oil heaterman insulin use: without oil heaterman use Diabetes mellitus complication status: with hyperglycemia Asthma-COPD overlap syndrome J44.9 Additional Codes DARRYL-7 Assessment Billing - DARRYL-7 Assessment Tool: DARRYL-7 Assessment 95731 ([id number]) PHQ-9 - 74243 - PHQ-9 Billing: Yes ([id number]) Time Spent (min) 21 Assessment & Plan Assessment & Plan (1) Essential hypertension: Code(s): I10 - Essential (primary) hypertension Category: Medical (2) Heart failure with reduced ejection fraction: Code(s): I50.20 - Unspecified systolic (congestive) heart failure Category: Medical (3) Permanent atrial fibrillation: Code(s): I48.21 - Permanent atrial fibrillation Category: Medical (4) Diabetes mellitus: Code(s): E11.9 - Type 2 diabetes mellitus without complications Category: Medical Qualifiers: Diabetes mellitus type: type 2 Diabetes mellitus senior living insulin use: without senior living use Diabetes mellitus complication status: with hyperglycemia Qualified Code(s): E11.65 - Type 2 diabetes mellitus with hyperglycemia (5) Asthma-COPD overlap syndrome: Comment: The Asthma/COPD is fairly well controlled. He has had no acute exacerbations in the last 6 months. Code(s): J44.9 - Chronic obstructive pulmonary disease, unspecified Category: Medical Plan Continue same meds. A1c goal is less than 7 %. BP goal is less than 130/80. LDL goal is less than 70. Orders: Orders Vitamin D 25-OH Total 4 Months E55.9 - Vitamin D deficiency, unspecified Vitamin B12 and Folate 4 Months E53.8 - Deficiency of other specified B group vitamins NT Pro B Type Natriuretic Pept 4 Months I50.20 - Unspecified systolic (congestive) heart failure AMB Hemoglobin A1c Today Z13.9 - Encounter for screening, unspecified Lipid Panel 4 Months E78.5 - Hyperlipidemia, unspecified Microalbumin, Random (w Creat) 4 Months R80.9 - Proteinuria, unspecified Comprehensive [place]. Panel Fast 4 Months I50.20 - Unspecified systolic (congestive) heart failure Complete Blood Count Auto Diff 4 Months D64.9 - Anemia, unspecified IRON PROFILE 4 Months D64.9 - Anemia, unspecified Medications: Refilled hydrocortisone 1% (Anti-Itch (hydrocortisone)) 1 appl topical BID PRN 28.4 grams 0RF skin irritation 2 weeks gabapentin 300 mg PO BID 180 caps 0RF 90 days Discontinued fenofibrate Discontinued Reason: Order 54 mg PO DAILY 90 days 90 tabs 1RF
--- OUTSIDE RECORDS SUMMARY | 2025-05-29 17:27 | XMS_ITS | Clinical Summary ---
Author Organization 175 [facility] Address [address] [place] [address] Phone Care Team Providers Care Demolition Specialist Name Role Phone Christie Jain MD Primary Care Provider [phone] Allergies Active Allergy Reactions Criticality Noted Date Comments Atorvastatin 03/02/2025 Dog Dander 03/02/2025 Mosquito Allergenic Extract 03/02/20 25 Medications ammonium lactate (AmLactin) 12 % lotionIndicatio ns:Xerosis cutis Apply topically if needed for dry skin. To the feet 400 g 2 03/03/20 26 Active Encounters Date Type Department Care Team Description 03/02/2025 1:45 PM EDT Office Visit Orthopedic Surgery [facility] [address] [phone] Steve Dangelo DPM Controlled type 2 diabetes [...] Upcoming Encounters Date Type Department Care Team ([facility] st Contact Info) Description 06/14/2025 2:00 PM EST Office Visit Orthopedic [facility] [address] [phone] Steve Dangelo DPM [address] [address] Health Maintenance Due Date Last Done Comments [...] Health Screening 12/06/2024 COVID-19 Vaccine ( - 2024-2 6 season) 2025 Influenza Vaccine (#1) 2025 Hypertension/CHF/CAD [...] to complete this topic Insurance 5-0 GLORIA HURLEY [id number] [facility] MEDICARE Member Subscriber Plan / Payer (Ef fective 2022-Present) Name:Stephen Reno Relation to Subscriber:Self Name:Stephen Mcintosh Payer ID:[id number] Group ID:[id number] Type:Not on file Address: [place] [address] [place] [address] Care Teams Demolition Specialist Relationship Specialty Start Date End Date Christie Jain MD [address] [place] [address] , [address] [facility] D/B/A: [facility] [place], [place] PCP - General Internal Medicine 12/06/24
--- OUTSIDE RECORDS SUMMARY | 2025-05-29 17:27 | XMS_ITS | Patient Health Record ---
Author Organization [facility] Address [address] [place] [address] Care Team Providers Care Square Dance Caller Name Role Phone Dusty Edwards M.D. Primary [...] Ac tive Ipratropium-Albuterol 0.5-2.5mg Active Social History Social History Additional Details Category Social Info Options Details Miscellaneous: Marital status: Occupation: unemployed Problems Problem Type SNOMED Code ICD Code Onset Dates Problem Status W/U Status Risk Notes Problem Anemia (328186829) Anemia (285.9) Active confirmed Problem Elevated liver enzymes level (454111531) Elevated liver function tests (790.6) Active confirmed Plan Of Treatment No Information Insurance Providers Payer Name Payer Address Payer Phone Subscriber Number Group Number Insured Name Patient Relationship to Insured Coverage Start Date Coverage End Date MEDICARE OF [place] [address] [place] [id number] [phone] [id number] UYEN SAEZ Self - patient is the insured MEDICAID OF [facility] [address] [place] [phone] [id number] UYEN SAEZ Self - patient is the insured Medical (General) History Medical History History ICD Code diabetes mellitus COPD asthma hypertension
--- OUTSIDE RECORDS SUMMARY | 2025-05-29 17:27 | XMS_ITS | Data Portability ---
Author Organization [place] [facility] Address [address] [place] [phone] Assessment Encounter Date Assessment Date Assessment LastModified [...] also given a [facility] provider sheet. Follow-up in 6 months for reevaluation or sooner if needed. [email or web address] Not available 12/29/2023 13:47:32 09/06/2024 09/06/2024 74-year-old male presents for possible cerumen removal. Otologic exam reveals no cerumen bilaterally and normal TMs. Reassurance was provided and he may follow-up for cerumen as needed. Continue hearing aid use. [email or web address] Not available 09/06/2024 14:56:54 Plan of Treatment Reminders Order Date Submit Date Provider Last Modified By Organization Details Last Modified Time Details Appointments None recorded. Lab None recorded. Referral None recorded. Procedures None recorded. Surgeries None recorded. Imaging None recorded. Medication Orders clotrimaz ole-betam ethasone 1 %-0.05 % topical cream [facility], [address] [place] [address], [id number], 16:25:17 Patient TargetsNo targets recorded. Patient InstructionsNo instructions recorded. Reason for Referral None Reported. Results Created Date Observation Date Name Description Value Unit Range Abnormal Flag Note LastModifiedBy Organization Detail LastModifiedTime 12/29/19 audio gram No observ ation record ed. [email or web address] Not Available 12/01 15:42:05 01/20/20 24 09/12/2021 [...] Recorded Time Bilatera l diffuse otitis externa 94803697371 07643 Completed 202001/01/2024 Diffuse otitis externa, bilatera l; Note: Date Diagnose d: 1 2:18 PM (H60.313 ) Not Available [facility] 4 02:50:54 Type 2 diabetes mellitus without complica tion 477471580 Active 2021 Type 2 diabetes mellitus without complica tions; Note: Date Diagnose d: 2 2:35 PM (E11.9) Not Available [facility] 4 02:50:56 Sensorin eural hearing loss of bilatera l ears 300061659 Active 2021 Sensorin eural hearing loss, bilatera l; Note: Date Diagnose d: 2 3:33 PM (H90.3) Not Available [facility] 4 02:50:54 Bilatera l external auditory canal chronic otitis externa 22410881127 26177 Active 2022 Unspecif ied chronic otitis externa, bilatera l; Note: Date Diagnose d: 03/27/20 23 9:22 AM (H60.63) Not Available [facility] 02:51:00 Problem Notes None recorded. Procedures Surgical History Date Name Laterality Status Provider Name and Address Organization Details Recorded Time 12/29/2023 Comp Audio with Tymps - 69171 & 98769 completed SO[place], [facility],[address], [address], [place] - [facility] 12/29/2023 14:20:08 Imaging Results None recorded. Procedure [...] topical solution 2021 active Medicatio n ID: [id number] Du ration Value: 14 Prescrib ed By [...] drops,susp ension 2020 active Medicatio n ID: [id number] Pr escribed By Name: Petar Sanchez MD [...] Updated DateTime 09/06/2024 170.18 cm 32.1 kg/m2 56075.44 g Fifi Becerril [facility] 09/06/2024 14:10:25 Date Recorded Body height Body mass index (BMI) Body weight Provider Name and Address Organization Details Last Updated DateTime 12/29/2023 170.18 cm 32.1 kg/m2 84136.44 g Fifi Becerril [facility] 12/29/2023 13:35:25 Social History None recorded. Functional Status None recorded. Mental Status None recorded. Family History Nothing Reported. Medical History No medical history recorded. Past Encounters Encounter ID Performer Location Encounter Start Date Encounter Closed Date Diagnosis/Indication Diagnosis SNOMED-CT Code Diagnosis ICD10 Code Diagnosis IMO Codes Diagnosis Note [id number] CARLOS PIERCE PA-C [facility] [address] [phone] 12/29/2023 13:25:58 12/29/2023 14:32:01 Bilateral external auditory canal chronic otitis externa [id number] 508280 H60.63 Sensorineu ral hearing loss of bilateral ears 043872469 H90.3 Audiologic al evaluation results:Ri ght ear:Normal hearing thru 1000Hz sloping to a mild-moder ate SNHL with good word recognitio n.Left ear:Normal hearing thru 1000Hz sloping to a mild to severe SNHL with good word recognitio n. Tympanomet ry:Right Ear:Type ALeft Ear:Type Ad [id number] CARLOS PIERCE PA-C [facility] [address] [phone] 09/06/2024 14:03:26 09/06/2024 14:30:12 Sensorineural hearing loss of bilateral ears 405026643 H90.3 Audiologic al evaluation results:Ri ght ear:Normal [...] Member ID Guarantor Name 08/30/2024 1 [facility] - DOS ON OR AFTER 2022 - CUSTODIAL OPTIONS (MEDICARE REPLACEMENT/ADV ANTAGE - HMO) Stephen Fabián Reno [id number] Stephen Reno 02/23/2025 1 [facility] - DOS ON OR AFTER 2022 - ONE CARE (MEDICARE REPLACEMENT/ADV ANTAGE - HMO) Stephen Reno [id number] Stephen Reno Notes Date Note Type Note [...] over 3 years old. ROSAURA SANCHEZ MD [address] [place] [address], [phone], [facility] 12/30/2023 07:52:39 09/06/2024 text/html ROS as noted in the HPI 74-year-old male with sensorineural hearing loss presents for possible cerumen removal. He has hearing aids which he is using with good benefit. No acute changes in hearing. CARLOS PIERCE PA-C [address] [place] [address], [phone], [facility] 09/06/2024 14:57:16
== END 2025-05-29 16:02 | disposition home or self-care (01) ==
LOC: HO.HMCH 15:21
PROVIDERS: PCP Internal Medicine; Visit Provider Internal Medicine
DX: J44.9 Chronic obstructive pulmonary disease, unspecified (principal); I48.21 Permanent atrial fibrillation; I50.20 Unspecified systolic (congestive) heart failure; E11.65 Type 2 diabetes mellitus with hyperglycemia; I10 Essential (primary) hypertension; Z13.9 Encounter for screening, unspecified

== ENCOUNTER → 2025-05-29 15:20 | Outpatient (BNVA) | payer OTHER, SELFPAY | PROVIDERS: PCP Internal Medicine; Visit Provider Internal Medicine | DX: E11.22 Type 2 diabetes mellitus with diabetic chronic kidney disease (principal); I12.9 Hypertensive chronic kidney disease with stage 1 through stage 4 chronic kidney disease, or unspecified chronic kidney disease; I50.20 Unspecified systolic (congestive) heart failure; E11.65 Type 2 diabetes mellitus with hyperglycemia; J44.9 Chronic obstructive pulmonary disease, unspecified | CPT/HCPCS: 83036; 96127; 99212 ==

== ENCOUNTER 2025-05-30 06:58 | Outpatient (REF) | payer OTHER, SELFPAY ==
--- NOTE | ~2025-05-30 | FL_ITS ---
EXAMINATION: FL GUIDANCE ONLY HISTORY: M47.812 - Spondylosis without myelopathy or radiculopathy, cervical region COMPARISON: None available. TECHNIQUE: Fluoroscopy time: 56 seconds. Cumulative Dose: 6.10 mGy. DAP: 1312.5 mGycm2 Images: 10. FINDINGS: Fluoroscopic spot films of the cervical spine demonstrate needles and contrast material in place at 3 levels bilaterally. FL/FL guidance in treatment room IMPRESSION: Fluoroscopy during procedure. Please see procedure report for additional information. Electronically signed by: José Miguel Dorsey MD 05/30/2025 02:22 PM [facility]
--- OUTSIDE RECORDS SUMMARY | 2025-05-30 08:42 | XMS_ITS | Clinical Summary ---
Author Organization 175 [facility] Address [address] [place] [address] Phone Care Team Providers Care Coil Winder Repair Name Role Phone Christie Jain MD Primary Care Provider [phone] Allergies Active Allergy Reactions Criticality Noted Date Comments Atorvastatin 03/02/2025 Dog Dander 03/02/2025 Mosquito Allergenic Extract 03/02/20 25 Medications ammonium lactate (AmLactin) 12 % lotionIndicatio ns:Xerosis cutis Apply topically if needed for dry skin. To the feet 400 g 2 03/03/20 26 Active Encounters Date Type Department Care Team Description 03/02/2025 1:45 PM EDT Office Visit Orthopedic Surgery [facility] [address] [phone] Steve Dangelo DPM Controlled type 2 diabetes [...] Upcoming Encounters Date Type Department Care Team ([facility] st Contact Info) Description 06/14/2025 2:00 PM EST Office Visit Orthopedic [facility] [address] [phone] Steve Dangelo DPM [address] [address] Health Maintenance Due Date Last Done Comments [...] complete this topic Insurance 5-0 [place]IA HUR[place] [id number] [facility] MEDICARE Member Subscriber Plan / Payer (Ef fective 2022-Present) Name:Stephen Reno Relation to Subscriber:Self Name:Stephen Mcintosh Payer ID:[id number] Group ID:[id number] Type:Not on file Address: [place] [address] [place] [address] Care Teams Coil Winder Repair Relationship Specialty Start Date End Date Christie Jain MD [address] [place] [address] , [address] [facility] D/B/A: [facility] [place], [place] PCP - General Internal Medicine 12/06/24
--- OUTSIDE RECORDS SUMMARY | 2025-05-30 08:42 | XMS_ITS | Patient Health Record ---
Author Organization [facility] Address [address] [place] [address] Care Team Providers Care Grocery Manager Name Role Phone Dusty Edwards M.D. [...] Status W/U Status Risk Notes Problem Anemia (093827773) Anemia (285.9) Active confirmed Problem Elevated liver enzymes level (064211647) Elevated liver function tests (790.6) Active confirmed Plan Of Treatment No Information Insurance Providers Payer Name Payer Address Payer Phone Subscriber Number Group Number Insured Name Patient Relationship to Insured Coverage Start Date Coverage End Date [place] [address] [place] [phone] [id number] UYEN SAEZ Self - patient is the insured MEDICAID OF [facility] [address] [place] [phone] [id number] UYEN SAEZ Self - patient is the insured Medical (General) History Medical History History ICD Code diabetes mellitus COPD asthma hypertension
--- OUTSIDE RECORDS SUMMARY | 2025-05-30 08:42 | XMS_ITS | Clinical Summary ---
Author Organization [facility] Address [address] [place] [address] Phone Care Team Providers Care Brick Pitcher Name Role Phone Christie Royal MD Primary Care Provider [phone] Allergies No known active allergies Medications carvedilol [...] Visit [facility] [address] [place] [address] Justus Lee MD [address] [place] [address] Health Maintenance Due Date Last Done Comments [...] Most Recently Relevant to Health Maintenance Insurance [facility] ([id number]) [facility] ([id number]) Care Teams Brick Pitcher Relationship Specialty Start Date End Date Christie Royal MD [address] [place], [place] PCP - General Internal Medicine 08/25/23
== END 2025-05-30 06:59 | disposition home or self-care (01) ==
LOC: CF 06:58
PROVIDERS: Visit Provider Anesthesiology
DX: M47.812 Spondylosis without myelopathy or radiculopathy, cervical region (principal)
CPT/HCPCS: 64490; 64491; J2003; J2795; Q9967

== ENCOUNTER 2025-05-30 10:28 | Outpatient (AMB) | payer OTHER, SELFPAY ==
[2025-05-30 10:30] VITALS: BP 119/57; PULSE 88; RESP 16; O2SAT 92; BMI 31.2
--- NOTE | 2025-05-30 10:30 | A.OFFVIS_ITS ---
Vital Signs 05/30/25 10:30 05/30/25 10:57 Height 5 ft 7 in Weight 199 lb BMI 31.2 BP 119/57 L 114/60 Blood Pressure Location Lt brachial Lt brachial Position Sitting Sitting Respiration 16 16 Pulse 88 73 Pulse Source Pulse Oximeter Pulse Oximeter Pulse Oximetry (%) 92 96 Oxygen Delivery Method Room Air Room Air Intake Visit Reasons: Bilateral diagnostic C4-C5 C6-MBB Allergies dog dander (dogs) Allergy (Intermediate, Verified 05/29/25 15:48) Sneezing grass Allergy (Intermediate, Verified 05/29/25 15:48) Rash insect venom (mosquito bites) Allergy (Intermediate, Verified 05/29/25 15:48) Rash roaches Allergy (Intermediate, Verified 05/29/25 15:48) Rash trees Allergy (Intermediate, Verified 05/29/25 15:48) Rash atorvastatin (Lipitor) Adverse Reaction (Intermediate, Verified 05/29/25 15:48) stomach aches PFSH Medical History (Updated 05/29/25 @ 20:48 by Christie Jain MD) Diabetes mellitus Persistent atrial fibrillation Environmental allergies Diabetes mellitus with hyperglycemia, with long-term current use of insulin Former smoker Pre-op examination Permanent atrial fibrillation Dysuria History of cardioversion Mixed hyperlipidemia Hospital discharge follow-up Cellulitis of left ankle Elevated TSH Ear discomfort Atrial flutter Acute on chronic HFrEF (heart failure with reduced ejection fraction) Diverticulosis Tubular adenoma of colon Cardiomyopathy ICD (implantable 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-defibrillator) in place Paroxysmal atrial fibrillation Heart failure with reduced ejection fraction CHF (congestive heart failure) Mixed hyperlipidemia Seborrheic dermatitis of scalp Hearing loss Obesity (BMI 30-39.9) Hypoglycemia unawareness associated with type 2 diabetes mellitus Vitamin D deficiency Diabetic nephropathy associated with type 2 diabetes mellitus 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 of insulin Restrictive lung disease Asthma-COPD overlap syndrome Asthma Anemia COPD (chronic obstructive pulmonary disease) HLD (hyperlipidemia) HTN (hypertension) Hearing loss Depression with anxiety GERD (gastroesophageal reflux disease) Essential hypertension Diabetes type 2, uncontrolled Surgical History Hx of bilateral cataract extraction History of esophagogastroduodenoscopy (EGD) Hx of colonoscopy History of cardiac defibrillator placement History of thumb surgery Family History Father Cancer Mother Cancer Family/Other Diabetes CHF (congestive heart failure) Social History Household Members: None Housing: Apartment Alcohol intake: never Patient Tobacco Use Status: Former Tobacco user Tobacco use type: Cigarette e-Cigarette/Vaping Use: Never Used Second Hand Smoke Exposure: No service: No Current occupational status: disabled Cognitive needs: No Hearing needs: No Vision needs: Yes Physical Exam Vital Signs: Last Vital Signs Pulse 88 05/30/25 10:30 Resp 16 05/30/25 10:30 BP 119/57 L 05/30/25 10:30 Pulse Ox 92 05/30/25 10:30 Oxygen Delivery Method Room Air 05/30/25 10:30 BMI result Body Mass Index 31.2 Assessment & Plan Assessment & Plan (1) Myofascial neck pain: Code(s): M54.2 - Cervicalgia Category: Medical (2) Cervical spondylosis: Code(s): M47.812 - Spondylosis without myelopathy or radiculopathy, cervical region Category: Medical Plan Diagnostic medial branch block C4, C5, C6 bilateral.? ? ?Informed consent was explained to the patient. All questions were explained and? answered.? The patient was taken inside the operating room where she was positioned prone on the operating table. Time-out was performed delineating correct site, side, the nature of the procedure, patient's allergy, . All operating room staff was participating in OR time-out procedure. ? ? The the poserior neck and upper back was prepped with ChloraPrep and draped with sterile utility towels.? C-arm was brought over the operating field and sq picture of C4-, C5, C6 vertebra were delineated on the screen.? Point of interest were delineated as lateral masses of the above mentioned vertebrae bilaterally. The end points of needle advancements were chosen as the waistline on the silhouette?of the lateral masses bilaterally. The projection of the point of interest to the skin were injected with the small amount of local anesthetic lidocaine 2% mixed with ropivacaine 0.5% 1-1 approximately 1 cc.? After that 22 gauge 3.5 inch spinal needle were driven sequentially to the points of interest in tunnel vision fashion. After needles gently contacted the bone at the point of interests the needle was injected with small amount of the contrast.? The injection of the contrast did not demonstrate any intravascular or intrathecal spread of the contrast.? After that injection of the? ropivacaine 0.5%-1cc was performed at each needle location.?After that the needles were removed and Bandaids were applied. Orders: Orders FL guidance in treatment room Today M47.812 - Spondylosis without myelopathy or radiculopathy, cervical region Coding Level of Care Code Procedure Only Diagnoses Myofascial neck pain M54.2 Cervical spondylosis M47.812
[2025-05-30 10:57] VITALS: BP 114/60; PULSE 73; RESP 16; O2SAT 96
== END 2025-05-30 11:06 | disposition home or self-care (01) ==
LOC: HO.PMCPRC 10:28
PROVIDERS: PCP Internal Medicine; Visit Provider Anesthesiology
DX: M54.2 Cervicalgia (principal); M47.812 Spondylosis without myelopathy or radiculopathy, cervical region
CPT/HCPCS: 64490; 64491